=== PATIENT | female | born 1975 | race American Indian/Alaskan Native ===

== ENCOUNTER 2016-05-11 09:54 | Inpatient (IN) | payer OTHER ==
--- NOTE | 2016-05-11 10:02 | Emergency Department Report ---
HPI - General Time Seen by Provider: 05/11/16 09:56 - HPI HPI: Room 19 The patient is a 40-year-old female presenting with a chief complaint of seizures. Per EMS they were called for active seizures. Patient was actively seizing for approximately 25 minutes, stopped seizing en route to the hospital after administration of 2 mg of Ativan at 2.5 mg of Versed. The patient has a nasal trumpet and is currently postictal Location: Central nervous system Duration: 25 minutes Quality: Generalized tonic-clonic Severity: Severe Modifying factors: see above Context: see above Mode of transportation: not driving ED Past Medical Hx - Past Medical History Hx Hypertension: Yes Hx Seizures: Yes (Last seizure 2013) Additional medical history: Cerebral aneurysm status post repair 2011 - Surgical History Additional Surgical History: UMBRELLA TIPPER MACHINE shunt to left side. Cerebral aneurysm status post repair 2011 - Family History Family history: no significant - Social History Smoking Status: Never Smoker Substance Use Type: None - Medications Home Medications: Home Medications Medication Instructions Recorded Confirmed Last Taken Type Lisinopril/Hydrochlorothiazide 1 tab PO QDAY 01/23/16 01/23/16 Unknown History [Zestoretic 10-12.5 mg] Metoprolol Tartrate [Lopressor] 25 mg PO BID 01/23/16 01/23/16 Unknown History Mirtazapine 15 mg PO QHS 01/23/16 01/23/16 Unknown History Phenytoin [Dilantin] 100 mg PO BID 01/23/16 01/23/16 Unknown History ED Review of Systems ROS: Stated complaint: CONVULSIONS Other details as noted in HPI Comment: Unobtainable due to pts medical conditions Physical Exam - Physical Exam Physical Exam: GENERAL: The patient is well-developed well-nourished female lying on stretcher with nasal trumpet in place postictal. [] HEENT: Normocephalic. Atraumatic. Nasal trumpet in place. Patient has moist mucous membranes. NECK: Supple. Trachea midline CHEST/LUNGS: Clear to auscultation. There is no respiratory distress noted. HEART/CARDIOVASCULAR: Regular. There is tachycardia. There is no gallop rub or murmur. ABDOMEN: Abdomen is soft, nontender. Patient has normal bowel sounds. There is no abdominal distention. SKIN: There is no rash. There is no edema. There is no diaphoresis. NEURO: The patient is postictal MUSCULOSKELETAL: There is no evidence of acute injury. ED Course - Reevaluation(s) Reevaluation #1: 05/11/16 10:34 Patient began having seizure activity with a rightward gaze without return to baseline mental status prior to event. Patient was subsequently intubated for airway protection given status epilepticus ED Medical Decision Making - Lab Data Result diagrams: 05/11/16 10:49 05/11/16 10:49 Laboratory Tests 05/11/16 05/11/16 05/11/16 10:49 10:49 10:49 WBC 11.3 H RBC 4.40 Hgb 11.5 Hct 35.6 MCV 81 MCH 26 L MCHC 32 RDW 16.6 H Plt Count 420 Lymph % (Auto) 35.1 H [place] % (Auto) 8.3 H Eos % (Auto) 2.3 Baso % (Auto) 0.5 Lymph # 4.0 [place] # 0.9 H Eos # 0.3 Baso # 0.1 Seg Neutrophils % 53.8 Seg Neutrophils # 6.1 POC ABG pH POC ABG pCO2 POC ABG pO2 POC ABG HCO3 POC ABG Total CO2 POC ABG O2 Sat POC ABG Base Excess FiO2 Sodium 138 Potassium 3.9 Chloride 100.6 Carbon Dioxide 20 L Anion Gap 21 BUN 10 Creatinine 0.8 Estimated GFR > 60 BUN/Creatinine Ratio 12.50 Glucose 147 H Calcium 8.2 L Magnesium 2.1 Total Creatine Kinase Phenytoin 18.1 05/11/16 05/11/16 10:49 11:43 WBC RBC Hgb Hct MCV MCH MCHC RDW Plt Count Lymph % (Auto) [place] % (Auto) Eos % (Auto) Baso % (Auto) Lymph # [place] # Eos # Baso # Seg Neutrophils % Seg Neutrophils # POC ABG pH 7.374 POC ABG pCO2 50.5 H POC ABG pO2 415 H POC ABG HCO3 29.4 POC ABG Total CO2 31 POC ABG O2 Sat 100 POC ABG Base Excess 4 FiO2 100 Sodium Potassium Chloride Carbon Dioxide Anion Gap BUN Creatinine Estimated GFR BUN/Creatinine Ratio Glucose Calcium Magnesium Total Creatine Kinase 108 Phenytoin - Radiology Data Radiology results: report reviewed (CT head), image reviewed (chest x-ray, CT head) interpreted by me: Chest x-ray-ET tube in place. No pneumothorax, no focal infiltrates CT head (read by radiologist)-no acute change since 08/04/2012. Large areas of encephalomalacia throughout the left MCA distribution with evidence of surgical change. Ventricular size is stable. - Differential Diagnosis seizure Critical care attestation.: If time is entered above; I have spent that time in minutes in the direct care of this critically ill patient, excluding procedure time. ED Disposition Clinical Impression: Status epilepticus Disposition: OP ADMITTED IP TO THIS HOSP Is pt being admited?: Yes Does the pt Need Aspirin: No Condition: Serious Referrals: PRIMARY CARE, [Primary Care Provider] - 3-5 Days Time of Disposition: 12:32 (hospitalist paged) Blank Doc - Documentation Documentation: The patient was intubated via orotracheal route using a 7.0 mm endotracheal tube. Rapid sequence induction was used utilizing lidocaine 100 mg IV, succinylcholine 100 mg IV and etomidate 20 mg IV. Positioning was confirmed using auscultation and CO2 detector. Post intubation chest xray was ordered.
[2016-05-11] MEDS ORDERED: NACL 0.9% 1000 ML 1,000 ML IV ONE (10:03)
[2016-05-11] MEDS ORDERED: AMIDATE IV ONE (10:10)
[2016-05-11] MEDS ORDERED: VERSED IV ONE (10:10)
[2016-05-11] MEDS ORDERED: QUELICIN ONE (10:10)
[2016-05-11] MEDS ORDERED: XYLOCAINE CARDIAC IV ONE (10:10)
[2016-05-11] MEDS ORDERED: VERSED/NS 100MG/100ML 100 ML IV ONE (10:40)
[2016-05-11] MEDS: VERSED/NS 100MG/100ML 100 ML IV SCH ×2 (10:40→21:07)
--- NOTE | 2016-05-11 11:00 | XRay Report ---
PORTABLE CHEST INDICATION: Status post intubation. COMPARISON: 02/02/2016. FINDINGS: Portable, frontal chest radiograph, 10:47 AM, 05/11/2016 demonstrates a new endotracheal tube with its tip at or just above the newton. Stable PLASTIC SEWER shunt coursing over the left hemithorax medially. Limited inspiration with exaggerated cardiomediastinal silhouette and somewhat crowded lung markings centrally. Mild opacity about the left lateral costophrenic angle also not excluded versus projectional. Otherwise clear lungs. EKG leads. IVC filter. New mild gaseous gastric distention. Mild spinal dextrocurvature, possibly positional versus scoliosis. CONCLUSION: 1. Interval intubation with somewhat low lying endotracheal tube tip, as described that may be retracted by approximately 2 cm for more optimal placement, if so appropriate. 2. Other incidental findings, as above. Thank you for the opportunity to participate in this patient's care.
[2016-05-11 11:06] LABS: Basophils % (Auto) 0.5 % (0.0-1.8); Eosinophils % (Auto) 2.3 % (0.0-4.3); Hematocrit 35.6 % (30.3-42.9); Hemoglobin 11.5 gm/dl (10.1-14.3); Mean Corpuscular HGB Conc 32 % (30-34); Mean Corpuscular Hemoglobin 26 pg (28-32); Mean Corpuscular Volume 81 fl (79-97); Platelet Count 420 K/mm3 (140-440); Red Cell Distribution Width 16.6 % (13.2-15.2); White Blood Count 11.3 K/mm3 (4.5-11.0)
[2016-05-11 11:25] LABS: Blood Urea Nitrogen 10 mg/dL (7-17); Calcium 8.2 mg/dL (8.4-10.2); Carbon Dioxide 20 mmol/L (22-30); Chloride 100.6 mmol/L (98-107); Glucose 147 mg/dL (65-100); Magnesium 2.1 mg/dL (1.7-2.3); Potassium 3.9 mmol/L (3.6-5.0); Sodium 138 mmol/L (137-145)
[2016-05-11 11:28] LABS: Anion Gap 21 mmol/L
[2016-05-11] MEDS ORDERED: VASELINE LIP THERAPY TP PRN (11:29)
[2016-05-11] MEDS ORDERED: ARTIFICIAL TEARS OPHTH OINT OU PRN (11:29)
[2016-05-11] MEDS ORDERED: CALCIUM GLUCONATE 1,000 MG in NACL 0.9% 100 ML IV ONE (11:31)
[2016-05-11 11:48] LABS: ISTAT Base Excess 4; ISTAT HCO3 29.4; ISTAT PCO2 50.5 (35-45); ISTAT PH 7.374 (7.35-7.45); ISTAT PO2 415 (80-105); ISTAT SO2 100; ISTAT TCO2 31
--- NOTE | 2016-05-11 12:17 | Cat Scan Report ---
CT HEAD WITHOUT CONTRAST: HISTORY: Status epilepticus. Compared to 08/04/12. Left frontotemporal craniotomy changes are again noted. Large areas of encephalomalacia throughout the left MCA distribution is again noted. There is compensatory enlargement of the left lateral ventricle. A ventricular shunt is in place. Ventricular size is unchanged. The remaining brain parenchyma has normal attenuation. There is no evidence for hemorrhage, mass or large area of acute ischemia. Mild mucosal thickening is noted in the ethmoid and maxillary sinuses. IMPRESSION: No acute change since 08/04/12. Large areas of encephalomalacia throughout the left MCA distribution with evidence of surgical change. Ventricular size is stable.
--- NOTE | 2016-05-11 12:25 | Admit Criteria Form ---
Admission Criteria Documentation: SEIZURE Clinical Indications for Admission to Inpatient Care (Place 'X' for any and all applicable criteria): Admission is indicated for seizure and ANY ONE of the following(1)(2)(3)(4)(5): [ ]I. Inpatient admission required rather than observation care (Also use Seizure: Observation Care Criteria as appropriate) because of ANY ONE of the following: [ ]a) Altered mental status that is severe or persistent [ ]b) New focal neurologic deficit that is severe or persistent [ ]c) Metabolic disorder (eg, hypoglycemia, hyponatremia) that is severe or persistent [ ]d) Recurrent seizure [ ]e) Outpatient antiseizure regimen cannot be established (eg , patient cannot tolerate medication, initiation requires inpatient care) [ ]f) Need for ongoing intravenous infusion of antiseizure medication [ ]g) Cardiac arrhythmias of immediate concern [ ]h) Cerebral bleeding, hydrocephalus, or vasospasm monitoring (14) [ ]i) Increased intracranial pressure or cerebral edema monitoring (15) [ ]j) Other treatment or monitoring requiring inpatient admission [X ]II. Status epilepticus [A] or repetitive seizures not controlled with emergent treatment (6)(8) [ ]III. Brain disorder (eg, tumor, edema, and hydrocephalus) that requiring monitoring or intervention available only at inpatient level of care. [ ]IV. Brain insult (eg, severe trauma, stroke, drug toxicity, or withdrawal) that requires monitoring or intervention available only at inpatient level of care (10)(11) Extended stay beyond goal length of stay may be needed for (22) [ ]a) Complications of status epilepticus [ ]b) Refractory status epilepticus [ ]c) Etiology-specific therapy for conditions such as NUMERICAL TOOL PROGRAMMER infection, head injury,eclampsia, severe metabolic abnormalities, and brain tumor [ ]d) Residual neurologic damage, [ ]e) Initiation of significant change to anticonvulsant treatment [ ]f) Older patients (65 years or older) [ ]g) Patient requiring intubation (eg, to protect airway) The original [employer] content created by [facility] has been revised. The portions of the content which have been revised are identified through the use of italic text or in bold, and [facility] has neither reviewed nor approved the modified material. All other unmodified content is copyright [facility]. Please see references footnoted in the original [facility] edition 2016 Admission Criteria Met: Yes
[2016-05-11] MEDS ORDERED: MILK OF MAGNESIA PO PRN (13:20)
[2016-05-11] MEDS ORDERED: DULCOLAX PR PRN (13:20)
[2016-05-11] MEDS ORDERED: ALUM-MAG HYDROX-SIMETH 200-200-20MG/5ML PO PRN (13:20)
--- NOTE | 2016-05-11 13:31 | History and Physical Report ---
History of Present Illness Chief complaint: Seizure History of present illness: Developmental history: The patient was brought in for convulsive seizures. Apparently a positive report the seizures lasted about 25 minutes and only Procardia she received Ativan by EMS. Upon arrival to the hospital on patient was subsequently intubated. Unable to obtain any further history patient is intubated Past History Past Medical History: other (hypertension, seizure disorder, 31) aneurysm status post repair) Past Surgical History: Other (repair of cerebral aneurysm in 2011 and TIE BUCKER shunt placement to the left side) Social history: no significant social history Family history: no significant family history Medications and Allergies Allergies Allergy/AdvReac Type Severity Reaction Status Date / Time No Known Allergies Allergy Unverified 01/23/16 16:56 Home Medications Medication Instructions Recorded Confirmed Last Taken Type Lisinopril/Hydrochlorothiazide 1 tab PO QDAY 01/23/16 05/11/16 Unknown History [Zestoretic 10-12.5 mg] Metoprolol Tartrate [Lopressor] 25 mg PO BID 01/23/16 05/11/16 Unknown History Mirtazapine 15 mg PO QHS 01/23/16 05/11/16 Unknown History Phenytoin [Dilantin] 100 mg PO BID 01/23/16 05/11/16 Unknown History Active Meds: Active Medications Hydrophilic Ointment (Vaseline Lip Therapy) 1 applic TP Q2HR PRN PRN Reason: Dry Lips Midazolam HCl (Versed/Ns 100mg/100ml) 100 mls @ 1 mls/hr IV TITR SITA; 1 MG/HR PRN Reason: Protocol Last Titration: 05/11/16 13:05 Dose: 5 mg/hr Multi-Ingred Cream/Lotion/Oil/Oint (Artificial Tears Ophth Oint) 1 applic OU Q4HR PRN PRN Reason: Dry Eye(s) Review of Systems ROS unobtainable: due to endotracheal tube Exam - Physical Exam Narrative exam: General: Intubated sedated HEENT: MMM, EOMI, there is a negative on the nose cardiac: S1-S2 heard lungs: clear to auscultation, abdomen: soft, nontender, nondistended bowel sounds positive extremities: no edema clubbing or cyanosis Skin: no rash or lesion Neuro: Intubated, sedated - Constitutional Vitals: Temp Pulse Resp BP Pulse Ox 108 H 22 144/94 98 05/11/16 13:00 05/11/16 13:00 05/11/16 13:00 05/11/16 13:00 Results - Labs CBC & Chem 7: 05/11/16 10:49 05/11/16 10:49 Labs: Laboratory Last Values WBC 11.3 K/mm3 (4.5-11.0) H 05/11/16 10:49 RBC 4.40 M/mm3 (3.65-5.03) 05/11/16 10:49 Hgb 11.5 gm/dl (10.1-14.3) 05/11/16 10:49 Hct 35.6 % (30.3-42.9) 05/11/16 10:49 MCV 81 fl (79-97) 05/11/16 10:49 MCH 26 pg (28-32) L 05/11/16 10:49 MCHC 32 % (30-34) 05/11/16 10:49 RDW 16.6 % (13.2-15.2) H 05/11/16 10:49 Plt Count 420 K/mm3 (140-440) 05/11/16 10:49 Lymph % (Auto) 35.1 % (13.4-35.0) H 05/11/16 10:49 [place] % (Auto) 8.3 % (0.0-7.3) H 05/11/16 10:49 Eos % (Auto) 2.3 % (0.0-4.3) 05/11/16 10:49 Baso % (Auto) 0.5 % (0.0-1.8) 05/11/16 10:49 Lymph # 4.0 K/mm3 (1.2-5.4) 05/11/16 10:49 [place] # 0.9 K/mm3 (0.0-0.8) H 05/11/16 10:49 Eos # 0.3 K/mm3 (0.0-0.4) 05/11/16 10:49 Baso # 0.1 K/mm3 (0.0-0.1) 05/11/16 10:49 Seg Neutrophils % 53.8 % (40.0-70.0) 05/11/16 10:49 Seg Neutrophils # 6.1 K/mm3 (1.8-7.7) 05/11/16 10:49 POC ABG pH 7.374 (7.35-7.45) 05/11/16 11:43 POC ABG pCO2 50.5 (35-45) H 05/11/16 11:43 POC ABG pO2 415 (80-105) H 05/11/16 11:43 POC ABG HCO3 29.4 05/11/16 11:43 POC ABG Total CO2 31 05/11/16 11:43 POC ABG O2 Sat 100 05/11/16 11:43 POC ABG Base Excess 4 05/11/16 11:43 FiO2 100 % 05/11/16 11:43 Sodium 138 mmol/L (137-145) 05/11/16 10:49 Potassium 3.9 mmol/L (3.6-5.0) 05/11/16 10:49 Chloride 100.6 mmol/L (98-107) 05/11/16 10:49 Carbon Dioxide 20 mmol/L (22-30) L 05/11/16 10:49 Anion Gap 21 mmol/L 05/11/16 10:49 BUN 10 mg/dL (7-17) 05/11/16 10:49 Creatinine 0.8 mg/dL (0.7-1.2) 05/11/16 10:49 Estimated GFR > 60 ml/min 05/11/16 10:49 BUN/Creatinine Ratio 12.50 % 05/11/16 10:49 Glucose 147 mg/dL (65-100) H 05/11/16 10:49 Calcium 8.2 mg/dL (8.4-10.2) L 05/11/16 10:49 Magnesium 2.1 mg/dL (1.7-2.3) 05/11/16 10:49 Total Creatine Kinase 108 units/L (30-135) 05/11/16 10:49 Phenytoin 18.1 mg/L (10.0-20.0) 05/11/16 10:49 - Imaging and Cardiology Chest x-ray: image reviewed (no infiltrates) CT Scan - head: image reviewed (no interval changes, postsurgical changes seen on previous exam) Assessment and Plan Assessment and plan: 1. Status epilepticus Patient has been intubated, sedated, we'll switch her insulin to IV, however her phenytoin levels actually therapeutic patient did have a seizure, neurology consult, MRI brain and EEG 2. Hypertension Currently acceptable control, will watch blood pressure treatment as needed Critical care time spent: 35 minutes Plan of care discussed with patient/family: Yes
--- NOTE | 2016-05-11 13:58 | XRay Report ---
AP CHEST: HISTORY: Endotracheal tube placement The endotracheal tube terminates 1.7 cm superior to the newton. AP view of the chest demonstrates a normal mediastinal and cardiac contour with clear lungs and normal bony and soft tissue structures. IMPRESSION: Endotracheal tube as described. No acute process is noted.
[2016-05-11] MEDS ORDERED: DILANTIN IV SCH (14:00)
[2016-05-11] MEDS ORDERED: NACL 0.9% 1000 ML 1,000 ML IV SCH (14:00)
[2016-05-11] MEDS: DILANTIN IV SCH (15:30)
[2016-05-11] MEDS: NACL 0.9% IV SCH (15:30)
[2016-05-11] MEDS: fentaNYL DRIP Premix 100 ML IV SCH (21:08)
[2016-05-12] MEDS: NACL 0.9% IV SCH ×2 (02:25→14:56)
[2016-05-12] MEDS: DILANTIN IV SCH ×2 (02:25→14:56)
[2016-05-12] MEDS: fentaNYL DRIP Premix 100 ML IV SCH ×2 (03:26→08:45)
[2016-05-12 05:46] LABS: ISTAT Base Excess -2; ISTAT HCO3 21.3; ISTAT PCO2 27.6 (35-45); ISTAT PH 7.496 (7.35-7.45); ISTAT PO2 75 (80-105); ISTAT SO2 96; ISTAT TCO2 22
[2016-05-12 05:50] LABS: BUN/Creatinine Ratio 15.71; Blood Urea Nitrogen 11 mg/dL (7-17); Calcium 7.9 mg/dL (8.4-10.2); Carbon Dioxide 22 mmol/L (22-30); Glucose 94 mg/dL (65-100)
[2016-05-12 05:53] LABS: Basophils % (Auto) 0.4 % (0.0-1.8); Eosinophils % (Auto) 1.4 % (0.0-4.3); Hematocrit 29.3 % (30.3-42.9); Hemoglobin 9.7 gm/dl (10.1-14.3); Mean Corpuscular HGB Conc 33 % (30-34); Mean Corpuscular Hemoglobin 27 pg (28-32); Mean Corpuscular Volume 81 fl (79-97); Platelet Count 298 K/mm3 (140-440); Red Cell Distribution Width 16.8 % (13.2-15.2); White Blood Count 9.7 K/mm3 (4.5-11.0)
[2016-05-12 07:18] LABS: Anion Gap 17 mmol/L; Chloride 105.1 mmol/L (98-107); Potassium 3.3 mmol/L (3.6-5.0); Sodium 141 mmol/L (137-145)
[2016-05-12] MEDS: KCL 10MEQ/100ML 100 ML IV SCH ×4 (08:41→12:16)
--- NOTE | 2016-05-12 09:24 | Progress Note ---
Assessment and Plan Assessment and plan: 1. Status epilepticus. Continue seizure precautions. Patient admitted with therapeutic phenytoin levels. Consider adding Keppra IV. Neurology consultation pending. Follow-up EEG. 2. Acute hypoxic respiratory failure. Etiology secondary to #1. Continue ventilator per pulmonary. Wean as tolerated. CPAP trials today. Possible extubation later today. 3. Hypertension. Continue antihypertensive medications. 4. Intractable vomiting. Check KUB. Zofran 4 mg IV every [address] NG tube to low intermittent suction. 5. History of cerebral aneurysm and RN PATIENT CARE shunt. Continue supportive care. 6. DVT prophylaxis. Lovenox daily. The high probability of a clinically significant, sudden or life threatening deterioration of the [neurological and respiratory] system(s) required my full and direct attention, intervention and personal management. The aggregate critical care time was [31] minutes. This time is in addition to time spent performing reported procedures but includes the following: [x] Data Review and interpretation [x] Patient assessment and monitoring of vital signs [x] Documentation [x] Medication orders and management History Interval history: 40-year-old female who was admitted with status epilepticus and acute respiratory failure requiring intubation. Patient remains intubated on mechanical ventilation. No new seizure activity overnight. Hospitalist Physical - Constitutional Vitals: Temp Pulse Resp BP Pulse Ox 98.5 F 102 H 13 128/89 96 05/12/16 08:57 05/12/16 08:30 05/12/16 08:30 05/12/16 08:30 05/12/16 08:30 General appearance: Present: no acute distress, well-nourished - EENT Eyes: Present: PERRL, EOM intact ENT: hearing intact, clear oral mucosa, dentition normal - Neck Neck: Present: supple, normal ROM - Respiratory Respiratory effort: normal Respiratory: bilateral: diminished, rhonchi - Cardiovascular Rhythm: regular Heart Sounds: Present: S1 & S2. Absent: gallop, rub - Extremities Extremities: no ischemia, No edema, Full ROM - Abdominal General gastrointestinal: soft, non-tender, non-distended, normal bowel sounds - Integumentary Integumentary: Present: clear, warm, dry - Neurologic Neurologic: CNII-XII intact, moves all extremities Results - Labs CBC & Chem 7: 05/12/16 04:37 05/12/16 04:37 Labs: Laboratory Last Values WBC 9.7 K/mm3 (4.5-11.0) 05/12/16 04:37 RBC 3.60 M/mm3 (3.65-5.03) L 05/12/16 04:37 Hgb 9.7 gm/dl (10.1-14.3) L 05/12/16 04:37 Hct 29.3 % (30.3-42.9) L D 05/12/16 04:37 MCV 81 fl (79-97) 05/12/16 04:37 MCH 27 pg (28-32) L 05/12/16 04:37 MCHC 33 % (30-34) 05/12/16 04:37 RDW 16.8 % (13.2-15.2) H 05/12/16 04:37 Plt Count 298 K/mm3 (140-440) 05/12/16 04:37 Lymph % (Auto) 24.6 % (13.4-35.0) 05/12/16 04:37 [place] % (Auto) 11.6 % (0.0-7.3) H 05/12/16 04:37 Eos % (Auto) 1.4 % (0.0-4.3) 05/12/16 04:37 Baso % (Auto) 0.4 % (0.0-1.8) 05/12/16 04:37 Lymph # 2.4 K/mm3 (1.2-5.4) 05/12/16 04:37 [place] # 1.1 K/mm3 (0.0-0.8) H 05/12/16 04:37 Eos # 0.1 K/mm3 (0.0-0.4) 05/12/16 04:37 Baso # 0.0 K/mm3 (0.0-0.1) 05/12/16 04:37 Seg Neutrophils % 62.0 % (40.0-70.0) 05/12/16 04:37 Seg Neutrophils # 6.0 K/mm3 (1.8-7.7) 05/12/16 04:37 POC ABG pH 7.496 (7.35-7.45) H 05/12/16 05:39 POC ABG pCO2 27.6 (35-45) L 05/12/16 05:39 POC ABG pO2 75 (80-105) L 05/12/16 05:39 POC ABG HCO3 21.3 05/12/16 05:39 POC ABG Total CO2 22 05/12/16 05:39 POC ABG O2 Sat 96 05/12/16 05:39 POC ABG Base Excess -2 05/12/16 05:39 FiO2 30 % 05/12/16 05:39 Sodium 141 mmol/L (137-145) 05/12/16 04:37 Potassium 3.3 mmol/L (3.6-5.0) L 05/12/16 04:37 Chloride 105.1 mmol/L (98-107) 05/12/16 04:37 Carbon Dioxide 22 mmol/L (22-30) 05/12/16 04:37 Anion Gap 17 mmol/L 05/12/16 04:37 BUN 11 mg/dL (7-17) 05/12/16 04:37 Creatinine 0.7 mg/dL (0.7-1.2) 05/12/16 04:37 Estimated GFR > 60 ml/min 05/12/16 04:37 BUN/Creatinine Ratio 15.71 % 05/12/16 04:37 Glucose 94 mg/dL (65-100) 05/12/16 04:37 Calcium 7.9 mg/dL (8.4-10.2) L 05/12/16 04:37 Magnesium 2.1 mg/dL (1.7-2.3) 05/11/16 10:49 Total Creatine Kinase 108 units/L (30-135) 05/11/16 10:49 Phenytoin 18.1 mg/L (10.0-20.0) 05/11/16 10:49
[2016-05-12] MEDS ORDERED: ZOFRAN IV PRN (09:26)
[2016-05-12 10:06] LABS: ISTAT Base Excess -1; ISTAT HCO3 24.4; ISTAT PCO2 41.9 (35-45); ISTAT PH 7.372 (7.35-7.45); ISTAT PO2 73 (80-105); ISTAT SO2 94; ISTAT TCO2 26
[2016-05-12] MEDS: PEPCID IV SCH ×2 (10:15→22:00)
--- NOTE | 2016-05-12 11:32 | Consultation ---
History of Present Illness Consult date: 05/12/16 Requesting physician: DIRK JENKINS Reason for consult: other (Acute Respiratory Failure; Seizures) History of present illness: PULMONARY/CCM CONSULT NOTE ([facility] dictation # [id number]) Please see dictated notes for full details Past History Past Medical History: other (hypertension, seizure disorder, 31) aneurysm status post repair) Past Surgical History: Other (repair of cerebral aneurysm in 2011 and CHIEF MEDICAL TECHNOLOGIST shunt placement to the left side) Social history: no significant social history Family history: no significant family history Medications and Allergies Allergies Allergy/AdvReac Type Severity Reaction Status Date / Time No Known Allergies Allergy Unverified 01/23/16 16:56 Home Medications Medication Instructions Recorded Confirmed Last Taken Type Lisinopril/Hydrochlorothiazide 1 tab PO QDAY 01/23/16 05/11/16 Unknown History [Zestoretic 10-12.5 mg] Metoprolol Tartrate [Lopressor] 25 mg PO BID 01/23/16 05/11/16 Unknown History Mirtazapine 15 mg PO QHS 01/23/16 05/11/16 Unknown History Phenytoin [Dilantin] 100 mg PO BID 01/23/16 05/11/16 Unknown History Active Meds: Active Medications Al Hydrox/Mg Hydrox/Simethicone (Alum-Mag Hydrox-Simeth [id number]/5ml) 30 ml PO Q4H PRN PRN Reason: Indigestion Bisacodyl (Dulcolax) 10 mg NV QDAY PRN PRN Reason: constipation unrelieved by MOM Famotidine (Pepcid) 20 mg IV BID SITA Last Admin: 05/12/16 10:15 Dose: 20 mg Hydrophilic Ointment (Vaseline Lip Therapy) 1 applic TP Q2HR PRN PRN Reason: Dry Lips Midazolam HCl (Versed/Ns 100mg/100ml) 100 mls @ 1 mls/hr IV TITR SITA; 1 MG/HR PRN Reason: Protocol Last Titration: 05/12/16 08:46 Dose: 4 mg/hr Fentanyl Citrate (Fentanyl Drip Premix) 100 mls @ 4.309 mls/hr IV TITR SITA; 1 MCG/KG/HR PRN Reason: Protocol Last Admin: 05/12/16 08:45 Dose: 17.237 mls/hr Sodium Chloride (Nacl 0.9% 1000 Ml) 1,000 mls @ 100 mls/hr IV DIRECT SITA Phenytoin 100 mg/ Sodium (Chloride) 52 mls @ 500 mls/hr IV Q12H SITA Last Admin: 05/12/16 02:25 Dose: 500 mls/hr Potassium Chloride (Kcl 10meq/100ml) 100 mls @ 100 mls/hr IV Q1H SITA Stop: 05/12/16 12:59 Last Admin: 05/12/16 10:16 Dose: 100 mls/hr Influenza Virus Vaccine Quadrival (Fluarix Quad [id number](36 Mos+)) 60 mcg IM .ONCE ONE Stop: 05/12/16 12:01 Magnesium Hydroxide (Milk Of Magnesia) 30 ml PO Q4H PRN PRN Reason: Constipation Multi-Ingred Cream/Lotion/Oil/Oint (Artificial Tears Ophth Oint) 1 applic OU Q4HR PRN PRN Reason: Dry Eye(s) Ondansetron HCl (Zofran) 4 mg IV Q4H PRN PRN Reason: Nausea And Vomiting Last Admin: 05/12/16 10:00 Dose: 4 mg Physical Examination Vital signs: Vital Signs Pulse Ox 96 05/11/16 09:56 Results - Laboratory Findings CBC and BMP: 05/12/16 04:37 05/12/16 04:37 ABG POC ABG pH 7.372 (7.35-7.45) 05/12/16 10:01 POC ABG pCO2 41.9 (35-45) 05/12/16 10:01 POC ABG pO2 73 (80-105) L 05/12/16 10:01 POC ABG HCO3 24.4 05/12/16 10:01 POC ABG Total CO2 26 05/12/16 10:01 POC ABG O2 Sat 94 05/12/16 10:01 Abnormal lab findings: Abnormal Labs 05/12/16 05/12/16 05/12/16 04:37 04:37 05:39 RBC 3.60 L Hgb 9.7 L Hct 29.3 L D MCH 27 L RDW 16.8 H [place] % (Auto) 11.6 H [place] # 1.1 H POC ABG pH 7.496 H POC ABG pCO2 27.6 L POC ABG pO2 75 L Potassium 3.3 L Calcium 7.9 L 05/12/16 10:01 RBC Hgb Hct MCH RDW [place] % (Auto) [place] # POC ABG pH POC ABG pCO2 POC ABG pO2 73 L Potassium Calcium
--- NOTE | 2016-05-12 11:33 | XRay Report ---
ABDOMEN RADIOGRAPH: INDICATION: Vomiting. COMPARISON: None similar. FINDINGS: Frontal abdominal radiograph demonstrates overall nonobstructive bowel gas pattern. Mild to moderate colonic stool/possible constipation. No focal suspicious calcifications or pneumatosis. Lung bases though incompletely imaged with right hemidiaphragm possibly slightly elevated. A AUTOMOTIVE PAINT TECHNICIAN shunt noted in the left hemiabdomen with its tip projecting over the stomach and directed cephalad towards the right shoulder. An IVC filter projects over T12-L2 vertebral bodies. EKG leads. Unremarkable bones. CONCLUSION: No acute abdominal radiographic abnormality with various other findings, as described. Thank you for the opportunity to participate in this patient's care.
[2016-05-12] MEDS ORDERED: FLUARIX QUAD 2016-2017(36 MOS+) IM ONE (12:00)
[2016-05-12] MEDS: LOVENOX SUB-Q SCH (13:10)
--- NOTE | 2016-05-12 13:50 | Consultation ---
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) Social history: no significant social history Family history: no significant family history Medications and Allergies Allergies Allergy/AdvReac Type Severity Reaction Status Date / Time No Known Allergies Allergy Unverified 01/23/16 16:56 Home Medications Medication Instructions Recorded Confirmed Last Taken Type Lisinopril/Hydrochlorothiazide 1 tab PO QDAY 01/23/16 05/11/16 Unknown History [Zestoretic 10-12.5 mg] Metoprolol Tartrate [Lopressor] 25 mg PO BID 01/23/16 05/11/16 Unknown History Mirtazapine 15 mg PO QHS 01/23/16 05/11/16 Unknown History Phenytoin [Dilantin] 100 mg PO BID 01/23/16 05/11/16 Unknown History Active Meds: Active Medications Al Hydrox/Mg Hydrox/Simethicone (Alum-Mag Hydrox-Simeth [phone]/5ml) 30 ml PO Q4H PRN PRN Reason: Indigestion Bisacodyl (Dulcolax) 10 mg [place] QDAY PRN PRN Reason: constipation unrelieved by MOM Enoxaparin Sodium (Lovenox) 40 mg SUB-Q QDAY@1000 SITA Last Admin: 05/12/16 13:10 Dose: 40 mg Famotidine (Pepcid) 20 mg IV BID SITA Last Admin: 05/12/16 10:15 Dose: 20 mg Hydrophilic Ointment (Vaseline Lip Therapy) 1 applic TP Q2HR PRN PRN Reason: Dry Lips Midazolam HCl (Versed/Ns 100mg/100ml) 100 mls @ 1 mls/hr IV TITR SITA; 1 MG/HR PRN Reason: Protocol Last Titration: 05/12/16 08:46 Dose: 4 mg/hr Fentanyl Citrate (Fentanyl Drip Premix) 100 mls @ 4.309 mls/hr IV TITR SITA; 1 MCG/KG/HR PRN Reason: Protocol Last Admin: 05/12/16 08:45 Dose: 17.237 mls/hr Sodium Chloride (Nacl 0.9% 1000 Ml) 1,000 mls @ 100 mls/hr IV DIRECT SITA Phenytoin 100 mg/ Sodium (Chloride) 52 mls @ 500 mls/hr IV Q12H SITA Last Admin: 05/12/16 02:25 Dose: 500 mls/hr Magnesium Hydroxide (Milk Of Magnesia) 30 ml PO Q4H PRN PRN Reason: Constipation Multi-Ingred Cream/Lotion/Oil/Oint (Artificial Tears Ophth Oint) 1 applic OU Q4HR PRN PRN Reason: Dry Eye(s) Ondansetron HCl (Zofran) 4 mg IV Q4H PRN PRN Reason: Nausea And Vomiting Last Admin: 05/12/16 10:00 Dose: 4 mg Exam - Constitutional Vitals: Temp Pulse Resp BP Pulse Ox 98.7 F 100 H 15 136/80 100 05/12/16 12:00 05/12/16 12:53 05/12/16 11:16 05/12/16 12:53 05/12/16 12:53 Results - Labs CBC & Chem 7: 05/12/16 04:37 05/12/16 04:37 Labs: Abnormal lab results 05/12/16 05/12/16 05/12/16 Range/Units 04:37 04:37 05:39 RBC 3.60 L (3.65-5.03) M/mm3 Hgb 9.7 L (10.1-14.3) gm/dl Hct 29.3 L D (30.3-42.9) % MCH 27 L (28-32) pg RDW 16.8 H (13.2-15.2) % [place] % (Auto) 11.6 H (0.0-7.3) % [place] # 1.1 H (0.0-0.8) K/mm3 POC ABG pH 7.496 H (7.35-7.45) POC ABG pCO2 27.6 L (35-45) POC ABG pO2 75 L (80-105) Potassium 3.3 L (3.6-5.0) mmol/L Calcium 7.9 L (8.4-10.2) mg/dL 05/12/16 Range/Units 10:01 RBC (3.65-5.03) M/mm3 Hgb (10.1-14.3) gm/dl Hct (30.3-42.9) % MCH (28-32) pg RDW (13.2-15.2) % [place] % (Auto) (0.0-7.3) % [place] # (0.0-0.8) K/mm3 POC ABG pH (7.35-7.45) POC ABG pCO2 (35-45) POC ABG pO2 73 L (80-105) Potassium (3.6-5.0) mmol/L Calcium (8.4-10.2) mg/dL
[2016-05-12] MEDS ORDERED: LOVENOX SUB-Q SCH (22:00)
[2016-05-13] MEDS: DILANTIN IV SCH (03:17)
[2016-05-13] MEDS: NACL 0.9% IV SCH (03:17)
[2016-05-13 04:57] LABS: Blood Urea Nitrogen 6 mg/dL (7-17); Calcium 8.2 mg/dL (8.4-10.2); Carbon Dioxide 23 mmol/L (22-30); Chloride 103.9 mmol/L (98-107); Glucose 94 mg/dL (65-100); Potassium 3.9 mmol/L (3.6-5.0); Sodium 141 mmol/L (137-145)
[2016-05-13 05:05] LABS: Anion Gap 18 mmol/L
--- NOTE | 2016-05-13 09:26 | Progress Note ---
Assessment and Plan Assessment and plan: 1. Status epilepticus. Resolved. Continue seizure precautions. Continue phenytoin. Follow-up EEG. Neurology following. 2. Acute hypoxic respiratory failure. Patient extubated and doing well. 3. Hypertension. Continue antihypertensive medications. 4. Intractable vomiting. Resolved. Continue Zofran when necessary. KUB negative. 5. History of cerebral aneurysm and DIALYSIS TECH shunt. Continue supportive care. 6. DVT prophylaxis. Lovenox daily. 7. Disposition. Patient will be transferred to the floor. History Interval history: 40-year-old female who was admitted with status epilepticus and acute respiratory failure requiring intubation. Patient is now extubated and doing well. No new seizure activity. Hospitalist Physical - Constitutional Vitals: Temp Pulse Resp BP Pulse Ox 98.1 F 95 H 9 L 152/95 100 05/13/16 08:00 05/13/16 08:30 05/13/16 08:30 05/13/16 08:30 05/13/16 08:41 General appearance: Present: no acute distress, well-nourished - EENT Eyes: Present: PERRL, EOM intact ENT: hearing intact, clear oral mucosa, dentition normal - Neck Neck: Present: supple, normal ROM - Respiratory Respiratory effort: normal Respiratory: bilateral: CTA - Cardiovascular Rhythm: regular Heart Sounds: Present: S1 & S2. Absent: gallop, rub - Extremities Extremities: no ischemia, No edema, Full ROM - Abdominal General gastrointestinal: soft, non-tender, non-distended, normal bowel sounds - Integumentary Integumentary: Present: clear, warm, dry - Neurologic Neurologic: CNII-XII intact, moves all extremities Results - Labs CBC & Chem 7: 05/12/16 04:37 05/13/16 04:15 Labs: Laboratory Last Values WBC 9.7 K/mm3 (4.5-11.0) 05/12/16 04:37 RBC 3.60 M/mm3 (3.65-5.03) L 05/12/16 04:37 Hgb 9.7 gm/dl (10.1-14.3) L 05/12/16 04:37 Hct 29.3 % (30.3-42.9) L D 05/12/16 04:37 MCV 81 fl (79-97) 05/12/16 04:37 MCH 27 pg (28-32) L 05/12/16 04:37 MCHC 33 % (30-34) 05/12/16 04:37 RDW 16.8 % (13.2-15.2) H 05/12/16 04:37 Plt Count 298 K/mm3 (140-440) 05/12/16 04:37 Lymph % (Auto) 24.6 % (13.4-35.0) 05/12/16 04:37 [place] % (Auto) 11.6 % (0.0-7.3) H 05/12/16 04:37 Eos % (Auto) 1.4 % (0.0-4.3) 05/12/16 04:37 Baso % (Auto) 0.4 % (0.0-1.8) 05/12/16 04:37 Lymph # 2.4 K/mm3 (1.2-5.4) 05/12/16 04:37 [place] # 1.1 K/mm3 (0.0-0.8) H 05/12/16 04:37 Eos # 0.1 K/mm3 (0.0-0.4) 05/12/16 04:37 Baso # 0.0 K/mm3 (0.0-0.1) 05/12/16 04:37 Seg Neutrophils % 62.0 % (40.0-70.0) 05/12/16 04:37 Seg Neutrophils # 6.0 K/mm3 (1.8-7.7) 05/12/16 04:37 POC ABG pH 7.372 (7.35-7.45) 05/12/16 10:01 POC ABG pCO2 41.9 (35-45) 05/12/16 10:01 POC ABG pO2 73 (80-105) L 05/12/16 10:01 POC ABG HCO3 24.4 05/12/16 10:01 POC ABG Total CO2 26 05/12/16 10:01 POC ABG O2 Sat 94 05/12/16 10:01 POC ABG Base Excess -1 05/12/16 10:01 FiO2 35 % 05/12/16 10:01 Sodium 141 mmol/L (137-145) 05/13/16 04:15 Potassium 3.9 mmol/L (3.6-5.0) 05/13/16 04:15 Chloride 103.9 mmol/L (98-107) 05/13/16 04:15 Carbon Dioxide 23 mmol/L (22-30) 05/13/16 04:15 Anion Gap 18 mmol/L 05/13/16 04:15 BUN 6 mg/dL (7-17) L 05/13/16 04:15 Creatinine 0.6 mg/dL (0.7-1.2) L 05/13/16 04:15 Estimated GFR > 60 ml/min 05/13/16 04:15 BUN/Creatinine Ratio 10.00 % 05/13/16 04:15 Glucose 94 mg/dL (65-100) 05/13/16 04:15 Calcium 8.2 mg/dL (8.4-10.2) L 05/13/16 04:15 Magnesium 2.1 mg/dL (1.7-2.3) 05/11/16 10:49 Total Creatine Kinase 108 units/L (30-135) 05/11/16 10:49 Phenytoin 18.1 mg/L (10.0-20.0) 05/11/16 10:49
--- NOTE | 2016-05-13 10:13 | Progress Note ---
Assessment and Plan - Patient Problems (1) Status epilepticus Current Visit: Yes Status: Acute Plan to address problem: - not in status now - continue AED's - neurology to see - MRI ordered (2) Acute hypoxemic respiratory failure Current Visit: Yes Status: Acute Plan to address problem: - continue aspiration / VAP bundles - continue bronchodilators and pulmonary toilet - extubate if still meets criteria after MRI (3) Discharge planning issues Current Visit: Yes Status: Acute Plan to address problem: - hopefully extubates and can transfer to medical floor shortly .....critically ill on life sustaining interventions including MVS at risk for further deterioration ....34' CCT Subjective Date of service: 05/13/16 Principal diagnosis: Acute Hypoxemic Respiratory Failure; Seizure disorder Interval history: Seen and examined at bedside; 24 hour events reviewed; nursing and respiratory care staff consulted; no adverse overnight events reported to me; more alert; denies acute chest pains or increased SOB; tolerating weaning very well amnd no recurrent seizures Objective Vital Signs - 12hr 05/12/16 05/12/16 05/12/16 22:16 22:30 22:46 Temperature Pulse Rate 101 H 92 H 97 H Respiratory 20 20 25 H Rate Blood Pressure 135/99 138/89 138/89 O2 Sat by Pulse 100 100 100 Oximetry 05/12/16 05/12/16 05/12/16 23:00 23:14 23:16 Temperature Pulse Rate 95 H 98 H 92 H Respiratory 21 18 20 Rate Blood Pressure 141/91 141/91 141/91 O2 Sat by Pulse 100 100 100 Oximetry 05/12/16 05/12/16 05/13/16 23:30 23:46 00:00 Temperature 99.0 F Pulse Rate 92 H 93 H 93 H Respiratory 18 14 16 Rate Blood Pressure 136/85 136/85 138/84 O2 Sat by Pulse 100 100 100 Oximetry 05/13/16 05/13/16 05/13/16 00:16 00:30 00:32 Temperature Pulse Rate 92 H 92 H 94 H Respiratory 23 21 25 H Rate Blood Pressure 138/84 128/87 128/87 O2 Sat by Pulse 100 100 100 Oximetry 05/13/16 05/13/16 05/13/16 00:46 01:00 01:16 Temperature Pulse Rate 90 90 91 H Respiratory 18 19 26 H Rate Blood Pressure 128/87 130/89 130/89 O2 Sat by Pulse 100 100 100 Oximetry 05/13/16 05/13/16 05/13/16 01:30 01:46 02:00 Temperature Pulse Rate 89 90 97 H Respiratory 19 21 17 Rate Blood Pressure 132/84 132/84 140/97 O2 Sat by Pulse 100 100 100 Oximetry 05/13/16 05/13/16 05/13/16 02:16 02:30 02:36 Temperature Pulse Rate 110 H 92 H 96 H Respiratory 13 17 13 Rate Blood Pressure 140/97 133/82 133/82 O2 Sat by Pulse 100 100 100 Oximetry 05/13/16 05/13/16 05/13/16 02:46 03:00 03:10 Temperature Pulse Rate 93 H 93 H 95 H Respiratory 15 18 21 Rate Blood Pressure 133/82 137/87 133/82 O2 Sat by Pulse 100 100 100 Oximetry 05/13/16 05/13/16 05/13/16 03:16 03:30 03:46 Temperature Pulse Rate 101 H 98 H 90 Respiratory 18 14 15 Rate Blood Pressure 133/82 135/92 135/92 O2 Sat by Pulse 100 100 100 Oximetry 05/13/16 05/13/16 05/13/16 04:00 04:16 04:30 Temperature 98.4 F Pulse Rate 97 H 96 H 90 Respiratory 14 12 12 Rate Blood Pressure 138/91 138/91 145/92 O2 Sat by Pulse 100 100 100 Oximetry 05/13/16 05/13/16 05/13/16 04:46 05:00 05:06 Temperature Pulse Rate 92 H 86 97 H Respiratory 18 15 16 Rate Blood Pressure 145/92 149/95 149/95 O2 Sat by Pulse 100 100 100 Oximetry 05/13/16 05/13/16 05/13/16 05:16 05:30 05:46 Temperature Pulse Rate 90 90 96 H Respiratory 16 16 13 Rate Blood Pressure 149/95 144/96 144/96 O2 Sat by Pulse 100 100 100 Oximetry 05/13/16 05/13/16 05/13/16 06:00 06:06 06:30 Temperature Pulse Rate 88 86 89 Respiratory 18 18 17 Rate Blood Pressure 134/97 134/97 149/91 O2 Sat by Pulse 100 100 100 Oximetry 05/13/16 05/13/16 05/13/16 07:00 07:30 08:00 Temperature 98.1 F Pulse Rate 94 H 103 H 101 H Respiratory 21 15 10 L Rate Blood Pressure 136/90 152/95 152/95 O2 Sat by Pulse 100 100 100 Oximetry 05/13/16 05/13/16 08:30 08:41 Temperature Pulse Rate 95 H Respiratory 9 L Rate Blood Pressure 152/95 O2 Sat by Pulse 100 100 Oximetry Constitutional: no acute distress Eyes: non-icteric ENT: oropharynx moist Neck: supple Effort: normal Ascultation: Bilateral: clear Cardiovascular: regular rate and rhythm Gastrointestinal: normoactive bowel sounds, soft, non-tender, non-distended Integumentary: normal Extremities: no cyanosis, no edema, pulses normal, no ischemia or petechiae Neurologic: normal mental status, non-focal exam, pupils equal and round, motor strength normal and Psychiatric: mood appropriate, affect normal CBC and BMP: 05/12/16 04:37 05/13/16 04:15 ABG, PT/INR, D-dimer: ABG POC ABG pH 7.372 (7.35-7.45) 05/12/16 10:01 POC ABG pCO2 41.9 (35-45) 05/12/16 10:01 POC ABG pO2 73 (80-105) L 05/12/16 10:01 POC ABG HCO3 24.4 05/12/16 10:01 POC ABG Total CO2 26 05/12/16 10:01 POC ABG O2 Sat 94 05/12/16 10:01 Abnormal lab findings: Abnormal Labs 05/12/16 05/12/16 05/12/16 04:37 04:37 05:39 RBC 3.60 L Hgb 9.7 L Hct 29.3 L D MCH 27 L RDW 16.8 H [place] % (Auto) 11.6 H [place] # 1.1 H POC ABG pH 7.496 H POC ABG pCO2 27.6 L POC ABG pO2 75 L Potassium 3.3 L BUN Creatinine Calcium 7.9 L 05/12/16 05/13/16 10:01 04:15 RBC Hgb Hct MCH RDW [place] % (Auto) [place] # POC ABG pH POC ABG pCO2 POC ABG pO2 73 L Potassium BUN 6 L Creatinine 0.6 L Calcium 8.2 L Chest x-ray: image reviewed
[2016-05-13] MEDS: PEPCID PO SCH ×2 (11:11→22:19)
[2016-05-13] MEDS: DILANTIN PO SCH (11:11)
[2016-05-13] MEDS: LOVENOX SUB-Q SCH (11:12)
--- NOTE | 2016-05-13 13:46 | Progress Note ---
Assessment and Plan - Patient Problems (1) Status epilepticus Current Visit: Yes Status: Acute Plan to address problem: - not in status now - continue AED's - seen by neurology (2) Acute hypoxemic respiratory failure Current Visit: Yes Status: Acute Plan to address problem: - extubated - prn bronchodilators and supplemental oxygen (3) Discharge planning issues Current Visit: Yes Status: Acute Plan to address problem: - transfer to medical floor Subjective Date of service: 05/13/16 Principal diagnosis: Seizures; Acute Resp Failure s/p MVS Interval history: Seen and examined at bedside; 24 hour events reviewed; nursing and respiratory care staff consulted; no adverse overnight events reported to me; extubated and tolerating well; No N/V/F/C; could not get MRI done yesterday re: unable to fill [email or web address] Objective Vital Signs - 12hr 05/13/16 05/13/16 05/13/16 01:46 02:00 02:16 Temperature Pulse Rate 90 97 H 110 H Respiratory 21 17 13 Rate Blood Pressure 132/84 140/97 140/97 O2 Sat by Pulse 100 100 100 Oximetry 05/13/16 05/13/16 05/13/16 02:30 02:36 02:46 Temperature Pulse Rate 92 H 96 H 93 H Respiratory 17 13 15 Rate Blood Pressure 133/82 133/82 133/82 O2 Sat by Pulse 100 100 100 Oximetry 05/13/16 05/13/16 05/13/16 03:00 03:10 03:16 Temperature Pulse Rate 93 H 95 H 101 H Respiratory 18 21 18 Rate Blood Pressure 137/87 133/82 133/82 O2 Sat by Pulse 100 100 100 Oximetry 05/13/16 05/13/16 05/13/16 03:30 03:46 04:00 Temperature 98.4 F Pulse Rate 98 H 90 97 H Respiratory 14 15 14 Rate Blood Pressure 135/92 135/92 138/91 O2 Sat by Pulse 100 100 100 Oximetry 05/13/16 05/13/16 05/13/16 04:16 04:30 04:46 Temperature Pulse Rate 96 H 90 92 H Respiratory 12 12 18 Rate Blood Pressure 138/91 145/92 145/92 O2 Sat by Pulse 100 100 100 Oximetry 05/13/16 05/13/16 05/13/16 05:00 05:06 05:16 Temperature Pulse Rate 86 97 H 90 Respiratory 15 16 16 Rate Blood Pressure 149/95 149/95 149/95 O2 Sat by Pulse 100 100 100 Oximetry 05/13/16 05/13/16 05/13/16 05:30 05:46 06:00 Temperature Pulse Rate 90 96 H 88 Respiratory 16 13 18 Rate Blood Pressure 144/96 144/96 134/97 O2 Sat by Pulse 100 100 100 Oximetry 05/13/16 05/13/16 05/13/16 06:06 06:30 07:00 Temperature Pulse Rate 86 89 94 H Respiratory 18 17 21 Rate Blood Pressure 134/97 149/91 136/90 O2 Sat by Pulse 100 100 100 Oximetry 05/13/16 05/13/16 05/13/16 07:30 08:00 08:30 Temperature 98.1 F Pulse Rate 103 H 101 H 95 H Respiratory 15 10 L 9 L Rate Blood Pressure 152/95 152/95 152/95 O2 Sat by Pulse 100 100 100 Oximetry 05/13/16 05/13/16 08:41 11:47 Temperature 98.8 F Pulse Rate Respiratory Rate Blood Pressure O2 Sat by Pulse 100 Oximetry Constitutional: no acute distress Eyes: non-icteric ENT: oropharynx moist Neck: supple Effort: normal Ascultation: Bilateral: clear, diminished breath sounds (bases) Cardiovascular: regular rate and rhythm Gastrointestinal: normoactive bowel sounds, soft, non-tender, non-distended Integumentary: normal Extremities: no cyanosis, no edema, pulses normal, no ischemia or petechiae Neurologic: normal mental status, non-focal exam, pupils equal and round Psychiatric: mood appropriate, affect normal CBC and BMP: 05/12/16 04:37 05/13/16 04:15 ABG, PT/INR, D-dimer: ABG POC ABG pH 7.372 (7.35-7.45) 05/12/16 10:01 POC ABG pCO2 41.9 (35-45) 05/12/16 10:01 POC ABG pO2 73 (80-105) L 05/12/16 10:01 POC ABG HCO3 24.4 05/12/16 10:01 POC ABG Total CO2 26 05/12/16 10:01 POC ABG O2 Sat 94 05/12/16 10:01 Abnormal lab findings: Abnormal Labs 05/12/16 05/12/16 05/12/16 04:37 04:37 05:39 RBC 3.60 L Hgb 9.7 L Hct 29.3 L D MCH 27 L RDW 16.8 H [place] % (Auto) 11.6 H [place] # 1.1 H POC ABG pH 7.496 H POC ABG pCO2 27.6 L POC ABG pO2 75 L Potassium 3.3 L BUN Creatinine Calcium 7.9 L 05/12/16 05/13/16 10:01 04:15 RBC Hgb Hct MCH RDW [place] % (Auto) [place] # POC ABG pH POC ABG pCO2 POC ABG pO2 73 L Potassium BUN 6 L Creatinine 0.6 L Calcium 8.2 L
--- NOTE | 2016-05-13 14:31 | Consultation ---
CONSULTING PHYSICIAN: Tessy Whatley MD REASON FOR CONSULTATION: Ventilator support, acute respiratory failure. CHIEF COMPLAINT AND HISTORY OF PRESENT ILLNESS: The patient is a 40-year-old -Turk[place] female with past medical history significant for a diagnosis of seizure disorder who according to her taking her medications, emergency medical services were called for active seizures yesterday. She was actively seizing for about 25 minutes. They report she stopped seizing en route the hospital. She was postictal at that time she presented in the Emergency Room; however, she again started having seizures and she was intubated for airway protection. We were asked to assist in management. When I stopped by to see her, she was doing better. She was coherent. She remained on the ventilator. She was tolerating with weaning trials very well at that time. She denied any nausea, vomiting, or overt aspiration. She denied tobacco use or abuse. She stated that she has been intubated before in the past. She stated she had been compliant with her medications. That really is as much of the history of presentation as I have. PAST MEDICAL HISTORY: Again, significant for seizure disorders and history of a cerebral aneurysm, status post repair in 2011. She is obese also, . PAST SURGICAL HISTORY: She had a TRAINING DIRECTOR shunt in the left cerebral hemisphere and again, the cerebral aneurysm report. MEDICATIONS: She was on at the time I stopped by to see her, according to the medication administration record included the following: Lovenox 40 mg subcutaneous daily, p.r.n. Dulcolax, Pepcid 20 mg IV b.i.d. She was on a fentanyl drip at 1 mcg/kg per hour, p.r.n. milk of magnesia, Versed 1 mg per hour, Zofran 4 mg IV q. 4 hours p.r.n. She had received Dilantin and she was on Dilantin 100 mg IV q. 12 hours scheduled. ALLERGIES: No known drug allergies. DIET: Obese lady, acute weight loss or gain history is unknown. FAMILY AND SOCIAL HISTORY: Apparently, lives in the community. She had denied alcohol, tobacco, or illicit drug use or abuse. REVIEW OF SYSTEMS: Unobtainable secondary to the patient's medical and mental condition. Since she has been here, no gross hematochezia or melena. No gross hematuria. No hematemesis. No bloody tracheal secretions. PHYSICAL EXAMINATION: VITAL SIGNS: At initial presentation in the Emergency Room, review of the vital signs shows that she was afebrile, temperature was 98.6 at presentation, pulse was 122, respiratory rate 26, blood pressure 160/108, oxygen sats 96%, inspired oxygen concentration was not recorded. HEENT: Pupils are equal, round, reactive to light. Extraocular muscle movements were intact. Oropharynx, endotracheal tube was in place, taped around 23-24 cm. Grossly, no palpable lymph nodes in the supraclavicular or submandibular lymph node chains. LUNGS: Auscultation of both lung andrew, occasional basilar rhonchi, no wheezing. HEART: Heart sounds 1 and 2 are heard at the time of my evaluation, regular rate and rhythm. ABDOMEN: Soft. Bowel sounds was positive, nontender. EXTREMITIES: Without overt digital clubbing, cyanosis, or pedal edema. NEUROLOGIC: Grossly nonfocal. LABORATORY DATA: From my review are as follows: White cell count at presentation 11,300, hemoglobin 11.5, hematocrit 35.6, platelet count 420. Arterial blood gas showed a pH of 7.37, pCO2 of 51, pO2 of 415 that was on 100% FIO2. Post-intubation ventilator settings at that time were not recorded. Serum sodium 138, potassium 3.9, chloride 101, bicarbonate 20, BUN 10, creatinine 0.8, glucose 147. Dilantin level was 18.1. Radiographic studies have been reviewed. A CT scan of the head was done, it was read by the radiologist as no acute change since 2012 with large areas of encephalomalacia. Chest x-ray was also done, post-intubation chest x-ray, endotracheal tube 1.7 cm superior to the [place], otherwise no acute process. ASSESSMENT AND PLAN: We have a middle-aged lady in with sustained seizures requiring intubation. She seems to have done very well, neurologist wants an MRI done. The plan will be to allow her to go for the MRI under controlled airway and when she comes back, we will plan to extubate her as long she has been missing weaning criteria. Bronchodilators will be on a p.r.n. basis. Aspiration precautions will be maintained. Oxygen therapy will be for O2 sats less than 90%, and we will defer to the neurologist for management of the seizure disorders. Thank you very much for the consult. We will follow along, make further recommendations as picture progresses/becomes clearer. At this point, I have spent about 35-40 minutes of critical care time without overlap and excluding any procedural time that may be necessary. She is critically ill on life-sustaining interventions including mechanical ventilatory support, but showing improvement at this time. JOB# [id number] NEY/PABLO
--- NOTE | 2016-05-14 08:41 | Consultation ---
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 to the left side) Social history: no significant social history Family history: no significant family history Medications and Allergies Allergies Allergy/AdvReac Type Severity Reaction Status Date / Time No Known Allergies Allergy Unverified 01/23/16 16:56 Home Medications Medication Instructions Recorded Confirmed Last Taken Type Lisinopril/Hydrochlorothiazide 1 tab PO QDAY 01/23/16 05/11/16 Unknown History [Zestoretic 10-12.5 mg] Metoprolol Tartrate [Lopressor] 25 mg PO BID 01/23/16 05/11/16 Unknown History Mirtazapine 15 mg PO QHS 01/23/16 05/11/16 Unknown History Phenytoin [Dilantin] 100 mg PO BID 01/23/16 05/11/16 Unknown History Active Meds: Active Medications Al Hydrox/Mg Hydrox/Simethicone (Alum-Mag Hydrox-Simeth [phone]/5ml) 30 ml PO Q4H PRN PRN Reason: Indigestion Bisacodyl (Dulcolax) 10 mg GA QDAY PRN PRN Reason: constipation unrelieved by MOM Enoxaparin Sodium (Lovenox) 40 mg SUB-Q QDAY@1000 SITA Last Admin: 05/13/16 11:12 Dose: 40 mg Famotidine (Pepcid) 20 mg PO BID [facility] Last Admin: 05/13/16 22:19 Dose: 20 mg Hydrophilic Ointment (Vaseline Lip Therapy) 1 applic TP Q2HR PRN PRN Reason: Dry Lips Magnesium Hydroxide (Milk Of Magnesia) 30 ml PO Q4H PRN PRN Reason: Constipation Multi-Ingred Cream/Lotion/Oil/Oint (Artificial Tears Ophth Oint) 1 applic OU Q4HR PRN PRN Reason: Dry Eye(s) Ondansetron HCl (Zofran) 4 mg IV Q4H PRN PRN Reason: Nausea And Vomiting Last Admin: 05/12/16 10:00 Dose: 4 mg Phenytoin (Dilantin) 200 mg PO DAILY [facility] Last Admin: 05/13/16 11:11 Dose: 200 mg Exam - Constitutional Vitals: Temp Pulse Resp BP Pulse Ox 98.2 F 86 18 140/82 100 05/14/16 07:50 05/14/16 07:50 05/14/16 07:50 05/14/16 07:50 05/14/16 00:00 Results - Labs CBC & Chem 7: 05/12/16 04:37 05/13/16 04:15
--- NOTE | 2016-05-14 11:28 | Progress Note ---
Assessment and Plan Assessment and plan: 1. Status epilepticus. Resolved. Continue seizure precautions. Continue phenytoin. Follow-up EEG. Neurology following. 2. Acute hypoxic respiratory failure. Patient extubated and doing well. 3. Hypertension. Continue antihypertensive medications. 4. Intractable vomiting. Resolved. Continue Zofran when necessary. KUB negative. 5. 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 Continue supportive care. 6. DVT prophylaxis. Lovenox daily. Tentative dc in 1-2 days when seizure meds are optimized History Interval history: she has not had any more seizures, she is feeling better, eating well and oriented, but complaining of expressive aphasia Hospitalist Physical - Physical exam Narrative exam: General: appears well, no distress HEENT: MMM, EOMI, there is a negative on the nose cardiac: S1-S2 heard lungs: clear to auscultation, abdomen: soft, nontender, nondistended bowel sounds positive extremities: no edema clubbing or cyanosis Skin: no rash or lesion Neuro: no focal deficit, expressive aphasia noted Psych: appropriate mood, behavior is appropriate - Constitutional Vitals: Temp Pulse Resp BP Pulse Ox 98.2 F 86 18 140/82 100 05/14/16 07:50 05/14/16 07:50 05/14/16 07:50 05/14/16 07:50 05/14/16 00:00 General appearance: Present: no acute distress, well-nourished Results - Labs CBC & Chem 7: 05/12/16 04:37 05/13/16 04:15 Labs: Laboratory Last Values WBC 9.7 K/mm3 (4.5-11.0) 05/12/16 04:37 RBC 3.60 M/mm3 (3.65-5.03) L 05/12/16 04:37 Hgb 9.7 gm/dl (10.1-14.3) L 05/12/16 04:37 Hct 29.3 % (30.3-42.9) L D 05/12/16 04:37 MCV 81 fl (79-97) 05/12/16 04:37 MCH 27 pg (28-32) L 05/12/16 04:37 MCHC 33 % (30-34) 05/12/16 04:37 RDW 16.8 % (13.2-15.2) H 05/12/16 04:37 Plt Count 298 K/mm3 (140-440) 05/12/16 04:37 Lymph % (Auto) 24.6 % (13.4-35.0) 05/12/16 04:37 [place] % (Auto) 11.6 % (0.0-7.3) H 05/12/16 04:37 Eos % (Auto) 1.4 % (0.0-4.3) 05/12/16 04:37 Baso % (Auto) 0.4 % (0.0-1.8) 05/12/16 04:37 Lymph # 2.4 K/mm3 (1.2-5.4) 05/12/16 04:37 [place] # 1.1 K/mm3 (0.0-0.8) H 05/12/16 04:37 Eos # 0.1 K/mm3 (0.0-0.4) 05/12/16 04:37 Baso # 0.0 K/mm3 (0.0-0.1) 05/12/16 04:37 Seg Neutrophils % 62.0 % (40.0-70.0) 05/12/16 04:37 Seg Neutrophils # 6.0 K/mm3 (1.8-7.7) 05/12/16 04:37 POC ABG pH 7.372 (7.35-7.45) 05/12/16 10:01 POC ABG pCO2 41.9 (35-45) 05/12/16 10:01 POC ABG pO2 73 (80-105) L 05/12/16 10:01 POC ABG HCO3 24.4 05/12/16 10:01 POC ABG Total CO2 26 05/12/16 10:01 POC ABG O2 Sat 94 05/12/16 10:01 POC ABG Base Excess -1 05/12/16 10:01 FiO2 35 % 05/12/16 10:01 Sodium 141 mmol/L (137-145) 05/13/16 04:15 Potassium 3.9 mmol/L (3.6-5.0) 05/13/16 04:15 Chloride 103.9 mmol/L (98-107) 05/13/16 04:15 Carbon Dioxide 23 mmol/L (22-30) 05/13/16 04:15 Anion Gap 18 mmol/L 05/13/16 04:15 BUN 6 mg/dL (7-17) L 05/13/16 04:15 Creatinine 0.6 mg/dL (0.7-1.2) L 05/13/16 04:15 Estimated GFR > 60 ml/min 05/13/16 04:15 BUN/Creatinine Ratio 10.00 % 05/13/16 04:15 Glucose 94 mg/dL (65-100) 05/13/16 04:15 Calcium 8.2 mg/dL (8.4-10.2) L 05/13/16 04:15 Magnesium 2.1 mg/dL (1.7-2.3) 05/11/16 10:49 Total Creatine Kinase 108 units/L (30-135) 05/11/16 10:49 Phenytoin 18.1 mg/L (10.0-20.0) 05/11/16 10:49
[2016-05-14] MEDS: PEPCID PO SCH ×2 (14:37→22:00)
[2016-05-14] MEDS: DILANTIN PO SCH (14:37)
[2016-05-14] MEDS: LOVENOX SUB-Q SCH (14:37)
--- NOTE | 2016-05-14 19:54 | Progress Note ---
Assessment and Plan Patient resting on 1 litre O2. O2 satuaration 96%. No acute respiratory distress. - Patient Problems (1) Acute hypoxemic respiratory failure Current Visit: Yes Status: Acute Plan to address problem: Improved. Patient extubated. Presently on nasal canula 1 litre. O2 satuaration 96%. No respiratory distress. Continue Lovenox. (2) Status epilepticus Current Visit: Yes Status: Acute Plan to address problem: Management as per neurology. (3) Seizure Current Visit: Yes Status: Removed Plan to address problem: Management as per neurology. Subjective Date of service: 05/14/16 Principal diagnosis: Seizures; Acute Resp Failure s/p MVS Interval history: Patient resting on 1 litre O2. O2 satuaration 96%. No acute respiratory distress. Objective Vital Signs - 12hr 05/14/16 05/14/16 07:50 10:00 Temperature 98.2 F Pulse Rate [ 86 Right Brachial] Respiratory 18 Rate Blood Pressure 140/82 O2 Sat by Pulse 96 Oximetry Constitutional: no acute distress Eyes: non-icteric ENT: oropharynx moist Neck: supple Effort: normal Ascultation: Bilateral: diminished breath sounds (bases) Cardiovascular: regular rate and rhythm Gastrointestinal: normoactive bowel sounds, soft, non-tender, non-distended Integumentary: normal Extremities: no cyanosis, no edema, pulses normal, no ischemia or petechiae Neurologic: normal mental status, non-focal exam, pupils equal and round Psychiatric: mood appropriate, affect normal CBC and BMP: 05/12/16 04:37 05/13/16 04:15 ABG, PT/INR, D-dimer: ABG POC ABG pH 7.372 (7.35-7.45) 05/12/16 10:01 POC ABG pCO2 41.9 (35-45) 05/12/16 10:01 POC ABG pO2 73 (80-105) L 05/12/16 10:01 POC ABG HCO3 24.4 05/12/16 10:01 POC ABG Total CO2 26 05/12/16 10:01 POC ABG O2 Sat 94 05/12/16 10:01 Abnormal lab findings: Abnormal Labs 05/12/16 05/12/16 05/12/16 04:37 04:37 05:39 RBC 3.60 L Hgb 9.7 L Hct 29.3 L D MCH 27 L RDW 16.8 H [place] % (Auto) 11.6 H [place] # 1.1 H POC ABG pH 7.496 H POC ABG pCO2 27.6 L POC ABG pO2 75 L Potassium 3.3 L BUN Creatinine Calcium 7.9 L 05/12/16 05/13/16 10:01 04:15 RBC Hgb Hct MCH RDW [place] % (Auto) [place] # POC ABG pH POC ABG pCO2 POC ABG pO2 73 L Potassium BUN 6 L Creatinine 0.6 L Calcium 8.2 L Chest x-ray: report reviewed (No acute process.), image reviewed
[2016-05-15] MEDS: DILANTIN PO SCH (09:50)
[2016-05-15] MEDS: LOVENOX SUB-Q SCH (09:50)
[2016-05-15] MEDS: PEPCID PO SCH ×2 (09:51→23:15)
--- NOTE | 2016-05-15 10:52 | Progress Note ---
Assessment and Plan Assessment and plan: 1. Status epilepticus. Resolved. Continue seizure precautions. Continue phenytoin. Follow-up EEG. Neurology following. We'll need her seizure meds to be optimized prior to discharge 2. Acute hypoxic respiratory failure. Patient extubated and doing well. 3. Hypertension. Continue antihypertensive medications. 4. Intractable vomiting. Resolved. Continue Zofran when necessary. KUB was negative. 5. 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 Continue supportive care. 6. DVT prophylaxis. Lovenox daily. Tentative dc in 1-2 days when seizure meds are optimized History Interval history: she has not had any more seizures, she is feeling better, eating well and oriented, but complaining of expressive aphasia Hospitalist Physical - Physical exam Narrative exam: General: appears well, no distress HEENT: MMM, EOMI, there is a negative on the nose cardiac: S1-S2 heard lungs: clear to auscultation, abdomen: soft, nontender, nondistended bowel sounds positive extremities: no edema clubbing or cyanosis Skin: no rash or lesion Neuro: no focal deficit, expressive aphasia noted Psych: appropriate mood, behavior is appropriate - Constitutional Vitals: Temp Pulse Resp BP Pulse Ox 97.9 F 91 H 22 150/95 99 05/15/16 08:30 05/15/16 08:30 05/15/16 08:30 05/15/16 08:30 05/15/16 08:30 General appearance: Present: no acute distress, well-nourished Results - Labs CBC & Chem 7: 05/12/16 04:37 05/13/16 04:15 Labs: Laboratory Last Values WBC 9.7 K/mm3 (4.5-11.0) 05/12/16 04:37 RBC 3.60 M/mm3 (3.65-5.03) L 05/12/16 04:37 Hgb 9.7 gm/dl (10.1-14.3) L 05/12/16 04:37 Hct 29.3 % (30.3-42.9) L D 05/12/16 04:37 MCV 81 fl (79-97) 05/12/16 04:37 MCH 27 pg (28-32) L 05/12/16 04:37 MCHC 33 % (30-34) 05/12/16 04:37 RDW 16.8 % (13.2-15.2) H 05/12/16 04:37 Plt Count 298 K/mm3 (140-440) 05/12/16 04:37 Lymph % (Auto) 24.6 % (13.4-35.0) 05/12/16 04:37 [place] % (Auto) 11.6 % (0.0-7.3) H 05/12/16 04:37 Eos % (Auto) 1.4 % (0.0-4.3) 05/12/16 04:37 Baso % (Auto) 0.4 % (0.0-1.8) 05/12/16 04:37 Lymph # 2.4 K/mm3 (1.2-5.4) 05/12/16 04:37 [place] # 1.1 K/mm3 (0.0-0.8) H 05/12/16 04:37 Eos # 0.1 K/mm3 (0.0-0.4) 05/12/16 04:37 Baso # 0.0 K/mm3 (0.0-0.1) 05/12/16 04:37 Seg Neutrophils % 62.0 % (40.0-70.0) 05/12/16 04:37 Seg Neutrophils # 6.0 K/mm3 (1.8-7.7) 05/12/16 04:37 POC ABG pH 7.372 (7.35-7.45) 05/12/16 10:01 POC ABG pCO2 41.9 (35-45) 05/12/16 10:01 POC ABG pO2 73 (80-105) L 05/12/16 10:01 POC ABG HCO3 24.4 05/12/16 10:01 POC ABG Total CO2 26 05/12/16 10:01 POC ABG O2 Sat 94 05/12/16 10:01 POC ABG Base Excess -1 05/12/16 10:01 FiO2 35 % 05/12/16 10:01 Sodium 141 mmol/L (137-145) 05/13/16 04:15 Potassium 3.9 mmol/L (3.6-5.0) 05/13/16 04:15 Chloride 103.9 mmol/L (98-107) 05/13/16 04:15 Carbon Dioxide 23 mmol/L (22-30) 05/13/16 04:15 Anion Gap 18 mmol/L 05/13/16 04:15 BUN 6 mg/dL (7-17) L 05/13/16 04:15 Creatinine 0.6 mg/dL (0.7-1.2) L 05/13/16 04:15 Estimated GFR > 60 ml/min 05/13/16 04:15 BUN/Creatinine Ratio 10.00 % 05/13/16 04:15 Glucose 94 mg/dL (65-100) 05/13/16 04:15 Calcium 8.2 mg/dL (8.4-10.2) L 05/13/16 04:15 Magnesium 2.1 mg/dL (1.7-2.3) 05/11/16 10:49 Total Creatine Kinase 108 units/L (30-135) 05/11/16 10:49 Phenytoin 18.1 mg/L (10.0-20.0) 05/11/16 10:49
--- NOTE | 2016-05-15 11:10 | Progress Note ---
Assessment and Plan - Patient Problems (1) Status epilepticus Current Visit: Yes Status: Acute Plan to address problem: - not in status now - continue AED's (dilantin) - seen by neurology (2) Acute hypoxemic respiratory failure Current Visit: Yes Status: Acute Plan to address problem: - extubated - prn bronchodilators and supplemental oxygen - home oxygen evaluation (3) Discharge planning issues Current Visit: Yes Status: Acute Plan to address problem: - per attending - back home likely Subjective Date of service: 05/15/16 Principal diagnosis: Seizures; Acute Resp Failure s/p MVS Interval history: Seen and examined at bedside; 24 hour events reviewed; nursing and respiratory care staff consulted; no adverse overnight events reported to me; resting in bed; cognitive deficit more evident now; denies being on home oxygen therapy; no recurrent seizures Objective Vital Signs - 12hr 05/15/16 08:30 Temperature 97.9 F Pulse Rate [ 91 H Left Radial] Respiratory 22 Rate Blood Pressure 150/95 O2 Sat by Pulse 99 Oximetry Constitutional: no acute distress Eyes: non-icteric ENT: oropharynx moist Neck: supple Effort: normal Ascultation: Bilateral: clear, diminished breath sounds (bases) Cardiovascular: regular rate and rhythm Gastrointestinal: normoactive bowel sounds, soft, non-tender, non-distended Integumentary: normal Extremities: no cyanosis, no edema, pulses normal, no ischemia or petechiae Neurologic: normal mental status, non-focal exam (grossly), pupils equal and round Psychiatric: other (mild cognitive impairment) CBC and BMP: 05/15/16 11:52 05/15/16 11:52 ABG, PT/INR, D-dimer: ABG POC ABG pH 7.372 (7.35-7.45) 05/12/16 10:01 POC ABG pCO2 41.9 (35-45) 05/12/16 10:01 POC ABG pO2 73 (80-105) L 05/12/16 10:01 POC ABG HCO3 24.4 05/12/16 10:01 POC ABG Total CO2 26 05/12/16 10:01 POC ABG O2 Sat 94 05/12/16 10:01 Abnormal lab findings: Abnormal Labs 05/12/16 05/12/16 05/12/16 04:37 04:37 05:39 RBC 3.60 L Hgb 9.7 L Hct 29.3 L D MCH 27 L RDW 16.8 H [place] % (Auto) 11.6 H [place] # 1.1 H POC ABG pH 7.496 H POC ABG pCO2 27.6 L POC ABG pO2 75 L Potassium 3.3 L BUN Creatinine Calcium 7.9 L 05/12/16 05/13/16 10:01 04:15 RBC Hgb Hct MCH RDW [place] % (Auto) [place] # POC ABG pH POC ABG pCO2 POC ABG pO2 73 L Potassium BUN 6 L Creatinine 0.6 L Calcium 8.2 L
[2016-05-15 12:06] LABS: Hematocrit 33.8 % (30.3-42.9); Hemoglobin 10.8 gm/dl (10.1-14.3); Mean Corpuscular HGB Conc 32 % (30-34); Mean Corpuscular Hemoglobin 27 pg (28-32); Mean Corpuscular Volume 83 fl (79-97); Platelet Count 393 K/mm3 (140-440); Red Blood Count 4.08 M/mm3 (3.65-5.03); Red Cell Distribution Width 16.7 % (13.2-15.2); White Blood Count 9.7 K/mm3 (4.5-11.0)
[2016-05-15 12:38] LABS: Anion Gap 18 mmol/L; Blood Urea Nitrogen 6 mg/dL (7-17); Calcium 8.4 mg/dL (8.4-10.2); Carbon Dioxide 22 mmol/L (22-30); Chloride 104.1 mmol/L (98-107); Glucose 113 mg/dL (65-100); Potassium 3.5 mmol/L (3.6-5.0); Sodium 141 mmol/L (137-145)
[2016-05-16] MEDS: DILANTIN PO SCH (10:06)
[2016-05-16] MEDS: PEPCID PO SCH ×2 (10:07→23:20)
[2016-05-16] MEDS: LOVENOX SUB-Q SCH (10:07)
--- NOTE | 2016-05-16 12:03 | Discharge Summary ---
Providers - Providers Date of Admission: 05/11/16 13:20 Date of discharge: 05/16/16 Attending physician: EWELINA BENOIT MD 05/16/16 11:59 Occupational Therapy Evaluate and Treat [CONS] Routine Comment: Reason For Exam: debility- discharge planning Physical Therapy Evaluation and Treat [CONS] Routine Comment: Reason For Exam: debility. discharge planning 05/11/16 13:23 Consult to Dietitian/Nutrition [CONS] Routine Physician Instructions: Reason For Exam: Reason for Consult: Evaluate nutritional intake 05/12/16 13:35 Consult to Physician [CONS] Urgent Consulting Provider: NANCY TRUJILLO Reason For Exam: Seziures Place consult to:: office Notified:: office Phone number called:: [phone] Was contact made?: Yes If yes, spoke with:: receptionest Time called:: 09:00 Primary care physician: PHOTOVOLTAIC SOLAR CELL DESIGNER Hospitalization Reason for admission: Seizure Condition: Serious Hospital course: Patient is a pleasant 40-year-old female with a history of aneurysmal repair, limited ability probably due to aneurysm repair. Has lived in a transitional home but admitted with seizures and was intubated and transferred to the ICU. She was safely extubated and sent to the floor. She is currently stable for discharge her discharge was held at this point due to placement issue please see notes from case management below. Her phenytoin wasn't increased at 200 mg twice daily. She has been seizure-free. "Pt admitted to the CCU intubated and on vent support. Pt with seizures at [facility], [place]. CM met with caregiver and orthodontist small business owner (Amira Thomas) of transitional home, she indicated that pt could not return to residence due to amount of care that is needed to care for pt in a safe setting due to seizures. Pt's NOK is her mother (ABDIAS CUNNINGHAM) and she resides in [place]. Pt is unemployed and disabled due to aneurysm in 2011. She is weak on left side and uses a cane to assist with ambulation. Pt's mother pays her room and board in transitional intermediate. CM will refer this case to a [facility] for possible assisted living facilities. Pt will also require a PT/OT evals to see how much pt is capable of doing for herself in regards to ADLs. CM will f/u with assistances. MDR POC for today is possible head MRI, CPAP trials and extubation if possible. " Disposition: DC/TX SNF W [facility] CERT Time spent for discharge: 35 mins Core Measure Documentation - Palliative Care Palliative Care/ Comfort Measures: Not Applicable - Core Measures Any of the following diagnoses?: none - VTE Discharge Requirements Deep Vein Thrombosis/Pulmonary Embolism Present on Admission: No Exam - Constitutional Vitals: Temp Pulse Resp BP Pulse Ox 98.3 F 76 14 133/72 99 05/16/16 07:19 05/16/16 07:19 05/16/16 07:19 05/16/16 07:19 05/16/16 09:14 Plan Activity: advance as tolerated, fall precautions Diet: low fat Special Instructions: record daily BP diary, other (seizure) Follow up with: PRIMARY CARE, [Primary Care Provider] - 3-5 Days Prescriptions: Phenytoin [Dilantin] 200 mg PO BID 30 Days
--- NOTE | 2016-05-16 12:05 | Progress Note ---
Assessment and Plan Assessment and plan: 1. Status epilepticus. Resolved. Continue seizure precautions. Continue phenytoin. Follow-up EEG. Neurology following. O for the seizure patient is currently clinically stable for discharge where with case management to finalize placement status. We'll obtain PT OT evaluation and treatment today. 2. Acute hypoxic respiratory failure. Patient extubated and doing well. 3. Hypertension. Continue antihypertensive medications. 4. Intractable vomiting. Resolved. Continue Zofran when necessary. KUB was negative. 5. 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 Continue supportive care. 6. DVT prophylaxis. Lovenox daily. Disposition-pending placement History Interval history: Patient seen and examined this morning in no acute distress Denies any chest pain, nausea, vomiting, diarrhea No fever noted blood pressure controlled No adverse events reported to me by nursing staff Hospitalist Physical - Physical exam Narrative exam: VITAL SIGNS: Reviewed. GENERAL: The patient appeared well nourished and normally developed. Vital signs as documented. HEAD: Left facial cranial depression from healed surgery.. EYES: Pupils are equal. Extraocular motions intact. EARS: Hearing grossly intact. MOUTH: Oropharynx is normal. NECK: No adenopathy, no JVD. CHEST: Chest with clear breath sounds bilaterally. No wheezes, rales, or rhonchi. CARDIAC: Regular rate and rhythm. S1 and S2, without murmurs, gallops, or rubs. VASCULAR: No Edema. Peripheral pulses normal and equal in all extremities. ABDOMEN: Soft, without detectable tenderness. No sign of distention. No rebound or guarding, and no masses palpated. Bowel Sounds normal. MUSCULOSKELETAL: Good range of motion of all major joints. Extremities without clubbing, cyanosis or edema. NEUROLOGIC EXAM: Alert and oriented x 3. Although her verbal is not as clear this could be secondary to aneurysmal repair. No focal sensory or strength deficits. Follows commands. Gait not assessed this patient was weak on the left side PSYCHIATRIC: Mood normal. SKIN: No rash or lesions. - Constitutional Vitals: Temp Pulse Resp BP Pulse Ox 98.3 F 76 14 133/72 99 05/16/16 07:19 05/16/16 07:19 05/16/16 07:19 05/16/16 07:19 05/16/16 09:14 General appearance: Present: no acute distress, well-nourished Results - Labs CBC & Chem 7: 05/15/16 11:52 05/15/16 11:52 Labs: Laboratory Last Values WBC 9.7 K/mm3 (4.5-11.0) 05/15/16 11:52 RBC 4.08 M/mm3 (3.65-5.03) 05/15/16 11:52 Hgb 10.8 gm/dl (10.1-14.3) 05/15/16 11:52 Hct 33.8 % (30.3-42.9) 05/15/16 11:52 MCV 83 fl (79-97) 05/15/16 11:52 MCH 27 pg (28-32) L 05/15/16 11:52 MCHC 32 % (30-34) 05/15/16 11:52 RDW 16.7 % (13.2-15.2) H 05/15/16 11:52 Plt Count 393 K/mm3 (140-440) 05/15/16 11:52 Lymph % (Auto) 24.6 % (13.4-35.0) 05/12/16 04:37 [place] % (Auto) 11.6 % (0.0-7.3) H 05/12/16 04:37 Eos % (Auto) 1.4 % (0.0-4.3) 05/12/16 04:37 Baso % (Auto) 0.4 % (0.0-1.8) 05/12/16 04:37 Lymph # 2.4 K/mm3 (1.2-5.4) 05/12/16 04:37 [place] # 1.1 K/mm3 (0.0-0.8) H 05/12/16 04:37 Eos # 0.1 K/mm3 (0.0-0.4) 05/12/16 04:37 Baso # 0.0 K/mm3 (0.0-0.1) 05/12/16 04:37 Seg Neutrophils % 62.0 % (40.0-70.0) 05/12/16 04:37 Seg Neutrophils # 6.0 K/mm3 (1.8-7.7) 05/12/16 04:37 POC ABG pH 7.372 (7.35-7.45) 05/12/16 10:01 POC ABG pCO2 41.9 (35-45) 05/12/16 10:01 POC ABG pO2 73 (80-105) L 05/12/16 10:01 POC ABG HCO3 24.4 05/12/16 10:01 POC ABG Total CO2 26 05/12/16 10:01 POC ABG O2 Sat 94 05/12/16 10:01 POC ABG Base Excess -1 05/12/16 10:01 FiO2 35 % 05/12/16 10:01 Sodium 141 mmol/L (137-145) 05/15/16 11:52 Potassium 3.5 mmol/L (3.6-5.0) L 05/15/16 11:52 Chloride 104.1 mmol/L (98-107) 05/15/16 11:52 Carbon Dioxide 22 mmol/L (22-30) 05/15/16 11:52 Anion Gap 18 mmol/L 05/15/16 11:52 BUN 6 mg/dL (7-17) L 05/15/16 11:52 Creatinine 0.6 mg/dL (0.7-1.2) L 05/15/16 11:52 Estimated GFR > 60 ml/min 05/15/16 11:52 BUN/Creatinine Ratio 10.00 % 05/15/16 11:52 Glucose 113 mg/dL (65-100) H 05/15/16 11:52 Calcium 8.4 mg/dL (8.4-10.2) 05/15/16 11:52 Magnesium 2.0 mg/dL (1.7-2.3) 05/15/16 11:52 Total Creatine Kinase 108 units/L (30-135) 05/11/16 10:49 Phenytoin 18.1 mg/L (10.0-20.0) 05/11/16 10:49
--- NOTE | 2016-05-16 13:52 | Progress Note ---
Assessment and Plan - Patient Problems (1) Status epilepticus Current Visit: Yes Status: Acute Plan to address problem: - not in status now - continue AED's (dilantin) - seen by neurology (2) Acute hypoxemic respiratory failure Current Visit: Yes Status: Acute Plan to address problem: - extubated - prn bronchodilators and supplemental oxygen - home oxygen evaluation (3) Discharge planning issues Current Visit: Yes Status: Acute Plan to address problem: - per attending - back home likely Subjective Date of service: 05/16/16 Principal diagnosis: Seizures; Acute Resp Failure s/p MVS Interval history: Seen and examined at bedside; 24 hour events reviewed; nursing and respiratory care staff consulted; no adverse overnight events reported to me; resting peacefully in bed; denies acute chest pains; no seizures reported Objective Vital Signs - 12hr 05/16/16 05/16/16 05/16/16 03:00 07:19 09:14 Temperature 98.3 F Pulse Rate [ 76 From Monitor] Respiratory 14 Rate Blood Pressure 133/72 [Left Arm] O2 Sat by Pulse 98 98 99 Oximetry Constitutional: no acute distress Eyes: non-icteric ENT: oropharynx moist Neck: supple Effort: normal Ascultation: Bilateral: clear, diminished breath sounds (bases) Cardiovascular: regular rate and rhythm Gastrointestinal: normoactive bowel sounds, soft, non-tender, non-distended Integumentary: normal Extremities: no cyanosis, no edema, pulses normal, no ischemia or petechiae Neurologic: normal mental status, non-focal exam, pupils equal and round Psychiatric: mood appropriate, affect normal CBC and BMP: 05/15/16 11:52 05/15/16 11:52 ABG, PT/INR, D-dimer: ABG POC ABG pH 7.372 (7.35-7.45) 05/12/16 10:01 POC ABG pCO2 41.9 (35-45) 05/12/16 10:01 POC ABG pO2 73 (80-105) L 05/12/16 10:01 POC ABG HCO3 24.4 05/12/16 10:01 POC ABG Total CO2 26 05/12/16 10:01 POC ABG O2 Sat 94 05/12/16 10:01 Abnormal lab findings: Abnormal Labs 12/28/16 12/28/16 12/28/16 04:37 04:37 05:39 RBC 3.60 L Hgb 9.7 L Hct 29.3 L D MCH 27 L RDW 16.8 H [place] % (Auto) 11.6 H [place] # 1.1 H POC ABG pH 7.496 H POC ABG pCO2 27.6 L POC ABG pO2 75 L Potassium 3.3 L BUN Creatinine Glucose Calcium 7.9 L 05/12/16 05/13/16 05/15/16 10:01 04:15 11:52 RBC Hgb Hct MCH 27 L RDW 16.7 H [place] % (Auto) [place] # POC ABG pH POC ABG pCO2 POC ABG pO2 73 L Potassium BUN 6 L Creatinine 0.6 L Glucose Calcium 8.2 L 05/15/16 11:52 RBC Hgb Hct MCH RDW [place] % (Auto) [place] # POC ABG pH POC ABG pCO2 POC ABG pO2 Potassium 3.5 L BUN 6 L Creatinine 0.6 L Glucose 113 H Calcium
[2016-05-17] MEDS: PEPCID PO SCH ×2 (09:58→21:55)
[2016-05-17] MEDS: LOVENOX SUB-Q SCH (09:58)
[2016-05-17] MEDS: DILANTIN PO SCH (09:58)
--- NOTE | 2016-05-17 10:56 | Progress Note ---
Assessment and Plan Assessment and plan: 1. Status epilepticus. Resolved. Continue seizure precautions. Continue phenytoin. Follow-up EEG. Neurology following. patient is currently clinically stable for discharge where with case management to finalize placement status. We'll obtain PT OT evaluation and treatment today. 2. Acute hypoxic respiratory failure. Patient extubated and doing well. 3. Hypertension. Continue antihypertensive medications. 4. Intractable vomiting. Resolved. Continue Zofran when necessary. KUB was negative. 5. 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 Continue supportive care. 6. DVT prophylaxis. Lovenox daily. Disposition-pending placement History Interval history: Patient seen and examined this morning in no acute distress Denies any chest pain, nausea, vomiting, diarrhea No fever noted blood pressure controlled No adverse events reported to me by nursing staff Hospitalist Physical - Physical exam Narrative exam: VITAL SIGNS: Reviewed. GENERAL: The patient appeared well nourished and normally developed. Vital signs as documented. HEAD: Left facial cranial depression from healed surgery.. EYES: Pupils are equal. Extraocular motions intact. EARS: Hearing grossly intact. MOUTH: Oropharynx is normal. NECK: No adenopathy, no JVD. CHEST: Chest with clear breath sounds bilaterally. No wheezes, rales, or rhonchi. CARDIAC: Regular rate and rhythm. S1 and S2, without murmurs, gallops, or rubs. VASCULAR: No Edema. Peripheral pulses normal and equal in all extremities. ABDOMEN: Soft, without detectable tenderness. No sign of distention. No rebound or guarding, and no masses palpated. Bowel Sounds normal. MUSCULOSKELETAL: Good range of motion of all major joints. Extremities without clubbing, cyanosis or edema. NEUROLOGIC EXAM: Alert and oriented x 3. Although her verbal is not as clear this could be secondary to aneurysmal repair. No focal sensory or strength deficits. Follows commands. Gait not assessed this patient was weak on the left side PSYCHIATRIC: Mood normal. SKIN: No rash or lesions. - Constitutional Vitals: Temp Pulse Resp BP Pulse Ox 99.8 F H 77 20 134/80 99 05/17/16 07:40 05/17/16 07:40 05/17/16 07:40 05/17/16 07:40 05/17/16 09:50 General appearance: Present: no acute distress, well-nourished Results - Labs CBC & Chem 7: 05/15/16 11:52 05/15/16 11:52 Labs: Laboratory Last Values WBC 9.7 K/mm3 (4.5-11.0) 05/15/16 11:52 RBC 4.08 M/mm3 (3.65-5.03) 05/15/16 11:52 Hgb 10.8 gm/dl (10.1-14.3) 05/15/16 11:52 Hct 33.8 % (30.3-42.9) 05/15/16 11:52 MCV 83 fl (79-97) 05/15/16 11:52 MCH 27 pg (28-32) L 05/15/16 11:52 MCHC 32 % (30-34) 05/15/16 11:52 RDW 16.7 % (13.2-15.2) H 05/15/16 11:52 Plt Count 393 K/mm3 (140-440) 05/15/16 11:52 Lymph % (Auto) 24.6 % (13.4-35.0) 05/12/16 04:37 [place] % (Auto) 11.6 % (0.0-7.3) H 05/12/16 04:37 Eos % (Auto) 1.4 % (0.0-4.3) 05/12/16 04:37 Baso % (Auto) 0.4 % (0.0-1.8) 05/12/16 04:37 Lymph # 2.4 K/mm3 (1.2-5.4) 05/12/16 04:37 [place] # 1.1 K/mm3 (0.0-0.8) H 05/12/16 04:37 Eos # 0.1 K/mm3 (0.0-0.4) 05/12/16 04:37 Baso # 0.0 K/mm3 (0.0-0.1) 05/12/16 04:37 Seg Neutrophils % 62.0 % (40.0-70.0) 05/12/16 04:37 Seg Neutrophils # 6.0 K/mm3 (1.8-7.7) 05/12/16 04:37 POC ABG pH 7.372 (7.35-7.45) 05/12/16 10:01 POC ABG pCO2 41.9 (35-45) 05/12/16 10:01 POC ABG pO2 73 (80-105) L 05/12/16 10:01 POC ABG HCO3 24.4 05/12/16 10:01 POC ABG Total CO2 26 05/12/16 10:01 POC ABG O2 Sat 94 05/12/16 10:01 POC ABG Base Excess -1 05/12/16 10:01 FiO2 35 % 05/12/16 10:01 Sodium 141 mmol/L (137-145) 05/15/16 11:52 Potassium 3.5 mmol/L (3.6-5.0) L 05/15/16 11:52 Chloride 104.1 mmol/L (98-107) 05/15/16 11:52 Carbon Dioxide 22 mmol/L (22-30) 05/15/16 11:52 Anion Gap 18 mmol/L 05/15/16 11:52 BUN 6 mg/dL (7-17) L 05/15/16 11:52 Creatinine 0.6 mg/dL (0.7-1.2) L 05/15/16 11:52 Estimated GFR > 60 ml/min 05/15/16 11:52 BUN/Creatinine Ratio 10.00 % 05/15/16 11:52 Glucose 113 mg/dL (65-100) H 05/15/16 11:52 Calcium 8.4 mg/dL (8.4-10.2) 05/15/16 11:52 Magnesium 2.0 mg/dL (1.7-2.3) 05/15/16 11:52 Total Creatine Kinase 108 units/L (30-135) 05/11/16 10:49 Phenytoin 18.1 mg/L (10.0-20.0) 05/11/16 10:49
--- NOTE | 2016-05-17 21:56 | Progress Note ---
Assessment and Plan Patient resting on 2 litre O2. O2 satuaration 99%. No acute respiratory distress. - Patient Problems (1) Acute hypoxemic respiratory failure Current Visit: Yes Status: Acute Plan to address problem: Improved. Presently on nasal canula 2 litre. O2 satuaration 98%. No respiratory distress. Continue Lovenox. (2) Status epilepticus Current Visit: Yes Status: Acute Plan to address problem: Management as per neurology. Subjective Date of service: 05/17/16 Principal diagnosis: Seizures; Acute Resp Failure s/p MVS Interval history: Patient resting on 2 litre O2. O2 satuaration 99%. No acute respiratory distress. Objective Vital Signs - 12hr 05/17/16 05/17/16 15:40 20:49 Temperature 97.9 F Pulse Rate [ 95 H From Monitor] Respiratory 20 Rate Blood Pressure 129/87 [Left Arm] O2 Sat by Pulse 99 Oximetry Constitutional: no acute distress, alert Eyes: non-icteric ENT: oropharynx moist Neck: supple Effort: normal Ascultation: Bilateral: diminished breath sounds (bases) Cardiovascular: regular rate and rhythm Gastrointestinal: normoactive bowel sounds, soft, non-tender, non-distended Integumentary: normal Extremities: no cyanosis, no edema, pulses normal, no ischemia or petechiae Neurologic: normal mental status, non-focal exam, pupils equal and round Psychiatric: mood appropriate, affect normal CBC and BMP: 05/15/16 11:52 05/15/16 11:52 ABG, PT/INR, D-dimer: ABG POC ABG pH 7.372 (7.35-7.45) 05/12/16 10:01 POC ABG pCO2 41.9 (35-45) 05/12/16 10:01 POC ABG pO2 73 (80-105) L 05/12/16 10:01 POC ABG HCO3 24.4 05/12/16 10:01 POC ABG Total CO2 26 05/12/16 10:01 POC ABG O2 Sat 94 05/12/16 10:01 Abnormal lab findings: Abnormal Labs 05/12/16 05/12/16 05/12/16 04:37 04:37 05:39 RBC 3.60 L Hgb 9.7 L Hct 29.3 L D MCH 27 L RDW 16.8 H [place] % (Auto) 11.6 H [place] # 1.1 H POC ABG pH 7.496 H POC ABG pCO2 27.6 L POC ABG pO2 75 L Potassium 3.3 L BUN Creatinine Glucose Calcium 7.9 L 05/12/16 05/13/16 05/15/16 10:01 04:15 11:52 RBC Hgb Hct MCH 27 L RDW 16.7 H [place] % (Auto) [place] # POC ABG pH POC ABG pCO2 POC ABG pO2 73 L Potassium BUN 6 L Creatinine 0.6 L Glucose Calcium 8.2 L 05/15/16 11:52 RBC Hgb Hct MCH RDW [place] % (Auto) [place] # POC ABG pH POC ABG pCO2 POC ABG pO2 Potassium 3.5 L BUN 6 L Creatinine 0.6 L Glucose 113 H Calcium
[2016-05-18] MEDS: PEPCID PO SCH ×2 (09:23→22:38)
[2016-05-18] MEDS: DILANTIN PO SCH (09:23)
[2016-05-18] MEDS: LOVENOX SUB-Q SCH (09:23)
--- NOTE | 2016-05-18 15:14 | Progress Note ---
Assessment and Plan Assessment and plan: 1. Status epilepticus. Resolved. Continue seizure precautions. Continue phenytoin. Neurology following. patient is currently clinically stable for discharge where with case management to finalize placement status. We'll obtain PT OT evaluation and treatment today. 2. Acute hypoxic respiratory failure. Patient extubated and doing well. 3. Hypertension. Continue antihypertensive medications. 4. Intractable vomiting. Resolved. Continue Zofran when necessary. KUB was negative. 5. 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 Continue supportive care. 6. DVT prophylaxis. Lovenox daily. Disposition-pending placement History Interval history: Patient seen and examined this morning in no acute distress, awaiting placement Denies any chest pain, nausea, vomiting, diarrhea No fever noted blood pressure controlled No adverse events reported to me by nursing staff Hospitalist Physical - Physical exam Narrative exam: VITAL SIGNS: Reviewed. GENERAL: The patient appeared well nourished and normally developed. Vital signs as documented. HEAD: Left facial cranial depression from healed surgery.. EYES: Pupils are equal. Extraocular motions intact. EARS: Hearing grossly intact. MOUTH: Oropharynx is normal. NECK: No adenopathy, no JVD. CHEST: Chest with clear breath sounds bilaterally. No wheezes, rales, or rhonchi. CARDIAC: Regular rate and rhythm. S1 and S2, without murmurs, gallops, or rubs. VASCULAR: No Edema. Peripheral pulses normal and equal in all extremities. ABDOMEN: Soft, without detectable tenderness. No sign of distention. No rebound or guarding, and no masses palpated. Bowel Sounds normal. MUSCULOSKELETAL: Good range of motion of all major joints. Extremities without clubbing, cyanosis or edema. NEUROLOGIC EXAM: Alert and oriented x 3. Although her verbal is not as clear this could be secondary to aneurysmal repair. No focal sensory or strength deficits. Follows commands. Gait not assessed this patient was weak on the left side PSYCHIATRIC: Mood normal. SKIN: No rash or lesions. - Constitutional Vitals: Temp Pulse Resp BP Pulse Ox 97 F L 92 H 18 131/86 98 05/18/16 08:08 05/18/16 08:08 05/18/16 08:08 05/18/16 08:08 05/18/16 08:56 General appearance: Present: no acute distress, well-nourished Results - Labs CBC & Chem 7: 05/15/16 11:52 05/15/16 11:52 Labs: Laboratory Last Values WBC 9.7 K/mm3 (4.5-11.0) 05/15/16 11:52 RBC 4.08 M/mm3 (3.65-5.03) 05/15/16 11:52 Hgb 10.8 gm/dl (10.1-14.3) 05/15/16 11:52 Hct 33.8 % (30.3-42.9) 05/15/16 11:52 MCV 83 fl (79-97) 05/15/16 11:52 MCH 27 pg (28-32) L 05/15/16 11:52 MCHC 32 % (30-34) 05/15/16 11:52 RDW 16.7 % (13.2-15.2) H 05/15/16 11:52 Plt Count 393 K/mm3 (140-440) 05/15/16 11:52 Lymph % (Auto) 24.6 % (13.4-35.0) 05/12/16 04:37 [place] % (Auto) 11.6 % (0.0-7.3) H 05/12/16 04:37 Eos % (Auto) 1.4 % (0.0-4.3) 05/12/16 04:37 Baso % (Auto) 0.4 % (0.0-1.8) 05/12/16 04:37 Lymph # 2.4 K/mm3 (1.2-5.4) 05/12/16 04:37 [place] # 1.1 K/mm3 (0.0-0.8) H 05/12/16 04:37 Eos # 0.1 K/mm3 (0.0-0.4) 05/12/16 04:37 Baso # 0.0 K/mm3 (0.0-0.1) 05/12/16 04:37 Seg Neutrophils % 62.0 % (40.0-70.0) 05/12/16 04:37 Seg Neutrophils # 6.0 K/mm3 (1.8-7.7) 05/12/16 04:37 POC ABG pH 7.372 (7.35-7.45) 05/12/16 10:01 POC ABG pCO2 41.9 (35-45) 05/12/16 10:01 POC ABG pO2 73 (80-105) L 05/12/16 10:01 POC ABG HCO3 24.4 05/12/16 10:01 POC ABG Total CO2 26 05/12/16 10:01 POC ABG O2 Sat 94 05/12/16 10:01 POC ABG Base Excess -1 05/12/16 10:01 FiO2 35 % 05/12/16 10:01 Sodium 141 mmol/L (137-145) 05/15/16 11:52 Potassium 3.5 mmol/L (3.6-5.0) L 05/15/16 11:52 Chloride 104.1 mmol/L (98-107) 05/15/16 11:52 Carbon Dioxide 22 mmol/L (22-30) 05/15/16 11:52 Anion Gap 18 mmol/L 05/15/16 11:52 BUN 6 mg/dL (7-17) L 05/15/16 11:52 Creatinine 0.6 mg/dL (0.7-1.2) L 05/15/16 11:52 Estimated GFR > 60 ml/min 05/15/16 11:52 BUN/Creatinine Ratio 10.00 % 05/15/16 11:52 Glucose 113 mg/dL (65-100) H 05/15/16 11:52 Calcium 8.4 mg/dL (8.4-10.2) 05/15/16 11:52 Magnesium 2.0 mg/dL (1.7-2.3) 05/15/16 11:52 Total Creatine Kinase 108 units/L (30-135) 05/11/16 10:49 Phenytoin 18.1 mg/L (10.0-20.0) 05/11/16 10:49
--- NOTE | 2016-05-18 21:42 | Progress Note ---
Assessment and Plan Patient resting on 2 litre O2. O2 satuaration 100%. No acute respiratory distress. - Patient Problems (1) Acute hypoxemic respiratory failure Current Visit: Yes Status: Acute Plan to address problem: Improved. Presently on nasal canula 2 litre. O2 satuaration 98%. No respiratory distress. Continue Lovenox. 05/18/15 Patient resting on 2 litres O2. O2 satuaration 100% No acute respiratory distress at rest. (2) Status epilepticus Current Visit: Yes Status: Acute Plan to address problem: Management as per neurology. Subjective Date of service: 05/18/16 Principal diagnosis: Seizures; Acute Resp Failure s/p MVS Interval history: Patient resting on 2 litre O2. O2 satuaration 100%. No acute respiratory distress. Objective Vital Signs - 12hr 05/18/16 15:18 Temperature 98.9 F Pulse Rate [ 93 H Left] Respiratory 24 Rate Blood Pressure 166/94 [Left Arm] O2 Sat by Pulse 100 Oximetry Constitutional: no acute distress, alert Eyes: non-icteric ENT: oropharynx moist Neck: supple Effort: normal Ascultation: Bilateral: diminished breath sounds (bases) Cardiovascular: regular rate and rhythm Gastrointestinal: normoactive bowel sounds, soft, non-tender, non-distended Integumentary: normal Extremities: no cyanosis, no edema, pulses normal, no ischemia or petechiae Neurologic: normal mental status, non-focal exam, pupils equal and round Psychiatric: mood appropriate, affect normal CBC and BMP: 05/15/16 11:52 05/15/16 11:52 ABG, PT/INR, D-dimer: ABG POC ABG pH 7.372 (7.35-7.45) 05/12/16 10:01 POC ABG pCO2 41.9 (35-45) 05/12/16 10:01 POC ABG pO2 73 (80-105) L 05/12/16 10:01 POC ABG HCO3 24.4 05/12/16 10:01 POC ABG Total CO2 26 05/12/16 10:01 POC ABG O2 Sat 94 05/12/16 10:01 Abnormal lab findings: Abnormal Labs 05/12/16 05/12/16 05/12/16 04:37 04:37 05:39 RBC 3.60 L Hgb 9.7 L Hct 29.3 L D MCH 27 L RDW 16.8 H [place] % (Auto) 11.6 H [place] # 1.1 H POC ABG pH 7.496 H POC ABG pCO2 27.6 L POC ABG pO2 75 L Potassium 3.3 L BUN Creatinine Glucose Calcium 7.9 L 05/12/16 05/13/16 05/15/16 10:01 04:15 11:52 RBC Hgb Hct MCH 27 L RDW 16.7 H [place] % (Auto) [place] # POC ABG pH POC ABG pCO2 POC ABG pO2 73 L Potassium BUN 6 L Creatinine 0.6 L Glucose Calcium 8.2 L 05/15/16 11:52 RBC Hgb Hct MCH RDW [place] % (Auto) [place] # POC ABG pH POC ABG pCO2 POC ABG pO2 Potassium 3.5 L BUN 6 L Creatinine 0.6 L Glucose 113 H Calcium
[2016-05-19] MEDS: DILANTIN PO SCH (12:23)
[2016-05-19] MEDS: LOVENOX SUB-Q SCH (12:23)
[2016-05-19] MEDS: PEPCID PO SCH ×2 (12:24→22:52)
--- NOTE | 2016-05-19 13:23 | Progress Note ---
Assessment and Plan Assessment and plan: 1. Status epilepticus. Resolved. Continue seizure precautions. Continue phenytoin. Neurology following. patient is currently clinically stable for discharge where with case management to finalize placement status. PT OT evaluation and treatment. 2. Acute hypoxic respiratory failure. Patient extubated and doing well. 3. Hypertension. Continue antihypertensive medications. 4. Intractable vomiting. Resolved. Continue Zofran when necessary. KUB was negative. 5. 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 Continue supportive care. 6. DVT prophylaxis. Lovenox daily. Disposition-pending placement discussed with case management History Interval history: Patient seen and examined this morning in no acute distress, awaiting placement Denies any chest pain, nausea, vomiting, diarrhea No fever noted blood pressure controlled No adverse events reported to me by nursing staff Hospitalist Physical - Physical exam Narrative exam: VITAL SIGNS: Reviewed. GENERAL: The patient appeared well nourished and normally developed. Vital signs as documented. HEAD: Left facial cranial depression from healed surgery.. EYES: Pupils are equal. Extraocular motions intact. EARS: Hearing grossly intact. MOUTH: Oropharynx is normal. NECK: No adenopathy, no JVD. CHEST: Chest with clear breath sounds bilaterally. No wheezes, rales, or rhonchi. CARDIAC: Regular rate and rhythm. S1 and S2, without murmurs, gallops, or rubs. VASCULAR: No Edema. Peripheral pulses normal and equal in all extremities. ABDOMEN: Soft, without detectable tenderness. No sign of distention. No rebound or guarding, and no masses palpated. Bowel Sounds normal. MUSCULOSKELETAL: Good range of motion of all major joints. Extremities without clubbing, cyanosis or edema. NEUROLOGIC EXAM: Alert and oriented x 3. Although her verbal is not as clear this could be secondary to aneurysmal repair. No focal sensory or strength deficits. Follows commands. Gait not assessed this patient was weak on the left side PSYCHIATRIC: Mood normal. SKIN: No rash or lesions. - Constitutional Vitals: Temp Pulse Resp BP Pulse Ox 99.2 F 84 20 160/91 98 05/19/16 08:30 05/19/16 08:30 05/19/16 08:30 05/19/16 08:30 05/19/16 08:30 General appearance: Present: no acute distress, well-nourished Results - Labs CBC & Chem 7: 05/15/16 11:52 05/15/16 11:52 Labs: Laboratory Last Values WBC 9.7 K/mm3 (4.5-11.0) 05/15/16 11:52 RBC 4.08 M/mm3 (3.65-5.03) 05/15/16 11:52 Hgb 10.8 gm/dl (10.1-14.3) 05/15/16 11:52 Hct 33.8 % (30.3-42.9) 05/15/16 11:52 MCV 83 fl (79-97) 05/15/16 11:52 MCH 27 pg (28-32) L 05/15/16 11:52 MCHC 32 % (30-34) 05/15/16 11:52 RDW 16.7 % (13.2-15.2) H 05/15/16 11:52 Plt Count 393 K/mm3 (140-440) 05/15/16 11:52 Lymph % (Auto) 24.6 % (13.4-35.0) 05/12/16 04:37 [place] % (Auto) 11.6 % (0.0-7.3) H 05/12/16 04:37 Eos % (Auto) 1.4 % (0.0-4.3) 05/12/16 04:37 Baso % (Auto) 0.4 % (0.0-1.8) 05/12/16 04:37 Lymph # 2.4 K/mm3 (1.2-5.4) 05/12/16 04:37 [place] # 1.1 K/mm3 (0.0-0.8) H 05/12/16 04:37 Eos # 0.1 K/mm3 (0.0-0.4) 05/12/16 04:37 Baso # 0.0 K/mm3 (0.0-0.1) 05/12/16 04:37 Seg Neutrophils % 62.0 % (40.0-70.0) 05/12/16 04:37 Seg Neutrophils # 6.0 K/mm3 (1.8-7.7) 05/12/16 04:37 POC ABG pH 7.372 (7.35-7.45) 05/12/16 10:01 POC ABG pCO2 41.9 (35-45) 05/12/16 10:01 POC ABG pO2 73 (80-105) L 05/12/16 10:01 POC ABG HCO3 24.4 05/12/16 10:01 POC ABG Total CO2 26 05/12/16 10:01 POC ABG O2 Sat 94 05/12/16 10:01 POC ABG Base Excess -1 05/12/16 10:01 FiO2 35 % 05/12/16 10:01 Sodium 141 mmol/L (137-145) 05/15/16 11:52 Potassium 3.5 mmol/L (3.6-5.0) L 05/15/16 11:52 Chloride 104.1 mmol/L (98-107) 05/15/16 11:52 Carbon Dioxide 22 mmol/L (22-30) 05/15/16 11:52 Anion Gap 18 mmol/L 05/15/16 11:52 BUN 6 mg/dL (7-17) L 05/15/16 11:52 Creatinine 0.6 mg/dL (0.7-1.2) L 05/15/16 11:52 Estimated GFR > 60 ml/min 05/15/16 11:52 BUN/Creatinine Ratio 10.00 % 05/15/16 11:52 Glucose 113 mg/dL (65-100) H 05/15/16 11:52 Calcium 8.4 mg/dL (8.4-10.2) 05/15/16 11:52 Magnesium 2.0 mg/dL (1.7-2.3) 05/15/16 11:52 Total Creatine Kinase 108 units/L (30-135) 05/11/16 10:49 Phenytoin 18.1 mg/L (10.0-20.0) 05/11/16 10:49
--- NOTE | 2016-05-19 18:15 | Progress Note ---
Assessment and Plan Patient resting on 2 litre O2. O2 satuaration 98%. No acute respiratory distress. - Patient Problems (1) Acute hypoxemic respiratory failure Current Visit: Yes Status: Acute Plan to address problem: Improved. Presently on nasal canula 2 litre. O2 satuaration 98%. No respiratory distress. Continue Lovenox. 05/18/15 Patient resting on 2 litres O2. O2 satuaration 100% No acute respiratory distress at rest. 05/19/15 Patient resting on 2 litres O2. O2 satuaration 98%. (2) Status epilepticus Current Visit: Yes Status: Acute Plan to address problem: Management as per neurology. Subjective Date of service: 05/19/16 Principal diagnosis: Seizures; Acute Resp Failure s/p MVS Interval history: Patient resting on 2 litre O2. O2 satuaration 98%. No acute respiratory distress. Objective Vital Signs - 12hr 05/19/16 05/19/16 08:30 16:33 Temperature 99.2 F 99.4 F Pulse Rate [ 84 92 H Apical] Respiratory 20 20 Rate Blood Pressure 160/91 153/93 [Left Arm] O2 Sat by Pulse 98 Oximetry Constitutional: no acute distress, alert Eyes: non-icteric ENT: oropharynx moist Neck: supple Effort: normal Ascultation: Bilateral: diminished breath sounds (bases) Cardiovascular: regular rate and rhythm Gastrointestinal: normoactive bowel sounds, soft, non-tender, non-distended Integumentary: normal Extremities: no cyanosis, no edema, pulses normal, no ischemia or petechiae Neurologic: normal mental status, non-focal exam, pupils equal and round Psychiatric: mood appropriate, affect normal CBC and BMP: 05/15/16 11:52 05/15/16 11:52 ABG, PT/INR, D-dimer: ABG POC ABG pH 7.372 (7.35-7.45) 05/12/16 10:01 POC ABG pCO2 41.9 (35-45) 05/12/16 10:01 POC ABG pO2 73 (80-105) L 05/12/16 10:01 POC ABG HCO3 24.4 05/12/16 10:01 POC ABG Total CO2 26 05/12/16 10:01 POC ABG O2 Sat 94 05/12/16 10:01 Abnormal lab findings: Abnormal Labs 05/12/16 05/12/16 05/12/16 04:37 04:37 05:39 RBC 3.60 L Hgb 9.7 L Hct 29.3 L D MCH 27 L RDW 16.8 H [place] % (Auto) 11.6 H [place] # 1.1 H POC ABG pH 7.496 H POC ABG pCO2 27.6 L POC ABG pO2 75 L Potassium 3.3 L BUN Creatinine Glucose Calcium 7.9 L 05/12/16 05/13/16 05/15/16 10:01 04:15 11:52 RBC Hgb Hct MCH 27 L RDW 16.7 H [place] % (Auto) [place] # POC ABG pH POC ABG pCO2 POC ABG pO2 73 L Potassium BUN 6 L Creatinine 0.6 L Glucose Calcium 8.2 L 05/15/16 11:52 RBC Hgb Hct MCH RDW [place] % (Auto) [place] # POC ABG pH POC ABG pCO2 POC ABG pO2 Potassium 3.5 L BUN 6 L Creatinine 0.6 L Glucose 113 H Calcium
[2016-05-20] MEDS: DILANTIN PO SCH (09:40)
[2016-05-20] MEDS: LOVENOX SUB-Q SCH (09:40)
[2016-05-20] MEDS: PEPCID PO SCH ×2 (09:41→22:40)
[2016-05-20 11:32] LABS: ISTAT Base Excess 0; ISTAT DEVICE 0; ISTAT HCO3 23.8; ISTAT PCO2 34.9 (35-45); ISTAT PH 7.442 (7.35-7.45); ISTAT PO2 73 (80-105); ISTAT SO2 95; ISTAT TCO2 25
--- NOTE | 2016-05-20 13:23 | Progress Note ---
Assessment and Plan - Patient Problems (1) Status epilepticus Current Visit: Yes Status: Acute Plan to address problem: - not in status now - continue AED's (dilantin) - seen by neurology - prn [facility] for breakthrough seizures (2) Acute hypoxemic respiratory failure Current Visit: Yes Status: Acute Plan to address problem: - extubated - prn bronchodilators and supplemental oxygen - home oxygen evaluation - continue supplemental oxygen to keep sats >92% (3) Discharge planning issues Current Visit: Yes Status: Acute Plan to address problem: - per attending - placement being sought - case management in contact with mom Subjective Date of service: 05/20/16 Principal diagnosis: Seizures; Acute Resp Failure s/p MVS Interval history: Seen and examined at bedside; 24 hour events reviewed; nursing and respiratory care staff consulted; no adverse overnight events reported to me; resting peacefully in bed; placement being sought; remains on 1-2 [facility] Objective Vital Signs - 12hr 05/20/16 05/20/16 05/20/16 09:55 10:00 10:46 Temperature 97.9 F Pulse Rate [ 85 Apical] Respiratory 20 Rate Blood Pressure 165/106 150/90 [Left Arm] O2 Sat by Pulse 98 100 Oximetry Constitutional: no acute distress, alert Eyes: non-icteric ENT: oropharynx moist Neck: supple Effort: normal Ascultation: Bilateral: clear, diminished breath sounds (bases) Cardiovascular: regular rate and rhythm Gastrointestinal: normoactive bowel sounds, soft, non-tender, non-distended Integumentary: normal Extremities: no cyanosis, no edema, pulses normal, no ischemia or petechiae Neurologic: normal mental status, non-focal exam, pupils equal and round Psychiatric: other (mild cognitive defect) CBC and BMP: 05/15/16 11:52 05/15/16 11:52 ABG, PT/INR, D-dimer: ABG POC ABG pH 7.442 (7.35-7.45) 05/20/16 11:25 POC ABG pCO2 34.9 (35-45) L 05/20/16 11:25 POC ABG pO2 73 (80-105) L 05/20/16 11:25 POC ABG HCO3 23.8 05/20/16 11:25 POC ABG Total CO2 25 05/20/16 11:25 POC ABG O2 Sat 95 05/20/16 11:25 Abnormal lab findings: Abnormal Labs 05/12/16 05/12/16 05/12/16 04:37 04:37 05:39 RBC 3.60 L Hgb 9.7 L Hct 29.3 L D MCH 27 L RDW 16.8 H [place] % (Auto) 11.6 H [place] # 1.1 H POC ABG pH 7.496 H POC ABG pCO2 27.6 L POC ABG pO2 75 L Potassium 3.3 L BUN Creatinine Glucose Calcium 7.9 L 05/12/16 05/13/16 05/15/16 10:01 04:15 11:52 RBC Hgb Hct MCH 27 L RDW 16.7 H [place] % (Auto) [place] # POC ABG pH POC ABG pCO2 POC ABG pO2 73 L Potassium BUN 6 L Creatinine 0.6 L Glucose Calcium 8.2 L 05/15/16 05/20/16 11:52 11:25 RBC Hgb Hct MCH RDW [place] % (Auto) [place] # POC ABG pH POC ABG pCO2 34.9 L POC ABG pO2 73 L Potassium 3.5 L BUN 6 L Creatinine 0.6 L Glucose 113 H Calcium
--- NOTE | 2016-05-20 19:29 | Progress Note ---
Assessment and Plan Assessment and plan: 1. Status epilepticus. Resolved. Continue seizure precautions. Continue phenytoin. Neurology following. patient is currently clinically stable for discharge where with case management to finalize placement status. PT OT evaluation and treatment. Still no placement available 2. Acute hypoxic respiratory failure. Patient extubated and doing well. 3. Hypertension. Continue antihypertensive medications. 4. Intractable vomiting. Resolved. Continue Zofran when necessary. KUB was negative. 5. History of cerebral aneurysm and BUSINESS OBJECTS ARCHITECT shunt. Continue supportive care. 6. DVT prophylaxis. Lovenox daily. Disposition-pending placement discussed with case management History Interval history: Patient seen and examined this morning in no acute distress, awaiting placement Denies any chest pain, nausea, vomiting, diarrhea No fever noted blood pressure controlled No adverse events reported to me by nursing staff Hospitalist Physical - Physical exam Narrative exam: VITAL SIGNS: Reviewed. GENERAL: The patient appeared well nourished and normally developed. Vital signs as documented. HEAD: Left facial cranial depression from healed surgery.. EYES: Pupils are equal. Extraocular motions intact. EARS: Hearing grossly intact. MOUTH: Oropharynx is normal. NECK: No adenopathy, no JVD. CHEST: Chest with clear breath sounds bilaterally. No wheezes, rales, or rhonchi. CARDIAC: Regular rate and rhythm. S1 and S2, without murmurs, gallops, or rubs. VASCULAR: No Edema. Peripheral pulses normal and equal in all extremities. ABDOMEN: Soft, without detectable tenderness. No sign of distention. No rebound or guarding, and no masses palpated. Bowel Sounds normal. MUSCULOSKELETAL: Good range of motion of all major joints. Extremities without clubbing, cyanosis or edema. NEUROLOGIC EXAM: Alert and oriented x 3. Although her verbal is not as clear this could be secondary to aneurysmal repair. No focal sensory or strength deficits. Follows commands. Gait not assessed this patient was weak on the left side PSYCHIATRIC: Mood normal. SKIN: No rash or lesions. - Constitutional Vitals: Temp Pulse Resp BP Pulse Ox 98.7 F 85 20 84/55 99 05/20/16 16:40 05/20/16 16:40 05/20/16 16:40 05/20/16 16:40 05/20/16 16:40 General appearance: Present: no acute distress, well-nourished Results - Labs CBC & Chem 7: 05/15/16 11:52 05/15/16 11:52 Labs: Laboratory Last Values WBC 9.7 K/mm3 (4.5-11.0) 05/15/16 11:52 RBC 4.08 M/mm3 (3.65-5.03) 05/15/16 11:52 Hgb 10.8 gm/dl (10.1-14.3) 05/15/16 11:52 Hct 33.8 % (30.3-42.9) 05/15/16 11:52 MCV 83 fl (79-97) 05/15/16 11:52 MCH 27 pg (28-32) L 05/15/16 11:52 MCHC 32 % (30-34) 05/15/16 11:52 RDW 16.7 % (13.2-15.2) H 05/15/16 11:52 Plt Count 393 K/mm3 (140-440) 05/15/16 11:52 Lymph % (Auto) 24.6 % (13.4-35.0) 05/12/16 04:37 [place] % (Auto) 11.6 % (0.0-7.3) H 05/12/16 04:37 Eos % (Auto) 1.4 % (0.0-4.3) 05/12/16 04:37 Baso % (Auto) 0.4 % (0.0-1.8) 05/12/16 04:37 Lymph # 2.4 K/mm3 (1.2-5.4) 05/12/16 04:37 [place] # 1.1 K/mm3 (0.0-0.8) H 05/12/16 04:37 Eos # 0.1 K/mm3 (0.0-0.4) 05/12/16 04:37 Baso # 0.0 K/mm3 (0.0-0.1) 05/12/16 04:37 Seg Neutrophils % 62.0 % (40.0-70.0) 05/12/16 04:37 Seg Neutrophils # 6.0 K/mm3 (1.8-7.7) 05/12/16 04:37 POC ABG pH 7.442 (7.35-7.45) 05/20/16 11:25 POC ABG pCO2 34.9 (35-45) L 05/20/16 11:25 POC ABG pO2 73 (80-105) L 05/20/16 11:25 POC ABG HCO3 23.8 05/20/16 11:25 POC ABG Total CO2 25 05/20/16 11:25 POC ABG O2 Sat 95 05/20/16 11:25 POC ABG Base Excess 0 05/20/16 11:25 FiO2 21 % 05/20/16 11:25 Sodium 141 mmol/L (137-145) 05/15/16 11:52 Potassium 3.5 mmol/L (3.6-5.0) L 05/15/16 11:52 Chloride 104.1 mmol/L (98-107) 05/15/16 11:52 Carbon Dioxide 22 mmol/L (22-30) 05/15/16 11:52 Anion Gap 18 mmol/L 05/15/16 11:52 BUN 6 mg/dL (7-17) L 05/15/16 11:52 Creatinine 0.6 mg/dL (0.7-1.2) L 05/15/16 11:52 Estimated GFR > 60 ml/min 05/15/16 11:52 BUN/Creatinine Ratio 10.00 % 05/15/16 11:52 Glucose 113 mg/dL (65-100) H 05/15/16 11:52 Calcium 8.4 mg/dL (8.4-10.2) 05/15/16 11:52 Magnesium 2.0 mg/dL (1.7-2.3) 05/15/16 11:52 Total Creatine Kinase 108 units/L (30-135) 05/11/16 10:49 Phenytoin 18.1 mg/L (10.0-20.0) 05/11/16 10:49
[2016-05-21] MEDS: DILANTIN PO SCH (09:33)
[2016-05-21] MEDS: PEPCID PO SCH ×2 (09:33→22:19)
[2016-05-21] MEDS: LOVENOX SUB-Q SCH (09:33)
--- NOTE | 2016-05-21 11:11 | Progress Note ---
Assessment and Plan Assessment and plan: 1. Status epilepticus. Resolved. Continue seizure precautions. Continue phenytoin. Neurology following. patient is currently clinically stable for discharge where with case management to finalize placement status. PT OT evaluation and treatment. Still no placement available 2. Acute hypoxic respiratory failure. Patient extubated and doing well. 3. Hypertension. Continue antihypertensive medications. 4. Intractable vomiting. Resolved. Continue Zofran when necessary. KUB was negative. 5. History of cerebral aneurysm and BUSINESS COORDINATOR shunt. Continue supportive care. 6. DVT prophylaxis. Lovenox daily. Encourage ambulation Disposition-pending placement discussed with case management History Interval history: Patient seen and examined this morning in no acute distress, lying comfortably in bed awaiting placement Denies any chest pain, nausea, vomiting, diarrhea No fever noted blood pressure controlled No adverse events reported to me by nursing staff Hospitalist Physical - Physical exam Narrative exam: VITAL SIGNS: Reviewed. GENERAL: The patient appeared well nourished and normally developed. Vital signs as documented. HEAD: Left facial cranial depression from healed surgery.. EYES: Pupils are equal. Extraocular motions intact. EARS: Hearing grossly intact. MOUTH: Oropharynx is normal. NECK: No adenopathy, no JVD. CHEST: Chest with clear breath sounds bilaterally. No wheezes, rales, or rhonchi. CARDIAC: Regular rate and rhythm. S1 and S2, without murmurs, gallops, or rubs. VASCULAR: No Edema. Peripheral pulses normal and equal in all extremities. ABDOMEN: Soft, without detectable tenderness. No sign of distention. No rebound or guarding, and no masses palpated. Bowel Sounds normal. MUSCULOSKELETAL: Good range of motion of all major joints. Extremities without clubbing, cyanosis or edema. NEUROLOGIC EXAM: Alert and oriented x 3. Although her verbal is not as clear this could be secondary to aneurysmal repair. No focal sensory or strength deficits. Follows commands. Gait not assessed this patient was weak on the left side PSYCHIATRIC: Mood normal. SKIN: No rash or lesions. - Constitutional Vitals: Temp Pulse Resp BP Pulse Ox 98.5 F 87 18 145/102 99 05/21/16 08:00 05/21/16 08:00 05/21/16 08:00 05/21/16 08:00 05/21/16 08:00 General appearance: Present: no acute distress, well-nourished Results - Labs CBC & Chem 7: 05/15/16 11:52 05/15/16 11:52 Labs: Laboratory Last Values WBC 9.7 K/mm3 (4.5-11.0) 05/15/16 11:52 RBC 4.08 M/mm3 (3.65-5.03) 05/15/16 11:52 Hgb 10.8 gm/dl (10.1-14.3) 05/15/16 11:52 Hct 33.8 % (30.3-42.9) 05/15/16 11:52 MCV 83 fl (79-97) 05/15/16 11:52 MCH 27 pg (28-32) L 05/15/16 11:52 MCHC 32 % (30-34) 05/15/16 11:52 RDW 16.7 % (13.2-15.2) H 05/15/16 11:52 Plt Count 393 K/mm3 (140-440) 05/15/16 11:52 Lymph % (Auto) 24.6 % (13.4-35.0) 05/12/16 04:37 [place] % (Auto) 11.6 % (0.0-7.3) H 05/12/16 04:37 Eos % (Auto) 1.4 % (0.0-4.3) 05/12/16 04:37 Baso % (Auto) 0.4 % (0.0-1.8) 05/12/16 04:37 Lymph # 2.4 K/mm3 (1.2-5.4) 05/12/16 04:37 [place] # 1.1 K/mm3 (0.0-0.8) H 05/12/16 04:37 Eos # 0.1 K/mm3 (0.0-0.4) 05/12/16 04:37 Baso # 0.0 K/mm3 (0.0-0.1) 05/12/16 04:37 Seg Neutrophils % 62.0 % (40.0-70.0) 05/12/16 04:37 Seg Neutrophils # 6.0 K/mm3 (1.8-7.7) 05/12/16 04:37 POC ABG pH 7.442 (7.35-7.45) 05/20/16 11:25 POC ABG pCO2 34.9 (35-45) L 05/20/16 11:25 POC ABG pO2 73 (80-105) L 05/20/16 11:25 POC ABG HCO3 23.8 05/20/16 11:25 POC ABG Total CO2 25 05/20/16 11:25 POC ABG O2 Sat 95 05/20/16 11:25 POC ABG Base Excess 0 05/20/16 11:25 FiO2 21 % 05/20/16 11:25 Sodium 141 mmol/L (137-145) 05/15/16 11:52 Potassium 3.5 mmol/L (3.6-5.0) L 05/15/16 11:52 Chloride 104.1 mmol/L (98-107) 05/15/16 11:52 Carbon Dioxide 22 mmol/L (22-30) 05/15/16 11:52 Anion Gap 18 mmol/L 05/15/16 11:52 BUN 6 mg/dL (7-17) L 05/15/16 11:52 Creatinine 0.6 mg/dL (0.7-1.2) L 05/15/16 11:52 Estimated GFR > 60 ml/min 05/15/16 11:52 BUN/Creatinine Ratio 10.00 % 05/15/16 11:52 Glucose 113 mg/dL (65-100) H 05/15/16 11:52 Calcium 8.4 mg/dL (8.4-10.2) 05/15/16 11:52 Magnesium 2.0 mg/dL (1.7-2.3) 05/15/16 11:52 Total Creatine Kinase 108 units/L (30-135) 05/11/16 10:49 Phenytoin 18.1 mg/L (10.0-20.0) 05/11/16 10:49
--- NOTE | 2016-05-21 11:43 | Progress Note ---
Assessment and Plan - Patient Problems (1) Status epilepticus Current Visit: Yes Status: Acute Plan to address problem: - not in status now - continue AED's (dilantin) - [facility] (2) Acute hypoxemic respiratory failure Current Visit: Yes Status: Acute Plan to address problem: - extubated - prn bronchodilators and supplemental oxygen - home oxygen evaluation - continue supplemental oxygen to keep sats >92% (3) Discharge planning issues Current Visit: Yes Status: Acute Plan to address problem: - per attending - placement being sought - case management in contact with mom Subjective Date of service: 05/21/16 Principal diagnosis: Seizures; Acute Resp Failure s/p MVS Interval history: Seen and examined at bedside; 24 hour events reviewed; nursing and respiratory care staff consulted; no adverse overnight events reported to me; no new issues respiratory-rae Objective Vital Signs - 12hr 05/21/16 05/21/16 00:03 08:00 Temperature 98.3 F 98.5 F Pulse Rate [ 87 Apical] Pulse Rate [ 84 From Monitor] Respiratory 20 18 Rate Blood Pressure 134/83 145/102 [Left Arm] O2 Sat by Pulse 98 99 Oximetry Constitutional: no acute distress, alert Eyes: non-icteric ENT: oropharynx moist Neck: supple Effort: mildly labored Ascultation: Bilateral: clear, diminished breath sounds (bases) Cardiovascular: regular rate and rhythm Gastrointestinal: normoactive bowel sounds, soft, non-tender, non-distended Integumentary: normal Extremities: no cyanosis, no edema, pulses normal, no ischemia or petechiae Neurologic: normal mental status, non-focal exam, pupils equal and round Psychiatric: other (mild cognitive defect) CBC and BMP: 05/15/16 11:52 05/15/16 11:52 ABG, PT/INR, D-dimer: ABG POC ABG pH 7.442 (7.35-7.45) 05/20/16 11:25 POC ABG pCO2 34.9 (35-45) L 05/20/16 11:25 POC ABG pO2 73 (80-105) L 05/20/16 11:25 POC ABG HCO3 23.8 05/20/16 11:25 POC ABG Total CO2 25 05/20/16 11:25 POC ABG O2 Sat 95 05/20/16 11:25 Abnormal lab findings: Abnormal Labs 05/12/16 05/12/16 05/12/16 04:37 04:37 05:39 RBC 3.60 L Hgb 9.7 L Hct 29.3 L D MCH 27 L RDW 16.8 H [place] % (Auto) 11.6 H [place] # 1.1 H POC ABG pH 7.496 H POC ABG pCO2 27.6 L POC ABG pO2 75 L Potassium 3.3 L BUN Creatinine Glucose Calcium 7.9 L 05/12/16 05/13/16 05/15/16 10:01 04:15 11:52 RBC Hgb Hct MCH 27 L RDW 16.7 H [place] % (Auto) [place] # POC ABG pH POC ABG pCO2 POC ABG pO2 73 L Potassium BUN 6 L Creatinine 0.6 L Glucose Calcium 8.2 L 05/15/16 05/20/16 11:52 11:25 RBC Hgb Hct MCH RDW [place] % (Auto) [place] # POC ABG pH POC ABG pCO2 34.9 L POC ABG pO2 73 L Potassium 3.5 L BUN 6 L Creatinine 0.6 L Glucose 113 H Calcium
[2016-05-22] MEDS: LOVENOX SUB-Q SCH (10:56)
[2016-05-22] MEDS: PEPCID PO SCH ×2 (10:56→21:57)
[2016-05-22] MEDS: DILANTIN PO SCH (10:56)
--- NOTE | 2016-05-22 11:24 | Progress Note ---
Assessment and Plan - Patient Problems (1) Status epilepticus Current Visit: Yes Status: Acute Plan to address problem: - not in status now - continue AED's (dilantin) - [facility] (2) Acute hypoxemic respiratory failure Current Visit: Yes Status: Acute Plan to address problem: - extubated - prn bronchodilators and supplemental oxygen - home oxygen evaluation - continue supplemental oxygen to keep sats >92% (3) Discharge planning issues Current Visit: Yes Status: Acute Plan to address problem: - per attending - placement being sought - case management in contact with mom Subjective Date of service: 05/22/16 Principal diagnosis: Seizures; Acute Resp Failure s/p MVS Interval history: seen and examined at bedside; 24hour events reviewed; nursing and respiratory care staff consulted; no adverse overnight events reported to me; resting peacefully in bed; breathing non labored; No N/V/F/C Objective Vital Signs - 12hr 05/21/16 05/22/16 23:56 08:09 Temperature 98.7 F 98.3 F Pulse Rate [ 92 H Apical] Pulse Rate [ 97 H Left] Respiratory 20 20 Rate Blood Pressure 172/107 169/95 [Left Arm] O2 Sat by Pulse 98 97 Oximetry Constitutional: no acute distress, alert Eyes: non-icteric ENT: oropharynx moist Neck: supple Effort: normal Ascultation: Bilateral: clear, rhonchi Cardiovascular: regular rate and rhythm Gastrointestinal: normoactive bowel sounds, soft, non-tender, non-distended Integumentary: normal Extremities: no cyanosis, no edema, pulses normal, no ischemia or petechiae Neurologic: normal mental status, non-focal exam, pupils equal and round Psychiatric: other (mild cognitive defect) CBC and BMP: 05/15/16 11:52 05/15/16 11:52 ABG, PT/INR, D-dimer: ABG POC ABG pH 7.442 (7.35-7.45) 05/20/16 11:25 POC ABG pCO2 34.9 (35-45) L 05/20/16 11:25 POC ABG pO2 73 (80-105) L 05/20/16 11:25 POC ABG HCO3 23.8 05/20/16 11:25 POC ABG Total CO2 25 05/20/16 11:25 POC ABG O2 Sat 95 01/05/17 11:25 Abnormal lab findings: Abnormal Labs 05/12/16 05/12/16 05/12/16 04:37 04:37 05:39 RBC 3.60 L Hgb 9.7 L Hct 29.3 L D MCH 27 L RDW 16.8 H [place] % (Auto) 11.6 H [place] # 1.1 H POC ABG pH 7.496 H POC ABG pCO2 27.6 L POC ABG pO2 75 L Potassium 3.3 L BUN Creatinine Glucose Calcium 7.9 L 05/12/16 05/13/16 05/15/16 10:01 04:15 11:52 RBC Hgb Hct MCH 27 L RDW 16.7 H [place] % (Auto) [place] # POC ABG pH POC ABG pCO2 POC ABG pO2 73 L Potassium BUN 6 L Creatinine 0.6 L Glucose Calcium 8.2 L 05/15/16 05/20/16 11:52 11:25 RBC Hgb Hct MCH RDW [place] % (Auto) [place] # POC ABG pH POC ABG pCO2 34.9 L POC ABG pO2 73 L Potassium 3.5 L BUN 6 L Creatinine 0.6 L Glucose 113 H Calcium
--- NOTE | 2016-05-22 15:15 | Progress Note ---
Assessment and Plan Assessment and plan: Patient is a 40-year-old woman with a history of cerebral aneurysm with SKEWER UP shunt causing cognitive dysfunction and seizure disorder who presents with intractable seizures. 1. Status epilepticus. Resolved. Continue seizure precautions. Continue phenytoin. Neurology not available this weekend. Patient is currently clinically stable for discharge where with case management to finalize placement status. PT OT evaluation and treatment. Still no placement available 2. Acute hypoxic respiratory failure. Patient extubated and doing well. 3. Hypertension. Continue antihypertensive medications. 4. Intractable vomiting. Resolved. Continue Zofran when necessary. KUB was negative. 5. History of cerebral aneurysm and SKEWER UP shunt. Continue supportive care. 6. DVT prophylaxis. Lovenox daily. Encourage ambulation Disposition-pending placement discussed with case management History Interval history: Patient seen and examined. Follow up on seizures which has resolved. Overnight uneventful. No cp, sob, n/v or severe headaches. Imaging, old records, testing, labs, nursing notes reviewed. Hospitalist Physical - Physical exam Narrative exam: GEN: WDWN, NAD, AWAKE, ALERT, ORIENTATED CVS: RRR, NORMAL S1S2 LUNGS/CHEST: CTA B, NORMAL CHEST EXPANSION B, GOOD AIR ENTRY B ABD: SOFT NTND, GBS, NO REBOUND OR GUARDING EXT/SKIN: NO SIGNIFICANT EDEMA OR RASH MSK: right paralysis NEURO: CN 2-12 GROSSLY INTACT, NO new FOCAL DEFICITS PSY: CALM - Constitutional Vitals: Temp Pulse Resp BP Pulse Ox 99.2 F 97 H 18 173/85 99 05/22/16 15:02 05/22/16 15:02 05/22/16 15:02 05/22/16 15:02 05/22/16 15:02 General appearance: Present: no acute distress, well-nourished Results - Labs CBC & Chem 7: 05/15/16 11:52 05/15/16 11:52 Labs: Laboratory Last Values WBC 9.7 K/mm3 (4.5-11.0) 05/15/16 11:52 RBC 4.08 M/mm3 (3.65-5.03) 05/15/16 11:52 Hgb 10.8 gm/dl (10.1-14.3) 05/15/16 11:52 Hct 33.8 % (30.3-42.9) 05/15/16 11:52 MCV 83 fl (79-97) 05/15/16 11:52 MCH 27 pg (28-32) L 05/15/16 11:52 MCHC 32 % (30-34) 05/15/16 11:52 RDW 16.7 % (13.2-15.2) H 05/15/16 11:52 Plt Count 393 K/mm3 (140-440) 05/15/16 11:52 Lymph % (Auto) 24.6 % (13.4-35.0) 05/12/16 04:37 [place] % (Auto) 11.6 % (0.0-7.3) H 05/12/16 04:37 Eos % (Auto) 1.4 % (0.0-4.3) 05/12/16 04:37 Baso % (Auto) 0.4 % (0.0-1.8) 05/12/16 04:37 Lymph # 2.4 K/mm3 (1.2-5.4) 05/12/16 04:37 [place] # 1.1 K/mm3 (0.0-0.8) H 05/12/16 04:37 Eos # 0.1 K/mm3 (0.0-0.4) 05/12/16 04:37 Baso # 0.0 K/mm3 (0.0-0.1) 05/12/16 04:37 Seg Neutrophils % 62.0 % (40.0-70.0) 05/12/16 04:37 Seg Neutrophils # 6.0 K/mm3 (1.8-7.7) 05/12/16 04:37 POC ABG pH 7.442 (7.35-7.45) 05/20/16 11:25 POC ABG pCO2 34.9 (35-45) L 05/20/16 11:25 POC ABG pO2 73 (80-105) L 05/20/16 11:25 POC ABG HCO3 23.8 05/20/16 11:25 POC ABG Total CO2 25 05/20/16 11:25 POC ABG O2 Sat 95 05/20/16 11:25 POC ABG Base Excess 0 05/20/16 11:25 FiO2 21 % 05/20/16 11:25 Sodium 141 mmol/L (137-145) 05/15/16 11:52 Potassium 3.5 mmol/L (3.6-5.0) L 05/15/16 11:52 Chloride 104.1 mmol/L (98-107) 05/15/16 11:52 Carbon Dioxide 22 mmol/L (22-30) 05/15/16 11:52 Anion Gap 18 mmol/L 05/15/16 11:52 BUN 6 mg/dL (7-17) L 05/15/16 11:52 Creatinine 0.6 mg/dL (0.7-1.2) L 05/15/16 11:52 Estimated GFR > 60 ml/min 05/15/16 11:52 BUN/Creatinine Ratio 10.00 % 05/15/16 11:52 Glucose 113 mg/dL (65-100) H 05/15/16 11:52 Calcium 8.4 mg/dL (8.4-10.2) 05/15/16 11:52 Magnesium 2.0 mg/dL (1.7-2.3) 05/15/16 11:52 Total Creatine Kinase 108 units/L (30-135) 05/11/16 10:49 Phenytoin 18.1 mg/L (10.0-20.0) 05/11/16 10:49
[2016-05-23] MEDS ORDERED: ATIVAN IV PRN (06:29)
[2016-05-23] MEDS: LOVENOX SUB-Q SCH (10:02)
[2016-05-23] MEDS: PEPCID PO SCH ×2 (10:02→22:05)
[2016-05-23] MEDS: DILANTIN PO SCH (10:02)
--- NOTE | 2016-05-23 12:29 | Progress Note ---
Assessment and Plan Assessment and plan: Patient is a 40-year-old woman with a history of cerebral aneurysm with AUTOPSY PATHOLOGIST shunt causing cognitive dysfunction and seizure disorder who presents with intractable seizures. 1. Status epilepticus. Resolved. Continue seizure precautions. Continue phenytoin. Neurology not available this weekend. Patient is currently clinically stable for discharge where with case management to finalize placement status. PT OT evaluation and treatment. Still no placement available 2. Acute hypoxic respiratory failure. Patient extubated and doing well. 3. Hypertension. Continue antihypertensive medications. 4. Intractable vomiting. Resolved. Continue Zofran when necessary. KUB was negative. 5. History of cerebral aneurysm and AUTOPSY PATHOLOGIST shunt. Continue supportive care. 6. DVT prophylaxis. Lovenox daily. Encourage ambulation Disposition-pending placement discussed with case management History Interval history: Patient seen and examined. Follow up on seizures which has resolved. Overnight uneventful. No cp, sob, n/v or severe headaches. Imaging, old records, testing, labs, nursing notes reviewed. Hospitalist Physical - Physical exam Narrative exam: GEN: WDWN, NAD, AWAKE, ALERT, ORIENTATED CVS: RRR, NORMAL S1S2 LUNGS/CHEST: CTA B, NORMAL CHEST EXPANSION B, GOOD AIR ENTRY B ABD: SOFT NTND, GBS, NO REBOUND OR GUARDING EXT/SKIN: NO SIGNIFICANT EDEMA OR RASH MSK: right paralysis NEURO: CN 2-12 GROSSLY INTACT, NO new FOCAL DEFICITS PSY: CALM - Constitutional Vitals: Temp Pulse Resp BP Pulse Ox 97.8 F 104 H 18 158/95 98 05/23/16 08:37 05/23/16 08:37 05/23/16 08:37 05/23/16 08:37 05/23/16 09:53 General appearance: Present: no acute distress, well-nourished Results - Labs CBC & Chem 7: 05/15/16 11:52 05/15/16 11:52 Labs: Laboratory Last Values WBC 9.7 K/mm3 (4.5-11.0) 05/15/16 11:52 RBC 4.08 M/mm3 (3.65-5.03) 05/15/16 11:52 Hgb 10.8 gm/dl (10.1-14.3) 05/15/16 11:52 Hct 33.8 % (30.3-42.9) 05/15/16 11:52 MCV 83 fl (79-97) 05/15/16 11:52 MCH 27 pg (28-32) L 05/15/16 11:52 MCHC 32 % (30-34) 05/15/16 11:52 RDW 16.7 % (13.2-15.2) H 05/15/16 11:52 Plt Count 393 K/mm3 (140-440) 05/15/16 11:52 [place] % (Auto) 24.6 % (13.4-35.0) 05/12/16 04:37 [place] % (Auto) 11.6 % (0.0-7.3) H 05/12/16 04:37 Eos % (Auto) 1.4 % (0.0-4.3) 05/12/16 04:37 Baso % (Auto) 0.4 % (0.0-1.8) 05/12/16 04:37 Lymph # 2.4 K/mm3 (1.2-5.4) 05/12/16 04:37 [place] # 1.1 K/mm3 (0.0-0.8) H 05/12/16 04:37 Eos # 0.1 K/mm3 (0.0-0.4) 05/12/16 04:37 Baso # 0.0 K/mm3 (0.0-0.1) 05/12/16 04:37 Seg Neutrophils % 62.0 % (40.0-70.0) 05/12/16 04:37 Seg Neutrophils # 6.0 K/mm3 (1.8-7.7) 05/12/16 04:37 POC ABG pH 7.442 (7.35-7.45) 05/20/16 11:25 POC ABG pCO2 34.9 (35-45) L 05/20/16 11:25 POC ABG pO2 73 (80-105) L 05/20/16 11:25 POC ABG HCO3 23.8 05/20/16 11:25 POC ABG Total CO2 25 05/20/16 11:25 POC ABG O2 Sat 95 05/20/16 11:25 POC ABG Base Excess 0 05/20/16 11:25 FiO2 21 % 05/20/16 11:25 Sodium 141 mmol/L (137-145) 05/15/16 11:52 Potassium 3.5 mmol/L (3.6-5.0) L 05/15/16 11:52 Chloride 104.1 mmol/L (98-107) 05/15/16 11:52 Carbon Dioxide 22 mmol/L (22-30) 05/15/16 11:52 Anion Gap 18 mmol/L 05/15/16 11:52 BUN 6 mg/dL (7-17) L 05/15/16 11:52 Creatinine 0.6 mg/dL (0.7-1.2) L 05/15/16 11:52 Estimated GFR > 60 ml/min 05/15/16 11:52 BUN/Creatinine Ratio 10.00 % 05/15/16 11:52 Glucose 113 mg/dL (65-100) H 05/15/16 11:52 Calcium 8.4 mg/dL (8.4-10.2) 05/15/16 11:52 Magnesium 2.0 mg/dL (1.7-2.3) 05/15/16 11:52 Total Creatine Kinase 108 units/L (30-135) 05/11/16 10:49 Phenytoin 4.3 mg/L (10.0-20.0) L 05/23/16 06:41
--- NOTE | 2016-05-23 12:33 | Progress Note ---
Assessment and Plan - Patient Problems (1) Status epilepticus Current Visit: Yes Status: Acute Plan to address problem: - not in status now - continue AED's (dilantin) - [facility] (2) Acute hypoxemic respiratory failure Current Visit: Yes Status: Acute Plan to address problem: - extubated - prn bronchodilators and supplemental oxygen - home oxygen evaluation - continue supplemental oxygen to keep sats >92% (3) Discharge planning issues Current Visit: Yes Status: Acute Plan to address problem: - per attending - placement being sought - case management in contact with mom Subjective Date of service: 05/23/16 Principal diagnosis: Seizures; Acute Resp Failure s/p MVS Interval history: seen and examined at bedside; 24hour events reviewed; nursing and respiratory care staff consulted; no adverse overnight events reported to me; resting in bed ; denies acute chest pains or increased SOB Objective Vital Signs - 12hr 05/23/16 05/23/16 05/23/16 00:56 01:09 08:37 Temperature 98.2 F 97.8 F Pulse Rate [ 68 104 H Apical] Pulse Rate [ 80 Left] Respiratory 18 18 Rate Blood Pressure 138/81 158/95 [Left Arm] O2 Sat by Pulse 97 99 Oximetry 05/23/16 09:53 Temperature Pulse Rate [ Apical] Pulse Rate [ Left] Respiratory Rate Blood Pressure [Left Arm] O2 Sat by Pulse 98 Oximetry Constitutional: no acute distress, alert Eyes: non-icteric ENT: oropharynx moist Neck: supple Effort: normal Ascultation: Bilateral: clear, diminished breath sounds (bases) Cardiovascular: regular rate and rhythm Gastrointestinal: normoactive bowel sounds, soft, non-tender, non-distended Integumentary: normal Extremities: no cyanosis, no edema, pulses normal, no ischemia or petechiae Neurologic: normal mental status, non-focal exam, pupils equal and round Psychiatric: other (mild cognitive defect) CBC and BMP: 05/24/16 13:33 05/24/16 09:06 ABG, PT/INR, D-dimer: ABG POC ABG pH 7.442 (7.35-7.45) 05/20/16 11:25 POC ABG pCO2 34.9 (35-45) L 05/20/16 11:25 POC ABG pO2 73 (80-105) L 05/20/16 11:25 POC ABG HCO3 23.8 05/20/16 11:25 POC ABG Total CO2 25 05/20/16 11:25 POC ABG O2 Sat 95 05/20/16 11:25 Abnormal lab findings: Abnormal Labs 05/12/16 05/12/16 05/12/16 04:37 04:37 05:39 RBC 3.60 L Hgb 9.7 L Hct 29.3 L D MCH 27 L RDW 16.8 H [place] % (Auto) 11.6 H [place] # 1.1 H POC ABG pH 7.496 H POC ABG pCO2 27.6 L POC ABG pO2 75 L Potassium 3.3 L BUN Creatinine Glucose Calcium 7.9 L Phenytoin 05/12/16 05/13/16 05/15/16 10:01 04:15 11:52 RBC Hgb Hct MCH 27 L RDW 16.7 H [place] % (Auto) [place] # POC ABG pH POC ABG pCO2 POC ABG pO2 73 L Potassium BUN 6 L Creatinine 0.6 L Glucose Calcium 8.2 L Phenytoin 05/15/16 05/20/16 05/23/16 11:52 11:25 06:41 RBC Hgb Hct MCH RDW [place] % (Auto) [place] # POC ABG pH POC ABG pCO2 34.9 L POC ABG pO2 73 L Potassium 3.5 L BUN 6 L Creatinine 0.6 L Glucose 113 H Calcium Phenytoin 4.3 L
[2016-05-24 09:34] LABS: Blood Urea Nitrogen 9 mg/dL (7-17); Calcium 8.4 mg/dL (8.4-10.2); Carbon Dioxide 21 mmol/L (22-30); Glucose 181 mg/dL (65-100)
[2016-05-24 09:35] LABS: Anion Gap 20 mmol/L; Chloride 98.1 mmol/L (98-107); Potassium 4.2 mmol/L (3.6-5.0); Sodium 135 mmol/L (137-145)
[2016-05-24] MEDS: DILANTIN PO SCH (10:28)
[2016-05-24] MEDS: LOVENOX SUB-Q SCH (10:28)
[2016-05-24] MEDS: NORMODYNE PO SCH ×3 (10:28→23:14)
[2016-05-24] MEDS: PEPCID PO SCH ×2 (10:29→23:15)
[2016-05-24 14:19] LABS: Hematocrit 31.8 % (30.3-42.9); Hemoglobin 10.2 gm/dl (10.1-14.3); Mean Corpuscular HGB Conc 32 % (30-34); Mean Corpuscular Hemoglobin 26 pg (28-32); Mean Corpuscular Volume 82 fl (79-97); Platelet Count 434 K/mm3 (140-440); Red Blood Count 3.87 M/mm3 (3.65-5.03); Red Cell Distribution Width 16.1 % (13.2-15.2); White Blood Count 13.1 K/mm3 (4.5-11.0)
--- NOTE | 2016-05-24 15:39 | Progress Note ---
Assessment and Plan Assessment and plan: Patient is a 40-year-old woman with a history of cerebral aneurysm with SEMI CONDUCTOR ASSEMBLER shunt causing cognitive dysfunction and seizure disorder who presents with intractable seizures. 1. Status epilepticus. Resolved. Continue seizure precautions. Continue phenytoin. Neurology not available this weekend. 2. Acute hypoxic respiratory failure. Patient extubated and doing well. 3. Hypertension. Very elevated today, will start on PO labetalol 4. Intractable vomiting. Resolved. Continue Zofran when necessary. KUB was negative. 5. History of cerebral aneurysm and SEMI CONDUCTOR ASSEMBLER shunt. Continue supportive care. 6. DVT prophylaxis. Lovenox daily. Encourage ambulation Disposition-pending placement discussed with case management, DC in 1-2 days when Blood pressure is better controlled History Interval history: No events overnight, no new seizures Hospitalist Physical - Physical exam Narrative exam: General: Patient appears well in no distress HEENT: MMM, EOMI cardiac: S1-S2 heard lungs: clear to auscultation, abdomen: soft, nontender, nondistended bowel sounds positive extremities: no edema clubbing or cyanosis Skin: no rash or lesion Neuro: no focal deficit, expressive aphasia Psych: appropriate behavior and mood, cognition intact - Constitutional Vitals: Temp Pulse Resp BP Pulse Ox 98.0 F 98 H 18 145/94 99 05/24/16 15:15 05/24/16 15:15 05/24/16 15:15 05/24/16 15:15 05/24/16 15:15 General appearance: Present: no acute distress, well-nourished Results - Labs CBC & Chem 7: 05/24/16 13:33 05/24/16 09:06 Labs: Laboratory Last Values WBC 13.1 K/mm3 (4.5-11.0) H 05/24/16 13:33 RBC 3.87 M/mm3 (3.65-5.03) 05/24/16 13:33 Hgb 10.2 gm/dl (10.1-14.3) 05/24/16 13:33 Hct 31.8 % (30.3-42.9) 05/24/16 13:33 MCV 82 fl (79-97) 05/24/16 13:33 MCH 26 pg (28-32) L 05/24/16 13:33 MCHC 32 % (30-34) 05/24/16 13:33 RDW 16.1 % (13.2-15.2) H 05/24/16 13:33 Plt Count 434 K/mm3 (140-440) 05/24/16 13:33 Lymph % (Auto) 24.6 % (13.4-35.0) 05/12/16 04:37 [place] % (Auto) 11.6 % (0.0-7.3) H 05/12/16 04:37 Eos % (Auto) 1.4 % (0.0-4.3) 05/12/16 04:37 Baso % (Auto) 0.4 % (0.0-1.8) 05/12/16 04:37 Lymph # 2.4 K/mm3 (1.2-5.4) 05/12/16 04:37 [place] # 1.1 K/mm3 (0.0-0.8) H 05/12/16 04:37 Eos # 0.1 K/mm3 (0.0-0.4) 05/12/16 04:37 Baso # 0.0 K/mm3 (0.0-0.1) 05/12/16 04:37 Seg Neutrophils % 62.0 % (40.0-70.0) 05/12/16 04:37 Seg Neutrophils # 6.0 K/mm3 (1.8-7.7) 05/12/16 04:37 POC ABG pH 7.442 (7.35-7.45) 05/20/16 11:25 POC ABG pCO2 34.9 (35-45) L 05/20/16 11:25 POC ABG pO2 73 (80-105) L 05/20/16 11:25 POC ABG HCO3 23.8 05/20/16 11:25 POC ABG Total CO2 25 05/20/16 11:25 POC ABG O2 Sat 95 05/20/16 11:25 POC ABG Base Excess 0 05/20/16 11:25 FiO2 21 % 05/20/16 11:25 Sodium 135 mmol/L (137-145) L 05/24/16 09:06 Potassium 4.2 mmol/L (3.6-5.0) 05/24/16 09:06 Chloride 98.1 mmol/L (98-107) 05/24/16 09:06 Carbon Dioxide 21 mmol/L (22-30) L 05/24/16 09:06 Anion Gap 20 mmol/L 05/24/16 09:06 BUN 9 mg/dL (7-17) 05/24/16 09:06 Creatinine 0.6 mg/dL (0.7-1.2) L 05/24/16 09:06 Estimated GFR > 60 ml/min 05/24/16 09:06 BUN/Creatinine Ratio 15.00 % 05/24/16 09:06 Glucose 181 mg/dL (65-100) H 05/24/16 09:06 Calcium 8.4 mg/dL (8.4-10.2) 05/24/16 09:06 Magnesium 2.0 mg/dL (1.7-2.3) 05/15/16 11:52 Total Creatine Kinase 108 units/L (30-135) 05/11/16 10:49 Phenytoin 4.3 mg/L (10.0-20.0) L 05/23/16 06:41
--- NOTE | 2016-05-24 17:03 | Progress Note ---
Assessment and Plan Patient alert,awake. Patient resting on 2 litre O2. O2 satuaration 99%. No acute respiratory distress. - Patient Problems (1) Acute hypoxemic respiratory failure Current Visit: Yes Status: Acute Plan to address problem: Improved. Presently on nasal canula 2 litre. O2 satuaration 98%. No respiratory distress. Continue Lovenox. 05/18/16 Patient resting on 2 litres O2. O2 satuaration 100% No acute respiratory distress at rest. 05/19/15 Patient resting on 2 litres O2. O2 satuaration 98%. 05/24/16 Patient resting on 2 litres O2. O2 satuaration 99%. (2) Status epilepticus Current Visit: Yes Status: Acute Plan to address problem: Management as per neurology. Subjective Date of service: 05/24/16 Principal diagnosis: Seizures; Acute Resp Failure s/p MVS Interval history: Patient alert, awake.Patient resting on 2 litre O2. O2 satuaration 99%. No acute respiratory distress. Objective Vital Signs - 12hr 05/24/16 05/24/16 05/24/16 08:00 09:26 09:47 Temperature 98.7 F Pulse Rate Pulse Rate [ Apical] Pulse Rate [ 112 H 88 Left] Respiratory 18 Rate Blood Pressure Blood Pressure 191/108 170/110 [Left Arm] O2 Sat by Pulse 100 99 Oximetry 05/24/16 05/24/16 05/24/16 10:28 13:00 14:41 Temperature 98.0 F Pulse Rate 112 H 93 H Pulse Rate [ 93 H Apical] Pulse Rate [ Left] Respiratory 24 Rate Blood Pressure 170/110 179/100 Blood Pressure 179/100 [Left Arm] O2 Sat by Pulse 100 Oximetry 05/24/16 15:15 Temperature 98.0 F Pulse Rate Pulse Rate [ 98 H Apical] Pulse Rate [ Left] Respiratory 18 Rate Blood Pressure Blood Pressure 145/94 [Left Arm] O2 Sat by Pulse 99 Oximetry Constitutional: no acute distress, alert Eyes: non-icteric ENT: oropharynx moist Neck: supple Effort: normal Ascultation: Bilateral: diminished breath sounds (bases), rhonchi Cardiovascular: regular rate and rhythm Gastrointestinal: normoactive bowel sounds, soft, non-tender, non-distended Integumentary: normal Extremities: no cyanosis, no edema, pulses normal, no ischemia or petechiae Neurologic: normal mental status, non-focal exam, pupils equal and round Psychiatric: other (mild cognitive defect) CBC and BMP: 05/24/16 13:33 05/24/16 09:06 ABG, PT/INR, D-dimer: ABG POC ABG pH 7.442 (7.35-7.45) 05/20/16 11:25 POC ABG pCO2 34.9 (35-45) L 05/20/16 11:25 POC ABG pO2 73 (80-105) L 05/20/16 11:25 POC ABG HCO3 23.8 05/20/16 11:25 POC ABG Total CO2 25 05/20/16 11:25 POC ABG O2 Sat 95 05/20/16 11:25 Abnormal lab findings: Abnormal Labs 05/12/16 05/12/16 05/12/16 04:37 04:37 05:39 WBC RBC 3.60 L Hgb 9.7 L Hct 29.3 L D MCH 27 L RDW 16.8 H [place] % (Auto) 11.6 H [place] # 1.1 H POC ABG pH 7.496 H POC ABG pCO2 27.6 L POC ABG pO2 75 L Sodium Potassium 3.3 L Carbon Dioxide BUN Creatinine Glucose Calcium 7.9 L Phenytoin 05/12/16 05/13/16 05/15/16 10:01 04:15 11:52 WBC RBC Hgb Hct MCH 27 L RDW 16.7 H [place] % (Auto) [place] # POC ABG pH POC ABG pCO2 POC ABG pO2 73 L Sodium Potassium Carbon Dioxide BUN 6 L Creatinine 0.6 L Glucose Calcium 8.2 L Phenytoin 05/15/16 05/20/16 05/23/16 11:52 11:25 06:41 WBC RBC Hgb Hct MCH RDW [place] % (Auto) [place] # POC ABG pH POC ABG pCO2 34.9 L POC ABG pO2 73 L Sodium Potassium 3.5 L Carbon Dioxide BUN 6 L Creatinine 0.6 L Glucose 113 H Calcium Phenytoin 4.3 L 05/24/16 05/24/16 09:06 13:33 WBC 13.1 H RBC Hgb Hct MCH 26 L RDW 16.1 H [place] % (Auto) [place] # POC ABG pH POC ABG pCO2 POC ABG pO2 Sodium 135 L Potassium Carbon Dioxide 21 L BUN Creatinine 0.6 L Glucose 181 H Calcium Phenytoin
[2016-05-25] MEDS: NORMODYNE PO SCH ×3 (06:08→22:13)
--- NOTE | 2016-05-25 09:18 | Progress Note ---
Assessment and Plan Assessment and plan: Patient is a 40-year-old woman with a history of cerebral aneurysm with TINTER PHOTOGRAPH shunt causing cognitive dysfunction and seizure disorder who presents with intractable seizures. 1. Status epilepticus. Resolved. Continue seizure precautions. Continue phenytoin. Neurology not available this weekend. 2. Acute hypoxic respiratory failure. Patient extubated and doing well. 3. Hypertension. Very elevated today, will start on PO labetalol 4. Intractable vomiting. Resolved. Continue Zofran when necessary. KUB was negative. 5. History of cerebral aneurysm and TINTER PHOTOGRAPH shunt. Continue supportive care. 6. DVT prophylaxis. Lovenox daily. Encourage ambulation Disposition-pending placement discussed with case management, DC in 1-2 days when Blood pressure is better controlled History Interval history: No events overnight, no new seizures Hospitalist Physical - Physical exam Narrative exam: General: Patient appears well in no distress HEENT: MMM, EOMI cardiac: S1-S2 heard lungs: clear to auscultation, abdomen: soft, nontender, nondistended bowel sounds positive extremities: no edema clubbing or cyanosis Skin: no rash or lesion Neuro: no focal deficit, expressive aphasia Psych: appropriate behavior and mood, cognition intact - Constitutional Vitals: Temp Pulse Resp BP Pulse Ox 98.8 F 79 18 139/88 99 05/25/16 07:50 05/25/16 07:50 05/25/16 07:50 05/25/16 07:50 05/25/16 07:50 General appearance: Present: no acute distress, well-nourished Results - Labs CBC & Chem 7: 05/24/16 13:33 05/24/16 09:06 Labs: Laboratory Last Values WBC 13.1 K/mm3 (4.5-11.0) H 05/24/16 13:33 RBC 3.87 M/mm3 (3.65-5.03) 05/24/16 13:33 Hgb 10.2 gm/dl (10.1-14.3) 05/24/16 13:33 Hct 31.8 % (30.3-42.9) 05/24/16 13:33 MCV 82 fl (79-97) 05/24/16 13:33 MCH 26 pg (28-32) L 05/24/16 13:33 MCHC 32 % (30-34) 05/24/16 13:33 RDW 16.1 % (13.2-15.2) H 05/24/16 13:33 Plt Count 434 K/mm3 (140-440) 05/24/16 13:33 Lymph % (Auto) 24.6 % (13.4-35.0) 05/12/16 04:37 [place] % (Auto) 11.6 % (0.0-7.3) H 05/12/16 04:37 Eos % (Auto) 1.4 % (0.0-4.3) 05/12/16 04:37 Baso % (Auto) 0.4 % (0.0-1.8) 05/12/16 04:37 Lymph # 2.4 K/mm3 (1.2-5.4) 05/12/16 04:37 [place] # 1.1 K/mm3 (0.0-0.8) H 05/12/16 04:37 Eos # 0.1 K/mm3 (0.0-0.4) 05/12/16 04:37 Baso # 0.0 K/mm3 (0.0-0.1) 05/12/16 04:37 Seg Neutrophils % 62.0 % (40.0-70.0) 05/12/16 04:37 Seg Neutrophils # 6.0 K/mm3 (1.8-7.7) 05/12/16 04:37 POC ABG pH 7.442 (7.35-7.45) 05/20/16 11:25 POC ABG pCO2 34.9 (35-45) L 05/20/16 11:25 POC ABG pO2 73 (80-105) L 05/20/16 11:25 POC ABG HCO3 23.8 05/20/16 11:25 POC ABG Total CO2 25 05/20/16 11:25 POC ABG O2 Sat 95 05/20/16 11:25 POC ABG Base Excess 0 05/20/16 11:25 FiO2 21 % 05/20/16 11:25 Sodium 135 mmol/L (137-145) L 05/24/16 09:06 Potassium 4.2 mmol/L (3.6-5.0) 05/24/16 09:06 Chloride 98.1 mmol/L (98-107) 05/24/16 09:06 Carbon Dioxide 21 mmol/L (22-30) L 05/24/16 09:06 Anion Gap 20 mmol/L 05/24/16 09:06 BUN 9 mg/dL (7-17) 05/24/16 09:06 Creatinine 0.6 mg/dL (0.7-1.2) L 05/24/16 09:06 Estimated GFR > 60 ml/min 05/24/16 09:06 BUN/Creatinine Ratio 15.00 % 05/24/16 09:06 Glucose 181 mg/dL (65-100) H 05/24/16 09:06 Calcium 8.4 mg/dL (8.4-10.2) 05/24/16 09:06 Magnesium 2.0 mg/dL (1.7-2.3) 05/15/16 11:52 Total Creatine Kinase 108 units/L (30-135) 05/11/16 10:49 Phenytoin 4.3 mg/L (10.0-20.0) L 05/23/16 06:41
[2016-05-25] MEDS: DILANTIN PO SCH (09:52)
[2016-05-25] MEDS: LOVENOX SUB-Q SCH (09:52)
[2016-05-25] MEDS: PEPCID PO SCH ×2 (09:52→22:15)
--- NOTE | 2016-05-25 20:14 | Progress Note ---
Assessment and Plan Patient alert,awake. Patient resting on 2 litre O2. O2 satuaration 98%. No acute respiratory distress. - Patient Problems (1) Acute hypoxemic respiratory failure Current Visit: Yes Status: Acute Plan to address problem: Improved. Presently on nasal canula 2 litre. O2 satuaration 98%. No respiratory distress. Continue Lovenox. 05/18/16 Patient resting on 2 litres O2. O2 satuaration 100% No acute respiratory distress at rest. 05/19/15 Patient resting on 2 litres O2. O2 satuaration 98%. 05/24/16 Patient resting on 2 litres O2. O2 satuaration 99%. 05/25/16 Patient resting on 2 litres O2. O2 satuaration 98%. (2) Status epilepticus Current Visit: Yes Status: Acute Plan to address problem: Management as per neurology. Subjective Date of service: 05/25/16 Principal diagnosis: Seizures; Acute Resp Failure s/p MVS Interval history: Patient alert, awake.Patient resting on 2 litre O2. O2 satuaration 98%. No acute respiratory distress. Objective Vital Signs - 12hr 05/25/16 05/25/16 05/25/16 09:21 13:52 15:35 Temperature 99.5 F Pulse Rate 92 H Pulse Rate [ 101 H Left] Respiratory 16 Rate Blood Pressure 171/98 Blood Pressure 139/93 [Left Arm] O2 Sat by Pulse 100 98 Oximetry Constitutional: no acute distress, alert Eyes: non-icteric ENT: oropharynx moist Neck: supple Effort: normal Ascultation: Bilateral: diminished breath sounds (bases), rhonchi Cardiovascular: regular rate and rhythm Gastrointestinal: normoactive bowel sounds, soft, non-tender, non-distended Integumentary: normal Extremities: no cyanosis, no edema, pulses normal, no ischemia or petechiae Neurologic: normal mental status, non-focal exam, pupils equal and round Psychiatric: other (mild cognitive defect) CBC and BMP: 05/24/16 13:33 05/24/16 09:06 ABG, PT/INR, D-dimer: ABG POC ABG pH 7.442 (7.35-7.45) 05/20/16 11:25 POC ABG pCO2 34.9 (35-45) L 05/20/16 11:25 POC ABG pO2 73 (80-105) L 05/20/16 11:25 POC ABG HCO3 23.8 05/20/16 11:25 POC ABG Total CO2 25 05/20/16 11:25 POC ABG O2 Sat 95 05/20/16 11:25 Abnormal lab findings: Abnormal Labs 05/12/16 05/12/16 05/12/16 04:37 04:37 05:39 WBC RBC 3.60 L Hgb 9.7 L Hct 29.3 L D MCH 27 L RDW 16.8 H [place] % (Auto) 11.6 H [place] # 1.1 H POC ABG pH 7.496 H POC ABG pCO2 27.6 L POC ABG pO2 75 L Sodium Potassium 3.3 L Carbon Dioxide BUN Creatinine Glucose Calcium 7.9 L Phenytoin 05/12/16 05/13/16 05/15/16 10:01 04:15 11:52 WBC RBC Hgb Hct MCH 27 L RDW 16.7 H [place] % (Auto) [place] # POC ABG pH POC ABG pCO2 POC ABG pO2 73 L Sodium Potassium Carbon Dioxide BUN 6 L Creatinine 0.6 L Glucose Calcium 8.2 L Phenytoin 05/15/16 05/20/16 05/23/16 11:52 11:25 06:41 WBC RBC Hgb Hct MCH RDW [place] % (Auto) [place] # POC ABG pH POC ABG pCO2 34.9 L POC ABG pO2 73 L Sodium Potassium 3.5 L Carbon Dioxide BUN 6 L Creatinine 0.6 L Glucose 113 H Calcium Phenytoin 4.3 L 05/24/16 05/24/16 09:06 13:33 WBC 13.1 H RBC Hgb Hct MCH 26 L RDW 16.1 H [place] % (Auto) [place] # POC ABG pH POC ABG pCO2 POC ABG pO2 Sodium 135 L Potassium Carbon Dioxide 21 L BUN Creatinine 0.6 L Glucose 181 H Calcium Phenytoin
[2016-05-26] MEDS: NORMODYNE PO SCH ×3 (07:35→21:58)
[2016-05-26] MEDS: LOVENOX SUB-Q SCH (11:47)
[2016-05-26] MEDS: DILANTIN PO SCH (11:48)
[2016-05-26] MEDS: PEPCID PO SCH ×2 (11:48→21:57)
--- NOTE | 2016-05-26 17:07 | Progress Note ---
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 1. Status epilepticus. Resolved. Continue seizure precautions. Continue phenytoin. Neurology not available this weekend. 2. Acute hypoxic respiratory failure. Patient extubated and doing well. 3. Hypertension. Very elevated today, will start on PO labetalol 4. Intractable vomiting. Resolved. Continue Zofran when necessary. KUB was negative. 5. History of cerebral aneurysm and CARGO STATION WORKER shunt. Continue supportive care. 6. DVT prophylaxis. Lovenox daily. Encourage ambulation Disposition-pending placement discussed with case management, DC in 1-2 days when Blood pressure is better controlled History Interval history: No events overnight, no new seizures Hospitalist Physical - Physical exam Narrative exam: General: Patient appears well in no distress HEENT: MMM, EOMI cardiac: S1-S2 heard lungs: clear to auscultation, abdomen: soft, nontender, nondistended bowel sounds positive extremities: no edema clubbing or cyanosis Skin: no rash or lesion Neuro: no focal deficit, expressive aphasia Psych: appropriate behavior and mood, cognition intact - Constitutional Vitals: Temp Pulse Resp BP Pulse Ox 98.3 F 82 18 144/88 100 05/26/16 00:00 05/26/16 07:35 05/26/16 00:00 05/26/16 14:44 05/26/16 08:22 General appearance: Present: no acute distress, well-nourished Results - Labs CBC & Chem 7: 05/24/16 13:33 05/24/16 09:06 Labs: Laboratory Last Values WBC 13.1 K/mm3 (4.5-11.0) H 05/24/16 13:33 RBC 3.87 M/mm3 (3.65-5.03) 05/24/16 13:33 Hgb 10.2 gm/dl (10.1-14.3) 05/24/16 13:33 Hct 31.8 % (30.3-42.9) 05/24/16 13:33 MCV 82 fl (79-97) 05/24/16 13:33 MCH 26 pg (28-32) L 05/24/16 13:33 MCHC 32 % (30-34) 05/24/16 13:33 RDW 16.1 % (13.2-15.2) H 05/24/16 13:33 Plt Count 434 K/mm3 (140-440) 05/24/16 13:33 Lymph % (Auto) 24.6 % (13.4-35.0) 05/12/16 04:37 [place] % (Auto) 11.6 % (0.0-7.3) H 05/12/16 04:37 Eos % (Auto) 1.4 % (0.0-4.3) 05/12/16 04:37 Baso % (Auto) 0.4 % (0.0-1.8) 05/12/16 04:37 Lymph # 2.4 K/mm3 (1.2-5.4) 05/12/16 04:37 [place] # 1.1 K/mm3 (0.0-0.8) H 05/12/16 04:37 Eos # 0.1 K/mm3 (0.0-0.4) 05/12/16 04:37 Baso # 0.0 K/mm3 (0.0-0.1) 05/12/16 04:37 Seg Neutrophils % 62.0 % (40.0-70.0) 05/12/16 04:37 Seg Neutrophils # 6.0 K/mm3 (1.8-7.7) 05/12/16 04:37 POC ABG pH 7.442 (7.35-7.45) 05/20/16 11:25 POC ABG pCO2 34.9 (35-45) L 05/20/16 11:25 POC ABG pO2 73 (80-105) L 05/20/16 11:25 POC ABG HCO3 23.8 05/20/16 11:25 POC ABG Total CO2 25 05/20/16 11:25 POC ABG O2 Sat 95 05/20/16 11:25 POC ABG Base Excess 0 05/20/16 11:25 FiO2 21 % 05/20/16 11:25 Sodium 135 mmol/L (137-145) L 05/24/16 09:06 Potassium 4.2 mmol/L (3.6-5.0) 05/24/16 09:06 Chloride 98.1 mmol/L (98-107) 05/24/16 09:06 Carbon Dioxide 21 mmol/L (22-30) L 05/24/16 09:06 Anion Gap 20 mmol/L 05/24/16 09:06 BUN 9 mg/dL (7-17) 05/24/16 09:06 Creatinine 0.6 mg/dL (0.7-1.2) L 05/24/16 09:06 Estimated GFR > 60 ml/min 05/24/16 09:06 BUN/Creatinine Ratio 15.00 % 05/24/16 09:06 Glucose 181 mg/dL (65-100) H 05/24/16 09:06 Calcium 8.4 mg/dL (8.4-10.2) 05/24/16 09:06 Magnesium 2.0 mg/dL (1.7-2.3) 05/15/16 11:52 Total Creatine Kinase 108 units/L (30-135) 05/11/16 10:49 Phenytoin 4.3 mg/L (10.0-20.0) L 05/23/16 06:41
--- NOTE | 2016-05-26 20:23 | Progress Note ---
Assessment and Plan Patient alert,awake. Patient resting on 2 litre O2. O2 satuaration 100%. No acute respiratory distress. - Patient Problems (1) Acute hypoxemic respiratory failure Current Visit: Yes Status: Acute Plan to address problem: Improved. Presently on nasal canula 2 litre. O2 satuaration 98%. No respiratory distress. Continue Lovenox. 05/18/16 Patient resting on 2 litres O2. O2 satuaration 100% No acute respiratory distress at rest. 05/19/15 Patient resting on 2 litres O2. O2 satuaration 98%. 05/24/16 Patient resting on 2 litres O2. O2 satuaration 99%. 05/25/16 Patient resting on 2 litres O2. O2 satuaration 98%. 05/26/15 Patient resting on 2 litres O2. O2 satuaration 100% Obtaining blood gases on room air. (2) Status epilepticus Current Visit: Yes Status: Acute Plan to address problem: Management as per neurology. Subjective Date of service: 05/26/16 Principal diagnosis: Seizures; Acute Resp Failure s/p MVS Interval history: Patient alert, awake.Patient resting on 2 litre O2. O2 satuaration 100%. No acute respiratory distress. Objective Vital Signs - 12hr 05/26/16 05/26/16 08:22 14:44 Blood Pressure 144/88 O2 Sat by Pulse 100 Oximetry Constitutional: no acute distress, alert Eyes: non-icteric ENT: oropharynx moist Neck: supple Effort: normal Ascultation: Bilateral: diminished breath sounds (bases), rhonchi Cardiovascular: regular rate and rhythm Gastrointestinal: normoactive bowel sounds, soft, non-tender, non-distended Integumentary: normal Extremities: no cyanosis, no edema, pulses normal, no ischemia or petechiae Neurologic: normal mental status, non-focal exam, pupils equal and round Psychiatric: other (mild cognitive defect) CBC and BMP: 05/24/16 13:33 05/24/16 09:06 ABG, PT/INR, D-dimer: ABG POC ABG pH 7.442 (7.35-7.45) 05/20/16 11:25 POC ABG pCO2 34.9 (35-45) L 05/20/16 11:25 POC ABG pO2 73 (80-105) L 05/20/16 11:25 POC ABG HCO3 23.8 05/20/16 11:25 POC ABG Total CO2 25 05/20/16 11:25 POC ABG O2 Sat 95 05/20/16 11:25 Abnormal lab findings: Abnormal Labs 05/12/16 05/12/16 05/12/16 04:37 04:37 05:39 WBC RBC 3.60 L Hgb 9.7 L Hct 29.3 L D MCH 27 L RDW 16.8 H [place] % (Auto) 11.6 H [place] # 1.1 H POC ABG pH 7.496 H POC ABG pCO2 27.6 L POC ABG pO2 75 L Sodium Potassium 3.3 L Carbon Dioxide BUN Creatinine Glucose Calcium 7.9 L Phenytoin 05/12/16 05/13/16 05/15/16 10:01 04:15 11:52 WBC RBC Hgb Hct MCH 27 L RDW 16.7 H [place] % (Auto) [place] # POC ABG pH POC ABG pCO2 POC ABG pO2 73 L Sodium Potassium Carbon Dioxide BUN 6 L Creatinine 0.6 L Glucose Calcium 8.2 L Phenytoin 05/15/16 05/20/16 05/23/16 11:52 11:25 06:41 WBC RBC Hgb Hct MCH RDW [place] % (Auto) [place] # POC ABG pH POC ABG pCO2 34.9 L POC ABG pO2 73 L Sodium Potassium 3.5 L Carbon Dioxide BUN 6 L Creatinine 0.6 L Glucose 113 H Calcium Phenytoin 4.3 L 05/24/16 05/24/16 09:06 13:33 WBC 13.1 H RBC Hgb Hct MCH 26 L RDW 16.1 H [place] % (Auto) [place] # POC ABG pH POC ABG pCO2 POC ABG pO2 Sodium 135 L Potassium Carbon Dioxide 21 L BUN Creatinine 0.6 L Glucose 181 H Calcium Phenytoin
[2016-05-27] MEDS: NORMODYNE PO SCH ×3 (06:59→21:43)
--- NOTE | 2016-05-27 08:30 | XRay Report ---
AP chest: A curvilinear area of focal density is noted in the right lung not seen on prior study of May 11, 2016. The lungs are hypoventilated but otherwise clear. The heart is normal in size. There is a left ENVELOPE FOLD OPERATOR shunt. The endotracheal tube previously noted is not present. Impression: Focal right atelectasis. Interval extubation.
--- NOTE | 2016-05-27 08:37 | Progress Note ---
Assessment and Plan Assessment and plan: Patient is a 40-year-old woman with a history of cerebral aneurysm with RN PROVIDER RELATIONS shunt causing cognitive dysfunction and seizure disorder who presented with intractable seizures. 1. Status epilepticus. Resolved. Continue seizure precautions. Continue phenytoin. 2. Acute hypoxic respiratory failure. Has long resolved; Patient extubated and doing well. 3. Hypertension. optimized medications 4. Intractable vomiting. Resolved. Continue Zofran when necessary. KUB was negative. 5. History of cerebral aneurysm and RN PROVIDER RELATIONS shunt. Continue supportive care. 6. DVT prophylaxis. Lovenox daily. Encourage ambulation Disposition-pending placement discussed with case management, DC in 1-2 days when Blood pressure is better controlled History Interval history: No events overnight, no new seizures Hospitalist Physical - Physical exam Narrative exam: General: Patient appears well in no distress HEENT: MMM, EOMI cardiac: S1-S2 heard lungs: clear to auscultation, abdomen: soft, nontender, nondistended bowel sounds positive extremities: no edema clubbing or cyanosis Skin: no rash or lesion Neuro: no focal deficit, expressive aphasia Psych: appropriate behavior and mood, cognition intact - Constitutional Vitals: Temp Pulse Resp BP Pulse Ox 98.0 F 82 22 160/105 98 05/27/16 07:50 05/27/16 07:50 05/27/16 07:50 05/27/16 07:50 05/27/16 07:50 General appearance: Present: no acute distress, well-nourished Results - Labs CBC & Chem 7: 05/24/16 13:33 05/24/16 09:06 Labs: Laboratory Last Values WBC 13.1 K/mm3 (4.5-11.0) H 05/24/16 13:33 RBC 3.87 M/mm3 (3.65-5.03) 05/24/16 13:33 Hgb 10.2 gm/dl (10.1-14.3) 05/24/16 13:33 Hct 31.8 % (30.3-42.9) 05/24/16 13:33 MCV 82 fl (79-97) 05/24/16 13:33 MCH 26 pg (28-32) L 05/24/16 13:33 MCHC 32 % (30-34) 05/24/16 13:33 RDW 16.1 % (13.2-15.2) H 05/24/16 13:33 Plt Count 434 K/mm3 (140-440) 05/24/16 13:33 Lymph % (Auto) 24.6 % (13.4-35.0) 05/12/16 04:37 [place]ier % (Auto) 11.6 % (0.0-7.3) H 05/12/16 04:37 Eos % (Auto) 1.4 % (0.0-4.3) 05/12/16 04:37 Baso % (Auto) 0.4 % (0.0-1.8) 05/12/16 04:37 Lymph # 2.4 K/mm3 (1.2-5.4) 05/12/16 04:37 Cavalier # 1.1 K/mm3 (0.0-0.8) H 05/12/16 04:37 Eos # 0.1 K/mm3 (0.0-0.4) 05/12/16 04:37 Baso # 0.0 K/mm3 (0.0-0.1) 05/12/16 04:37 Seg Neutrophils % 62.0 % (40.0-70.0) 05/12/16 04:37 Seg Neutrophils # 6.0 K/mm3 (1.8-7.7) 05/12/16 04:37 POC ABG pH 7.442 (7.35-7.45) 05/20/16 11:25 POC ABG pCO2 34.9 (35-45) L 05/20/16 11:25 POC ABG pO2 73 (80-105) L 05/20/16 11:25 POC ABG HCO3 23.8 05/20/16 11:25 POC ABG Total CO2 25 05/20/16 11:25 POC ABG O2 Sat 95 05/20/16 11:25 POC ABG Base Excess 0 05/20/16 11:25 FiO2 21 % 05/20/16 11:25 Sodium 135 mmol/L (137-145) L 05/24/16 09:06 Potassium 4.2 mmol/L (3.6-5.0) 05/24/16 09:06 Chloride 98.1 mmol/L (98-107) 05/24/16 09:06 Carbon Dioxide 21 mmol/L (22-30) L 05/24/16 09:06 Anion Gap 20 mmol/L 05/24/16 09:06 BUN 9 mg/dL (7-17) 05/24/16 09:06 Creatinine 0.6 mg/dL (0.7-1.2) L 05/24/16 09:06 Estimated GFR > 60 ml/min 05/24/16 09:06 BUN/Creatinine Ratio 15.00 % 05/24/16 09:06 Glucose 181 mg/dL (65-100) H 05/24/16 09:06 Calcium 8.4 mg/dL (8.4-10.2) 05/24/16 09:06 Magnesium 2.0 mg/dL (1.7-2.3) 05/15/16 11:52 Total Creatine Kinase 108 units/L (30-135) 05/11/16 10:49 Phenytoin 4.3 mg/L (10.0-20.0) L 05/23/16 06:41
[2016-05-27] MEDS: HCTZ PO SCH (09:44)
[2016-05-27] MEDS: PEPCID PO SCH ×2 (09:45→21:43)
[2016-05-27] MEDS: LOVENOX SUB-Q SCH (09:45)
[2016-05-27] MEDS: DILANTIN PO SCH (09:45)
--- NOTE | 2016-05-27 11:55 | Progress Note ---
Assessment and Plan - Patient Problems (1) Status epilepticus Current Visit: Yes Status: Acute Plan to address problem: - resolved - continue AED's per primary and neurology (2) Acute hypoxemic respiratory failure Current Visit: Yes Status: Acute Plan to address problem: - resolved - aspiration precautions (3) Discharge planning issues Current Visit: Yes Status: Acute Plan to address problem: - awaiting placement - will see prn Subjective Date of service: 05/27/16 Principal diagnosis: Seizures; Acute Resp Failure s/p MVS Interval history: seen and examined at bedside; 24hour events reviewed; nursing and respiratory care staff consulted; no adverse overnight events reported to me; resting in bed ; off oxygen now Objective Vital Signs - 12hr 05/27/16 05/27/16 06:59 07:50 Temperature 98.0 F Pulse Rate 88 Pulse Rate [ 82 Right] Respiratory 22 Rate Blood Pressure 168/96 Blood Pressure 160/105 [Left Arm] O2 Sat by Pulse 98 Oximetry Constitutional: no acute distress, alert Eyes: non-icteric ENT: oropharynx moist Neck: supple Effort: normal Ascultation: Bilateral: clear, diminished breath sounds (bases) Cardiovascular: regular rate and rhythm Gastrointestinal: normoactive bowel sounds, soft, non-tender, non-distended Integumentary: normal Extremities: no cyanosis, no edema, pulses normal, no ischemia or petechiae Neurologic: normal mental status, non-focal exam, pupils equal and round Psychiatric: other (mild cognitive defect) CBC and BMP: 05/24/16 13:33 05/24/16 09:06 ABG, PT/INR, D-dimer: ABG POC ABG pH 7.442 (7.35-7.45) 05/20/16 11:25 POC ABG pCO2 34.9 (35-45) L 05/20/16 11:25 POC ABG pO2 73 (80-105) L 05/20/16 11:25 POC ABG HCO3 23.8 05/20/16 11:25 POC ABG Total CO2 25 05/20/16 11:25 POC ABG O2 Sat 95 05/20/16 11:25 Abnormal lab findings: Abnormal Labs 05/12/16 05/12/16 05/12/16 04:37 04:37 05:39 WBC RBC 3.60 L Hgb 9.7 L Hct 29.3 L D MCH 27 L RDW 16.8 H [place] % (Auto) 11.6 H [place] # 1.1 H POC ABG pH 7.496 H POC ABG pCO2 27.6 L POC ABG pO2 75 L Sodium Potassium 3.3 L Carbon Dioxide BUN Creatinine Glucose Calcium 7.9 L Phenytoin 05/12/16 05/13/16 05/15/16 10:01 04:15 11:52 WBC RBC Hgb Hct MCH 27 L RDW 16.7 H [place] % (Auto) [place] # POC ABG pH POC ABG pCO2 POC ABG pO2 73 L Sodium Potassium Carbon Dioxide BUN 6 L Creatinine 0.6 L Glucose Calcium 8.2 L Phenytoin 05/15/16 05/20/16 05/23/16 11:52 11:25 06:41 WBC RBC Hgb Hct MCH RDW [place] % (Auto) [place] # POC ABG pH POC ABG pCO2 34.9 L POC ABG pO2 73 L Sodium Potassium 3.5 L Carbon Dioxide BUN 6 L Creatinine 0.6 L Glucose 113 H Calcium Phenytoin 4.3 L 05/24/16 05/24/16 09:06 13:33 WBC 13.1 H RBC Hgb Hct MCH 26 L RDW 16.1 H [place] % (Auto) [place] # POC ABG pH POC ABG pCO2 POC ABG pO2 Sodium 135 L Potassium Carbon Dioxide 21 L BUN Creatinine 0.6 L Glucose 181 H Calcium Phenytoin
[2016-05-28] MEDS: NORMODYNE PO SCH ×3 (05:44→22:45)
[2016-05-28] MEDS: LOVENOX SUB-Q SCH (11:54)
[2016-05-28] MEDS: DILANTIN PO SCH (11:54)
[2016-05-28] MEDS: HCTZ PO SCH (11:54)
[2016-05-28] MEDS: PEPCID PO SCH ×2 (11:54→22:44)
--- NOTE | 2016-05-28 16:15 | Progress Note ---
Assessment and Plan Assessment and plan: Patient is a 40-year-old woman with a history of cerebral aneurysm with SELLING UNDERWRITER shunt causing cognitive dysfunction and seizure disorder who presented with intractable seizures. 1. Status epilepticus. Resolved. Continue seizure precautions. Continue phenytoin. 2. Acute hypoxic respiratory failure. Has long resolved; Patient extubated and doing well. 3. Hypertension. optimized medications 4. Intractable vomiting. Resolved. Continue Zofran when necessary. KUB was negative. 5. History of cerebral aneurysm and SELLING UNDERWRITER shunt. Continue supportive care. 6. DVT prophylaxis. Lovenox daily. Encourage ambulation dc noriega catheter Disposition-pending placement discussed with case management, DC in 1-2 days when Blood pressure is better controlled History Interval history: No events overnight, no new seizures Hospitalist Physical - Physical exam Narrative exam: General: Patient appears well in no distress HEENT: MMM, EOMI cardiac: S1-S2 heard lungs: clear to auscultation, abdomen: soft, nontender, nondistended bowel sounds positive extremities: no edema clubbing or cyanosis Skin: no rash or lesion Neuro: no focal deficit, expressive aphasia Psych: appropriate behavior and mood, cognition intact - Constitutional Vitals: Temp Pulse Resp BP Pulse Ox 99.1 F 95 H 20 157/99 95 05/28/16 08:01 05/28/16 08:01 05/28/16 08:01 05/28/16 08:01 05/27/16 23:00 General appearance: Present: no acute distress, well-nourished Results - Labs CBC & Chem 7: 05/24/16 13:33 05/24/16 09:06 Labs: Laboratory Last Values WBC 13.1 K/mm3 (4.5-11.0) H 05/24/16 13:33 RBC 3.87 M/mm3 (3.65-5.03) 05/24/16 13:33 Hgb 10.2 gm/dl (10.1-14.3) 05/24/16 13:33 Hct 31.8 % (30.3-42.9) 05/24/16 13:33 MCV 82 fl (79-97) 05/24/16 13:33 MCH 26 pg (28-32) L 05/24/16 13:33 MCHC 32 % (30-34) 05/24/16 13:33 RDW 16.1 % (13.2-15.2) H 05/24/16 13:33 Plt Count 434 K/mm3 (140-440) 05/24/16 13:33 Lymph % (Auto) 24.6 % (13.4-35.0) 05/12/16 04:37 [place] % (Auto) 11.6 % (0.0-7.3) H 05/12/16 04:37 Eos % (Auto) 1.4 % (0.0-4.3) 05/12/16 04:37 Baso % (Auto) 0.4 % (0.0-1.8) 05/12/16 04:37 Lymph # 2.4 K/mm3 (1.2-5.4) 05/12/16 04:37 [place] # 1.1 K/mm3 (0.0-0.8) H 05/12/16 04:37 Eos # 0.1 K/mm3 (0.0-0.4) 05/12/16 04:37 Baso # 0.0 K/mm3 (0.0-0.1) 05/12/16 04:37 Seg Neutrophils % 62.0 % (40.0-70.0) 05/12/16 04:37 Seg Neutrophils # 6.0 K/mm3 (1.8-7.7) 05/12/16 04:37 POC ABG pH 7.442 (7.35-7.45) 05/20/16 11:25 POC ABG pCO2 34.9 (35-45) L 05/20/16 11:25 POC ABG pO2 73 (80-105) L 05/20/16 11:25 POC ABG HCO3 23.8 05/20/16 11:25 POC ABG Total CO2 25 05/20/16 11:25 POC ABG O2 Sat 95 05/20/16 11:25 POC ABG Base Excess 0 05/20/16 11:25 FiO2 21 % 05/20/16 11:25 Sodium 135 mmol/L (137-145) L 05/24/16 09:06 Potassium 4.2 mmol/L (3.6-5.0) 05/24/16 09:06 Chloride 98.1 mmol/L (98-107) 05/24/16 09:06 Carbon Dioxide 21 mmol/L (22-30) L 05/24/16 09:06 Anion Gap 20 mmol/L 05/24/16 09:06 BUN 9 mg/dL (7-17) 05/24/16 09:06 Creatinine 0.6 mg/dL (0.7-1.2) L 05/24/16 09:06 Estimated GFR > 60 ml/min 05/24/16 09:06 BUN/Creatinine Ratio 15.00 % 05/24/16 09:06 Glucose 181 mg/dL (65-100) H 05/24/16 09:06 Calcium 8.4 mg/dL (8.4-10.2) 05/24/16 09:06 Magnesium 2.0 mg/dL (1.7-2.3) 05/15/16 11:52 Total Creatine Kinase 108 units/L (30-135) 05/11/16 10:49 Phenytoin 4.3 mg/L (10.0-20.0) L 05/23/16 06:41
[2016-05-29] MEDS: NORMODYNE PO SCH ×3 (05:37→22:09)
[2016-05-29] MEDS: PEPCID PO SCH ×2 (10:23→22:09)
[2016-05-29] MEDS: HCTZ PO SCH (10:23)
[2016-05-29] MEDS: DILANTIN PO SCH (10:23)
[2016-05-29] MEDS: LOVENOX SUB-Q SCH (10:23)
--- NOTE | 2016-05-29 11:33 | Progress Note ---
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 1. Status epilepticus. Resolved. Continue seizure precautions. Continue phenytoin. 2. Acute hypoxic respiratory failure. Has long resolved; Patient extubated and doing well. 3. Hypertension. optimized medications 4. Intractable vomiting. Resolved. Continue Zofran when necessary. KUB was negative. 5. History of cerebral aneurysm and MECHANICAL PENCILS ASSEMBLER shunt. Continue supportive care. 6. DVT prophylaxis. Lovenox daily. Encourage ambulation Disposition-pending placement discussed with case management, DC in 1-2 days when Blood pressure is better controlled History Interval history: No events overnight, no new seizures Hospitalist Physical - Physical exam Narrative exam: General: Patient appears well in no distress HEENT: MMM, EOMI cardiac: S1-S2 heard lungs: clear to auscultation, abdomen: soft, nontender, nondistended bowel sounds positive extremities: no edema clubbing or cyanosis Skin: no rash or lesion Neuro: no focal deficit, expressive aphasia Psych: appropriate behavior and mood, cognition intact - Constitutional Vitals: Temp Pulse Resp BP Pulse Ox 98.3 F 82 18 121/82 98 05/29/16 08:00 05/29/16 08:00 05/29/16 08:00 05/29/16 08:00 05/29/16 08:00 General appearance: Present: no acute distress, well-nourished Results - Labs CBC & Chem 7: 05/24/16 13:33 05/24/16 09:06 Labs: Laboratory Last Values WBC 13.1 K/mm3 (4.5-11.0) H 05/24/16 13:33 RBC 3.87 M/mm3 (3.65-5.03) 05/24/16 13:33 Hgb 10.2 gm/dl (10.1-14.3) 05/24/16 13:33 Hct 31.8 % (30.3-42.9) 05/24/16 13:33 MCV 82 fl (79-97) 05/24/16 13:33 MCH 26 pg (28-32) L 05/24/16 13:33 MCHC 32 % (30-34) 05/24/16 13:33 RDW 16.1 % (13.2-15.2) H 05/24/16 13:33 Plt Count 434 K/mm3 (140-440) 05/24/16 13:33 Lymph % (Auto) 24.6 % (13.4-35.0) 05/12/16 04:37 [place] % (Auto) 11.6 % (0.0-7.3) H 05/12/16 04:37 Eos % (Auto) 1.4 % (0.0-4.3) 05/12/16 04:37 Baso % (Auto) 0.4 % (0.0-1.8) 05/12/16 04:37 Lymph # 2.4 K/mm3 (1.2-5.4) 05/12/16 04:37 [place] # 1.1 K/mm3 (0.0-0.8) H 05/12/16 04:37 Eos # 0.1 K/mm3 (0.0-0.4) 05/12/16 04:37 Baso # 0.0 K/mm3 (0.0-0.1) 05/12/16 04:37 Seg Neutrophils % 62.0 % (40.0-70.0) 05/12/16 04:37 Seg Neutrophils # 6.0 K/mm3 (1.8-7.7) 05/12/16 04:37 POC ABG pH 7.442 (7.35-7.45) 05/20/16 11:25 POC ABG pCO2 34.9 (35-45) L 05/20/16 11:25 POC ABG pO2 73 (80-105) L 05/20/16 11:25 POC ABG HCO3 23.8 05/20/16 11:25 POC ABG Total CO2 25 05/20/16 11:25 POC ABG O2 Sat 95 05/20/16 11:25 POC ABG Base Excess 0 05/20/16 11:25 FiO2 21 % 05/20/16 11:25 Sodium 135 mmol/L (137-145) L 05/24/16 09:06 Potassium 4.2 mmol/L (3.6-5.0) 05/24/16 09:06 Chloride 98.1 mmol/L (98-107) 05/24/16 09:06 Carbon Dioxide 21 mmol/L (22-30) L 05/24/16 09:06 Anion Gap 20 mmol/L 05/24/16 09:06 BUN 9 mg/dL (7-17) 05/24/16 09:06 Creatinine 0.6 mg/dL (0.7-1.2) L 05/24/16 09:06 Estimated GFR > 60 ml/min 05/24/16 09:06 BUN/Creatinine Ratio 15.00 % 05/24/16 09:06 Glucose 181 mg/dL (65-100) H 05/24/16 09:06 Calcium 8.4 mg/dL (8.4-10.2) 05/24/16 09:06 Magnesium 2.0 mg/dL (1.7-2.3) 05/15/16 11:52 Total Creatine Kinase 108 units/L (30-135) 05/11/16 10:49 Phenytoin 4.3 mg/L (10.0-20.0) L 05/23/16 06:41
--- NOTE | 2016-05-29 23:39 | Progress Note ---
Assessment and Plan Patient sleeping at this time. No acute respiratory distress.O2 satuaration 98% on 2 litres O2. - Patient Problems (1) Acute hypoxemic respiratory failure Current Visit: Yes Status: Acute Plan to address problem: Improved. Presently on nasal canula 2 litre. O2 satuaration 98%. No respiratory distress. Continue Lovenox. 05/18/16 Patient resting on 2 litres O2. O2 satuaration 100% No acute respiratory distress at rest. 05/19/15 Patient resting on 2 litres O2. O2 satuaration 98%. 05/24/16 Patient resting on 2 litres O2. O2 satuaration 99%. 05/25/16 Patient resting on 2 litres O2. O2 satuaration 98%. 05/26/15 Patient resting on 2 litres O2. O2 satuaration 100% Obtaining blood gases on room air. 05/29/16 Patient sleeping on 2 litres O2. O2 satuaration 98%. (2) Status epilepticus Current Visit: Yes Status: Acute Plan to address problem: Management as per neurology. Subjective Date of service: 05/29/16 Principal diagnosis: Seizures; Acute Resp Failure s/p MVS Interval history: Patient sleeping at this time. No acute respiratory distress.O2 satuaration 98% on 2 litres O2. Objective Vital Signs - 12hr 05/29/16 05/29/16 16:00 22:09 Temperature 98.5 F Pulse Rate 102 H Pulse Rate [ 84 Right] Respiratory 18 Rate Blood Pressure 153/99 Blood Pressure 120/80 [Left Arm] Constitutional: no acute distress, alert Eyes: non-icteric ENT: oropharynx moist Neck: supple Effort: normal Ascultation: Bilateral: diminished breath sounds (bases), rhonchi Cardiovascular: regular rate and rhythm Gastrointestinal: normoactive bowel sounds, soft, non-tender, non-distended Integumentary: normal Extremities: no cyanosis, no edema, pulses normal, no ischemia or petechiae Neurologic: normal mental status, non-focal exam, pupils equal and round Psychiatric: other (mild cognitive defect) CBC and BMP: 05/24/16 13:33 05/24/16 09:06 ABG, PT/INR, D-dimer: ABG POC ABG pH 7.442 (7.35-7.45) 05/20/16 11:25 POC ABG pCO2 34.9 (35-45) L 05/20/16 11:25 POC ABG pO2 73 (80-105) L 05/20/16 11:25 POC ABG HCO3 23.8 05/20/16 11:25 POC ABG Total CO2 25 05/20/16 11:25 POC ABG O2 Sat 95 05/20/16 11:25 Abnormal lab findings: Abnormal Labs 05/12/16 05/12/16 05/12/16 04:37 04:37 05:39 WBC RBC 3.60 L Hgb 9.7 L Hct 29.3 L D MCH 27 L RDW 16.8 H [place] % (Auto) 11.6 H [place] # 1.1 H POC ABG pH 7.496 H POC ABG pCO2 27.6 L POC ABG pO2 75 L Sodium Potassium 3.3 L Carbon Dioxide BUN Creatinine Glucose Calcium 7.9 L Phenytoin 05/12/16 05/13/16 05/15/16 10:01 04:15 11:52 WBC RBC Hgb Hct MCH 27 L RDW 16.7 H [place] % (Auto) [place] # POC ABG pH POC ABG pCO2 POC ABG pO2 73 L Sodium Potassium Carbon Dioxide BUN 6 L Creatinine 0.6 L Glucose Calcium 8.2 L Phenytoin 05/15/16 05/20/16 05/23/16 11:52 11:25 06:41 WBC RBC Hgb Hct MCH RDW [place] % (Auto) [place] # POC ABG pH POC ABG pCO2 34.9 L POC ABG pO2 73 L Sodium Potassium 3.5 L Carbon Dioxide BUN 6 L Creatinine 0.6 L Glucose 113 H Calcium Phenytoin 4.3 L 05/24/16 05/24/16 09:06 13:33 WBC 13.1 H RBC Hgb Hct MCH 26 L RDW 16.1 H [place] % (Auto) [place] # POC ABG pH POC ABG pCO2 POC ABG pO2 Sodium 135 L Potassium Carbon Dioxide 21 L BUN Creatinine 0.6 L Glucose 181 H Calcium Phenytoin Chest x-ray: report reviewed (Focal right atelectasis reported.), image reviewed
[2016-05-30] MEDS: NORMODYNE PO SCH ×3 (05:25→22:52)
[2016-05-30] MEDS: DILANTIN PO SCH (10:04)
[2016-05-30] MEDS: PEPCID PO SCH ×2 (10:04→22:52)
[2016-05-30] MEDS: LOVENOX SUB-Q SCH (10:04)
[2016-05-30] MEDS: HCTZ PO SCH (10:04)
[2016-05-30 11:55] LABS: ISTAT Base Excess 0; ISTAT DEVICE 0; ISTAT HCO3 24.3; ISTAT PCO2 34.7 (35-45); ISTAT PH 7.453 (7.35-7.45); ISTAT PO2 90 (80-105); ISTAT SO2 97; ISTAT TCO2 25
--- NOTE | 2016-05-30 12:52 | Progress Note ---
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 1. Status epilepticus. Resolved. Continue seizure precautions. Continue phenytoin. 2. Acute hypoxic respiratory failure. Has long resolved; Patient extubated and doing well. 3. Hypertension. optimized medications 4. Intractable vomiting. Resolved. Continue Zofran when necessary. KUB was negative. 5. History of cerebral aneurysm and WET COTTON FEEDER shunt. Continue supportive care. 6. DVT prophylaxis. Lovenox daily. Encourage ambulation Disposition-pending placement discussed with case management History Interval history: No events overnight, no new seizures Hospitalist Physical - Physical exam Narrative exam: General: Patient appears well in no distress HEENT: MMM, EOMI cardiac: S1-S2 heard lungs: clear to auscultation, abdomen: soft, nontender, nondistended bowel sounds positive extremities: no edema clubbing or cyanosis Skin: no rash or lesion Neuro: no focal deficit, expressive aphasia Psych: appropriate behavior and mood, cognition intact - Constitutional Vitals: Temp Pulse Resp BP Pulse Ox 97.9 F 94 H 18 126/92 100 05/30/16 09:00 05/30/16 09:00 05/30/16 09:00 05/30/16 09:00 05/30/16 09:00 General appearance: Present: no acute distress, well-nourished Results - Labs CBC & Chem 7: 05/24/16 13:33 05/24/16 09:06 Labs: Laboratory Last Values WBC 13.1 K/mm3 (4.5-11.0) H 05/24/16 13:33 RBC 3.87 M/mm3 (3.65-5.03) 05/24/16 13:33 Hgb 10.2 gm/dl (10.1-14.3) 05/24/16 13:33 Hct 31.8 % (30.3-42.9) 05/24/16 13:33 MCV 82 fl (79-97) 05/24/16 13:33 MCH 26 pg (28-32) L 05/24/16 13:33 MCHC 32 % (30-34) 05/24/16 13:33 RDW 16.1 % (13.2-15.2) H 05/24/16 13:33 Plt Count 434 K/mm3 (140-440) 05/24/16 13:33 Lymph % (Auto) 24.6 % (13.4-35.0) 05/12/16 04:37 [place] % (Auto) 11.6 % (0.0-7.3) H 05/12/16 04:37 Eos % (Auto) 1.4 % (0.0-4.3) 05/12/16 04:37 Baso % (Auto) 0.4 % (0.0-1.8) 05/12/16 04:37 Lymph # 2.4 K/mm3 (1.2-5.4) 05/12/16 04:37 [place] # 1.1 K/mm3 (0.0-0.8) H 05/12/16 04:37 Eos # 0.1 K/mm3 (0.0-0.4) 05/12/16 04:37 Baso # 0.0 K/mm3 (0.0-0.1) 05/12/16 04:37 Seg Neutrophils % 62.0 % (40.0-70.0) 05/12/16 04:37 Seg Neutrophils # 6.0 K/mm3 (1.8-7.7) 05/12/16 04:37 POC ABG pH 7.453 (7.35-7.45) H 05/27/16 10:13 POC ABG pCO2 34.7 (35-45) L 05/27/16 10:13 POC ABG pO2 90 (80-105) 05/27/16 10:13 POC ABG HCO3 24.3 05/27/16 10:13 POC ABG Total CO2 25 05/27/16 10:13 POC ABG O2 Sat 97 05/27/16 10:13 POC ABG Base Excess 0 05/27/16 10:13 FiO2 21 % 05/27/16 10:13 Sodium 135 mmol/L (137-145) L 05/24/16 09:06 Potassium 4.2 mmol/L (3.6-5.0) 05/24/16 09:06 Chloride 98.1 mmol/L (98-107) 05/24/16 09:06 Carbon Dioxide 21 mmol/L (22-30) L 05/24/16 09:06 Anion Gap 20 mmol/L 05/24/16 09:06 BUN 9 mg/dL (7-17) 05/24/16 09:06 Creatinine 0.6 mg/dL (0.7-1.2) L 05/24/16 09:06 Estimated GFR > 60 ml/min 05/24/16 09:06 BUN/Creatinine Ratio 15.00 % 05/24/16 09:06 Glucose 181 mg/dL (65-100) H 05/24/16 09:06 Calcium 8.4 mg/dL (8.4-10.2) 05/24/16 09:06 Magnesium 2.0 mg/dL (1.7-2.3) 05/15/16 11:52 Total Creatine Kinase 108 units/L (30-135) 05/11/16 10:49 Phenytoin 4.3 mg/L (10.0-20.0) L 05/23/16 06:41
--- NOTE | 2016-05-30 19:08 | Progress Note ---
Assessment and Plan Patient resting on room air at this time. No acute respiratory distress.O2 satuaration 100% on room air.. - Patient Problems (1) Acute hypoxemic respiratory failure Current Visit: Yes Status: Acute Plan to address problem: Improved. Presently on nasal canula 2 litre. O2 satuaration 98%. No respiratory distress. Continue Lovenox. 05/18/16 Patient resting on 2 litres O2. O2 satuaration 100% No acute respiratory distress at rest. 05/19/15 Patient resting on 2 litres O2. O2 satuaration 98%. 05/24/16 Patient resting on 2 litres O2. O2 satuaration 99%. 05/25/16 Patient resting on 2 litres O2. O2 satuaration 98%. 05/26/15 Patient resting on 2 litres O2. O2 satuaration 100% Obtaining blood gases on room air. 05/29/16 Patient sleeping on 2 litres O2. O2 satuaration 98%. 05/30/16 Patient is on 2 litres O2. O2 satuaration 99%. 05/31/16 Patient resting on room air. O2 satuaration 100%. (2) Status epilepticus Current Visit: Yes Status: Acute Plan to address problem: Management as per neurology. Subjective Date of service: 05/30/16 Principal diagnosis: Seizures; Acute Resp Failure s/p MVS Interval history: Patient resting on room air. No acute respiratory distress.O2 satuaration 100% on room air.. Objective Vital Signs - 12hr 05/30/16 05/30/16 09:00 15:20 Temperature 97.9 F 97.3 F L Pulse Rate [ 94 H 90 Right] Respiratory 18 20 Rate Blood Pressure 126/92 135/76 [Left Arm] O2 Sat by Pulse 100 Oximetry Constitutional: no acute distress, alert Eyes: non-icteric ENT: oropharynx moist Neck: supple Effort: normal Ascultation: Bilateral: diminished breath sounds (bases), rhonchi Cardiovascular: regular rate and rhythm Gastrointestinal: normoactive bowel sounds, soft, non-tender, non-distended Integumentary: normal Extremities: no cyanosis, no edema, pulses normal, no ischemia or petechiae Neurologic: normal mental status, non-focal exam, pupils equal and round Psychiatric: other (mild cognitive defect) CBC and BMP: 05/24/16 13:33 05/24/16 09:06 ABG, PT/INR, D-dimer: ABG POC ABG pH 7.453 (7.35-7.45) H 05/27/16 10:13 POC ABG pCO2 34.7 (35-45) L 05/27/16 10:13 POC ABG pO2 90 (80-105) 05/27/16 10:13 POC ABG HCO3 24.3 05/27/16 10:13 POC ABG Total CO2 25 05/27/16 10:13 POC ABG O2 Sat 97 05/27/16 10:13 Abnormal lab findings: Abnormal Labs 05/12/16 05/12/16 05/12/16 04:37 04:37 05:39 WBC RBC 3.60 L Hgb 9.7 L Hct 29.3 L D MCH 27 L RDW 16.8 H [place] % (Auto) 11.6 H [place] # 1.1 H POC ABG pH 7.496 H POC ABG pCO2 27.6 L POC ABG pO2 75 L Sodium Potassium 3.3 L Carbon Dioxide BUN Creatinine Glucose Calcium 7.9 L Phenytoin 05/12/16 05/13/16 05/15/16 10:01 04:15 11:52 WBC RBC Hgb Hct MCH 27 L RDW 16.7 H [place] % (Auto) [place] # POC ABG pH POC ABG pCO2 POC ABG pO2 73 L Sodium Potassium Carbon Dioxide BUN 6 L Creatinine 0.6 L Glucose Calcium 8.2 L Phenytoin 05/15/16 05/20/16 05/23/16 11:52 11:25 06:41 WBC RBC Hgb Hct MCH RDW [place] % (Auto) [place] # POC ABG pH POC ABG pCO2 34.9 L POC ABG pO2 73 L Sodium Potassium 3.5 L Carbon Dioxide BUN 6 L Creatinine 0.6 L Glucose 113 H Calcium Phenytoin 4.3 L 05/24/16 05/24/16 05/27/16 09:06 13:33 10:13 WBC 13.1 H RBC Hgb Hct MCH 26 L RDW 16.1 H [place] % (Auto) [place] # POC ABG pH 7.453 H POC ABG pCO2 34.7 L POC ABG pO2 Sodium 135 L Potassium Carbon Dioxide 21 L BUN Creatinine 0.6 L Glucose 181 H Calcium Phenytoin
[2016-05-31] MEDS: NORMODYNE PO SCH ×3 (06:15→21:01)
--- NOTE | 2016-05-31 08:59 | Progress Note ---
Assessment and Plan Assessment and plan: Patient is a 40-year-old woman with a history of cerebral aneurysm with B[employer]CHROOM SH[employer] OPTICIAN shunt causing cognitive dysfunction and seizure disorder who presented with intractable seizures. 1. Status epilepticus. Resolved. Continue seizure precautions. Continue phenytoin. 2. Acute hypoxic respiratory failure. Has long resolved; Patient extubated and doing well. 3. Hypertension. optimized medications 4. Intractable vomiting. Resolved. Continue Zofran when necessary. KUB was negative. 5. History of cerebral aneurysm and B[employer]CHRO[employer]ICIAN shunt. Continue supportive care. 6. DVT prophylaxis. Lovenox daily. Encourage ambulation Disposition-pending placement discussed with case management History Interval history: No events overnight, no new seizures Hospitalist Physical - Physical exam Narrative exam: General: Patient appears well in no distress HEENT: MMM, EOMI cardiac: S1-S2 heard lungs: clear to auscultation, abdomen: soft, nontender, nondistended bowel sounds positive extremities: no edema clubbing or cyanosis Skin: no rash or lesion Neuro: no focal deficit, expressive aphasia Psych: appropriate behavior and mood, cognition intact - Constitutional Vitals: Temp Pulse Resp BP Pulse Ox 99.1 F 94 H 18 132/93 98 05/31/16 08:00 05/31/16 08:00 05/31/16 08:00 05/31/16 08:00 05/31/16 08:00 General appearance: Present: no acute distress, well-nourished Results - Labs CBC & Chem 7: 05/24/16 13:33 05/24/16 09:06 Labs: Laboratory Last Values WBC 13.1 K/mm3 (4.5-11.0) H 05/24/16 13:33 RBC 3.87 M/mm3 (3.65-5.03) 05/24/16 13:33 Hgb 10.2 gm/dl (10.1-14.3) 05/24/16 13:33 Hct 31.8 % (30.3-42.9) 05/24/16 13:33 MCV 82 fl (79-97) 05/24/16 13:33 MCH 26 pg (28-32) L 05/24/16 13:33 MCHC 32 % (30-34) 05/24/16 13:33 RDW 16.1 % (13.2-15.2) H 05/24/16 13:33 Plt Count 434 K/mm3 (140-440) 05/24/16 13:33 Lymph % (Auto) 24.6 % (13.4-35.0) 05/12/16 04:37 [place] % (Auto) 11.6 % (0.0-7.3) H 05/12/16 04:37 Eos % (Auto) 1.4 % (0.0-4.3) 05/12/16 04:37 Baso % (Auto) 0.4 % (0.0-1.8) 05/12/16 04:37 Lymph # 2.4 K/mm3 (1.2-5.4) 05/12/16 04:37 [place] # 1.1 K/mm3 (0.0-0.8) H 05/12/16 04:37 Eos # 0.1 K/mm3 (0.0-0.4) 05/12/16 04:37 Baso # 0.0 K/mm3 (0.0-0.1) 05/12/16 04:37 Seg Neutrophils % 62.0 % (40.0-70.0) 05/12/16 04:37 Seg Neutrophils # 6.0 K/mm3 (1.8-7.7) 05/12/16 04:37 POC ABG pH 7.453 (7.35-7.45) H 05/27/16 10:13 POC ABG pCO2 34.7 (35-45) L 05/27/16 10:13 POC ABG pO2 90 (80-105) 05/27/16 10:13 POC ABG HCO3 24.3 05/27/16 10:13 POC ABG Total CO2 25 05/27/16 10:13 POC ABG O2 Sat 97 05/27/16 10:13 POC ABG Base Excess 0 05/27/16 10:13 FiO2 21 % 05/27/16 10:13 Sodium 135 mmol/L (137-145) L 05/24/16 09:06 Potassium 4.2 mmol/L (3.6-5.0) 05/24/16 09:06 Chloride 98.1 mmol/L (98-107) 05/24/16 09:06 Carbon Dioxide 21 mmol/L (22-30) L 05/24/16 09:06 Anion Gap 20 mmol/L 05/24/16 09:06 BUN 9 mg/dL (7-17) 05/24/16 09:06 Creatinine 0.6 mg/dL (0.7-1.2) L 05/24/16 09:06 Estimated GFR > 60 ml/min 05/24/16 09:06 BUN/Creatinine Ratio 15.00 % 05/24/16 09:06 Glucose 181 mg/dL (65-100) H 05/24/16 09:06 Calcium 8.4 mg/dL (8.4-10.2) 05/24/16 09:06 Magnesium 2.0 mg/dL (1.7-2.3) 05/15/16 11:52 Total Creatine Kinase 108 units/L (30-135) 05/11/16 10:49 Phenytoin 4.3 mg/L (10.0-20.0) L 05/23/16 06:41
[2016-05-31] MEDS: HCTZ PO SCH (09:52)
[2016-05-31] MEDS: LOVENOX SUB-Q SCH (09:52)
[2016-05-31] MEDS: PEPCID PO SCH ×2 (09:52→21:02)
[2016-05-31] MEDS: DILANTIN PO SCH (09:53)
--- NOTE | 2016-05-31 22:16 | Progress Note ---
Assessment and Plan Patient resting on room air at this time. No acute respiratory distress.O2 satuaration 99% on room air.. - Patient Problems (1) Acute hypoxemic respiratory failure Current Visit: Yes Status: Acute Plan to address problem: Improved. Presently on nasal canula 2 litre. O2 satuaration 98%. No respiratory distress. Continue Lovenox. 05/18/16 Patient resting on 2 litres O2. O2 satuaration 100% No acute respiratory distress at rest. 05/19/15 Patient resting on 2 litres O2. O2 satuaration 98%. 05/24/16 Patient resting on 2 litres O2. O2 satuaration 99%. 05/25/16 Patient resting on 2 litres O2. O2 satuaration 98%. 05/26/15 Patient resting on 2 litres O2. O2 satuaration 100% Obtaining blood gases on room air. 05/29/16 Patient sleeping on 2 litres O2. O2 satuaration 98%. 05/30/16 Patient is on 2 litres O2. O2 satuaration 99%. 05/31/16 Patient resting on room air. O2 satuaration 99%. (2) Status epilepticus Current Visit: Yes Status: Acute Plan to address problem: Management as per neurology. Subjective Date of service: 05/31/16 Principal diagnosis: Seizures; Acute Resp Failure s/p MVS Interval history: Patient resting on room air. No acute respiratory distress.O2 satuaration 99% on room air.. Objective Vital Signs - 12hr 05/31/16 05/31/16 05/31/16 13:48 17:00 20:54 Temperature 98.2 F Pulse Rate 88 Pulse Rate [ 98 H Left] Pulse Rate [ 96 H Radial] Respiratory 20 18 Rate Blood Pressure 130/82 Blood Pressure 132/94 [Left Arm] O2 Sat by Pulse 97 99 Oximetry 05/31/16 21:01 Temperature Pulse Rate 98 H Pulse Rate [ Left] Pulse Rate [ Radial] Respiratory Rate Blood Pressure 130/93 Blood Pressure [Left Arm] O2 Sat by Pulse Oximetry Constitutional: no acute distress, alert Eyes: non-icteric ENT: oropharynx moist Neck: supple Effort: normal Ascultation: Bilateral: diminished breath sounds (bases), rhonchi Cardiovascular: regular rate and rhythm Gastrointestinal: normoactive bowel sounds, soft, non-tender, non-distended Integumentary: normal Extremities: no cyanosis, no edema, pulses normal, no ischemia or petechiae Neurologic: normal mental status, non-focal exam, pupils equal and round Psychiatric: other (mild cognitive defect) CBC and BMP: 05/24/16 13:33 05/24/16 09:06 ABG, PT/INR, D-dimer: ABG POC ABG pH 7.453 (7.35-7.45) H 05/27/16 10:13 POC ABG pCO2 34.7 (35-45) L 05/27/16 10:13 POC ABG pO2 90 (80-105) 05/27/16 10:13 POC ABG HCO3 24.3 05/27/16 10:13 POC ABG Total CO2 25 05/27/16 10:13 POC ABG O2 Sat 97 05/27/16 10:13 Abnormal lab findings: Abnormal Labs 05/12/16 05/12/16 05/12/16 04:37 04:37 05:39 WBC RBC 3.60 L Hgb 9.7 L Hct 29.3 L D MCH 27 L RDW 16.8 H [place] % (Auto) 11.6 H [place] # 1.1 H POC ABG pH 7.496 H POC ABG pCO2 27.6 L POC ABG pO2 75 L Sodium Potassium 3.3 L Carbon Dioxide BUN Creatinine Glucose Calcium 7.9 L Phenytoin 05/12/16 05/13/16 05/15/16 10:01 04:15 11:52 WBC RBC Hgb Hct MCH 27 L RDW 16.7 H [place] % (Auto) [place] # POC ABG pH POC ABG pCO2 POC ABG pO2 73 L Sodium Potassium Carbon Dioxide BUN 6 L Creatinine 0.6 L Glucose Calcium 8.2 L Phenytoin 05/15/16 05/20/16 05/23/16 11:52 11:25 06:41 WBC RBC Hgb Hct MCH RDW [place] % (Auto) [place] # POC ABG pH POC ABG pCO2 34.9 L POC ABG pO2 73 L Sodium Potassium 3.5 L Carbon Dioxide BUN 6 L Creatinine 0.6 L Glucose 113 H Calcium Phenytoin 4.3 L 05/24/16 05/24/16 05/27/16 09:06 13:33 10:13 WBC 13.1 H RBC Hgb Hct MCH 26 L RDW 16.1 H [place] % (Auto) [place] # POC ABG pH 7.453 H POC ABG pCO2 34.7 L POC ABG pO2 Sodium 135 L Potassium Carbon Dioxide 21 L BUN Creatinine 0.6 L Glucose 181 H Calcium Phenytoin
[2016-06-01] MEDS: NORMODYNE PO SCH ×3 (06:26→21:09)
[2016-06-01 07:06] LABS: Basophils % (Auto) 0.4 % (0.0-1.8); Eosinophils % (Auto) 2.3 % (0.0-4.3); Hematocrit 36.6 % (30.3-42.9); Hemoglobin 11.6 gm/dl (10.1-14.3); Mean Corpuscular HGB Conc 32 % (30-34); Mean Corpuscular Volume 80 fl (79-97); Platelet Count 448 K/mm3 (140-440); Red Blood Count 4.55 M/mm3 (3.65-5.03); Red Cell Distribution Width 16.6 % (13.2-15.2); White Blood Count 9.6 K/mm3 (4.5-11.0)
[2016-06-01 07:16] LABS: Mean Corpuscular Hemoglobin 26 pg (28-32)
[2016-06-01 07:26] LABS: Anion Gap 21 mmol/L; BUN/Creatinine Ratio 15.71; Blood Urea Nitrogen 11 mg/dL (7-17); Calcium 9.2 mg/dL (8.4-10.2); Carbon Dioxide 27 mmol/L (22-30); Chloride 97.2 mmol/L (98-107); Glucose 101 mg/dL (65-100); Sodium 142 mmol/L (137-145)
[2016-06-01] MEDS: DILANTIN PO SCH (09:47)
[2016-06-01] MEDS: PEPCID PO SCH ×2 (09:47→21:10)
[2016-06-01] MEDS: LOVENOX SUB-Q SCH (09:47)
[2016-06-01] MEDS: HCTZ PO SCH (09:47)
--- NOTE | 2016-06-01 12:05 | Progress Note ---
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 1. Status epilepticus. Resolved. Continue seizure precautions. Continue phenytoin. 2. Acute hypoxic respiratory failure. Has long resolved; Patient extubated and doing well. 3. Hypertension. optimized medications 4. Intractable vomiting. Resolved. Continue Zofran when necessary. KUB was negative. 5. History of cerebral aneurysm and TRAIN CREW MEMBER shunt. Continue supportive care. 6. DVT prophylaxis. Lovenox daily. Encourage ambulation, she has been refusing 7. Hypokalemia Replete PO Disposition-pending placement discussed with case management History Interval history: No events overnight, no new seizures Hospitalist Physical - Physical exam Narrative exam: General: Patient appears well in no distress HEENT: MMM, EOMI cardiac: S1-S2 heard lungs: clear to auscultation, abdomen: soft, nontender, nondistended bowel sounds positive extremities: no edema clubbing or cyanosis Skin: no rash or lesion Neuro: no focal deficit, expressive aphasia Psych: appropriate behavior and mood, cognition intact - Constitutional Vitals: Temp Pulse Resp BP Pulse Ox 97.6 F 100 H 16 128/85 99 06/01/16 08:00 06/01/16 08:00 06/01/16 08:00 06/01/16 08:00 06/01/16 08:00 General appearance: Present: no acute distress, well-nourished Results - Labs CBC & Chem 7: 06/01/16 06:14 06/01/16 06:14 Labs: Laboratory Last Values WBC 9.6 K/mm3 (4.5-11.0) 06/01/16 06:14 RBC 4.55 M/mm3 (3.65-5.03) 06/01/16 06:14 Hgb 11.6 gm/dl (10.1-14.3) 06/01/16 06:14 Hct 36.6 % (30.3-42.9) 06/01/16 06:14 MCV 80 fl (79-97) 06/01/16 06:14 MCH 26 pg (28-32) L 06/01/16 06:14 MCHC 32 % (30-34) 06/01/16 06:14 RDW 16.6 % (13.2-15.2) H 06/01/16 06:14 Plt Count 448 K/mm3 (140-440) H 06/01/16 06:14 Lymph % (Auto) 21.9 % (13.4-35.0) 06/01/16 06:14 [place] % (Auto) 10.2 % (0.0-7.3) H 06/01/16 06:14 Eos % (Auto) 2.3 % (0.0-4.3) 06/01/16 06:14 Baso % (Auto) 0.4 % (0.0-1.8) 06/01/16 06:14 Lymph # 2.1 K/mm3 (1.2-5.4) 06/01/16 06:14 [place] # 1.0 K/mm3 (0.0-0.8) H 06/01/16 06:14 Eos # 0.2 K/mm3 (0.0-0.4) 06/01/16 06:14 Baso # 0.0 K/mm3 (0.0-0.1) 06/01/16 06:14 Seg Neutrophils % 65.2 % (40.0-70.0) 06/01/16 06:14 Seg Neutrophils # 6.2 K/mm3 (1.8-7.7) 06/01/16 06:14 POC ABG pH 7.453 (7.35-7.45) H 05/27/16 10:13 POC ABG pCO2 34.7 (35-45) L 05/27/16 10:13 POC ABG pO2 90 (80-105) 05/27/16 10:13 POC ABG HCO3 24.3 05/27/16 10:13 POC ABG Total CO2 25 05/27/16 10:13 POC ABG O2 Sat 97 05/27/16 10:13 POC ABG Base Excess 0 05/27/16 10:13 FiO2 21 % 05/27/16 10:13 Sodium 142 mmol/L (137-145) 06/01/16 06:14 Potassium 3.0 mmol/L (3.6-5.0) L 06/01/16 06:14 Chloride 97.2 mmol/L (98-107) L 06/01/16 06:14 Carbon Dioxide 27 mmol/L (22-30) 06/01/16 06:14 Anion Gap 21 mmol/L 06/01/16 06:14 BUN 11 mg/dL (7-17) 06/01/16 06:14 Creatinine 0.7 mg/dL (0.7-1.2) 06/01/16 06:14 Estimated GFR > 60 ml/min 06/01/16 06:14 BUN/Creatinine Ratio 15.71 % 06/01/16 06:14 Glucose 101 mg/dL (65-100) H 06/01/16 06:14 Calcium 9.2 mg/dL (8.4-10.2) 06/01/16 06:14 Magnesium 2.0 mg/dL (1.7-2.3) 06/01/16 06:14 Total Creatine Kinase 108 units/L (30-135) 05/11/16 10:49 Phenytoin 4.3 mg/L (10.0-20.0) L 05/23/16 06:41
[2016-06-01] MEDS: K-DUR PO SCH (13:42)
--- NOTE | 2016-06-01 20:22 | Progress Note ---
Assessment and Plan Patient resting on room air at this time. No acute respiratory distress.O2 satuaration 100% on room air.. - Patient Problems (1) Acute hypoxemic respiratory failure Current Visit: Yes Status: Acute Plan to address problem: Improved. Presently on nasal canula 2 litre. O2 satuaration 98%. No respiratory distress. Continue Lovenox. 05/18/16 Patient resting on 2 litres O2. O2 satuaration 100% No acute respiratory distress at rest. 05/19/15 Patient resting on 2 litres O2. O2 satuaration 98%. 05/24/16 Patient resting on 2 litres O2. O2 satuaration 99%. 05/25/16 Patient resting on 2 litres O2. O2 satuaration 98%. 05/26/15 Patient resting on 2 litres O2. O2 satuaration 100% Obtaining blood gases on room air. 05/29/16 Patient sleeping on 2 litres O2. O2 satuaration 98%. 05/30/16 Patient is on 2 litres O2. O2 satuaration 99%. 05/31/16 Patient resting on room air. O2 satuaration 99%. 06/01/16 Patient resting on room air. O2 satuaration 100%. (2) Status epilepticus Current Visit: Yes Status: Acute Plan to address problem: Management as per neurology. Subjective Date of service: 06/01/16 Principal diagnosis: Seizures; Acute Resp Failure s/p MVS Interval history: Patient resting on room air. No acute respiratory distress.O2 satuaration 100% on room air.. Objective Vital Signs - 12hr 06/01/16 16:30 Temperature 98.2 F Pulse Rate [ 95 H Right] Respiratory 16 Rate Blood Pressure 151/101 [Left Arm] O2 Sat by Pulse 100 Oximetry Constitutional: no acute distress, alert Eyes: non-icteric ENT: oropharynx moist Neck: supple Effort: normal Ascultation: Bilateral: diminished breath sounds (bases), rhonchi Cardiovascular: regular rate and rhythm Gastrointestinal: normoactive bowel sounds, soft, non-tender, non-distended Integumentary: normal Extremities: no cyanosis, no edema, pulses normal, no ischemia or petechiae Neurologic: normal mental status, non-focal exam, pupils equal and round Psychiatric: other (mild cognitive defect) CBC and BMP: 01/17/17 06:14 06/01/16 06:14 ABG, PT/INR, D-dimer: ABG POC ABG pH 7.453 (7.35-7.45) H 05/27/16 10:13 POC ABG pCO2 34.7 (35-45) L 05/27/16 10:13 POC ABG pO2 90 (80-105) 05/27/16 10:13 POC ABG HCO3 24.3 05/27/16 10:13 POC ABG Total CO2 25 05/27/16 10:13 POC ABG O2 Sat 97 05/27/16 10:13 Abnormal lab findings: Abnormal Labs 05/12/16 05/12/16 05/12/16 04:37 04:37 05:39 WBC RBC 3.60 L Hgb 9.7 L Hct 29.3 L D MCH 27 L RDW 16.8 H Plt Count [place] % (Auto) 11.6 H [place] # 1.1 H POC ABG pH 7.496 H POC ABG pCO2 27.6 L POC ABG pO2 75 L Sodium Potassium 3.3 L Chloride Carbon Dioxide BUN Creatinine Glucose Calcium 7.9 L Phenytoin 05/12/16 05/13/16 05/15/16 10:01 04:15 11:52 WBC RBC Hgb Hct MCH 27 L RDW 16.7 H Plt Count [place] % (Auto) [place] # POC ABG pH POC ABG pCO2 POC ABG pO2 73 L Sodium Potassium Chloride Carbon Dioxide BUN 6 L Creatinine 0.6 L Glucose Calcium 8.2 L Phenytoin 05/15/16 05/20/16 05/23/16 11:52 11:25 06:41 WBC RBC Hgb Hct MCH RDW Plt Count [place] % (Auto) [place] # POC ABG pH POC ABG pCO2 34.9 L POC ABG pO2 73 L Sodium Potassium 3.5 L Chloride Carbon Dioxide BUN 6 L Creatinine 0.6 L Glucose 113 H Calcium Phenytoin 4.3 L 05/24/16 05/24/16 05/27/16 09:06 13:33 10:13 WBC 13.1 H RBC Hgb Hct MCH 26 L RDW 16.1 H Plt Count [place] % (Auto) [place] # POC ABG pH 7.453 H POC ABG pCO2 34.7 L POC ABG pO2 Sodium 135 L Potassium Chloride Carbon Dioxide 21 L BUN Creatinine 0.6 L Glucose 181 H Calcium Phenytoin 06/01/16 06/01/16 06:14 06:14 WBC RBC Hgb Hct MCH 26 L RDW 16.6 H Plt Count 448 H [place] % (Auto) 10.2 H [place] # 1.0 H POC ABG pH POC ABG pCO2 POC ABG pO2 Sodium Potassium 3.0 L Chloride 97.2 L Carbon Dioxide BUN Creatinine Glucose 101 H Calcium Phenytoin
[2016-06-02] MEDS: NORMODYNE PO SCH ×3 (06:22→22:26)
[2016-06-02] MEDS: PEPCID PO SCH ×2 (09:49→22:27)
[2016-06-02] MEDS: LOVENOX SUB-Q SCH (09:49)
[2016-06-02] MEDS: DILANTIN PO SCH (09:49)
[2016-06-02] MEDS: HCTZ PO SCH (09:50)
[2016-06-02] MEDS: K-DUR PO SCH ×2 (09:50→22:26)
--- NOTE | 2016-06-02 15:55 | Progress Note ---
Assessment and Plan Assessment and plan: Patient is a 40-year-old woman with a history of cerebral aneurysm with FORESTRY PATROLMAN shunt causing cognitive dysfunction and seizure disorder who presented with intractable seizures. 1. Status epilepticus. Resolved. Continue seizure precautions. Continue phenytoin. 2. Acute hypoxic respiratory failure. Has long resolved; Patient extubated and doing well. 3. Hypertension. optimized medications 4. Intractable vomiting. Resolved. Continue Zofran when necessary. KUB was negative. 5. History of cerebral aneurysm and FORESTRY PATROLMAN shunt. Continue supportive care. 6. DVT prophylaxis. Lovenox daily. Encourage ambulation, she has been refusing 7. Hypokalemia change K-dur to BID, recheck in 72 hours. Disposition-pending placement discussed with case management History Interval history: No events overnight, no new seizures Hospitalist Physical - Physical exam Narrative exam: General: Patient appears well in no distress HEENT: MMM, EOMI cardiac: S1-S2 heard lungs: clear to auscultation, abdomen: soft, nontender, nondistended bowel sounds positive extremities: no edema clubbing or cyanosis Skin: no rash or lesion Neuro: no focal deficit, expressive aphasia Psych: appropriate behavior and mood, cognition intact - Constitutional Vitals: Temp Pulse Resp BP Pulse Ox 98.6 F 105 H 20 143/100 97 06/02/16 15:10 06/02/16 15:10 06/02/16 15:10 06/02/16 15:10 06/02/16 07:50 General appearance: Present: no acute distress, well-nourished Results - Labs CBC & Chem 7: 06/01/16 06:14 06/01/16 06:14 Labs: Laboratory Last Values WBC 9.6 K/mm3 (4.5-11.0) 06/01/16 06:14 RBC 4.55 M/mm3 (3.65-5.03) 06/01/16 06:14 Hgb 11.6 gm/dl (10.1-14.3) 06/01/16 06:14 Hct 36.6 % (30.3-42.9) 06/01/16 06:14 MCV 80 fl (79-97) 06/01/16 06:14 MCH 26 pg (28-32) L 06/01/16 06:14 MCHC 32 % (30-34) 06/01/16 06:14 RDW 16.6 % (13.2-15.2) H 06/01/16 06:14 Plt Count 448 K/mm3 (140-440) H 06/01/16 06:14 Lymph % (Auto) 21.9 % (13.4-35.0) 06/01/16 06:14 [place] % (Auto) 10.2 % (0.0-7.3) H 06/01/16 06:14 Eos % (Auto) 2.3 % (0.0-4.3) 06/01/16 06:14 Baso % (Auto) 0.4 % (0.0-1.8) 06/01/16 06:14 Lymph # 2.1 K/mm3 (1.2-5.4) 06/01/16 06:14 [place] # 1.0 K/mm3 (0.0-0.8) H 06/01/16 06:14 Eos # 0.2 K/mm3 (0.0-0.4) 06/01/16 06:14 Baso # 0.0 K/mm3 (0.0-0.1) 06/01/16 06:14 Seg Neutrophils % 65.2 % (40.0-70.0) 06/01/16 06:14 Seg Neutrophils # 6.2 K/mm3 (1.8-7.7) 06/01/16 06:14 POC ABG pH 7.453 (7.35-7.45) H 05/27/16 10:13 POC ABG pCO2 34.7 (35-45) L 05/27/16 10:13 POC ABG pO2 90 (80-105) 05/27/16 10:13 POC ABG HCO3 24.3 05/27/16 10:13 POC ABG Total CO2 25 05/27/16 10:13 POC ABG O2 Sat 97 05/27/16 10:13 POC ABG Base Excess 0 05/27/16 10:13 FiO2 21 % 05/27/16 10:13 Sodium 142 mmol/L (137-145) 06/01/16 06:14 Potassium 3.0 mmol/L (3.6-5.0) L 06/01/16 06:14 Chloride 97.2 mmol/L (98-107) L 06/01/16 06:14 Carbon Dioxide 27 mmol/L (22-30) 06/01/16 06:14 Anion Gap 21 mmol/L 06/01/16 06:14 BUN 11 mg/dL (7-17) 06/01/16 06:14 Creatinine 0.7 mg/dL (0.7-1.2) 06/01/16 06:14 Estimated GFR > 60 ml/min 06/01/16 06:14 BUN/Creatinine Ratio 15.71 % 06/01/16 06:14 Glucose 101 mg/dL (65-100) H 06/01/16 06:14 Calcium 9.2 mg/dL (8.4-10.2) 06/01/16 06:14 Magnesium 2.0 mg/dL (1.7-2.3) 06/01/16 06:14 Total Creatine Kinase 108 units/L (30-135) 05/11/16 10:49 Phenytoin 4.3 mg/L (10.0-20.0) L 05/23/16 06:41
--- NOTE | 2016-06-02 21:12 | Progress Note ---
Assessment and Plan Patient resting on room air. No acute respiratory distress.O2 satuaration 97% on room air.. - Patient Problems (1) Acute hypoxemic respiratory failure Current Visit: Yes Status: Acute Plan to address problem: Improved. Presently on nasal canula 2 litre. O2 satuaration 98%. No respiratory distress. Continue Lovenox. 05/18/16 Patient resting on 2 litres O2. O2 satuaration 100% No acute respiratory distress at rest. 05/19/15 Patient resting on 2 litres O2. O2 satuaration 98%. 05/24/16 Patient resting on 2 litres O2. O2 satuaration 99%. 05/25/16 Patient resting on 2 litres O2. O2 satuaration 98%. 05/26/15 Patient resting on 2 litres O2. O2 satuaration 100% Obtaining blood gases on room air. 05/29/16 Patient sleeping on 2 litres O2. O2 satuaration 98%. 05/30/16 Patient is on 2 litres O2. O2 satuaration 99%. 05/31/16 Patient resting on room air. O2 satuaration 99%. 06/01/16 Patient resting on room air. O2 satuaration 100%. 06/02/16 Patient resting on room air.O2 satuaration 97%. (2) Status epilepticus Current Visit: Yes Status: Acute Plan to address problem: Management as per neurology. Subjective Date of service: 06/02/16 Principal diagnosis: Seizures; Acute Resp Failure s/p MVS Interval history: Patient resting on room air. No acute respiratory distress.O2 satuaration 97% on room air.. Objective Vital Signs - 12hr 06/02/16 06/02/16 06/02/16 14:10 15:10 20:55 Temperature 98.6 F Pulse Rate [ 103 H Apical] Pulse Rate [ 105 H Right] Respiratory 20 20 Rate Blood Pressure 152/102 Blood Pressure 143/100 [Left Arm] Constitutional: no acute distress, alert Eyes: non-icteric ENT: oropharynx moist Neck: supple Effort: normal Ascultation: Bilateral: diminished breath sounds (bases), rhonchi Cardiovascular: regular rate and rhythm Gastrointestinal: normoactive bowel sounds, soft, non-tender, non-distended Integumentary: normal Extremities: no cyanosis, no edema, pulses normal, no ischemia or petechiae Neurologic: normal mental status, non-focal exam, pupils equal and round Psychiatric: other (mild cognitive defect) CBC and BMP: 06/01/16 06:14 06/01/16 06:14 ABG, PT/INR, D-dimer: ABG POC ABG pH 7.453 (7.35-7.45) H 05/27/16 10:13 POC ABG pCO2 34.7 (35-45) L 05/27/16 10:13 POC ABG pO2 90 (80-105) 05/27/16 10:13 POC ABG HCO3 24.3 05/27/16 10:13 POC ABG Total CO2 25 05/27/16 10:13 POC ABG O2 Sat 97 05/27/16 10:13 Abnormal lab findings: Abnormal Labs 05/12/16 05/12/16 05/12/16 04:37 04:37 05:39 WBC RBC 3.60 L Hgb 9.7 L Hct 29.3 L D MCH 27 L RDW 16.8 H Plt Count [place] % (Auto) 11.6 H [place] # 1.1 H POC ABG pH 7.496 H POC ABG pCO2 27.6 L POC ABG pO2 75 L Sodium Potassium 3.3 L Chloride Carbon Dioxide BUN Creatinine Glucose Calcium 7.9 L Phenytoin 05/12/16 05/13/16 05/15/16 10:01 04:15 11:52 WBC RBC Hgb Hct MCH 27 L RDW 16.7 H Plt Count [place] % (Auto) [place] # POC ABG pH POC ABG pCO2 POC ABG pO2 73 L Sodium Potassium Chloride Carbon Dioxide BUN 6 L Creatinine 0.6 L Glucose Calcium 8.2 L Phenytoin 05/15/16 05/20/16 05/23/16 11:52 11:25 06:41 WBC RBC Hgb Hct MCH RDW Plt Count [place] % (Auto) [place] # POC ABG pH POC ABG pCO2 34.9 L POC ABG pO2 73 L Sodium Potassium 3.5 L Chloride Carbon Dioxide BUN 6 L Creatinine 0.6 L Glucose 113 H Calcium Phenytoin 4.3 L 05/24/16 05/24/16 05/27/16 09:06 13:33 10:13 WBC 13.1 H RBC Hgb Hct MCH 26 L RDW 16.1 H Plt Count [place] % (Auto) [place] # POC ABG pH 7.453 H POC ABG pCO2 34.7 L POC ABG pO2 Sodium 135 L Potassium Chloride Carbon Dioxide 21 L BUN Creatinine 0.6 L Glucose 181 H Calcium Phenytoin 06/01/16 06/01/16 06:14 06:14 WBC RBC Hgb Hct MCH 26 L RDW 16.6 H Plt Count 448 H [place] % (Auto) 10.2 H [place] # 1.0 H POC ABG pH POC ABG pCO2 POC ABG pO2 Sodium Potassium 3.0 L Chloride 97.2 L Carbon Dioxide BUN Creatinine Glucose 101 H Calcium Phenytoin
[2016-06-03] MEDS: NORMODYNE PO SCH ×3 (05:22→21:49)
[2016-06-03] MEDS ORDERED: NORMODYNE PO SCH (10:53)
--- NOTE | 2016-06-03 10:54 | Progress Note ---
Assessment and Plan Assessment and plan: Patient is a 40-year-old woman with a history of cerebral aneurysm with DEBARKER OPERATOR shunt causing cognitive dysfunction and seizure disorder who presented with intractable seizures. 1. Status epilepticus. Resolved. Continue seizure precautions. Continue phenytoin. 2. Acute hypoxic respiratory failure. Has long resolved; Patient extubated and doing well. 3. Hypertension. optimized medications 4. Intractable vomiting. Resolved. Continue Zofran when necessary. KUB was negative. 5. History of cerebral aneurysm and DEBARKER OPERATOR shunt. Continue supportive care. 6. DVT prophylaxis. Lovenox daily. Encourage ambulation, she has been refusing 7. Hypokalemia change K-dur to BID, recheck in 72 hours. Disposition-pending placement discussed with case management History Interval history: No events overnight, no new seizures Hospitalist Physical - Physical exam Narrative exam: General: Patient appears well in no distress HEENT: MMM, EOMI cardiac: S1-S2 heard lungs: clear to auscultation, abdomen: soft, nontender, nondistended bowel sounds positive extremities: no edema clubbing or cyanosis Skin: no rash or lesion Neuro: no focal deficit, expressive aphasia Psych: appropriate behavior and mood, cognition intact - Constitutional Vitals: Temp Pulse Resp BP Pulse Ox 98.5 F 94 H 18 158/101 100 06/03/16 08:00 06/03/16 08:00 06/03/16 08:00 06/03/16 08:00 06/03/16 08:00 General appearance: Present: no acute distress, well-nourished Results - Labs CBC & Chem 7: 06/01/16 06:14 06/01/16 06:14 Labs: Laboratory Last Values WBC 9.6 K/mm3 (4.5-11.0) 06/01/16 06:14 RBC 4.55 M/mm3 (3.65-5.03) 06/01/16 06:14 Hgb 11.6 gm/dl (10.1-14.3) 06/01/16 06:14 Hct 36.6 % (30.3-42.9) 06/01/16 06:14 MCV 80 fl (79-97) 06/01/16 06:14 MCH 26 pg (28-32) L 06/01/16 06:14 MCHC 32 % (30-34) 06/01/16 06:14 RDW 16.6 % (13.2-15.2) H 06/01/16 06:14 Plt Count 448 K/mm3 (140-440) H 06/01/16 06:14 Lymph % (Auto) 21.9 % (13.4-35.0) 06/01/16 06:14 [place] % (Auto) 10.2 % (0.0-7.3) H 06/01/16 06:14 Eos % (Auto) 2.3 % (0.0-4.3) 06/01/16 06:14 Baso % (Auto) 0.4 % (0.0-1.8) 06/01/16 06:14 Lymph # 2.1 K/mm3 (1.2-5.4) 06/01/16 06:14 [place] # 1.0 K/mm3 (0.0-0.8) H 06/01/16 06:14 Eos # 0.2 K/mm3 (0.0-0.4) 06/01/16 06:14 Baso # 0.0 K/mm3 (0.0-0.1) 06/01/16 06:14 Seg Neutrophils % 65.2 % (40.0-70.0) 06/01/16 06:14 Seg Neutrophils # 6.2 K/mm3 (1.8-7.7) 06/01/16 06:14 POC ABG pH 7.453 (7.35-7.45) H 05/27/16 10:13 POC ABG pCO2 34.7 (35-45) L 05/27/16 10:13 POC ABG pO2 90 (80-105) 05/27/16 10:13 POC ABG HCO3 24.3 05/27/16 10:13 POC ABG Total CO2 25 05/27/16 10:13 POC ABG O2 Sat 97 05/27/16 10:13 POC ABG Base Excess 0 05/27/16 10:13 FiO2 21 % 05/27/16 10:13 Sodium 142 mmol/L (137-145) 06/01/16 06:14 Potassium 3.0 mmol/L (3.6-5.0) L 06/01/16 06:14 Chloride 97.2 mmol/L (98-107) L 06/01/16 06:14 Carbon Dioxide 27 mmol/L (22-30) 06/01/16 06:14 Anion Gap 21 mmol/L 06/01/16 06:14 BUN 11 mg/dL (7-17) 06/01/16 06:14 Creatinine 0.7 mg/dL (0.7-1.2) 06/01/16 06:14 Estimated GFR > 60 ml/min 06/01/16 06:14 BUN/Creatinine Ratio 15.71 % 06/01/16 06:14 Glucose 101 mg/dL (65-100) H 06/01/16 06:14 Calcium 9.2 mg/dL (8.4-10.2) 06/01/16 06:14 Magnesium 2.0 mg/dL (1.7-2.3) 06/01/16 06:14 Total Creatine Kinase 108 units/L (30-135) 05/11/16 10:49 Phenytoin 4.3 mg/L (10.0-20.0) L 05/23/16 06:41
[2016-06-03] MEDS: K-DUR PO SCH ×2 (12:35→21:49)
[2016-06-03] MEDS: HCTZ PO SCH (12:36)
[2016-06-03] MEDS: DILANTIN PO SCH (12:36)
[2016-06-03] MEDS: PEPCID PO SCH ×2 (12:37→21:52)
[2016-06-03] MEDS: LOVENOX SUB-Q SCH (12:41)
--- NOTE | 2016-06-03 19:41 | Progress Note ---
Assessment and Plan - Patient Problems (1) Aspiration pneumonia Current Visit: Yes Status: Acute Plan to address problem: resolved. Continue to monitor. Will see prn (2) Status epilepticus due to complex partial seizure Current Visit: Yes Status: Acute Plan to address problem: AEDs as per primary service Subjective Date of service: 06/03/16 Principal diagnosis: Seizures; Acute Resp Failure s/p MVS Interval history: No new complaints. Resting comfortable on room air with adequate saturations. Has expressive aphasia but able to make her needs known. Objective - Exam Narrative Exam: General: Patient appears well in no distress Left scalp deformity HEENT: MMM, EOMI cardiac: S1-S2 heard lungs: clear to auscultation, abdomen: soft, nontender, nondistended bowel sounds positive extremities: no edema clubbing or cyanosis Skin: no rash or lesion back- right lipoma Neuro: left upper extremity paresis focal deficit, expressive aphasia Psych: appropriate behavior and mood Vital Signs - 12hr 06/03/16 06/03/16 06/03/16 08:00 15:00 15:26 Temperature 98.5 F 98.2 F Pulse Rate 79 Pulse Rate [ 94 H 94 H Right] Respiratory 18 18 Rate Blood Pressure 141/76 Blood Pressure 158/101 141/106 [Left Arm] O2 Sat by Pulse 100 100 Oximetry Constitutional: no acute distress, alert Eyes: non-icteric ENT: oropharynx moist Neck: supple Effort: normal Ascultation: Bilateral: clear, diminished breath sounds (bases), rhonchi Cardiovascular: regular rate and rhythm Gastrointestinal: normoactive bowel sounds, soft, non-tender, non-distended Integumentary: normal Extremities: no cyanosis, no edema, pulses normal, no ischemia or petechiae Neurologic: normal mental status, non-focal exam, pupils equal and round Psychiatric: other (mild cognitive defect) CBC and BMP: 06/01/16 06:14 06/01/16 06:14 ABG, PT/INR, D-dimer: ABG POC ABG pH 7.453 (7.35-7.45) H 05/27/16 10:13 POC ABG pCO2 34.7 (35-45) L 05/27/16 10:13 POC ABG pO2 90 (80-105) 05/27/16 10:13 POC ABG HCO3 24.3 05/27/16 10:13 POC ABG Total CO2 25 05/27/16 10:13 POC ABG O2 Sat 97 05/27/16 10:13 Abnormal lab findings: Abnormal Labs 05/12/16 05/12/16 05/12/16 04:37 04:37 05:39 WBC RBC 3.60 L Hgb 9.7 L Hct 29.3 L D MCH 27 L RDW 16.8 H Plt Count [place] % (Auto) 11.6 H Garza # 1.1 H POC ABG pH 7.496 H POC ABG pCO2 27.6 L POC ABG pO2 75 L Sodium Potassium 3.3 L Chloride Carbon Dioxide BUN Creatinine Glucose Calcium 7.9 L Phenytoin 05/12/16 05/13/16 05/15/16 10:01 04:15 11:52 WBC RBC Hgb Hct MCH 27 L RDW 16.7 H Plt Count [place] % (Auto) Garza # POC ABG pH POC ABG pCO2 POC ABG pO2 73 L Sodium Potassium Chloride Carbon Dioxide BUN 6 L Creatinine 0.6 L Glucose Calcium 8.2 L Phenytoin 05/15/16 05/20/16 05/23/16 11:52 11:25 06:41 WBC RBC Hgb Hct MCH RDW Plt Count [place] % (Auto) Garza # POC ABG pH POC ABG pCO2 34.9 L POC ABG pO2 73 L Sodium Potassium 3.5 L Chloride Carbon Dioxide BUN 6 L Creatinine 0.6 L Glucose 113 H Calcium Phenytoin 4.3 L 05/24/16 05/24/16 05/27/16 09:06 13:33 10:13 WBC 13.1 H RBC Hgb Hct MCH 26 L RDW 16.1 H Plt Count [place] % (Auto) Garza # POC ABG pH 7.453 H POC ABG pCO2 34.7 L POC ABG pO2 Sodium 135 L Potassium Chloride Carbon Dioxide 21 L BUN Creatinine 0.6 L Glucose 181 H Calcium Phenytoin 06/01/16 06/01/16 06:14 06:14 WBC RBC Hgb Hct MCH 26 L RDW 16.6 H Plt Count 448 H [place] % (Auto) 10.2 H Garza # 1.0 H POC ABG pH POC ABG pCO2 POC ABG pO2 Sodium Potassium 3.0 L Chloride 97.2 L Carbon Dioxide BUN Creatinine Glucose 101 H Calcium Phenytoin
[2016-06-04] MEDS: NORMODYNE PO SCH ×3 (05:49→22:02)
[2016-06-04] MEDS: DILANTIN PO SCH (11:13)
[2016-06-04] MEDS: LOVENOX SUB-Q SCH (11:13)
[2016-06-04] MEDS: HCTZ PO SCH (11:13)
[2016-06-04] MEDS: K-DUR PO SCH ×2 (11:13→21:57)
[2016-06-04] MEDS: PEPCID PO SCH ×2 (11:14→21:57)
--- NOTE | 2016-06-04 13:46 | Progress Note ---
Assessment and Plan Assessment and plan: Patient is a 40-year-old woman with a history of cerebral aneurysm with SENIOR PL SQL DEVELOPER shunt causing cognitive dysfunction and seizure disorder who presented with intractable seizures. 1. Status epilepticus. Resolved. Continue seizure precautions. Continue phenytoin. 2. Acute hypoxic respiratory failure. Has long resolved; Patient extubated and doing well. 3. Hypertension. optimized medications 4. Intractable vomiting. Resolved. Continue Zofran when necessary. KUB was negative. 5. History of cerebral aneurysm and SENIOR PL SQL DEVELOPER shunt. Continue supportive care. 6. DVT prophylaxis. Lovenox daily. Encourage ambulation, she has been refusing 7. Hypokalemia change K-dur to BID, recheck in 72 hours. Disposition-pending placement discussed with case management History Interval history: No events overnight, no new seizures Hospitalist Physical - Physical exam Narrative exam: General: Patient appears well in no distress HEENT: MMM, EOMI cardiac: S1-S2 heard lungs: clear to auscultation, abdomen: soft, nontender, nondistended bowel sounds positive extremities: no edema clubbing or cyanosis Skin: no rash or lesion Neuro: no focal deficit, expressive aphasia Psych: appropriate behavior and mood, cognition intact - Constitutional Vitals: Temp Pulse Resp BP Pulse Ox 98.2 F 99 H 18 144/93 100 06/04/16 08:00 06/04/16 08:15 06/04/16 08:15 06/04/16 08:00 06/04/16 08:15 General appearance: Present: no acute distress, well-nourished Results - Labs CBC & Chem 7: 06/01/16 06:14 06/01/16 06:14 Labs: Laboratory Last Values WBC 9.6 K/mm3 (4.5-11.0) 06/01/16 06:14 RBC 4.55 M/mm3 (3.65-5.03) 06/01/16 06:14 Hgb 11.6 gm/dl (10.1-14.3) 06/01/16 06:14 Hct 36.6 % (30.3-42.9) 06/01/16 06:14 MCV 80 fl (79-97) 06/01/16 06:14 MCH 26 pg (28-32) L 06/01/16 06:14 MCHC 32 % (30-34) 06/01/16 06:14 RDW 16.6 % (13.2-15.2) H 06/01/16 06:14 Plt Count 448 K/mm3 (140-440) H 06/01/16 06:14 Lymph % (Auto) 21.9 % (13.4-35.0) 06/01/16 06:14 [place] % (Auto) 10.2 % (0.0-7.3) H 06/01/16 06:14 Eos % (Auto) 2.3 % (0.0-4.3) 06/01/16 06:14 Baso % (Auto) 0.4 % (0.0-1.8) 06/01/16 06:14 Lymph # 2.1 K/mm3 (1.2-5.4) 06/01/16 06:14 [place] # 1.0 K/mm3 (0.0-0.8) H 06/01/16 06:14 Eos # 0.2 K/mm3 (0.0-0.4) 06/01/16 06:14 Baso # 0.0 K/mm3 (0.0-0.1) 06/01/16 06:14 Seg Neutrophils % 65.2 % (40.0-70.0) 06/01/16 06:14 Seg Neutrophils # 6.2 K/mm3 (1.8-7.7) 06/01/16 06:14 POC ABG pH 7.453 (7.35-7.45) H 05/27/16 10:13 POC ABG pCO2 34.7 (35-45) L 05/27/16 10:13 POC ABG pO2 90 (80-105) 05/27/16 10:13 POC ABG HCO3 24.3 05/27/16 10:13 POC ABG Total CO2 25 05/27/16 10:13 POC ABG O2 Sat 97 05/27/16 10:13 POC ABG Base Excess 0 05/27/16 10:13 FiO2 21 % 05/27/16 10:13 Sodium 142 mmol/L (137-145) 06/01/16 06:14 Potassium 3.0 mmol/L (3.6-5.0) L 06/01/16 06:14 Chloride 97.2 mmol/L (98-107) L 06/01/16 06:14 Carbon Dioxide 27 mmol/L (22-30) 06/01/16 06:14 Anion Gap 21 mmol/L 06/01/16 06:14 BUN 11 mg/dL (7-17) 06/01/16 06:14 Creatinine 0.7 mg/dL (0.7-1.2) 06/01/16 06:14 Estimated GFR > 60 ml/min 06/01/16 06:14 BUN/Creatinine Ratio 15.71 % 06/01/16 06:14 Glucose 101 mg/dL (65-100) H 06/01/16 06:14 Calcium 9.2 mg/dL (8.4-10.2) 06/01/16 06:14 Magnesium 2.0 mg/dL (1.7-2.3) 06/01/16 06:14 Total Creatine Kinase 108 units/L (30-135) 05/11/16 10:49 Phenytoin 4.3 mg/L (10.0-20.0) L 05/23/16 06:41
[2016-06-05 07:58] LABS: Anion Gap 21 mmol/L; BUN/Creatinine Ratio 13.33; Blood Urea Nitrogen 8 mg/dL (7-17); Calcium 8.8 mg/dL (8.4-10.2); Carbon Dioxide 24 mmol/L (22-30); Chloride 102.2 mmol/L (98-107); Glucose 88 mg/dL (65-100); Potassium 3.9 mmol/L (3.6-5.0); Sodium 143 mmol/L (137-145)
[2016-06-05] MEDS: NORMODYNE PO SCH ×3 (08:03→21:44)
[2016-06-05] MEDS: K-DUR PO SCH ×2 (11:12→21:44)
[2016-06-05] MEDS: PEPCID PO SCH ×2 (11:12→21:45)
[2016-06-05] MEDS: LOVENOX SUB-Q SCH (11:12)
[2016-06-05] MEDS: DILANTIN PO SCH (11:12)
[2016-06-05] MEDS: HCTZ PO SCH (11:13)
--- NOTE | 2016-06-05 13:04 | Progress Note ---
Assessment and Plan Assessment and plan: 43 s/p cerebral aneurysm with FLIGHT ENGINEER PERFORMANCE QUALIFIED shunt abs quickly developed intractable seizures Disposition Plan: plan we'll be placement at skilled nurse facility would discharge. Total Time Spent with Patient (Minutes): 26 - Patient Problems (1) Acute hypoxemic respiratory failure Current Visit: Yes Status: Resolved (2) Aspiration pneumonia Current Visit: Yes Status: Acute Plan to address problem: Treated resolved (3) Discharge planning issues Current Visit: Yes Status: Acute Plan to address problem: Awaiting placement. (4) Status epilepticus due to complex partial seizure Current Visit: Yes Status: Acute Plan to address problem: Very well controlled now with Dilantin we'll continue current medication. (5) Strep pharyngitis Current Visit: Yes Status: Acute Plan to address problem: Positive strep pharyngitis associated with sore throat no high-grade fever. We' ll add amoxicillin 10 days. (6) DVT prophylaxis Current Visit: Yes Status: Acute History Interval history: Patient today complains of sore throat. Can shake head attempt to make needs known. Spoke course complicated by being diagnosed with beta hemolytic strep group B. This was in tracheal aspirate. Hospitalist Physical - Constitutional Vitals: Temp Pulse Resp BP Pulse Ox 98.3 F 86 18 137/86 94 06/05/16 08:00 06/05/16 08:03 06/05/16 08:00 06/05/16 08:03 06/05/16 08:00 General appearance: Present: no acute distress, well-nourished - EENT Eyes: Present: PERRL, EOM intact ENT: hearing intact, clear oral mucosa, dentition normal - Neck Neck: Present: supple, normal ROM - Respiratory Respiratory effort: normal Respiratory: bilateral: CTA - Cardiovascular Rhythm: regular - Extremities Extremities: no ischemia, pulses intact, pulses symmetrical - Abdominal General gastrointestinal: soft, non-tender, non-distended - Psychiatric Psychiatric: appropriate mood/affect - Neurologic Neurologic: focal deficits - Allied Health Allied health notes reviewed: PT, case management Results - Labs CBC & Chem 7: 06/01/16 06:14 06/05/16 06:15 Labs: Laboratory Last Values WBC 9.6 K/mm3 (4.5-11.0) 06/01/16 06:14 RBC 4.55 M/mm3 (3.65-5.03) 06/01/16 06:14 Hgb 11.6 gm/dl (10.1-14.3) 06/01/16 06:14 Hct 36.6 % (30.3-42.9) 06/01/16 06:14 MCV 80 fl (79-97) 06/01/16 06:14 MCH 26 pg (28-32) L 06/01/16 06:14 MCHC 32 % (30-34) 06/01/16 06:14 RDW 16.6 % (13.2-15.2) H 06/01/16 06:14 Plt Count 448 K/mm3 (140-440) H 06/01/16 06:14 Lymph % (Auto) 21.9 % (13.4-35.0) 06/01/16 06:14 [place] % (Auto) 10.2 % (0.0-7.3) H 06/01/16 06:14 Eos % (Auto) 2.3 % (0.0-4.3) 06/01/16 06:14 Baso % (Auto) 0.4 % (0.0-1.8) 06/01/16 06:14 Lymph # 2.1 K/mm3 (1.2-5.4) 06/01/16 06:14 [place] # 1.0 K/mm3 (0.0-0.8) H 06/01/16 06:14 Eos # 0.2 K/mm3 (0.0-0.4) 06/01/16 06:14 Baso # 0.0 K/mm3 (0.0-0.1) 06/01/16 06:14 Seg Neutrophils % 65.2 % (40.0-70.0) 06/01/16 06:14 Seg Neutrophils # 6.2 K/mm3 (1.8-7.7) 06/01/16 06:14 POC ABG pH 7.453 (7.35-7.45) H 05/27/16 10:13 POC ABG pCO2 34.7 (35-45) L 05/27/16 10:13 POC ABG pO2 90 (80-105) 05/27/16 10:13 POC ABG HCO3 24.3 05/27/16 10:13 POC ABG Total CO2 25 05/27/16 10:13 POC ABG O2 Sat 97 05/27/16 10:13 POC ABG Base Excess 0 05/27/16 10:13 FiO2 21 % 05/27/16 10:13 Sodium 143 mmol/L (137-145) 06/05/16 06:15 Potassium 3.9 mmol/L (3.6-5.0) D 06/05/16 06:15 Chloride 102.2 mmol/L (98-107) 06/05/16 06:15 Carbon Dioxide 24 mmol/L (22-30) 06/05/16 06:15 Anion Gap 21 mmol/L 06/05/16 06:15 BUN 8 mg/dL (7-17) 06/05/16 06:15 Creatinine 0.6 mg/dL (0.7-1.2) L 06/05/16 06:15 Estimated GFR > 60 ml/min 06/05/16 06:15 BUN/Creatinine Ratio 13.33 % 06/05/16 06:15 Glucose 88 mg/dL (65-100) 06/05/16 06:15 Calcium 8.8 mg/dL (8.4-10.2) 06/05/16 06:15 Magnesium 2.0 mg/dL (1.7-2.3) 06/01/16 06:14 Total Creatine Kinase 108 units/L (30-135) 05/11/16 10:49 Phenytoin 4.3 mg/L (10.0-20.0) L 05/23/16 06:41
[2016-06-05] MEDS: TRIMOX PO SCH ×2 (14:27→21:45)
[2016-06-06] MEDS: NORMODYNE PO SCH ×3 (06:26→23:28)
[2016-06-06] MEDS: TRIMOX PO SCH ×3 (06:26→23:27)
[2016-06-06] MEDS: PEPCID PO SCH ×2 (09:08→23:27)
[2016-06-06] MEDS: LOVENOX SUB-Q SCH (09:08)
[2016-06-06] MEDS: DILANTIN PO SCH (09:08)
[2016-06-06] MEDS: HCTZ PO SCH (09:08)
[2016-06-06] MEDS: K-DUR PO SCH ×2 (09:08→23:27)
--- NOTE | 2016-06-06 12:06 | Progress Note ---
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 1. Status epilepticus. Resolved. Continue seizure precautions. Continue phenytoin. 2. Acute hypoxic respiratory failure. Patient extubated and doing well. 3. Hypertension. Continue antihypertensive medications. 4. Intractable vomiting. Resolved. Continue Zofran when necessary. KUB was negative. 5. History of cerebral aneurysm and GUNSTOCK REPAIRER shunt. Continue supportive care. 6. DVT prophylaxis. Lovenox daily. Disposition-pending placement discussed with case management Another breakthrough seizure today. Iv ativan prn, check Labs. History Interval history: Patient seen and examined. Follow up on seizures which re-occured today. IV ativan prn, Overnight uneventful. No cp, sob, n/v or severe headaches. Imaging, old records, testing, labs, nursing notes reviewed. Hospitalist Physical - Physical exam Narrative exam: GEN: WDWN, NAD, AWAKE, ALERT, ORIENTATED CVS: RRR, NORMAL S1S2 LUNGS/CHEST: CTA B, NORMAL CHEST EXPANSION B, GOOD AIR ENTRY B ABD: SOFT NTND, GBS, NO REBOUND OR GUARDING EXT/SKIN: NO SIGNIFICANT EDEMA OR RASH MSK: right paralysis NEURO: CN 2-12 GROSSLY INTACT, NO new FOCAL DEFICITS PSY: CALM - Constitutional Vitals: Temp Pulse Resp BP Pulse Ox 98.1 F 96 H 18 142/92 99 06/06/16 08:00 06/06/16 08:00 06/06/16 08:00 06/06/16 08:00 06/06/16 08:00 General appearance: Present: no acute distress, well-nourished Results - Labs CBC & Chem 7: 06/01/16 06:14 06/05/16 06:15 Labs: Laboratory Last Values WBC 9.6 K/mm3 (4.5-11.0) 06/01/16 06:14 RBC 4.55 M/mm3 (3.65-5.03) 06/01/16 06:14 Hgb 11.6 gm/dl (10.1-14.3) 06/01/16 06:14 Hct 36.6 % (30.3-42.9) 06/01/16 06:14 MCV 80 fl (79-97) 06/01/16 06:14 MCH 26 pg (28-32) L 06/01/16 06:14 MCHC 32 % (30-34) 06/01/16 06:14 RDW 16.6 % (13.2-15.2) H 06/01/16 06:14 Plt Count 448 K/mm3 (140-440) H 06/01/16 06:14 Lymph % (Auto) 21.9 % (13.4-35.0) 06/01/16 06:14 [place] % (Auto) 10.2 % (0.0-7.3) H 06/01/16 06:14 Eos % (Auto) 2.3 % (0.0-4.3) 06/01/16 06:14 Baso % (Auto) 0.4 % (0.0-1.8) 06/01/16 06:14 Lymph # 2.1 K/mm3 (1.2-5.4) 06/01/16 06:14 [place] # 1.0 K/mm3 (0.0-0.8) H 06/01/16 06:14 Eos # 0.2 K/mm3 (0.0-0.4) 06/01/16 06:14 Baso # 0.0 K/mm3 (0.0-0.1) 06/01/16 06:14 Seg Neutrophils % 65.2 % (40.0-70.0) 06/01/16 06:14 Seg Neutrophils # 6.2 K/mm3 (1.8-7.7) 06/01/16 06:14 POC ABG pH 7.453 (7.35-7.45) H 05/27/16 10:13 POC ABG pCO2 34.7 (35-45) L 05/27/16 10:13 POC ABG pO2 90 (80-105) 05/27/16 10:13 POC ABG HCO3 24.3 05/27/16 10:13 POC ABG Total CO2 25 05/27/16 10:13 POC ABG O2 Sat 97 05/27/16 10:13 POC ABG Base Excess 0 05/27/16 10:13 FiO2 21 % 05/27/16 10:13 Sodium 143 mmol/L (137-145) 06/05/16 06:15 Potassium 3.9 mmol/L (3.6-5.0) D 06/05/16 06:15 Chloride 102.2 mmol/L (98-107) 06/05/16 06:15 Carbon Dioxide 24 mmol/L (22-30) 06/05/16 06:15 Anion Gap 21 mmol/L 06/05/16 06:15 BUN 8 mg/dL (7-17) 06/05/16 06:15 Creatinine 0.6 mg/dL (0.7-1.2) L 06/05/16 06:15 Estimated GFR > 60 ml/min 06/05/16 06:15 BUN/Creatinine Ratio 13.33 % 06/05/16 06:15 Glucose 88 mg/dL (65-100) 06/05/16 06:15 Calcium 8.8 mg/dL (8.4-10.2) 06/05/16 06:15 Magnesium 2.0 mg/dL (1.7-2.3) 06/01/16 06:14 Total Creatine Kinase 108 units/L (30-135) 05/11/16 10:49 Phenytoin 4.3 mg/L (10.0-20.0) L 05/23/16 06:41
[2016-06-07 07:58] LABS: Hematocrit 35.2 % (30.3-42.9); Hemoglobin 11.1 gm/dl (10.1-14.3); Mean Corpuscular HGB Conc 32 % (30-34); Mean Corpuscular Volume 81 fl (79-97); Platelet Count 403 K/mm3 (140-440); Red Blood Count 4.33 M/mm3 (3.65-5.03); Red Cell Distribution Width 16.4 % (13.2-15.2); White Blood Count 8.1 K/mm3 (4.5-11.0)
[2016-06-07 07:59] LABS: Mean Corpuscular Hemoglobin 26 pg (28-32)
[2016-06-07 08:22] LABS: Anion Gap 20 mmol/L; Blood Urea Nitrogen 9 mg/dL (7-17); Calcium 9.1 mg/dL (8.4-10.2); Carbon Dioxide 26 mmol/L (22-30); Chloride 98.9 mmol/L (98-107); Glucose 102 mg/dL (65-100); Potassium 3.7 mmol/L (3.6-5.0); Sodium 141 mmol/L (137-145)
[2016-06-07] MEDS: K-DUR PO SCH ×2 (11:45→21:34)
[2016-06-07] MEDS: LOVENOX SUB-Q SCH (11:45)
[2016-06-07] MEDS: DILANTIN PO SCH (11:45)
[2016-06-07] MEDS: PEPCID PO SCH ×2 (11:45→21:35)
[2016-06-07] MEDS: HCTZ PO SCH (11:45)
--- NOTE | 2016-06-07 11:55 | Progress Note ---
Assessment and Plan Assessment and plan: Patient is a 40-year-old woman with a history of cerebral aneurysm with HOT CAR CHARGER shunt causing cognitive dysfunction and seizure disorder who presents with intractable seizures. 1. Status epilepticus. Resolved. Continue seizure precautions. Continue phenytoin. 2. Acute hypoxic respiratory failure. Patient extubated and doing well. 3. Hypertension. Continue antihypertensive medications. 4. Intractable vomiting. Resolved. Continue Zofran when necessary. KUB was negative. 5. History of cerebral aneurysm and HOT CAR CHARGER shunt. Continue supportive care. 6. DVT prophylaxis. Lovenox daily. Disposition-pending placement discussed with case management Another breakthrough seizure yesterday, resolved Iv ativan prn, History Interval history: Patient seen and examined. Follow up on seizures which re-occured today. IV ativan prn, Overnight uneventful. No cp, sob, n/v or severe headaches. Imaging, old records, testing, labs, nursing notes reviewed. Hospitalist Physical - Physical exam Narrative exam: GEN: WDWN, NAD, AWAKE, ALERT, ORIENTATED CVS: RRR, NORMAL S1S2 LUNGS/CHEST: CTA B, NORMAL CHEST EXPANSION B, GOOD AIR ENTRY B ABD: SOFT NTND, GBS, NO REBOUND OR GUARDING EXT/SKIN: NO SIGNIFICANT EDEMA OR RASH MSK: right paralysis NEURO: CN 2-12 GROSSLY INTACT, NO new FOCAL DEFICITS PSY: CALM - Constitutional Vitals: Temp Pulse Resp BP Pulse Ox 96.9 F L 82 20 138/88 100 06/07/16 08:00 06/07/16 08:00 06/07/16 08:00 06/07/16 08:00 06/07/16 08:00 General appearance: Present: no acute distress, well-nourished Results - Labs CBC & Chem 7: 06/07/16 07:28 06/07/16 07:28 Labs: Laboratory Last Values WBC 8.1 K/mm3 (4.5-11.0) 06/07/16 07:28 RBC 4.33 M/mm3 (3.65-5.03) 06/07/16 07:28 Hgb 11.1 gm/dl (10.1-14.3) 06/07/16 07:28 Hct 35.2 % (30.3-42.9) 06/07/16 07:28 MCV 81 fl (79-97) 06/07/16 07:28 MCH 26 pg (28-32) L 06/07/16 07:28 MCHC 32 % (30-34) 06/07/16 07:28 RDW 16.4 % (13.2-15.2) H 06/07/16 07:28 Plt Count 403 K/mm3 (140-440) 06/07/16 07:28 Lymph % (Auto) 21.9 % (13.4-35.0) 06/01/16 06:14 [place] % (Auto) 10.2 % (0.0-7.3) H 06/01/16 06:14 Eos % (Auto) 2.3 % (0.0-4.3) 06/01/16 06:14 Baso % (Auto) 0.4 % (0.0-1.8) 06/01/16 06:14 Lymph # 2.1 K/mm3 (1.2-5.4) 06/01/16 06:14 [place] # 1.0 K/mm3 (0.0-0.8) H 06/01/16 06:14 Eos # 0.2 K/mm3 (0.0-0.4) 06/01/16 06:14 Baso # 0.0 K/mm3 (0.0-0.1) 06/01/16 06:14 Seg Neutrophils % 65.2 % (40.0-70.0) 06/01/16 06:14 Seg Neutrophils # 6.2 K/mm3 (1.8-7.7) 06/01/16 06:14 POC ABG pH 7.453 (7.35-7.45) H 05/27/16 10:13 POC ABG pCO2 34.7 (35-45) L 05/27/16 10:13 POC ABG pO2 90 (80-105) 05/27/16 10:13 POC ABG HCO3 24.3 05/27/16 10:13 POC ABG Total CO2 25 05/27/16 10:13 POC ABG O2 Sat 97 05/27/16 10:13 POC ABG Base Excess 0 05/27/16 10:13 FiO2 21 % 05/27/16 10:13 Sodium 141 mmol/L (137-145) 06/07/16 07:28 Potassium 3.7 mmol/L (3.6-5.0) 06/07/16 07:28 Chloride 98.9 mmol/L (98-107) 06/07/16 07:28 Carbon Dioxide 26 mmol/L (22-30) 06/07/16 07:28 Anion Gap 20 mmol/L 06/07/16 07:28 BUN 9 mg/dL (7-17) 06/07/16 07:28 Creatinine 0.6 mg/dL (0.7-1.2) L 06/07/16 07:28 Estimated GFR > 60 ml/min 06/07/16 07:28 BUN/Creatinine Ratio 15.00 % 06/07/16 07:28 Glucose 102 mg/dL (65-100) H 06/07/16 07:28 Calcium 9.1 mg/dL (8.4-10.2) 06/07/16 07:28 Magnesium 2.0 mg/dL (1.7-2.3) 06/01/16 06:14 Total Creatine Kinase 108 units/L (30-135) 05/11/16 10:49 Phenytoin 4.3 mg/L (10.0-20.0) L 05/23/16 06:41
[2016-06-07] MEDS: NORMODYNE PO SCH ×3 (13:59→23:06)
[2016-06-07] MEDS: TRIMOX PO SCH ×3 (14:00→23:07)
--- NOTE | 2016-06-07 19:55 | Progress Note ---
Assessment and Plan Patient resting on 2 litres O2.. No acute respiratory distress.O2 satuaration 100% . - Patient Problems (1) Status epilepticus Current Visit: Yes Status: Acute Plan to address problem: Management as per neurology. (2) Aspiration pneumonia Current Visit: Yes Status: Acute Plan to address problem: Improved. Patient is on PO Amoxicillin. Aspiration precautions. Subjective Date of service: 06/07/16 Principal diagnosis: Seizures; Acute Resp Failure s/p MVS Interval history: Patient resting on 2 litres O2. No acute respiratory distress.O2 satuaration 100. Objective Vital Signs - 12hr 06/07/16 06/07/16 08:00 16:00 Temperature 96.9 F L 97.3 F L Pulse Rate [ 82 85 Right] Respiratory 20 20 Rate Blood Pressure 138/88 135/83 [Left Arm] O2 Sat by Pulse 100 Oximetry Constitutional: no acute distress, alert Eyes: non-icteric ENT: oropharynx moist Neck: supple Effort: normal Ascultation: Bilateral: diminished breath sounds (bases), rhonchi Cardiovascular: regular rate and rhythm Gastrointestinal: normoactive bowel sounds, soft, non-tender, non-distended Integumentary: normal Extremities: no cyanosis, no edema, pulses normal, no ischemia or petechiae Neurologic: normal mental status, non-focal exam, pupils equal and round Psychiatric: other (mild cognitive defect) CBC and BMP: 06/07/16 07:28 06/07/16 07:28 ABG, PT/INR, D-dimer: ABG POC ABG pH 7.453 (7.35-7.45) H 05/27/16 10:13 POC ABG pCO2 34.7 (35-45) L 05/27/16 10:13 POC ABG pO2 90 (80-105) 05/27/16 10:13 POC ABG HCO3 24.3 05/27/16 10:13 POC ABG Total CO2 25 05/27/16 10:13 POC ABG O2 Sat 97 05/27/16 10:13 Abnormal lab findings: Abnormal Labs 05/12/16 05/12/16 05/12/16 04:37 04:37 05:39 WBC RBC 3.60 L Hgb 9.7 L Hct 29.3 L D MCH 27 L RDW 16.8 H Plt Count [place] % (Auto) 11.6 H [place] # 1.1 H POC ABG pH 7.496 H POC ABG pCO2 27.6 L POC ABG pO2 75 L Sodium Potassium 3.3 L Chloride Carbon Dioxide BUN Creatinine Glucose Calcium 7.9 L Phenytoin 05/12/16 05/13/16 05/15/16 10:01 04:15 11:52 WBC RBC Hgb Hct MCH 27 L RDW 16.7 H Plt Count [place] % (Auto) [place] # POC ABG pH POC ABG pCO2 POC ABG pO2 73 L Sodium Potassium Chloride Carbon Dioxide BUN 6 L Creatinine 0.6 L Glucose Calcium 8.2 L Phenytoin 05/15/16 05/20/16 05/23/16 11:52 11:25 06:41 WBC RBC Hgb Hct MCH RDW Plt Count [place] % (Auto) [place] # POC ABG pH POC ABG pCO2 34.9 L POC ABG pO2 73 L Sodium Potassium 3.5 L Chloride Carbon Dioxide BUN 6 L Creatinine 0.6 L Glucose 113 H Calcium Phenytoin 4.3 L 05/24/16 05/24/16 05/27/16 09:06 13:33 10:13 WBC 13.1 H RBC Hgb Hct MCH 26 L RDW 16.1 H Plt Count [place] % (Auto) [place] # POC ABG pH 7.453 H POC ABG pCO2 34.7 L POC ABG pO2 Sodium 135 L Potassium Chloride Carbon Dioxide 21 L BUN Creatinine 0.6 L Glucose 181 H Calcium Phenytoin 06/01/16 06/01/16 06/05/16 06:14 06:14 06:15 WBC RBC Hgb Hct MCH 26 L RDW 16.6 H Plt Count 448 H [place] % (Auto) 10.2 H [place] # 1.0 H POC ABG pH POC ABG pCO2 POC ABG pO2 Sodium Potassium 3.0 L Chloride 97.2 L Carbon Dioxide BUN Creatinine 0.6 L Glucose 101 H Calcium Phenytoin 06/07/16 06/07/16 07:28 07:28 WBC RBC Hgb Hct MCH 26 L RDW 16.4 H Plt Count [place] % (Auto) [place] # POC ABG pH POC ABG pCO2 POC ABG pO2 Sodium Potassium Chloride Carbon Dioxide BUN Creatinine 0.6 L Glucose 102 H Calcium Phenytoin
[2016-06-08] MEDS: NORMODYNE PO SCH ×3 (06:24→22:27)
[2016-06-08] MEDS: TRIMOX PO SCH ×3 (06:24→22:27)
[2016-06-08] MEDS: PEPCID PO SCH ×2 (09:07→22:28)
[2016-06-08] MEDS: HCTZ PO SCH (09:07)
[2016-06-08] MEDS: K-DUR PO SCH ×2 (09:07→22:27)
[2016-06-08] MEDS: DILANTIN PO SCH (09:07)
[2016-06-08] MEDS: LOVENOX SUB-Q SCH (09:08)
--- NOTE | 2016-06-08 14:08 | Progress Note ---
Assessment and Plan Patient resting on 2 litres O2.. No acute respiratory distress.O2 satuaration 100% . - Patient Problems (1) Status epilepticus Current Visit: Yes Status: Acute Plan to address problem: Management as per neurology. (2) Aspiration pneumonia Current Visit: Yes Status: Acute Plan to address problem: Improved. Patient is on PO Amoxicillin. Aspiration precautions. Subjective Date of service: 06/08/16 Principal diagnosis: Seizures; Acute Resp Failure s/p MVS Interval history: Patient resting on 2 litres O2. No acute respiratory distress.O2 satuaration 100. Objective Vital Signs - 12hr 06/08/16 06/08/16 06:24 08:00 Temperature 97.6 F Pulse Rate 97 H Pulse Rate [ 81 Right] Respiratory 18 Rate Blood Pressure 141/86 Blood Pressure 143/86 [Left Arm] O2 Sat by Pulse 100 Oximetry Constitutional: no acute distress, alert Eyes: non-icteric ENT: oropharynx moist Neck: supple Effort: normal Ascultation: Bilateral: diminished breath sounds (bases), rhonchi Cardiovascular: regular rate and rhythm Gastrointestinal: normoactive bowel sounds, soft, non-tender, non-distended Integumentary: normal Extremities: no cyanosis, no edema, pulses normal, no ischemia or petechiae Neurologic: normal mental status, non-focal exam, pupils equal and round Psychiatric: other (mild cognitive defect) CBC and BMP: 06/07/16 07:28 06/07/16 07:28 ABG, PT/INR, D-dimer: ABG POC ABG pH 7.453 (7.35-7.45) H 05/27/16 10:13 POC ABG pCO2 34.7 (35-45) L 05/27/16 10:13 POC ABG pO2 90 (80-105) 05/27/16 10:13 POC ABG HCO3 24.3 05/27/16 10:13 POC ABG Total CO2 25 05/27/16 10:13 POC ABG O2 Sat 97 05/27/16 10:13 Abnormal lab findings: Abnormal Labs 05/12/16 05/12/16 05/12/16 04:37 04:37 05:39 WBC RBC 3.60 L Hgb 9.7 L Hct 29.3 L D MCH 27 L RDW 16.8 H Plt Count [place] % (Auto) 11.6 H [place] # 1.1 H POC ABG pH 7.496 H POC ABG pCO2 27.6 L POC ABG pO2 75 L Sodium Potassium 3.3 L Chloride Carbon Dioxide BUN Creatinine Glucose Calcium 7.9 L Phenytoin 05/12/16 05/13/16 05/15/16 10:01 04:15 11:52 WBC RBC Hgb Hct MCH 27 L RDW 16.7 H Plt Count [place] % (Auto) [place] # POC ABG pH POC ABG pCO2 POC ABG pO2 73 L Sodium Potassium Chloride Carbon Dioxide BUN 6 L Creatinine 0.6 L Glucose Calcium 8.2 L Phenytoin 05/15/16 05/20/16 05/23/16 11:52 11:25 06:41 WBC RBC Hgb Hct MCH RDW Plt Count [place] % (Auto) [place] # POC ABG pH POC ABG pCO2 34.9 L POC ABG pO2 73 L Sodium Potassium 3.5 L Chloride Carbon Dioxide BUN 6 L Creatinine 0.6 L Glucose 113 H Calcium Phenytoin 4.3 L 05/24/16 05/24/16 05/27/16 09:06 13:33 10:13 WBC 13.1 H RBC Hgb Hct MCH 26 L RDW 16.1 H Plt Count [place] % (Auto) [place] # POC ABG pH 7.453 H POC ABG pCO2 34.7 L POC ABG pO2 Sodium 135 L Potassium Chloride Carbon Dioxide 21 L BUN Creatinine 0.6 L Glucose 181 H Calcium Phenytoin 06/01/16 06/01/16 06/05/16 06:14 06:14 06:15 WBC RBC Hgb Hct MCH 26 L RDW 16.6 H Plt Count 448 H [place] % (Auto) 10.2 H [place] # 1.0 H POC ABG pH POC ABG pCO2 POC ABG pO2 Sodium Potassium 3.0 L Chloride 97.2 L Carbon Dioxide BUN Creatinine 0.6 L Glucose 101 H Calcium Phenytoin 06/07/16 06/07/16 07:28 07:28 WBC RBC Hgb Hct MCH 26 L RDW 16.4 H Plt Count [place] % (Auto) [place] # POC ABG pH POC ABG pCO2 POC ABG pO2 Sodium Potassium Chloride Carbon Dioxide BUN Creatinine 0.6 L Glucose 102 H Calcium Phenytoin
--- NOTE | 2016-06-08 15:53 | Progress Note ---
Assessment and Plan Assessment and plan: 1. Status epilepticus. Resolved. Continue seizure precautions. Continue phenytoin. Continue when necessary Ativan. Patient did have some recurrence of seizures. No other seizure noted today. We'll continue to monitor. Sternal placement available 2. Acute hypoxic respiratory failure. Patient extubated and doing well. 3. Hypertension. Continue antihypertensive medications. 4. Intractable vomiting. Resolved. Continue Zofran when necessary. KUB was negative. 5. History of cerebral aneurysm and [employer] shunt. Continue supportive care. 6. DVT prophylaxis. Lovenox daily. Encourage ambulation Disposition-pending placement discussed with case management History Interval history: Patient seen and examined this morning in no acute distress, friend in the room no other adverse event noted. Denies any chest pain, nausea, vomiting, diarrhea No fever noted blood pressure controlled No adverse events reported to me by nursing staff Hospitalist Physical - Physical exam Narrative exam: VITAL SIGNS: Reviewed. GENERAL: The patient appeared well nourished and normally developed. Vital signs as documented. HEAD: Left facial cranial depression from healed surgery.. EYES: Pupils are equal. Extraocular motions intact. EARS: Hearing grossly intact. MOUTH: Oropharynx is normal. NECK: No adenopathy, no JVD. CHEST: Chest with clear breath sounds bilaterally. No wheezes, rales, or rhonchi. CARDIAC: Regular rate and rhythm. S1 and S2, without murmurs, gallops, or rubs. VASCULAR: No Edema. Peripheral pulses normal and equal in all extremities. ABDOMEN: Soft, without detectable tenderness. No sign of distention. No rebound or guarding, and no masses palpated. Bowel Sounds normal. MUSCULOSKELETAL: Good range of motion of all major joints. Extremities without clubbing, cyanosis or edema. NEUROLOGIC EXAM: Alert and oriented x 3. Aphasic with some forced single words Although her verbal is not as clear this could be secondary to aneurysmal repair. No focal sensory or strength deficits. Follows commands. Gait not assessed this patient was weak on the left side PSYCHIATRIC: Mood normal. SKIN: No rash or lesions. - Constitutional Vitals: Temp Pulse Resp BP Pulse Ox 97.6 F 81 18 143/86 100 06/08/16 08:00 06/08/16 08:00 06/08/16 08:00 06/08/16 08:00 06/08/16 08:00 General appearance: Present: no acute distress, well-nourished Results - Labs CBC & Chem 7: 06/07/16 07:28 06/07/16 07:28 Labs: Laboratory Last Values WBC 8.1 K/mm3 (4.5-11.0) 06/07/16 07:28 RBC 4.33 M/mm3 (3.65-5.03) 06/07/16 07:28 Hgb 11.1 gm/dl (10.1-14.3) 06/07/16 07:28 Hct 35.2 % (30.3-42.9) 06/07/16 07:28 MCV 81 fl (79-97) 06/07/16 07:28 MCH 26 pg (28-32) L 06/07/16 07:28 MCHC 32 % (30-34) 06/07/16 07:28 RDW 16.4 % (13.2-15.2) H 06/07/16 07:28 Plt Count 403 K/mm3 (140-440) 06/07/16 07:28 Lymph % (Auto) 21.9 % (13.4-35.0) 06/01/16 06:14 [place] % (Auto) 10.2 % (0.0-7.3) H 06/01/16 06:14 Eos % (Auto) 2.3 % (0.0-4.3) 06/01/16 06:14 Baso % (Auto) 0.4 % (0.0-1.8) 06/01/16 06:14 Lymph # 2.1 K/mm3 (1.2-5.4) 06/01/16 06:14 [place] # 1.0 K/mm3 (0.0-0.8) H 06/01/16 06:14 Eos # 0.2 K/mm3 (0.0-0.4) 06/01/16 06:14 Baso # 0.0 K/mm3 (0.0-0.1) 06/01/16 06:14 Seg Neutrophils % 65.2 % (40.0-70.0) 06/01/16 06:14 Seg Neutrophils # 6.2 K/mm3 (1.8-7.7) 06/01/16 06:14 POC ABG pH 7.453 (7.35-7.45) H 05/27/16 10:13 POC ABG pCO2 34.7 (35-45) L 05/27/16 10:13 POC ABG pO2 90 (80-105) 05/27/16 10:13 POC ABG HCO3 24.3 05/27/16 10:13 POC ABG Total CO2 25 05/27/16 10:13 POC ABG O2 Sat 97 05/27/16 10:13 POC ABG Base Excess 0 05/27/16 10:13 FiO2 21 % 05/27/16 10:13 Sodium 141 mmol/L (137-145) 06/07/16 07:28 Potassium 3.7 mmol/L (3.6-5.0) 06/07/16 07:28 Chloride 98.9 mmol/L (98-107) 06/07/16 07:28 Carbon Dioxide 26 mmol/L (22-30) 06/07/16 07:28 Anion Gap 20 mmol/L 06/07/16 07:28 BUN 9 mg/dL (7-17) 06/07/16 07:28 Creatinine 0.6 mg/dL (0.7-1.2) L 06/07/16 07:28 Estimated GFR > 60 ml/min 06/07/16 07:28 BUN/Creatinine Ratio 15.00 % 06/07/16 07:28 Glucose 102 mg/dL (65-100) H 06/07/16 07:28 Calcium 9.1 mg/dL (8.4-10.2) 06/07/16 07:28 Magnesium 2.0 mg/dL (1.7-2.3) 06/01/16 06:14 Total Creatine Kinase 108 units/L (30-135) 05/11/16 10:49 Phenytoin 4.3 mg/L (10.0-20.0) L 05/23/16 06:41
[2016-06-09] MEDS: NORMODYNE PO SCH ×3 (05:36→21:01)
[2016-06-09] MEDS: TRIMOX PO SCH ×3 (05:37→21:01)
[2016-06-09] MEDS: LOVENOX SUB-Q SCH (11:09)
[2016-06-09] MEDS: HCTZ PO SCH (11:10)
[2016-06-09] MEDS: DILANTIN PO SCH (11:10)
[2016-06-09] MEDS: K-DUR PO SCH ×2 (11:10→21:01)
[2016-06-09] MEDS: PEPCID PO SCH ×2 (11:11→21:01)
--- NOTE | 2016-06-09 12:27 | Progress Note ---
Assessment and Plan Assessment and plan: Patient is a 40 year old female with hx of cerebral aneurysm s/p [employer] IMP[employer]IRED shunt. admitted with convulsive seizures. Apparently a positive report the seizures lasted about 25 minutes and only Procardia she received Ativan by EMS. Upon arrival to the hospital on patient was subsequently intubated. Unable to obtain any further history patient is intubated 1. Status epilepticus. Resolved. Continue seizure precautions. Continue phenytoin. Continue when necessary Ativan. Patient did have some recurrence of seizures. No other seizure noted today. We'll continue to monitor. Sternal placement available 2. Acute hypoxic respiratory failure. Patient extubated and doing well. 3. Hypertension. Continue antihypertensive medications. 4. Intractable vomiting. Resolved. Continue Zofran when necessary. KUB was negative. 5. History of cerebral aneurysm and TE[employer] IMP[employer]IRED shunt. Continue supportive care. 6. DVT prophylaxis. Lovenox daily. Encourage ambulation Disposition-pending placement discussed with case management History Interval history: Patient seen and examined this morning in no acute distress, friend in the room no other adverse event noted. Denies any chest pain, nausea, vomiting, diarrhea No fever noted blood pressure controlled No adverse events reported to me by nursing staff Hospitalist Physical - Physical exam Narrative exam: VITAL SIGNS: Reviewed. GENERAL: The patient appeared well nourished and normally developed. Vital signs as documented. HEAD: Left facial cranial depression from healed surgery.. EYES: Pupils are equal. Extraocular motions intact. EARS: Hearing grossly intact. MOUTH: Oropharynx is normal. NECK: No adenopathy, no JVD. CHEST: Chest with clear breath sounds bilaterally. No wheezes, rales, or rhonchi. CARDIAC: Regular rate and rhythm. S1 and S2, without murmurs, gallops, or rubs. VASCULAR: No Edema. Peripheral pulses normal and equal in all extremities. ABDOMEN: Soft, without detectable tenderness. No sign of distention. No rebound or guarding, and no masses palpated. Bowel Sounds normal. MUSCULOSKELETAL: Good range of motion of all major joints. Extremities without clubbing, cyanosis or edema. NEUROLOGIC EXAM: Alert and oriented x 3. Aphasic with some forced single words Although her verbal is not as clear this could be secondary to aneurysmal repair. No focal sensory or strength deficits. Follows commands. Gait not assessed this patient was weak on the left side PSYCHIATRIC: Mood normal. SKIN: No rash or lesions. - Constitutional Vitals: Temp Pulse Resp BP Pulse Ox 98 F 91 H 20 131/84 98 06/09/16 08:00 06/09/16 08:00 06/09/16 08:00 06/09/16 08:00 06/09/16 08:00 General appearance: Present: no acute distress, well-nourished Results - Labs CBC & Chem 7: 06/07/16 07:28 06/07/16 07:28 Labs: Laboratory Last Values WBC 8.1 K/mm3 (4.5-11.0) 06/07/16 07:28 RBC 4.33 M/mm3 (3.65-5.03) 06/07/16 07:28 Hgb 11.1 gm/dl (10.1-14.3) 06/07/16 07:28 Hct 35.2 % (30.3-42.9) 06/07/16 07:28 MCV 81 fl (79-97) 06/07/16 07:28 MCH 26 pg (28-32) L 06/07/16 07:28 MCHC 32 % (30-34) 06/07/16 07:28 RDW 16.4 % (13.2-15.2) H 06/07/16 07:28 Plt Count 403 K/mm3 (140-440) 06/07/16 07:28 Lymph % (Auto) 21.9 % (13.4-35.0) 06/01/16 06:14 [place] % (Auto) 10.2 % (0.0-7.3) H 06/01/16 06:14 Eos % (Auto) 2.3 % (0.0-4.3) 06/01/16 06:14 Baso % (Auto) 0.4 % (0.0-1.8) 06/01/16 06:14 Lymph # 2.1 K/mm3 (1.2-5.4) 06/01/16 06:14 [place] # 1.0 K/mm3 (0.0-0.8) H 06/01/16 06:14 Eos # 0.2 K/mm3 (0.0-0.4) 06/01/16 06:14 Baso # 0.0 K/mm3 (0.0-0.1) 06/01/16 06:14 Seg Neutrophils % 65.2 % (40.0-70.0) 06/01/16 06:14 Seg Neutrophils # 6.2 K/mm3 (1.8-7.7) 06/01/16 06:14 POC ABG pH 7.453 (7.35-7.45) H 05/27/16 10:13 POC ABG pCO2 34.7 (35-45) L 05/27/16 10:13 POC ABG pO2 90 (80-105) 05/27/16 10:13 POC ABG HCO3 24.3 05/27/16 10:13 POC ABG Total CO2 25 05/27/16 10:13 POC ABG O2 Sat 97 05/27/16 10:13 POC ABG Base Excess 0 05/27/16 10:13 FiO2 21 % 05/27/16 10:13 Sodium 141 mmol/L (137-145) 06/07/16 07:28 Potassium 3.7 mmol/L (3.6-5.0) 06/07/16 07:28 Chloride 98.9 mmol/L (98-107) 06/07/16 07:28 Carbon Dioxide 26 mmol/L (22-30) 06/07/16 07:28 Anion Gap 20 mmol/L 06/07/16 07:28 BUN 9 mg/dL (7-17) 06/07/16 07:28 Creatinine 0.6 mg/dL (0.7-1.2) L 06/07/16 07:28 Estimated GFR > 60 ml/min 06/07/16 07:28 BUN/Creatinine Ratio 15.00 % 06/07/16 07:28 Glucose 102 mg/dL (65-100) H 06/07/16 07:28 Calcium 9.1 mg/dL (8.4-10.2) 06/07/16 07:28 Magnesium 2.0 mg/dL (1.7-2.3) 06/01/16 06:14 Total Creatine Kinase 108 units/L (30-135) 05/11/16 10:49 Phenytoin 4.3 mg/L (10.0-20.0) L 05/23/16 06:41
[2016-06-10] MEDS: NORMODYNE PO SCH ×3 (05:16→23:33)
[2016-06-10] MEDS: TRIMOX PO SCH ×3 (05:16→22:33)
[2016-06-10] MEDS: K-DUR PO SCH ×2 (09:53→22:29)
[2016-06-10] MEDS: HCTZ PO SCH (09:53)
[2016-06-10] MEDS: PEPCID PO SCH ×2 (09:53→22:00)
[2016-06-10] MEDS: LOVENOX SUB-Q SCH (09:53)
[2016-06-10] MEDS: DILANTIN PO SCH (09:54)
--- NOTE | 2016-06-10 10:00 | Progress Note ---
Assessment and Plan - Patient Problems (1) Status epilepticus Current Visit: Yes Status: Acute Plan to address problem: - resolved - continue AED's per primary and neurology (2) Acute hypoxemic respiratory failure Current Visit: Yes Status: Resolved Plan to address problem: - resolved - continue aspiration precautions (3) Discharge planning issues Current Visit: Yes Status: Acute Plan to address problem: - awaiting placement - will see prn Subjective Date of service: 06/10/16 Principal diagnosis: Seizures; Acute Resp Failure s/p MVS Interval history: Seen and examined at bedside; 24 hour events reviewed; nursing and respiratory care staff consulted; no adverse overnight events reported to me; resting peacefully; denies acute chest pains or increased SOB Objective Vital Signs - 12hr 06/09/16 06/10/16 23:00 05:16 Temperature 98.2 F Pulse Rate 92 H Pulse Rate [ 101 H Right] Respiratory 18 Rate Blood Pressure 141/94 [Left Arm] O2 Sat by Pulse 100 Oximetry Constitutional: no acute distress, alert Eyes: non-icteric ENT: oropharynx moist Neck: supple Effort: normal Ascultation: Bilateral: clear, diminished breath sounds (bases) Cardiovascular: regular rate and rhythm Gastrointestinal: normoactive bowel sounds, soft, non-tender, non-distended Integumentary: normal Extremities: no cyanosis, no edema, pulses normal, no ischemia or petechiae Neurologic: normal mental status, non-focal exam, pupils equal and round Psychiatric: other (mild cognitive defect) CBC and BMP: 06/07/16 07:28 06/07/16 07:28 ABG, PT/INR, D-dimer: ABG POC ABG pH 7.453 (7.35-7.45) H 05/27/16 10:13 POC ABG pCO2 34.7 (35-45) L 05/27/16 10:13 POC ABG pO2 90 (80-105) 05/27/16 10:13 POC ABG HCO3 24.3 05/27/16 10:13 POC ABG Total CO2 25 05/27/16 10:13 POC ABG O2 Sat 97 05/27/16 10:13 Abnormal lab findings: Abnormal Labs 05/12/16 05/12/16 05/12/16 04:37 04:37 05:39 WBC RBC 3.60 L Hgb 9.7 L Hct 29.3 L D MCH 27 L RDW 16.8 H Plt Count [place] % (Auto) 11.6 H [place] # 1.1 H POC ABG pH 7.496 H POC ABG pCO2 27.6 L POC ABG pO2 75 L Sodium Potassium 3.3 L Chloride Carbon Dioxide BUN Creatinine Glucose Calcium 7.9 L Phenytoin 05/12/16 05/13/16 05/15/16 10:01 04:15 11:52 WBC RBC Hgb Hct MCH 27 L RDW 16.7 H Plt Count [place] % (Auto) [place] # POC ABG pH POC ABG pCO2 POC ABG pO2 73 L Sodium Potassium Chloride Carbon Dioxide BUN 6 L Creatinine 0.6 L Glucose Calcium 8.2 L Phenytoin 05/15/16 05/20/16 05/23/16 11:52 11:25 06:41 WBC RBC Hgb Hct MCH RDW Plt Count [place] % (Auto) [place] # POC ABG pH POC ABG pCO2 34.9 L POC ABG pO2 73 L Sodium Potassium 3.5 L Chloride Carbon Dioxide BUN 6 L Creatinine 0.6 L Glucose 113 H Calcium Phenytoin 4.3 L 05/24/16 05/24/16 05/27/16 09:06 13:33 10:13 WBC 13.1 H RBC Hgb Hct MCH 26 L RDW 16.1 H Plt Count [place] % (Auto) [place] # POC ABG pH 7.453 H POC ABG pCO2 34.7 L POC ABG pO2 Sodium 135 L Potassium Chloride Carbon Dioxide 21 L BUN Creatinine 0.6 L Glucose 181 H Calcium Phenytoin 06/01/16 06/01/16 06/05/16 06:14 06:14 06:15 WBC RBC Hgb Hct MCH 26 L RDW 16.6 H Plt Count 448 H [place] % (Auto) 10.2 H [place] # 1.0 H POC ABG pH POC ABG pCO2 POC ABG pO2 Sodium Potassium 3.0 L Chloride 97.2 L Carbon Dioxide BUN Creatinine 0.6 L Glucose 101 H Calcium Phenytoin 06/07/16 06/07/16 07:28 07:28 WBC RBC Hgb Hct MCH 26 L RDW 16.4 H Plt Count [place] % (Auto) [place] # POC ABG pH POC ABG pCO2 POC ABG pO2 Sodium Potassium Chloride Carbon Dioxide BUN Creatinine 0.6 L Glucose 102 H Calcium Phenytoin
--- NOTE | 2016-06-10 14:51 | Progress Note ---
Assessment and Plan Assessment and plan: Patient is a 40 year old female with hx of cerebral aneurysm s/p [employer]CR[employer] shunt. admitted with convulsive seizures. Apparently a positive report the seizures lasted about 25 minutes and only Procardia she received Ativan by EMS. Upon arrival to the hospital on patient was subsequently intubated. 1. Status epilepticus. Resolved. Continue seizure precautions. Continue phenytoin. Continue when necessary Ativan. Patient did have some recurrence of seizures. No other seizure noted today. We'll continue to monitor. Sternal placement available 2. Acute hypoxic respiratory failure. 3. Hypertension. Continue antihypertensive medications. 4. Intractable vomiting. Resolved. Continue Zofran when necessary. KUB was negative. 5. History of cerebral aneurysm and [employer] SECR[employer] shunt. Continue supportive care. 6. DVT prophylaxis. Lovenox daily. Encourage ambulation Disposition-pending placement discussed with case management History Interval history: Patient seen and examined this morning in no acute distress, Denies any chest pain, nausea, vomiting, diarrhea No fever noted blood pressure controlled No adverse events reported to me by nursing staff Hospitalist Physical - Physical exam Narrative exam: VITAL SIGNS: Reviewed. GENERAL: The patient appeared well nourished and normally developed. Vital signs as documented. HEAD: Left facial cranial depression from healed surgery.. EYES: Pupils are equal. Extraocular motions intact. EARS: Hearing grossly intact. MOUTH: Oropharynx is normal. NECK: No adenopathy, no JVD. CHEST: Chest with clear breath sounds bilaterally. No wheezes, rales, or rhonchi. CARDIAC: Regular rate and rhythm. S1 and S2, without murmurs, gallops, or rubs. VASCULAR: No Edema. Peripheral pulses normal and equal in all extremities. ABDOMEN: Soft, without detectable tenderness. No sign of distention. No rebound or guarding, and no masses palpated. Bowel Sounds normal. MUSCULOSKELETAL: Good range of motion of all major joints. Extremities without clubbing, cyanosis or edema. NEUROLOGIC EXAM: Alert and oriented x 3. Aphasic with some forced single words Although her verbal is not as clear this could be secondary to aneurysmal repair. No focal sensory or strength deficits. Follows commands. Gait not assessed this patient was weak on the left side PSYCHIATRIC: Mood normal. SKIN: No rash or lesions. - Constitutional Vitals: Temp Pulse Resp BP Pulse Ox 97.6 F 90 20 151/86 97 06/10/16 08:00 06/10/16 08:00 06/10/16 08:00 06/10/16 08:00 06/10/16 08:00 General appearance: Present: no acute distress, well-nourished Results - Labs CBC & Chem 7: 06/07/16 07:28 06/07/16 07:28 Labs: Laboratory Last Values WBC 8.1 K/mm3 (4.5-11.0) 06/07/16 07:28 RBC 4.33 M/mm3 (3.65-5.03) 06/07/16 07:28 Hgb 11.1 gm/dl (10.1-14.3) 06/07/16 07:28 Hct 35.2 % (30.3-42.9) 06/07/16 07:28 MCV 81 fl (79-97) 06/07/16 07:28 MCH 26 pg (28-32) L 06/07/16 07:28 MCHC 32 % (30-34) 06/07/16 07:28 RDW 16.4 % (13.2-15.2) H 06/07/16 07:28 Plt Count 403 K/mm3 (140-440) 06/07/16 07:28 Lymph % (Auto) 21.9 % (13.4-35.0) 06/01/16 06:14 [place] % (Auto) 10.2 % (0.0-7.3) H 06/01/16 06:14 Eos % (Auto) 2.3 % (0.0-4.3) 06/01/16 06:14 Baso % (Auto) 0.4 % (0.0-1.8) 06/01/16 06:14 Lymph # 2.1 K/mm3 (1.2-5.4) 06/01/16 06:14 [place] # 1.0 K/mm3 (0.0-0.8) H 06/01/16 06:14 Eos # 0.2 K/mm3 (0.0-0.4) 06/01/16 06:14 Baso # 0.0 K/mm3 (0.0-0.1) 06/01/16 06:14 Seg Neutrophils % 65.2 % (40.0-70.0) 06/01/16 06:14 Seg Neutrophils # 6.2 K/mm3 (1.8-7.7) 06/01/16 06:14 POC ABG pH 7.453 (7.35-7.45) H 05/27/16 10:13 POC ABG pCO2 34.7 (35-45) L 05/27/16 10:13 POC ABG pO2 90 (80-105) 05/27/16 10:13 POC ABG HCO3 24.3 05/27/16 10:13 POC ABG Total CO2 25 05/27/16 10:13 POC ABG O2 Sat 97 05/27/16 10:13 POC ABG Base Excess 0 05/27/16 10:13 FiO2 21 % 05/27/16 10:13 Sodium 141 mmol/L (137-145) 06/07/16 07:28 Potassium 3.7 mmol/L (3.6-5.0) 06/07/16 07:28 Chloride 98.9 mmol/L (98-107) 06/07/16 07:28 Carbon Dioxide 26 mmol/L (22-30) 06/07/16 07:28 Anion Gap 20 mmol/L 06/07/16 07:28 BUN 9 mg/dL (7-17) 06/07/16 07:28 Creatinine 0.6 mg/dL (0.7-1.2) L 06/07/16 07:28 Estimated GFR > 60 ml/min 06/07/16 07:28 BUN/Creatinine Ratio 15.00 % 06/07/16 07:28 Glucose 102 mg/dL (65-100) H 06/07/16 07:28 Calcium 9.1 mg/dL (8.4-10.2) 06/07/16 07:28 Magnesium 2.0 mg/dL (1.7-2.3) 06/01/16 06:14 Total Creatine Kinase 108 units/L (30-135) 05/11/16 10:49 Phenytoin 4.3 mg/L (10.0-20.0) L 05/23/16 06:41
[2016-06-11] MEDS: TRIMOX PO SCH ×3 (06:43→22:16)
[2016-06-11] MEDS: NORMODYNE PO SCH ×3 (06:44→22:16)
[2016-06-11] MEDS: DILANTIN PO SCH (09:29)
[2016-06-11] MEDS: HCTZ PO SCH (09:30)
[2016-06-11] MEDS: LOVENOX SUB-Q SCH (09:30)
[2016-06-11] MEDS: K-DUR PO SCH ×2 (09:30→22:16)
[2016-06-11] MEDS: PEPCID PO SCH ×2 (09:30→22:16)
--- NOTE | 2016-06-11 10:17 | Event Note ---
Date: 06/11/16 Resting peacefully Awaiting placement - will see prn
--- NOTE | 2016-06-11 12:48 | Progress Note ---
Assessment and Plan Assessment and plan: Patient is a 40 year old female with hx of cerebral aneurysm s/p CHEMICAL SALES REPRESENTATIVE shunt. admitted with convulsive seizures. Apparently a positive report the seizures lasted about 25 minutes and only Procardia she received Ativan by EMS. Upon arrival to the hospital on patient was subsequently intubated. 1. Status epilepticus. Resolved. Continue seizure precautions. Continue phenytoin. Continue when necessary Ativan. Patient did have some recurrence of seizures. No other seizure noted today. We'll continue to monitor. Sternal placement available 2. Acute hypoxic respiratory failure. 3. Hypertension. Continue antihypertensive medications. 4. Intractable vomiting. Resolved. Continue Zofran when necessary. KUB was negative. 5. History of cerebral aneurysm and CHEMICAL SALES REPRESENTATIVE shunt. Continue supportive care. 6. DVT prophylaxis. Lovenox daily. Encourage ambulation Disposition-pending placement discussed with case management History Interval history: Patient seen and examined this morning in no acute distress, no new account. Denies any chest pain, nausea, vomiting, diarrhea No fever noted blood pressure controlled No adverse events reported to me by nursing staff Hospitalist Physical - Physical exam Narrative exam: VITAL SIGNS: Reviewed. GENERAL: The patient appeared well nourished and normally developed. Vital signs as documented. HEAD: Left facial cranial depression from healed surgery.. EYES: Pupils are equal. Extraocular motions intact. EARS: Hearing grossly intact. MOUTH: Oropharynx is normal. NECK: No adenopathy, no JVD. CHEST: Chest with clear breath sounds bilaterally. No wheezes, rales, or rhonchi. CARDIAC: Regular rate and rhythm. S1 and S2, without murmurs, gallops, or rubs. VASCULAR: No Edema. Peripheral pulses normal and equal in all extremities. ABDOMEN: Soft, without detectable tenderness. No sign of distention. No rebound or guarding, and no masses palpated. Bowel Sounds normal. MUSCULOSKELETAL: Good range of motion of all major joints. Extremities without clubbing, cyanosis or edema. NEUROLOGIC EXAM: Alert and oriented x 3. Aphasic with some forced single words Although her verbal is not as clear this could be secondary to aneurysmal repair. No focal sensory or strength deficits. Follows commands. Gait not assessed this patient was weak on the left side PSYCHIATRIC: Mood normal. SKIN: No rash or lesions. - Constitutional Vitals: Temp Pulse Resp BP Pulse Ox 98.5 F 82 20 141/91 98 06/11/16 08:00 06/11/16 08:00 06/11/16 08:00 06/11/16 08:00 06/11/16 08:00 General appearance: Present: no acute distress, well-nourished Results - Labs CBC & Chem 7: 06/07/16 07:28 06/07/16 07:28 Labs: Laboratory Last Values WBC 8.1 K/mm3 (4.5-11.0) 06/07/16 07:28 RBC 4.33 M/mm3 (3.65-5.03) 06/07/16 07:28 Hgb 11.1 gm/dl (10.1-14.3) 06/07/16 07:28 Hct 35.2 % (30.3-42.9) 06/07/16 07:28 MCV 81 fl (79-97) 06/07/16 07:28 MCH 26 pg (28-32) L 06/07/16 07:28 MCHC 32 % (30-34) 06/07/16 07:28 RDW 16.4 % (13.2-15.2) H 06/07/16 07:28 Plt Count 403 K/mm3 (140-440) 06/07/16 07:28 Lymph % (Auto) 21.9 % (13.4-35.0) 06/01/16 06:14 [place] % (Auto) 10.2 % (0.0-7.3) H 06/01/16 06:14 Eos % (Auto) 2.3 % (0.0-4.3) 06/01/16 06:14 Baso % (Auto) 0.4 % (0.0-1.8) 06/01/16 06:14 Lymph # 2.1 K/mm3 (1.2-5.4) 06/01/16 06:14 [place] # 1.0 K/mm3 (0.0-0.8) H 06/01/16 06:14 Eos # 0.2 K/mm3 (0.0-0.4) 06/01/16 06:14 Baso # 0.0 K/mm3 (0.0-0.1) 06/01/16 06:14 Seg Neutrophils % 65.2 % (40.0-70.0) 06/01/16 06:14 Seg Neutrophils # 6.2 K/mm3 (1.8-7.7) 06/01/16 06:14 POC ABG pH 7.453 (7.35-7.45) H 05/27/16 10:13 POC ABG pCO2 34.7 (35-45) L 05/27/16 10:13 POC ABG pO2 90 (80-105) 05/27/16 10:13 POC ABG HCO3 24.3 05/27/16 10:13 POC ABG Total CO2 25 05/27/16 10:13 POC ABG O2 Sat 97 05/27/16 10:13 POC ABG Base Excess 0 05/27/16 10:13 FiO2 21 % 05/27/16 10:13 Sodium 141 mmol/L (137-145) 06/07/16 07:28 Potassium 3.7 mmol/L (3.6-5.0) 06/07/16 07:28 Chloride 98.9 mmol/L (98-107) 06/07/16 07:28 Carbon Dioxide 26 mmol/L (22-30) 06/07/16 07:28 Anion Gap 20 mmol/L 06/07/16 07:28 BUN 9 mg/dL (7-17) 06/07/16 07:28 Creatinine 0.6 mg/dL (0.7-1.2) L 06/07/16 07:28 Estimated GFR > 60 ml/min 06/07/16 07:28 BUN/Creatinine Ratio 15.00 % 06/07/16 07:28 Glucose 102 mg/dL (65-100) H 06/07/16 07:28 Calcium 9.1 mg/dL (8.4-10.2) 06/07/16 07:28 Magnesium 2.0 mg/dL (1.7-2.3) 06/01/16 06:14 Total Creatine Kinase 108 units/L (30-135) 05/11/16 10:49 Phenytoin 4.3 mg/L (10.0-20.0) L 05/23/16 06:41
[2016-06-12] MEDS: TRIMOX PO SCH ×3 (06:09→22:10)
[2016-06-12] MEDS: NORMODYNE PO SCH ×3 (06:09→22:18)
--- NOTE | 2016-06-12 12:25 | Progress Note ---
Assessment and Plan Assessment and plan: Patient is a 40 year old female with hx of cerebral aneurysm s/p JOINT RUNNER shunt. admitted with convulsive seizures. Apparently a positive report the seizures lasted about 25 minutes and only Procardia she received Ativan by EMS. Upon arrival to the hospital on patient was subsequently intubated. 1. Status epilepticus. Resolved. Continue seizure precautions. Continue phenytoin. Continue when necessary Ativan. Patient did have some recurrence of seizures. No other seizure noted today. We'll continue to monitor. Sternal placement available 2. Acute hypoxic respiratory failure. 3. Hypertension. Continue antihypertensive medications. 4. Intractable vomiting. Resolved. Continue Zofran when necessary. KUB was negative. 5. History of cerebral aneurysm and JOINT RUNNER shunt. Continue supportive care. 6. DVT prophylaxis. Lovenox daily. Encourage ambulation Disposition-No change yet. pending placement discussed with case management History Interval history: Patient seen and examined this morning in no acute distress, no new account. Denies any chest pain, nausea, vomiting, diarrhea No fever noted blood pressure controlled No adverse events reported to me by nursing staff Hospitalist Physical - Physical exam Narrative exam: VITAL SIGNS: Reviewed. GENERAL: The patient appeared well nourished and normally developed. Vital signs as documented. HEAD: Left facial cranial depression from healed surgery.. EYES: Pupils are equal. Extraocular motions intact. EARS: Hearing grossly intact. MOUTH: Oropharynx is normal. NECK: No adenopathy, no JVD. CHEST: Chest with clear breath sounds bilaterally. No wheezes, rales, or rhonchi. CARDIAC: Regular rate and rhythm. S1 and S2, without murmurs, gallops, or rubs. VASCULAR: No Edema. Peripheral pulses normal and equal in all extremities. ABDOMEN: Soft, without detectable tenderness. No sign of distention. No rebound or guarding, and no masses palpated. Bowel Sounds normal. MUSCULOSKELETAL: Good range of motion of all major joints. Extremities without clubbing, cyanosis or edema. NEUROLOGIC EXAM: Alert and oriented x 3. Aphasic with some forced single words Although her verbal is not as clear this could be secondary to aneurysmal repair. No focal sensory or strength deficits. Follows commands. Gait not assessed this patient was weak on the left side PSYCHIATRIC: Mood normal. SKIN: No rash or lesions. - Constitutional Vitals: Temp Pulse Resp BP Pulse Ox 97.1 F L 68 16 158/87 96 01/28/17 08:00 06/12/16 08:00 06/12/16 08:00 06/12/16 08:00 06/12/16 08:00 General appearance: Present: no acute distress, well-nourished Results - Labs CBC & Chem 7: 06/07/16 07:28 06/07/16 07:28 Labs: Laboratory Last Values WBC 8.1 K/mm3 (4.5-11.0) 06/07/16 07:28 RBC 4.33 M/mm3 (3.65-5.03) 06/07/16 07:28 Hgb 11.1 gm/dl (10.1-14.3) 06/07/16 07:28 Hct 35.2 % (30.3-42.9) 06/07/16 07:28 MCV 81 fl (79-97) 06/07/16 07:28 MCH 26 pg (28-32) L 06/07/16 07:28 MCHC 32 % (30-34) 06/07/16 07:28 RDW 16.4 % (13.2-15.2) H 06/07/16 07:28 Plt Count 403 K/mm3 (140-440) 06/07/16 07:28 Lymph % (Auto) 21.9 % (13.4-35.0) 06/01/16 06:14 [place] % (Auto) 10.2 % (0.0-7.3) H 06/01/16 06:14 Eos % (Auto) 2.3 % (0.0-4.3) 06/01/16 06:14 Baso % (Auto) 0.4 % (0.0-1.8) 06/01/16 06:14 Lymph # 2.1 K/mm3 (1.2-5.4) 06/01/16 06:14 [place] # 1.0 K/mm3 (0.0-0.8) H 06/01/16 06:14 Eos # 0.2 K/mm3 (0.0-0.4) 06/01/16 06:14 Baso # 0.0 K/mm3 (0.0-0.1) 06/01/16 06:14 Seg Neutrophils % 65.2 % (40.0-70.0) 06/01/16 06:14 Seg Neutrophils # 6.2 K/mm3 (1.8-7.7) 06/01/16 06:14 POC ABG pH 7.453 (7.35-7.45) H 05/27/16 10:13 POC ABG pCO2 34.7 (35-45) L 05/27/16 10:13 POC ABG pO2 90 (80-105) 05/27/16 10:13 POC ABG HCO3 24.3 05/27/16 10:13 POC ABG Total CO2 25 05/27/16 10:13 POC ABG O2 Sat 97 05/27/16 10:13 POC ABG Base Excess 0 05/27/16 10:13 FiO2 21 % 05/27/16 10:13 Sodium 141 mmol/L (137-145) 06/07/16 07:28 Potassium 3.7 mmol/L (3.6-5.0) 06/07/16 07:28 Chloride 98.9 mmol/L (98-107) 06/07/16 07:28 Carbon Dioxide 26 mmol/L (22-30) 06/07/16 07:28 Anion Gap 20 mmol/L 06/07/16 07:28 BUN 9 mg/dL (7-17) 06/07/16 07:28 Creatinine 0.6 mg/dL (0.7-1.2) L 06/07/16 07:28 Estimated GFR > 60 ml/min 06/07/16 07:28 BUN/Creatinine Ratio 15.00 % 06/07/16 07:28 Glucose 102 mg/dL (65-100) H 06/07/16 07:28 Calcium 9.1 mg/dL (8.4-10.2) 06/07/16 07:28 Magnesium 2.0 mg/dL (1.7-2.3) 06/01/16 06:14 Total Creatine Kinase 108 units/L (30-135) 05/11/16 10:49 Phenytoin 4.3 mg/L (10.0-20.0) L 05/23/16 06:41
[2016-06-12] MEDS: HCTZ PO SCH (12:45)
[2016-06-12] MEDS: K-DUR PO SCH ×2 (12:45→22:11)
[2016-06-12] MEDS: DILANTIN PO SCH (12:45)
[2016-06-12] MEDS: PEPCID PO SCH ×2 (12:46→22:12)
[2016-06-12] MEDS: LOVENOX SUB-Q SCH (12:46)
[2016-06-13] MEDS: NORMODYNE PO SCH ×3 (05:19→23:18)
[2016-06-13] MEDS: TRIMOX PO SCH ×3 (05:20→23:17)
[2016-06-13] MEDS: K-DUR PO SCH ×2 (11:12→23:17)
[2016-06-13] MEDS: PEPCID PO SCH ×2 (11:12→23:17)
[2016-06-13] MEDS: HCTZ PO SCH (11:12)
[2016-06-13] MEDS: DILANTIN PO SCH (11:12)
[2016-06-13] MEDS: LOVENOX SUB-Q SCH (11:12)
--- NOTE | 2016-06-13 13:23 | Progress Note ---
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 admitted with convulsive seizures. Apparently a positive report the seizures lasted about 25 minutes and only Procardia she received Ativan by EMS. Upon arrival to the hospital on patient was subsequently intubated. 1. Status epilepticus. Resolved. Continue seizure precautions. Continue phenytoin. Continue when necessary Ativan. Patient did have some recurrence of seizures during hospitalization. No other seizure noted today. We'll continue to monitor. Discharge when placement available 2. Acute hypoxic respiratory failure. Resolved 3. Hypertension. Continue antihypertensive medications. 4. Intractable vomiting. Resolved. Continue Zofran when necessary. KUB was negative. 5. History of cerebral aneurysm and REFINERY PIPELINE OPERATOR shunt. Continue supportive care. 6. DVT prophylaxis. Lovenox daily. Encourage ambulation Disposition-No change yet. No input from family yet. pending placement discussed with case management History Interval history: Patient seen and examined this morning in no acute distress, no new account. Denies any chest pain, nausea, vomiting, diarrhea No fever noted blood pressure controlled No adverse events reported to me by nursing staff Hospitalist Physical - Physical exam Narrative exam: VITAL SIGNS: Reviewed. GENERAL: The patient appeared well nourished and normally developed. Vital signs as documented. HEAD: Left facial cranial depression from healed surgery.. EYES: Pupils are equal. Extraocular motions intact. EARS: Hearing grossly intact. MOUTH: Oropharynx is normal. NECK: No adenopathy, no JVD. CHEST: Chest with clear breath sounds bilaterally. No wheezes, rales, or rhonchi. CARDIAC: Regular rate and rhythm. S1 and S2, without murmurs, gallops, or rubs. VASCULAR: No Edema. Peripheral pulses normal and equal in all extremities. ABDOMEN: Soft, without detectable tenderness. No sign of distention. No rebound or guarding, and no masses palpated. Bowel Sounds normal. MUSCULOSKELETAL: Good range of motion of all major joints. Extremities without clubbing, cyanosis or edema. NEUROLOGIC EXAM: Alert and oriented x 3. Aphasic with some forced single words Although her verbal is not as clear this could be secondary to aneurysmal repair. No focal sensory or strength deficits. Follows commands. Gait not assessed this patient was weak on the left side PSYCHIATRIC: Mood normal. SKIN: No rash or lesions. - Constitutional Vitals: Temp Pulse Resp BP Pulse Ox 98.1 F 86 20 148/88 100 06/13/16 08:15 06/13/16 08:15 06/13/16 08:15 06/13/16 08:15 06/13/16 08:15 General appearance: Present: no acute distress, well-nourished Results - Labs CBC & Chem 7: 06/07/16 07:28 06/07/16 07:28 Labs: Laboratory Last Values WBC 8.1 K/mm3 (4.5-11.0) 06/07/16 07:28 RBC 4.33 M/mm3 (3.65-5.03) 06/07/16 07:28 Hgb 11.1 gm/dl (10.1-14.3) 06/07/16 07:28 Hct 35.2 % (30.3-42.9) 06/07/16 07:28 MCV 81 fl (79-97) 06/07/16 07:28 MCH 26 pg (28-32) L 06/07/16 07:28 MCHC 32 % (30-34) 06/07/16 07:28 RDW 16.4 % (13.2-15.2) H 06/07/16 07:28 Plt Count 403 K/mm3 (140-440) 06/07/16 07:28 Lymph % (Auto) 21.9 % (13.4-35.0) 06/01/16 06:14 [place] % (Auto) 10.2 % (0.0-7.3) H 06/01/16 06:14 Eos % (Auto) 2.3 % (0.0-4.3) 06/01/16 06:14 Baso % (Auto) 0.4 % (0.0-1.8) 06/01/16 06:14 Lymph # 2.1 K/mm3 (1.2-5.4) 06/01/16 06:14 [place] # 1.0 K/mm3 (0.0-0.8) H 06/01/16 06:14 Eos # 0.2 K/mm3 (0.0-0.4) 06/01/16 06:14 Baso # 0.0 K/mm3 (0.0-0.1) 06/01/16 06:14 Seg Neutrophils % 65.2 % (40.0-70.0) 06/01/16 06:14 Seg Neutrophils # 6.2 K/mm3 (1.8-7.7) 06/01/16 06:14 POC ABG pH 7.453 (7.35-7.45) H 05/27/16 10:13 POC ABG pCO2 34.7 (35-45) L 05/27/16 10:13 POC ABG pO2 90 (80-105) 05/27/16 10:13 POC ABG HCO3 24.3 05/27/16 10:13 POC ABG Total CO2 25 05/27/16 10:13 POC ABG O2 Sat 97 05/27/16 10:13 POC ABG Base Excess 0 05/27/16 10:13 FiO2 21 % 05/27/16 10:13 Sodium 141 mmol/L (137-145) 06/07/16 07:28 Potassium 3.7 mmol/L (3.6-5.0) 06/07/16 07:28 Chloride 98.9 mmol/L (98-107) 06/07/16 07:28 Carbon Dioxide 26 mmol/L (22-30) 06/07/16 07:28 Anion Gap 20 mmol/L 06/07/16 07:28 BUN 9 mg/dL (7-17) 06/07/16 07:28 Creatinine 0.6 mg/dL (0.7-1.2) L 06/07/16 07:28 Estimated GFR > 60 ml/min 06/07/16 07:28 BUN/Creatinine Ratio 15.00 % 06/07/16 07:28 Glucose 102 mg/dL (65-100) H 06/07/16 07:28 Calcium 9.1 mg/dL (8.4-10.2) 06/07/16 07:28 Magnesium 2.0 mg/dL (1.7-2.3) 06/01/16 06:14 Total Creatine Kinase 108 units/L (30-135) 05/11/16 10:49 Phenytoin 4.3 mg/L (10.0-20.0) L 05/23/16 06:41
[2016-06-14] MEDS: TRIMOX PO SCH ×3 (05:08→22:53)
[2016-06-14] MEDS: NORMODYNE PO SCH ×3 (05:09→22:53)
[2016-06-14] MEDS: HCTZ PO SCH (10:05)
[2016-06-14] MEDS: ZESTRIL PO SCH (10:05)
[2016-06-14] MEDS: DILANTIN PO SCH (10:05)
[2016-06-14] MEDS: LOVENOX SUB-Q SCH (10:06)
[2016-06-14] MEDS: K-DUR PO SCH ×2 (10:06→22:53)
[2016-06-14] MEDS: PEPCID PO SCH ×2 (10:06→22:53)
--- NOTE | 2016-06-14 14:01 | Progress Note ---
Assessment and Plan Assessment and plan: Patient is a 40 year old female with hx of cerebral aneurysm s/p BURR GRINDER shunt. admitted with convulsive seizures. Apparently a positive report the seizures lasted about 25 minutes and only Procardia she received Ativan by EMS. Upon arrival to the hospital on patient was subsequently intubated. 1. Status epilepticus. Resolved. Continue seizure precautions. Continue phenytoin. Continue when necessary Ativan. Patient did have some recurrence of seizures during hospitalization. No other seizure noted today. We'll continue to monitor. Discharge when placement available 2. Acute hypoxic respiratory failure. Resolved 3. Hypertension. Mildly elevated, will start on Lisinopril. Continue antihypertensive medications. 4. Intractable vomiting. Resolved. Continue Zofran when necessary. KUB was negative. 5. History of cerebral aneurysm and BURR GRINDER shunt. Continue supportive care. 6. DVT prophylaxis. Lovenox daily. Encourage ambulation Disposition-No change yet. No input from family yet. pending placement discussed with case management History Interval history: Patient seen and examined this morning in no acute distress, no new account. Denies any chest pain, nausea, vomiting, diarrhea No fever noted blood pressure controlled No adverse events reported to me by nursing staff Hospitalist Physical - Physical exam Narrative exam: VITAL SIGNS: Reviewed. GENERAL: The patient appeared well nourished and normally developed. Vital signs as documented. HEAD: Left facial cranial depression from healed surgery.. EYES: Pupils are equal. Extraocular motions intact. EARS: Hearing grossly intact. MOUTH: Oropharynx is normal. NECK: No adenopathy, no JVD. CHEST: Chest with clear breath sounds bilaterally. No wheezes, rales, or rhonchi. CARDIAC: Regular rate and rhythm. S1 and S2, without murmurs, gallops, or rubs. VASCULAR: No Edema. Peripheral pulses normal and equal in all extremities. ABDOMEN: Soft, without detectable tenderness. No sign of distention. No rebound or guarding, and no masses palpated. Bowel Sounds normal. MUSCULOSKELETAL: Good range of motion of all major joints. Extremities without clubbing, cyanosis or edema. NEUROLOGIC EXAM: Alert and oriented x 3. Aphasic with some forced single words Although her verbal is not as clear this could be secondary to aneurysmal repair. No focal sensory or strength deficits. Follows commands. Gait not assessed this patient was weak on the left side PSYCHIATRIC: Mood normal. Continues with hand gestures SKIN: No rash or lesions. - Constitutional Vitals: Temp Pulse Resp BP Pulse Ox 98.4 F 94 H 20 154/71 98 06/14/16 08:02 06/14/16 08:02 06/14/16 08:02 06/14/16 08:02 06/14/16 08:02 General appearance: Present: no acute distress, well-nourished Results - Labs CBC & Chem 7: 06/07/16 07:28 06/07/16 07:28 Labs: Laboratory Last Values WBC 8.1 K/mm3 (4.5-11.0) 06/07/16 07:28 RBC 4.33 M/mm3 (3.65-5.03) 06/07/16 07:28 Hgb 11.1 gm/dl (10.1-14.3) 06/07/16 07:28 Hct 35.2 % (30.3-42.9) 06/07/16 07:28 MCV 81 fl (79-97) 06/07/16 07:28 MCH 26 pg (28-32) L 06/07/16 07:28 MCHC 32 % (30-34) 06/07/16 07:28 RDW 16.4 % (13.2-15.2) H 06/07/16 07:28 Plt Count 403 K/mm3 (140-440) 06/07/16 07:28 Lymph % (Auto) 21.9 % (13.4-35.0) 06/01/16 06:14 [place] % (Auto) 10.2 % (0.0-7.3) H 06/01/16 06:14 Eos % (Auto) 2.3 % (0.0-4.3) 06/01/16 06:14 Baso % (Auto) 0.4 % (0.0-1.8) 06/01/16 06:14 Lymph # 2.1 K/mm3 (1.2-5.4) 06/01/16 06:14 [place] # 1.0 K/mm3 (0.0-0.8) H 06/01/16 06:14 Eos # 0.2 K/mm3 (0.0-0.4) 06/01/16 06:14 Baso # 0.0 K/mm3 (0.0-0.1) 06/01/16 06:14 Seg Neutrophils % 65.2 % (40.0-70.0) 06/01/16 06:14 Seg Neutrophils # 6.2 K/mm3 (1.8-7.7) 06/01/16 06:14 POC ABG pH 7.453 (7.35-7.45) H 05/27/16 10:13 POC ABG pCO2 34.7 (35-45) L 05/27/16 10:13 POC ABG pO2 90 (80-105) 05/27/16 10:13 POC ABG HCO3 24.3 05/27/16 10:13 POC ABG Total CO2 25 05/27/16 10:13 POC ABG O2 Sat 97 05/27/16 10:13 POC ABG Base Excess 0 05/27/16 10:13 FiO2 21 % 05/27/16 10:13 Sodium 141 mmol/L (137-145) 06/07/16 07:28 Potassium 3.7 mmol/L (3.6-5.0) 06/07/16 07:28 Chloride 98.9 mmol/L (98-107) 06/07/16 07:28 Carbon Dioxide 26 mmol/L (22-30) 06/07/16 07:28 Anion Gap 20 mmol/L 06/07/16 07:28 BUN 9 mg/dL (7-17) 06/07/16 07:28 Creatinine 0.6 mg/dL (0.7-1.2) L 06/07/16 07:28 Estimated GFR > 60 ml/min 06/07/16 07:28 BUN/Creatinine Ratio 15.00 % 06/07/16 07:28 Glucose 102 mg/dL (65-100) H 06/07/16 07:28 Calcium 9.1 mg/dL (8.4-10.2) 06/07/16 07:28 Magnesium 2.0 mg/dL (1.7-2.3) 06/01/16 06:14 Total Creatine Kinase 108 units/L (30-135) 05/11/16 10:49 Phenytoin 4.3 mg/L (10.0-20.0) L 05/23/16 06:41
[2016-06-15] MEDS: NORMODYNE PO SCH ×3 (06:17→21:48)
[2016-06-15] MEDS: TRIMOX PO SCH ×3 (06:17→21:48)
[2016-06-15] MEDS: ZESTRIL PO SCH (10:05)
[2016-06-15] MEDS: PEPCID PO SCH ×2 (10:05→21:48)
[2016-06-15] MEDS: DILANTIN PO SCH (10:05)
[2016-06-15] MEDS: HCTZ PO SCH (10:05)
[2016-06-15] MEDS: K-DUR PO SCH ×2 (10:05→21:48)
[2016-06-15] MEDS: LOVENOX SUB-Q SCH (10:30)
--- NOTE | 2016-06-15 13:28 | Progress Note ---
Assessment and Plan Assessment and plan: Patient is a 40 year old female with hx of cerebral aneurysm s/p METALLURGICAL ANALYST shunt. admitted with convulsive seizures. Apparently a positive report the seizures lasted about 25 minutes and only Procardia she received Ativan by EMS. Upon arrival to the hospital on patient was subsequently intubated. 1. Status epilepticus. Resolved. Continue seizure precautions. Continue phenytoin. Continue when necessary Ativan. Patient did have some recurrence of seizures during hospitalization. No other seizure noted today. We'll continue to monitor. Discharge when placement available 2. Acute hypoxic respiratory failure. Resolved 3. Hypertension. Mildly elevated, will start on Lisinopril. Continue antihypertensive medications. 4. Intractable vomiting. Resolved. Continue Zofran when necessary. KUB was negative. 5. History of cerebral aneurysm and METALLURGICAL ANALYST shunt. Continue supportive care. 6. DVT prophylaxis. Lovenox daily. Encourage ambulation Disposition-No change yet. No input from family yet. pending placement discussed with case management History Interval history: Patient seen and examined this morning in no acute distress, no new complaints. Denies any chest pain, nausea, vomiting, diarrhea No fever noted blood pressure controlled No adverse events reported to me by nursing staff Hospitalist Physical - Physical exam Narrative exam: VITAL SIGNS: Reviewed. GENERAL: The patient appeared well nourished and normally developed. Vital signs as documented. HEAD: Left facial cranial depression from healed surgery.. EYES: Pupils are equal. Extraocular motions intact. EARS: Hearing grossly intact. MOUTH: Oropharynx is normal. NECK: No adenopathy, no JVD. CHEST: Chest with clear breath sounds bilaterally. No wheezes, rales, or rhonchi. CARDIAC: Regular rate and rhythm. S1 and S2, without murmurs, gallops, or rubs. VASCULAR: No Edema. Peripheral pulses normal and equal in all extremities. ABDOMEN: Soft, without detectable tenderness. No sign of distention. No rebound or guarding, and no masses palpated. Bowel Sounds normal. MUSCULOSKELETAL: Good range of motion of all major joints. Extremities without clubbing, cyanosis or edema. NEUROLOGIC EXAM: Alert and oriented x 3. Aphasic with some forced single words Although her verbal is not as clear this could be secondary to aneurysmal repair. No focal sensory or strength deficits. Follows commands. Gait not assessed this patient was weak on the left side PSYCHIATRIC: Mood normal. SKIN: No rash or lesions. - Constitutional Vitals: Temp Pulse Resp BP Pulse Ox 98.1 F 86 16 125/92 100 06/15/16 08:00 06/15/16 08:00 06/15/16 08:00 06/15/16 08:00 06/15/16 08:00 General appearance: Present: no acute distress, well-nourished Results - Labs CBC & Chem 7: 06/07/16 07:28 06/07/16 07:28 Labs: Laboratory Last Values WBC 8.1 K/mm3 (4.5-11.0) 06/07/16 07:28 RBC 4.33 M/mm3 (3.65-5.03) 06/07/16 07:28 Hgb 11.1 gm/dl (10.1-14.3) 06/07/16 07:28 Hct 35.2 % (30.3-42.9) 06/07/16 07:28 MCV 81 fl (79-97) 06/07/16 07:28 MCH 26 pg (28-32) L 06/07/16 07:28 MCHC 32 % (30-34) 06/07/16 07:28 RDW 16.4 % (13.2-15.2) H 06/07/16 07:28 Plt Count 403 K/mm3 (140-440) 06/07/16 07:28 Lymph % (Auto) 21.9 % (13.4-35.0) 06/01/16 06:14 [place] % (Auto) 10.2 % (0.0-7.3) H 06/01/16 06:14 Eos % (Auto) 2.3 % (0.0-4.3) 06/01/16 06:14 Baso % (Auto) 0.4 % (0.0-1.8) 06/01/16 06:14 Lymph # 2.1 K/mm3 (1.2-5.4) 06/01/16 06:14 [place] # 1.0 K/mm3 (0.0-0.8) H 06/01/16 06:14 Eos # 0.2 K/mm3 (0.0-0.4) 06/01/16 06:14 Baso # 0.0 K/mm3 (0.0-0.1) 06/01/16 06:14 Seg Neutrophils % 65.2 % (40.0-70.0) 06/01/16 06:14 Seg Neutrophils # 6.2 K/mm3 (1.8-7.7) 06/01/16 06:14 POC ABG pH 7.453 (7.35-7.45) H 05/27/16 10:13 POC ABG pCO2 34.7 (35-45) L 05/27/16 10:13 POC ABG pO2 90 (80-105) 05/27/16 10:13 POC ABG HCO3 24.3 05/27/16 10:13 POC ABG Total CO2 25 05/27/16 10:13 POC ABG O2 Sat 97 05/27/16 10:13 POC ABG Base Excess 0 05/27/16 10:13 FiO2 21 % 05/27/16 10:13 Sodium 141 mmol/L (137-145) 06/07/16 07:28 Potassium 3.7 mmol/L (3.6-5.0) 06/07/16 07:28 Chloride 98.9 mmol/L (98-107) 06/07/16 07:28 Carbon Dioxide 26 mmol/L (22-30) 06/07/16 07:28 Anion Gap 20 mmol/L 06/07/16 07:28 BUN 9 mg/dL (7-17) 06/07/16 07:28 Creatinine 0.6 mg/dL (0.7-1.2) L 06/07/16 07:28 Estimated GFR > 60 ml/min 06/07/16 07:28 BUN/Creatinine Ratio 15.00 % 06/07/16 07:28 Glucose 102 mg/dL (65-100) H 06/07/16 07:28 Calcium 9.1 mg/dL (8.4-10.2) 06/07/16 07:28 Magnesium 2.0 mg/dL (1.7-2.3) 06/01/16 06:14 Total Creatine Kinase 108 units/L (30-135) 05/11/16 10:49 Phenytoin 4.3 mg/L (10.0-20.0) L 05/23/16 06:41
[2016-06-16] MEDS: TRIMOX PO SCH ×3 (05:56→22:58)
[2016-06-16] MEDS: NORMODYNE PO SCH ×3 (05:57→22:59)
--- NOTE | 2016-06-16 13:33 | Progress Note ---
Assessment and Plan Assessment and plan: Patient is a 40 year old female with hx of cerebral aneurysm s/p PRODUCTION PLANNING MANAGER shunt. admitted with convulsive seizures. Apparently a positive report the seizures lasted about 25 minutes and only Procardia she received Ativan by EMS. Upon arrival to the hospital on patient was subsequently intubated. 1. Status epilepticus. Resolved. Continue seizure precautions. Continue phenytoin. Continue when necessary Ativan. Patient did have some recurrence of seizures during hospitalization. No other seizure noted today. We'll continue to monitor. Discharge when placement available 2. Acute hypoxic respiratory failure. Resolved 3. Hypertension. Mildly elevated, will start on Lisinopril. Continue antihypertensive medications. 4. Intractable vomiting. Resolved. Continue Zofran when necessary. KUB was negative. 5. History of cerebral aneurysm and PRODUCTION PLANNING MANAGER shunt. Continue supportive care. 6. DVT prophylaxis. Lovenox daily. Encourage ambulation Disposition-No change yet. No input from family yet. pending placement discussed with case management History Interval history: Patient seen and examined this morning in no acute distress, no new complaints. Denies any chest pain, nausea, vomiting, diarrhea No fever noted blood pressure controlled No adverse events reported to me by nursing staff Hospitalist Physical - Physical exam Narrative exam: VITAL SIGNS: Reviewed. GENERAL: The patient appeared well nourished and normally developed. Vital signs as documented. HEAD: Left facial cranial depression from healed surgery.. EYES: Pupils are equal. Extraocular motions intact. EARS: Hearing grossly intact. MOUTH: Oropharynx is normal. NECK: No adenopathy, no JVD. CHEST: Chest with clear breath sounds bilaterally. No wheezes, rales, or rhonchi. CARDIAC: Regular rate and rhythm. S1 and S2, without murmurs, gallops, or rubs. VASCULAR: No Edema. Peripheral pulses normal and equal in all extremities. ABDOMEN: Soft, without detectable tenderness. No sign of distention. No rebound or guarding, and no masses palpated. Bowel Sounds normal. MUSCULOSKELETAL: Good range of motion of all major joints. Extremities without clubbing, cyanosis or edema. NEUROLOGIC EXAM: Alert and oriented x 3. Aphasic with some forced single words Although her verbal is not as clear this could be secondary to aneurysmal repair. No focal sensory or strength deficits. Follows commands. Gait not assessed this patient was weak on the left side PSYCHIATRIC: Mood normal. SKIN: No rash or lesions. - Constitutional Vitals: Temp Pulse Resp BP Pulse Ox 98.4 F 76 20 130/77 98 06/16/16 00:00 06/16/16 00:00 06/16/16 00:00 06/16/16 00:00 06/16/16 00:00 General appearance: Present: no acute distress, well-nourished Results - Labs CBC & Chem 7: 06/07/16 07:28 06/07/16 07:28 Labs: Laboratory Last Values WBC 8.1 K/mm3 (4.5-11.0) 06/07/16 07:28 RBC 4.33 M/mm3 (3.65-5.03) 06/07/16 07:28 Hgb 11.1 gm/dl (10.1-14.3) 06/07/16 07:28 Hct 35.2 % (30.3-42.9) 06/07/16 07:28 MCV 81 fl (79-97) 06/07/16 07:28 MCH 26 pg (28-32) L 06/07/16 07:28 MCHC 32 % (30-34) 06/07/16 07:28 RDW 16.4 % (13.2-15.2) H 06/07/16 07:28 Plt Count 403 K/mm3 (140-440) 06/07/16 07:28 Lymph % (Auto) 21.9 % (13.4-35.0) 06/01/16 06:14 [place] % (Auto) 10.2 % (0.0-7.3) H 06/01/16 06:14 Eos % (Auto) 2.3 % (0.0-4.3) 06/01/16 06:14 Baso % (Auto) 0.4 % (0.0-1.8) 06/01/16 06:14 Lymph # 2.1 K/mm3 (1.2-5.4) 06/01/16 06:14 [place] # 1.0 K/mm3 (0.0-0.8) H 06/01/16 06:14 Eos # 0.2 K/mm3 (0.0-0.4) 06/01/16 06:14 Baso # 0.0 K/mm3 (0.0-0.1) 06/01/16 06:14 Seg Neutrophils % 65.2 % (40.0-70.0) 06/01/16 06:14 Seg Neutrophils # 6.2 K/mm3 (1.8-7.7) 06/01/16 06:14 POC ABG pH 7.453 (7.35-7.45) H 05/27/16 10:13 POC ABG pCO2 34.7 (35-45) L 05/27/16 10:13 POC ABG pO2 90 (80-105) 05/27/16 10:13 POC ABG HCO3 24.3 05/27/16 10:13 POC ABG Total CO2 25 05/27/16 10:13 POC ABG O2 Sat 97 05/27/16 10:13 POC ABG Base Excess 0 05/27/16 10:13 FiO2 21 % 05/27/16 10:13 Sodium 141 mmol/L (137-145) 06/07/16 07:28 Potassium 3.7 mmol/L (3.6-5.0) 06/07/16 07:28 Chloride 98.9 mmol/L (98-107) 06/07/16 07:28 Carbon Dioxide 26 mmol/L (22-30) 06/07/16 07:28 Anion Gap 20 mmol/L 06/07/16 07:28 BUN 9 mg/dL (7-17) 06/07/16 07:28 Creatinine 0.6 mg/dL (0.7-1.2) L 06/07/16 07:28 Estimated GFR > 60 ml/min 06/07/16 07:28 BUN/Creatinine Ratio 15.00 % 06/07/16 07:28 Glucose 102 mg/dL (65-100) H 06/07/16 07:28 Calcium 9.1 mg/dL (8.4-10.2) 06/07/16 07:28 Magnesium 2.0 mg/dL (1.7-2.3) 06/01/16 06:14 Total Creatine Kinase 108 units/L (30-135) 05/11/16 10:49 Phenytoin 4.3 mg/L (10.0-20.0) L 05/23/16 06:41
[2016-06-16] MEDS: LOVENOX SUB-Q SCH (14:21)
[2016-06-16] MEDS: K-DUR PO SCH ×2 (14:21→22:57)
[2016-06-16] MEDS: HCTZ PO SCH (14:21)
[2016-06-16] MEDS: DILANTIN PO SCH (14:21)
[2016-06-16] MEDS: PEPCID PO SCH ×2 (14:21→22:57)
[2016-06-16] MEDS: ZESTRIL PO SCH (14:22)
[2016-06-17] MEDS: NORMODYNE PO SCH ×3 (06:01→23:24)
[2016-06-17] MEDS: TRIMOX PO SCH ×3 (06:01→23:25)
[2016-06-17] MEDS: PEPCID PO SCH ×2 (10:21→23:24)
[2016-06-17] MEDS: DILANTIN PO SCH (10:21)
[2016-06-17] MEDS: K-DUR PO SCH ×2 (10:21→23:25)
[2016-06-17] MEDS: LOVENOX SUB-Q SCH (10:21)
[2016-06-17] MEDS: HCTZ PO SCH (10:21)
[2016-06-17] MEDS: ZESTRIL PO SCH (10:21)
--- NOTE | 2016-06-17 16:07 | Progress Note ---
Assessment and Plan Assessment and plan: Patient is a 40 year old female with hx of cerebral aneurysm s/p FLOOR FRAMER shunt. admitted with convulsive seizures. Apparently a positive report the seizures lasted about 25 minutes and only Procardia she received Ativan by EMS. Upon arrival to the hospital on patient was subsequently intubated. 1. Status epilepticus. Resolved. Continue seizure precautions. Continue phenytoin. Continue when necessary Ativan. Patient did have some recurrence of seizures during hospitalization. No other seizure noted today. We'll continue to monitor. Discharge when placement available 2. Acute hypoxic respiratory failure. Resolved 3. Hypertension. Mildly elevated, will start on Lisinopril. Continue antihypertensive medications. 4. Intractable vomiting. Resolved. Continue Zofran when necessary. KUB was negative. 5. History of cerebral aneurysm and FLOOR FRAMER shunt. Continue supportive care. 6. DVT prophylaxis. Lovenox daily. Encourage ambulation Disposition-No change yet. No input from family yet. pending placement discussed with case management History Interval history: Patient seen and examined this morning in no acute distress, no new complaints. Denies any chest pain, nausea, vomiting, diarrhea No fever noted blood pressure controlled No adverse events reported to me by nursing staff Hospitalist Physical - Physical exam Narrative exam: VITAL SIGNS: Reviewed. GENERAL: The patient appeared well nourished and normally developed. Vital signs as documented. HEAD: Left facial cranial depression from healed surgery.. EYES: Pupils are equal. Extraocular motions intact. EARS: Hearing grossly intact. MOUTH: Oropharynx is normal. NECK: No adenopathy, no JVD. CHEST: Chest with clear breath sounds bilaterally. No wheezes, rales, or rhonchi. CARDIAC: Regular rate and rhythm. S1 and S2, without murmurs, gallops, or rubs. VASCULAR: No Edema. Peripheral pulses normal and equal in all extremities. ABDOMEN: Soft, without detectable tenderness. No sign of distention. No rebound or guarding, and no masses palpated. Bowel Sounds normal. MUSCULOSKELETAL: Good range of motion of all major joints. Extremities without clubbing, cyanosis or edema. NEUROLOGIC EXAM: Alert and oriented x 3. Aphasic with some forced single words Although her verbal is not as clear this could be secondary to aneurysmal repair. No focal sensory or strength deficits. Follows commands. Gait not assessed this patient was weak on the left side PSYCHIATRIC: Mood normal. SKIN: No rash or lesions. - Constitutional Vitals: Temp Pulse Resp BP Pulse Ox 98.6 F 77 20 129/82 96 06/17/16 07:55 06/17/16 07:55 06/17/16 07:55 06/17/16 07:55 06/17/16 07:55 General appearance: Present: no acute distress, well-nourished Results - Labs CBC & Chem 7: 06/07/16 07:28 06/07/16 07:28 Labs: Laboratory Last Values WBC 8.1 K/mm3 (4.5-11.0) 06/07/16 07:28 RBC 4.33 M/mm3 (3.65-5.03) 06/07/16 07:28 Hgb 11.1 gm/dl (10.1-14.3) 06/07/16 07:28 Hct 35.2 % (30.3-42.9) 06/07/16 07:28 MCV 81 fl (79-97) 06/07/16 07:28 MCH 26 pg (28-32) L 06/07/16 07:28 MCHC 32 % (30-34) 06/07/16 07:28 RDW 16.4 % (13.2-15.2) H 06/07/16 07:28 Plt Count 403 K/mm3 (140-440) 06/07/16 07:28 Lymph % (Auto) 21.9 % (13.4-35.0) 06/01/16 06:14 [place] % (Auto) 10.2 % (0.0-7.3) H 06/01/16 06:14 Eos % (Auto) 2.3 % (0.0-4.3) 06/01/16 06:14 Baso % (Auto) 0.4 % (0.0-1.8) 06/01/16 06:14 Lymph # 2.1 K/mm3 (1.2-5.4) 06/01/16 06:14 [place] # 1.0 K/mm3 (0.0-0.8) H 06/01/16 06:14 Eos # 0.2 K/mm3 (0.0-0.4) 06/01/16 06:14 Baso # 0.0 K/mm3 (0.0-0.1) 06/01/16 06:14 Seg Neutrophils % 65.2 % (40.0-70.0) 06/01/16 06:14 Seg Neutrophils # 6.2 K/mm3 (1.8-7.7) 06/01/16 06:14 POC ABG pH 7.453 (7.35-7.45) H 05/27/16 10:13 POC ABG pCO2 34.7 (35-45) L 05/27/16 10:13 POC ABG pO2 90 (80-105) 05/27/16 10:13 POC ABG HCO3 24.3 05/27/16 10:13 POC ABG Total CO2 25 05/27/16 10:13 POC ABG O2 Sat 97 05/27/16 10:13 POC ABG Base Excess 0 05/27/16 10:13 FiO2 21 % 05/27/16 10:13 Sodium 141 mmol/L (137-145) 06/07/16 07:28 Potassium 3.7 mmol/L (3.6-5.0) 06/07/16 07:28 Chloride 98.9 mmol/L (98-107) 06/07/16 07:28 Carbon Dioxide 26 mmol/L (22-30) 06/07/16 07:28 Anion Gap 20 mmol/L 06/07/16 07:28 BUN 9 mg/dL (7-17) 06/07/16 07:28 Creatinine 0.6 mg/dL (0.7-1.2) L 06/07/16 07:28 Estimated GFR > 60 ml/min 06/07/16 07:28 BUN/Creatinine Ratio 15.00 % 06/07/16 07:28 Glucose 102 mg/dL (65-100) H 06/07/16 07:28 Calcium 9.1 mg/dL (8.4-10.2) 06/07/16 07:28 Magnesium 2.0 mg/dL (1.7-2.3) 06/01/16 06:14 Total Creatine Kinase 108 units/L (30-135) 05/11/16 10:49 Phenytoin 4.3 mg/L (10.0-20.0) L 05/23/16 06:41
[2016-06-18] MEDS: NORMODYNE PO SCH ×3 (07:40→21:57)
[2016-06-18] MEDS: TRIMOX PO SCH ×3 (07:40→21:57)
[2016-06-18] MEDS: K-DUR PO SCH ×2 (11:17→21:57)
[2016-06-18] MEDS: ZESTRIL PO SCH (11:17)
[2016-06-18] MEDS: HCTZ PO SCH (11:17)
[2016-06-18] MEDS: LOVENOX SUB-Q SCH (11:18)
[2016-06-18] MEDS: DILANTIN PO SCH (11:18)
[2016-06-18] MEDS: PEPCID PO SCH ×2 (11:18→21:57)
--- NOTE | 2016-06-18 15:19 | Progress Note ---
Assessment and Plan Assessment and plan: Patient is a 40 year old female with hx of cerebral aneurysm s/p RADIOCOMMUNICATIONS TECHNICIAN shunt. admitted with convulsive seizures. Apparently a positive report the seizures lasted about 25 minutes and only Procardia she received Ativan by EMS. Upon arrival to the hospital on patient was subsequently intubated. 1. Status epilepticus. Resolved. Continue seizure precautions. Continue phenytoin. Continue when necessary Ativan. Patient did have some recurrence of seizures during hospitalization. No other seizure noted today. We'll continue to monitor. Discharge when placement available 2. Acute hypoxic respiratory failure. Resolved 3. Hypertension. Mildly elevated, will start on Lisinopril. Continue antihypertensive medications. 4. Intractable vomiting. Resolved. Continue Zofran when necessary. KUB was negative. 5. History of cerebral aneurysm and RADIOCOMMUNICATIONS TECHNICIAN shunt. Continue supportive care. 6. DVT prophylaxis. Lovenox daily. Encourage ambulation Disposition-No change yet. No input from family yet. pending placement discussed with case management History Interval history: Patient seen and examined this morning in no acute distress, no new complaints. Denies any chest pain, nausea, vomiting, diarrhea No fever noted blood pressure controlled No adverse events reported to me by nursing staff Hospitalist Physical - Physical exam Narrative exam: VITAL SIGNS: Reviewed. GENERAL: The patient appeared well nourished and normally developed. Vital signs as documented. HEAD: Left facial cranial depression from healed surgery.. EYES: Pupils are equal. Extraocular motions intact. EARS: Hearing grossly intact. MOUTH: Oropharynx is normal. NECK: No adenopathy, no JVD. CHEST: Chest with clear breath sounds bilaterally. No wheezes, rales, or rhonchi. CARDIAC: Regular rate and rhythm. S1 and S2, without murmurs, gallops, or rubs. VASCULAR: No Edema. Peripheral pulses normal and equal in all extremities. ABDOMEN: Soft, without detectable tenderness. No sign of distention. No rebound or guarding, and no masses palpated. Bowel Sounds normal. MUSCULOSKELETAL: Good range of motion of all major joints. Extremities without clubbing, cyanosis or edema. NEUROLOGIC EXAM: Alert and oriented x 3. Aphasic with some forced single words Although her verbal is not as clear this could be secondary to aneurysmal repair. No focal sensory or strength deficits. Follows commands. Gait not assessed this patient was weak on the left side PSYCHIATRIC: Mood normal. SKIN: No rash or lesions. - Constitutional Vitals: Temp Pulse Resp BP Pulse Ox 99.1 F 95 H 22 133/91 97 06/18/16 00:00 06/18/16 00:00 06/18/16 00:00 06/18/16 00:00 06/18/16 00:00 General appearance: Present: no acute distress, well-nourished Results - Labs CBC & Chem 7: 06/07/16 07:28 06/07/16 07:28 Labs: Laboratory Last Values WBC 8.1 K/mm3 (4.5-11.0) 06/07/16 07:28 RBC 4.33 M/mm3 (3.65-5.03) 06/07/16 07:28 Hgb 11.1 gm/dl (10.1-14.3) 06/07/16 07:28 Hct 35.2 % (30.3-42.9) 06/07/16 07:28 MCV 81 fl (79-97) 06/07/16 07:28 MCH 26 pg (28-32) L 06/07/16 07:28 MCHC 32 % (30-34) 06/07/16 07:28 RDW 16.4 % (13.2-15.2) H 06/07/16 07:28 Plt Count 403 K/mm3 (140-440) 06/07/16 07:28 Lymph % (Auto) 21.9 % (13.4-35.0) 06/01/16 06:14 [place] % (Auto) 10.2 % (0.0-7.3) H 06/01/16 06:14 Eos % (Auto) 2.3 % (0.0-4.3) 06/01/16 06:14 Baso % (Auto) 0.4 % (0.0-1.8) 06/01/16 06:14 Lymph # 2.1 K/mm3 (1.2-5.4) 06/01/16 06:14 [place] # 1.0 K/mm3 (0.0-0.8) H 06/01/16 06:14 Eos # 0.2 K/mm3 (0.0-0.4) 06/01/16 06:14 Baso # 0.0 K/mm3 (0.0-0.1) 06/01/16 06:14 Seg Neutrophils % 65.2 % (40.0-70.0) 06/01/16 06:14 Seg Neutrophils # 6.2 K/mm3 (1.8-7.7) 06/01/16 06:14 POC ABG pH 7.453 (7.35-7.45) H 05/27/16 10:13 POC ABG pCO2 34.7 (35-45) L 05/27/16 10:13 POC ABG pO2 90 (80-105) 05/27/16 10:13 POC ABG HCO3 24.3 05/27/16 10:13 POC ABG Total CO2 25 05/27/16 10:13 POC ABG O2 Sat 97 05/27/16 10:13 POC ABG Base Excess 0 05/27/16 10:13 FiO2 21 % 05/27/16 10:13 Sodium 141 mmol/L (137-145) 06/07/16 07:28 Potassium 3.7 mmol/L (3.6-5.0) 06/07/16 07:28 Chloride 98.9 mmol/L (98-107) 06/07/16 07:28 Carbon Dioxide 26 mmol/L (22-30) 06/07/16 07:28 Anion Gap 20 mmol/L 06/07/16 07:28 BUN 9 mg/dL (7-17) 06/07/16 07:28 Creatinine 0.6 mg/dL (0.7-1.2) L 06/07/16 07:28 Estimated GFR > 60 ml/min 06/07/16 07:28 BUN/Creatinine Ratio 15.00 % 06/07/16 07:28 Glucose 102 mg/dL (65-100) H 06/07/16 07:28 Calcium 9.1 mg/dL (8.4-10.2) 06/07/16 07:28 Magnesium 2.0 mg/dL (1.7-2.3) 06/01/16 06:14 Total Creatine Kinase 108 units/L (30-135) 05/11/16 10:49 Phenytoin 4.3 mg/L (10.0-20.0) L 05/23/16 06:41
[2016-06-19] MEDS: NORMODYNE PO SCH ×3 (06:02→22:04)
[2016-06-19] MEDS: TRIMOX PO SCH ×3 (06:02→22:05)
[2016-06-19] MEDS: DILANTIN PO SCH (11:23)
[2016-06-19] MEDS: HCTZ PO SCH (11:23)
[2016-06-19] MEDS: LOVENOX SUB-Q SCH (11:24)
[2016-06-19] MEDS: K-DUR PO SCH ×2 (11:24→22:04)
[2016-06-19] MEDS: PEPCID PO SCH ×2 (11:24→22:04)
[2016-06-19] MEDS: ZESTRIL PO SCH (11:25)
--- NOTE | 2016-06-19 23:49 | Progress Note ---
Assessment and Plan 1. Status epilepticus. Resolved. Continue seizure precautions. Continue phenytoin. Continue when necessary Ativan. Patient did have some recurrence of seizures during hospitalization. No other seizure noted today. We'll continue to monitor. Discharge when placement available 2. Acute hypoxic respiratory failure. Extubated. Resolved 3. Hypertension: Mildly elevated. On Lisinopril. Continue other antihypertensive medications. 4. Intractable vomiting. Resolved. Continue Zofran when necessary. KUB was negative. 5. 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 Continue supportive care. 6. DVT prophylaxis. Lovenox daily. Encourage ambulation Disposition-No change yet. No input from family yet. Awaiting placement. Time spent 25 mins Subjective Date of service: 06/19/16 Principal diagnosis: Seizures; Acute Resp Failure s/p MVS Interval history: No shortness of breath or cough. Remains aphasic, with right hemiparesis Objective - Constitutional Vitals: Vital Signs - 12hr 06/19/16 06/19/16 06/19/16 16:31 17:01 22:04 Temperature 97.7 F Pulse Rate 104 H 81 Pulse Rate [ 90 From Monitor] Pulse Rate [ Left Radial] Respiratory 20 Rate Blood Pressure 139/78 140/90 Blood Pressure 137/89 [Left Arm] O2 Sat by Pulse 98 Oximetry 06/19/16 23:00 Temperature 98.8 F Pulse Rate Pulse Rate [ From Monitor] Pulse Rate [ 81 Left Radial] Respiratory 20 Rate Blood Pressure Blood Pressure 140/90 [Left Arm] O2 Sat by Pulse 97 Oximetry General appearance: Present: no acute distress, well-nourished - EENT Eyes: PERRL, EOM intact ENT: hearing intact, clear oral mucosa Ears: bilateral: normal - Neck Neck: supple, normal ROM - Respiratory Respiratory effort: normal Respiratory: bilateral: CTA - Breasts Breasts: normal - Cardiovascular Rhythm: regular Heart Sounds: Present: S1 & S2. Absent: gallop, rub Extremities: pulses intact, No edema, normal color, Full ROM - Gastrointestinal General gastrointestinal: Present: soft, non-tender, non-distended, normal bowel sounds - Genitourinary Female genitourinary: normal - Integumentary Integumentary: clear, warm, dry - Musculoskeletal Musculoskeletal: 1, strength equal bilaterally - Neurologic Neurologic: moves all extremities - Psychiatric Psychiatric: memory intact, appropriate mood/affect, intact judgment & insight - Labs CBC & Chem 7: 06/07/16 07:28 06/07/16 07:28
[2016-06-20] MEDS: TRIMOX PO SCH ×3 (06:17→23:23)
[2016-06-20] MEDS: NORMODYNE PO SCH ×3 (06:20→23:23)
[2016-06-20] MEDS: PEPCID PO SCH ×2 (12:17→23:22)
[2016-06-20] MEDS: K-DUR PO SCH ×2 (12:17→23:22)
[2016-06-20] MEDS: HCTZ PO SCH (12:17)
[2016-06-20] MEDS: LOVENOX SUB-Q SCH (12:17)
[2016-06-20] MEDS: ZESTRIL PO SCH (12:19)
[2016-06-20] MEDS: DILANTIN PO SCH (14:33)
--- NOTE | 2016-06-20 16:53 | Progress Note ---
Assessment and Plan 1. Status epilepticus. Resolved. Continue seizure precautions. Continue phenytoin. Continue when necessary Ativan. Patient did have some recurrence of seizures during hospitalization. No other seizure noted today. We'll continue to monitor. Discharge when placement available 2. Acute hypoxic respiratory failure. Extubated. Resolved 3. Hypertension: Mildly elevated. On Lisinopril. Continue other antihypertensive medications. 4. Intractable vomiting. Resolved. Continue Zofran when necessary. KUB was negative. 5. History of cerebral aneurysm and GASOLINE PUMP INSTALLER shunt. Continue supportive care. 6. DVT prophylaxis. Lovenox daily. Encourage ambulation Disposition-No change yet. No input from family yet. Awaiting placement. Time spent 25 mins Subjective Date of service: 06/20/16 Principal diagnosis: Seizures; Acute Resp Failure s/p MVS Interval history: No shortness of breath or cough. Remains aphasic, with right hemiparesis Objective - Constitutional Vitals: Vital Signs - 12hr 06/20/16 06/20/16 06/20/16 06:20 10:18 12:19 Temperature 98.1 F Pulse Rate 90 Pulse Rate [ 116 H From Monitor] Respiratory 20 Rate Blood Pressure 122/87 137/84 Blood Pressure 135/99 [Left Arm] O2 Sat by Pulse 97 Oximetry 06/20/16 14:20 Temperature Pulse Rate Pulse Rate [ From Monitor] Respiratory Rate Blood Pressure 122/90 Blood Pressure [Left Arm] O2 Sat by Pulse Oximetry General appearance: Present: no acute distress, well-nourished - EENT Eyes: PERRL, EOM intact ENT: clear oral mucosa Ears: bilateral: normal - Neck Neck: supple, normal ROM - Respiratory Respiratory effort: normal Respiratory: bilateral: CTA - Cardiovascular Rhythm: regular Heart Sounds: Present: S1 & S2. Absent: gallop, rub Extremities: pulses intact, No edema, normal color, Full ROM - Gastrointestinal General gastrointestinal: Present: soft, non-tender, non-distended, normal bowel sounds - Integumentary Integumentary: clear, warm, dry - Musculoskeletal Musculoskeletal: 1, strength equal bilaterally - Neurologic Neurologic: moves all extremities - Psychiatric Psychiatric: memory intact, appropriate mood/affect, intact judgment & insight - Labs CBC & Chem 7: 06/07/16 07:28 06/07/16 07:28 - Imaging and cardiology EKG: image reviewed
[2016-06-21] MEDS: NORMODYNE PO SCH ×3 (05:40→21:41)
[2016-06-21] MEDS: TRIMOX PO SCH ×3 (05:40→21:42)
[2016-06-21] MEDS: PEPCID PO SCH ×2 (09:51→21:42)
[2016-06-21] MEDS: LOVENOX SUB-Q SCH (09:51)
[2016-06-21] MEDS: ZESTRIL PO SCH (09:51)
[2016-06-21] MEDS: K-DUR PO SCH ×2 (09:52→21:42)
[2016-06-21] MEDS: DILANTIN PO SCH (09:52)
[2016-06-21] MEDS: HCTZ PO SCH (09:52)
--- NOTE | 2016-06-21 19:34 | Progress Note ---
Assessment and Plan - Patient Problems (1) Status epilepticus Current Visit: Yes Status: Resolved Plan to address problem: Resolved (2) Right hemiplegia Current Visit: Yes Status: Acute Plan to address problem: Cannot walk (3) Respiratory failure Current Visit: Yes Status: Resolved Qualifiers: Chronicity: C Respiratory failure complication: R (4) HTN (hypertension) Current Visit: Yes Status: Chronic Qualifiers: Hypertension type: essential hypertension Qualified Code(s): I10 - Essential (primary) hypertension Plan to address problem: Well controlled (5) DVT prophylaxis Current Visit: Yes Status: Acute (6) Discharge planning issues Current Visit: Yes Status: Acute Plan to address problem: Patient due for placement Subjective Date of service: 06/21/16 Principal diagnosis: Seizures; Acute Resp Failure s/p MVS Interval history: Stable-doing well Right side weakness present and continues Placement issues-waiting for placement. 1. Status epilepticus. Resolved. Continue seizure precautions. Continue phenytoin. Continue when necessary Ativan. Patient did have some recurrence of seizures during hospitalization. No other seizure noted today. We'll continue to monitor. Discharge when placement available 2. Acute hypoxic respiratory failure. Extubated. Resolved 3. Hypertension: Mildly elevated. On Lisinopril. Continue other antihypertensive medications. 4. Intractable vomiting. Resolved. Continue Zofran when necessary. KUB was negative. 5. History of cerebral aneurysm and CUSHION ASSEMBLER shunt. Continue supportive care. 6. DVT prophylaxis. Lovenox daily. Encourage ambulation Disposition-No change yet. No input from family yet. Awaiting placement. Objective - Constitutional Vitals: Vital Signs - 12hr 06/21/16 06/21/16 06/21/16 08:04 09:51 14:40 Temperature 98.9 F Pulse Rate [ 79 Left Radial] Respiratory 20 Rate Blood Pressure 120/71 110/78 Blood Pressure 120/71 [Left Arm] O2 Sat by Pulse 100 Oximetry General appearance: Present: no acute distress, well-nourished - EENT Eyes: PERRL, EOM intact ENT: hearing intact, clear oral mucosa Ears: bilateral: normal - Neck Neck: supple, normal ROM - Respiratory Respiratory effort: normal Respiratory: bilateral: CTA - Breasts Breasts: normal - Cardiovascular Rhythm: regular Heart Sounds: Present: S1 & S2. Absent: gallop, rub Extremities: pulses intact, No edema, normal color, Full ROM - Gastrointestinal General gastrointestinal: Present: soft, non-tender, non-distended, normal bowel sounds - Genitourinary Female genitourinary: normal - Integumentary Integumentary: clear, warm, dry - Musculoskeletal Musculoskeletal: right sided weakness - Neurologic Neurologic: moves all extremities - Psychiatric Psychiatric: memory intact, appropriate mood/affect, intact judgment & insight - Labs CBC & Chem 7: 06/07/16 07:28 06/07/16 07:28
[2016-06-22] MEDS: TRIMOX PO SCH (05:23)
[2016-06-22] MEDS: NORMODYNE PO SCH ×3 (05:23→23:56)
[2016-06-22 09:23] LABS: Basophils % (Auto) 0.4 % (0.0-1.8); Eosinophils % (Auto) 1.3 % (0.0-4.3); Hematocrit 36.4 % (30.3-42.9); Hemoglobin 11.5 gm/dl (10.1-14.3); Mean Corpuscular HGB Conc 32 % (30-34); Mean Corpuscular Volume 80 fl (79-97); Platelet Count 386 K/mm3 (140-440); Red Blood Count 4.57 M/mm3 (3.65-5.03); Red Cell Distribution Width 16.3 % (13.2-15.2)
[2016-06-22 09:26] LABS: Mean Corpuscular Hemoglobin 25 pg (28-32)
[2016-06-22 09:53] LABS: Alanine Aminotransferase 70 units/L (7-56); Albumin 4.1 g/dL (3.9-5); Albumin/Globulin Ratio 1.1 %; Alkaline Phosphatase 122 units/L (35-129); Anion Gap 20 mmol/L; BUN/Creatinine Ratio 12.85; Bilirubin,Total 0.2 mg/dL (0.1-1.2); Blood Urea Nitrogen 9 mg/dL (7-17); Calcium 8.9 mg/dL (8.4-10.2); Carbon Dioxide 23 mmol/L (22-30); Chloride 98.8 mmol/L (98-107); Glucose 142 mg/dL (65-100); Potassium 4.1 mmol/L (3.6-5.0); Sodium 138 mmol/L (137-145); Total Protein 7.8 g/dL (6.3-8.2)
[2016-06-22] MEDS: K-DUR PO SCH ×2 (11:36→23:56)
[2016-06-22] MEDS: DILANTIN PO SCH (11:37)
[2016-06-22] MEDS: ZESTRIL PO SCH (11:37)
[2016-06-22] MEDS: HCTZ PO SCH (11:37)
[2016-06-22] MEDS: LOVENOX SUB-Q SCH (11:37)
[2016-06-22] MEDS: PEPCID PO SCH ×2 (11:37→23:56)
--- NOTE | 2016-06-22 16:31 | Progress Note ---
Assessment and Plan Assessment and plan: Patient is a 40 year old female with hx of cerebral aneurysm s/p DRAWING TENDER shunt. admitted with convulsive seizures. Apparently a positive report the seizures lasted about 25 minutes and only Procardia she received Ativan by EMS. Upon arrival to the hospital on patient was subsequently intubated. 1. Status epilepticus. Resolved. Continue seizure precautions. Continue phenytoin. Continue when necessary Ativan. Patient did have some recurrence of seizures during hospitalization. No other seizure noted today. We'll continue to monitor. Discharge when placement available 2. Acute hypoxic respiratory failure. Resolved 3. Hypertension. Mildly elevated, will start on Lisinopril. Continue antihypertensive medications. 4. Intractable vomiting. Resolved. Continue Zofran when necessary. KUB was negative. 5. History of cerebral aneurysm and DRAWING TENDER shunt. Continue supportive care. 6. DVT prophylaxis. Lovenox daily. Encourage ambulation Disposition-No change yet. No input from family yet. pending placement discussed with case management History Interval history: Patient seen and examined this morning in no acute distress, no new complaints. sitting up in bed Denies any chest pain, nausea, vomiting, diarrhea No fever noted blood pressure controlled No adverse events reported to me by nursing staff Hospitalist Physical - Physical exam Narrative exam: VITAL SIGNS: Reviewed. GENERAL: The patient appeared well nourished and normally developed. Vital signs as documented. HEAD: Left facial cranial depression from healed surgery.. EYES: Pupils are equal. Extraocular motions intact. EARS: Hearing grossly intact. MOUTH: Oropharynx is normal. NECK: No adenopathy, no JVD. CHEST: Chest with clear breath sounds bilaterally. No wheezes, rales, or rhonchi. CARDIAC: Regular rate and rhythm. S1 and S2, without murmurs, gallops, or rubs. VASCULAR: No Edema. Peripheral pulses normal and equal in all extremities. ABDOMEN: Soft, without detectable tenderness. No sign of distention. No rebound or guarding, and no masses palpated. Bowel Sounds normal. MUSCULOSKELETAL: Good range of motion of all major joints. Extremities without clubbing, cyanosis or edema. NEUROLOGIC EXAM: Alert and oriented x 3. Aphasic with some forced single words Although her verbal is not as clear this could be secondary to aneurysmal repair. No focal sensory or strength deficits. Follows commands. Gait not assessed this patient was weak on the left side PSYCHIATRIC: Mood normal. SKIN: No rash or lesions. - Constitutional Vitals: Temp Pulse Resp BP Pulse Ox 99 F 95 H 18 122/78 100 06/22/16 15:58 06/22/16 15:58 06/22/16 15:58 06/22/16 15:58 06/22/16 08:00 General appearance: Present: no acute distress, well-nourished Results - Labs CBC & Chem 7: 06/22/16 09:10 06/22/16 09:10 Labs: Laboratory Last Values WBC 9.0 K/mm3 (4.5-11.0) 06/22/16 09:10 RBC 4.57 M/mm3 (3.65-5.03) 06/22/16 09:10 Hgb 11.5 gm/dl (10.1-14.3) 06/22/16 09:10 Hct 36.4 % (30.3-42.9) 06/22/16 09:10 MCV 80 fl (79-97) 06/22/16 09:10 MCH 25 pg (28-32) L 06/22/16 09:10 MCHC 32 % (30-34) 06/22/16 09:10 RDW 16.3 % (13.2-15.2) H 06/22/16 09:10 Plt Count 386 K/mm3 (140-440) 06/22/16 09:10 Lymph % (Auto) 24.0 % (13.4-35.0) 06/22/16 09:10 [place] % (Auto) 9.9 % (0.0-7.3) H 06/22/16 09:10 Eos % (Auto) 1.3 % (0.0-4.3) 06/22/16 09:10 Baso % (Auto) 0.4 % (0.0-1.8) 06/22/16 09:10 Lymph # 2.2 K/mm3 (1.2-5.4) 06/22/16 09:10 [place] # 0.9 K/mm3 (0.0-0.8) H 06/22/16 09:10 Eos # 0.1 K/mm3 (0.0-0.4) 06/22/16 09:10 Baso # 0.0 K/mm3 (0.0-0.1) 06/22/16 09:10 Seg Neutrophils % 64.4 % (40.0-70.0) 06/22/16 09:10 Seg Neutrophils # 5.8 K/mm3 (1.8-7.7) 06/22/16 09:10 POC ABG pH 7.453 (7.35-7.45) H 05/27/16 10:13 POC ABG pCO2 34.7 (35-45) L 05/27/16 10:13 POC ABG pO2 90 (80-105) 05/27/16 10:13 POC ABG HCO3 24.3 05/27/16 10:13 POC ABG Total CO2 25 05/27/16 10:13 POC ABG O2 Sat 97 05/27/16 10:13 POC ABG Base Excess 0 05/27/16 10:13 FiO2 21 % 05/27/16 10:13 Sodium 138 mmol/L (137-145) 06/22/16 09:10 Potassium 4.1 mmol/L (3.6-5.0) 06/22/16 09:10 Chloride 98.8 mmol/L (98-107) 06/22/16 09:10 Carbon Dioxide 23 mmol/L (22-30) 06/22/16 09:10 Anion Gap 20 mmol/L 06/22/16 09:10 BUN 9 mg/dL (7-17) 06/22/16 09:10 Creatinine 0.7 mg/dL (0.7-1.2) 06/22/16 09:10 Estimated GFR > 60 ml/min 06/22/16 09:10 BUN/Creatinine Ratio 12.85 % 06/22/16 09:10 Glucose 142 mg/dL (65-100) H 06/22/16 09:10 Calcium 8.9 mg/dL (8.4-10.2) 06/22/16 09:10 Magnesium 2.0 mg/dL (1.7-2.3) 06/01/16 06:14 Total Bilirubin 0.2 mg/dL (0.1-1.2) 06/22/16 09:10 AST 28 units/L (5-40) 06/22/16 09:10 ALT 70 units/L (7-56) H 06/22/16 09:10 Alkaline Phosphatase 122 units/L (35-129) 06/22/16 09:10 Total Creatine Kinase 108 units/L (30-135) 05/11/16 10:49 Total Protein 7.8 g/dL (6.3-8.2) 06/22/16 09:10 Albumin 4.1 g/dL (3.9-5) 06/22/16 09:10 Albumin/Globulin Ratio 1.1 % 06/22/16 09:10 Phenytoin 4.3 mg/L (10.0-20.0) L 05/23/16 06:41
[2016-06-23] MEDS: NORMODYNE PO SCH ×3 (06:41→21:27)
[2016-06-23] MEDS: K-DUR PO SCH ×2 (10:59→21:26)
[2016-06-23] MEDS: LOVENOX SUB-Q SCH (10:59)
[2016-06-23] MEDS: DILANTIN PO SCH (11:00)
[2016-06-23] MEDS: HCTZ PO SCH (11:00)
[2016-06-23] MEDS: PEPCID PO SCH ×2 (11:00→21:26)
[2016-06-23] MEDS: ZESTRIL PO SCH (11:00)
--- NOTE | 2016-06-23 13:31 | Progress Note ---
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 admitted with convulsive seizures. Apparently a positive report the seizures lasted about 25 minutes and only Procardia she received Ativan by EMS. Upon arrival to the hospital on patient was subsequently intubated. 1. Status epilepticus. Resolved. Continue seizure precautions. Continue phenytoin. Continue when necessary Ativan. Patient did have some recurrence of seizures during hospitalization. No other seizure noted today. We'll continue to monitor. Discharge when placement available 2. Acute hypoxic respiratory failure. Resolved 3. Hypertension. Mildly elevated, will start on Lisinopril. Continue antihypertensive medications. 4. Intractable vomiting. Resolved. Continue Zofran when necessary. KUB was negative. 5. History of cerebral aneurysm and MORTISING MACHINE OPERATOR shunt. Continue supportive care. 6. DVT prophylaxis. Lovenox daily. Encourage ambulation Disposition-No change yet. No input from family yet. pending placement discussed with case management History Interval history: Patient seen and examined this morning in no acute distress, no new complaints. sitting up in bed Denies any chest pain, nausea, vomiting, diarrhea No fever noted blood pressure controlled No adverse events reported to me by nursing staff Hospitalist Physical - Physical exam Narrative exam: VITAL SIGNS: Reviewed. GENERAL: The patient appeared well nourished and normally developed. Vital signs as documented. HEAD: Left facial cranial depression from healed surgery.. EYES: Pupils are equal. Extraocular motions intact. EARS: Hearing grossly intact. MOUTH: Oropharynx is normal. NECK: No adenopathy, no JVD. CHEST: Chest with clear breath sounds bilaterally. No wheezes, rales, or rhonchi. CARDIAC: Regular rate and rhythm. S1 and S2, without murmurs, gallops, or rubs. VASCULAR: No Edema. Peripheral pulses normal and equal in all extremities. ABDOMEN: Soft, without detectable tenderness. No sign of distention. No rebound or guarding, and no masses palpated. Bowel Sounds normal. MUSCULOSKELETAL: Good range of motion of all major joints. Extremities without clubbing, cyanosis or edema. NEUROLOGIC EXAM: Alert and oriented x 3. Aphasic with some forced single words Although her verbal is not as clear this could be secondary to aneurysmal repair. No focal sensory or strength deficits. Follows commands. Gait not assessed this patient was weak on the left side PSYCHIATRIC: Mood normal. SKIN: No rash or lesions. - Constitutional Vitals: Temp Pulse Resp BP Pulse Ox 98.8 F 76 20 140/80 99 06/23/16 08:03 06/23/16 11:00 06/23/16 08:03 06/23/16 11:00 06/23/16 08:03 General appearance: Present: no acute distress, well-nourished Results - Labs CBC & Chem 7: 06/22/16 09:10 06/22/16 09:10 Labs: Laboratory Last Values WBC 9.0 K/mm3 (4.5-11.0) 06/22/16 09:10 RBC 4.57 M/mm3 (3.65-5.03) 06/22/16 09:10 Hgb 11.5 gm/dl (10.1-14.3) 06/22/16 09:10 Hct 36.4 % (30.3-42.9) 06/22/16 09:10 MCV 80 fl (79-97) 06/22/16 09:10 MCH 25 pg (28-32) L 06/22/16 09:10 MCHC 32 % (30-34) 06/22/16 09:10 RDW 16.3 % (13.2-15.2) H 06/22/16 09:10 Plt Count 386 K/mm3 (140-440) 06/22/16 09:10 Lymph % (Auto) 24.0 % (13.4-35.0) 06/22/16 09:10 [place] % (Auto) 9.9 % (0.0-7.3) H 06/22/16 09:10 Eos % (Auto) 1.3 % (0.0-4.3) 06/22/16 09:10 Baso % (Auto) 0.4 % (0.0-1.8) 06/22/16 09:10 Lymph # 2.2 K/mm3 (1.2-5.4) 06/22/16 09:10 [place] # 0.9 K/mm3 (0.0-0.8) H 06/22/16 09:10 Eos # 0.1 K/mm3 (0.0-0.4) 06/22/16 09:10 Baso # 0.0 K/mm3 (0.0-0.1) 06/22/16 09:10 Seg Neutrophils % 64.4 % (40.0-70.0) 06/22/16 09:10 Seg Neutrophils # 5.8 K/mm3 (1.8-7.7) 06/22/16 09:10 POC ABG pH 7.453 (7.35-7.45) H 05/27/16 10:13 POC ABG pCO2 34.7 (35-45) L 05/27/16 10:13 POC ABG pO2 90 (80-105) 05/27/16 10:13 POC ABG HCO3 24.3 05/27/16 10:13 POC ABG Total CO2 25 05/27/16 10:13 POC ABG O2 Sat 97 05/27/16 10:13 POC ABG Base Excess 0 05/27/16 10:13 FiO2 21 % 05/27/16 10:13 Sodium 138 mmol/L (137-145) 06/22/16 09:10 Potassium 4.1 mmol/L (3.6-5.0) 06/22/16 09:10 Chloride 98.8 mmol/L (98-107) 06/22/16 09:10 Carbon Dioxide 23 mmol/L (22-30) 06/22/16 09:10 Anion Gap 20 mmol/L 06/22/16 09:10 BUN 9 mg/dL (7-17) 06/22/16 09:10 Creatinine 0.7 mg/dL (0.7-1.2) 06/22/16 09:10 Estimated GFR > 60 ml/min 06/22/16 09:10 BUN/Creatinine Ratio 12.85 % 06/22/16 09:10 Glucose 142 mg/dL (65-100) H 06/22/16 09:10 Calcium 8.9 mg/dL (8.4-10.2) 06/22/16 09:10 Magnesium 2.0 mg/dL (1.7-2.3) 06/01/16 06:14 Total Bilirubin 0.2 mg/dL (0.1-1.2) 06/22/16 09:10 AST 28 units/L (5-40) 06/22/16 09:10 ALT 70 units/L (7-56) H 06/22/16 09:10 Alkaline Phosphatase 122 units/L (35-129) 06/22/16 09:10 Total Creatine Kinase 108 units/L (30-135) 05/11/16 10:49 Total Protein 7.8 g/dL (6.3-8.2) 06/22/16 09:10 Albumin 4.1 g/dL (3.9-5) 06/22/16 09:10 Albumin/Globulin Ratio 1.1 % 06/22/16 09:10 Phenytoin 4.3 mg/L (10.0-20.0) L 05/23/16 06:41
[2016-06-24] MEDS: NORMODYNE PO SCH ×3 (05:24→21:42)
[2016-06-24] MEDS: DILANTIN PO SCH (09:23)
[2016-06-24] MEDS: LOVENOX SUB-Q SCH (09:23)
[2016-06-24] MEDS: K-DUR PO SCH ×2 (09:23→21:34)
[2016-06-24] MEDS: PEPCID PO SCH ×2 (09:24→21:34)
[2016-06-24] MEDS: ZESTRIL PO SCH (09:24)
[2016-06-24] MEDS: HCTZ PO SCH (09:24)
--- NOTE | 2016-06-24 18:54 | Progress Note ---
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 admitted with convulsive seizures. Apparently a positive report the seizures lasted about 25 minutes and only Procardia she received Ativan by EMS. Upon arrival to the hospital on patient was subsequently intubated. 1. Status epilepticus. Resolved. Continue seizure precautions. Continue phenytoin. Continue when necessary Ativan. Patient did have some recurrence of seizures during hospitalization. No other seizure noted today. We'll continue to monitor. Discharge when placement available 2. Acute hypoxic respiratory failure. Resolved 3. Hypertension. Mildly elevated, Continue Lisinopril. Continue antihypertensive medications. 4. Intractable vomiting. Resolved. Continue Zofran when necessary. KUB was negative. 5. History of cerebral aneurysm and COOLER SERVICER shunt. Continue supportive care. 6. DVT prophylaxis. Lovenox daily. Encourage ambulation Disposition-No change yet. No input from family yet. pending placement, discussed with case management History Interval history: Patient seen and examined this morning in no acute distress, no new complaints. sitting up in bed Denies any chest pain, nausea, vomiting, diarrhea No fever noted blood pressure controlled No adverse events reported to me by nursing staff Hospitalist Physical - Physical exam Narrative exam: VITAL SIGNS: Reviewed. GENERAL: The patient appeared well nourished and normally developed. Vital signs as documented. HEAD: Left facial cranial depression from healed surgery.. EYES: Pupils are equal. Extraocular motions intact. EARS: Hearing grossly intact. MOUTH: Oropharynx is normal. NECK: No adenopathy, no JVD. CHEST: Chest with clear breath sounds bilaterally. No wheezes, rales, or rhonchi. CARDIAC: Regular rate and rhythm. S1 and S2, without murmurs, gallops, or rubs. VASCULAR: No Edema. Peripheral pulses normal and equal in all extremities. ABDOMEN: Soft, without detectable tenderness. No sign of distention. No rebound or guarding, and no masses palpated. Bowel Sounds normal. MUSCULOSKELETAL: Good range of motion of all major joints. Extremities without clubbing, cyanosis or edema. NEUROLOGIC EXAM: Alert and oriented x 3. Aphasic with some forced single words Although her verbal is not as clear this could be secondary to aneurysmal repair. No focal sensory or strength deficits. Follows commands. Gait not assessed this patient was weak on the left side PSYCHIATRIC: Mood normal. SKIN: No rash or lesions. - Constitutional Vitals: Temp Pulse Resp BP Pulse Ox 98.7 F 102 H 20 128/93 100 06/24/16 18:06 06/24/16 18:06 06/24/16 18:06 06/24/16 18:06 06/24/16 18:06 General appearance: Present: no acute distress, well-nourished Results - Labs CBC & Chem 7: 06/22/16 09:10 06/22/16 09:10 Labs: Laboratory Last Values WBC 9.0 K/mm3 (4.5-11.0) 06/22/16 09:10 RBC 4.57 M/mm3 (3.65-5.03) 06/22/16 09:10 Hgb 11.5 gm/dl (10.1-14.3) 06/22/16 09:10 Hct 36.4 % (30.3-42.9) 06/22/16 09:10 MCV 80 fl (79-97) 06/22/16 09:10 MCH 25 pg (28-32) L 06/22/16 09:10 MCHC 32 % (30-34) 06/22/16 09:10 RDW 16.3 % (13.2-15.2) H 06/22/16 09:10 Plt Count 386 K/mm3 (140-440) 06/22/16 09:10 Lymph % (Auto) 24.0 % (13.4-35.0) 06/22/16 09:10 [place] % (Auto) 9.9 % (0.0-7.3) H 06/22/16 09:10 Eos % (Auto) 1.3 % (0.0-4.3) 06/22/16 09:10 Baso % (Auto) 0.4 % (0.0-1.8) 06/22/16 09:10 Lymph # 2.2 K/mm3 (1.2-5.4) 06/22/16 09:10 [place] # 0.9 K/mm3 (0.0-0.8) H 06/22/16 09:10 Eos # 0.1 K/mm3 (0.0-0.4) 06/22/16 09:10 Baso # 0.0 K/mm3 (0.0-0.1) 06/22/16 09:10 Seg Neutrophils % 64.4 % (40.0-70.0) 06/22/16 09:10 Seg Neutrophils # 5.8 K/mm3 (1.8-7.7) 06/22/16 09:10 POC ABG pH 7.453 (7.35-7.45) H 05/27/16 10:13 POC ABG pCO2 34.7 (35-45) L 05/27/16 10:13 POC ABG pO2 90 (80-105) 05/27/16 10:13 POC ABG HCO3 24.3 05/27/16 10:13 POC ABG Total CO2 25 05/27/16 10:13 POC ABG O2 Sat 97 05/27/16 10:13 POC ABG Base Excess 0 05/27/16 10:13 FiO2 21 % 05/27/16 10:13 Sodium 138 mmol/L (137-145) 06/22/16 09:10 Potassium 4.1 mmol/L (3.6-5.0) 06/22/16 09:10 Chloride 98.8 mmol/L (98-107) 06/22/16 09:10 Carbon Dioxide 23 mmol/L (22-30) 06/22/16 09:10 Anion Gap 20 mmol/L 06/22/16 09:10 BUN 9 mg/dL (7-17) 06/22/16 09:10 Creatinine 0.7 mg/dL (0.7-1.2) 06/22/16 09:10 Estimated GFR > 60 ml/min 06/22/16 09:10 BUN/Creatinine Ratio 12.85 % 06/22/16 09:10 Glucose 142 mg/dL (65-100) H 06/22/16 09:10 Calcium 8.9 mg/dL (8.4-10.2) 06/22/16 09:10 Magnesium 2.0 mg/dL (1.7-2.3) 06/01/16 06:14 Total Bilirubin 0.2 mg/dL (0.1-1.2) 06/22/16 09:10 AST 28 units/L (5-40) 06/22/16 09:10 ALT 70 units/L (7-56) H 06/22/16 09:10 Alkaline Phosphatase 122 units/L (35-129) 06/22/16 09:10 Total Creatine Kinase 108 units/L (30-135) 05/11/16 10:49 Total Protein 7.8 g/dL (6.3-8.2) 06/22/16 09:10 Albumin 4.1 g/dL (3.9-5) 06/22/16 09:10 Albumin/Globulin Ratio 1.1 % 06/22/16 09:10 Phenytoin 4.3 mg/L (10.0-20.0) L 05/23/16 06:41
[2016-06-25] MEDS: NORMODYNE PO SCH ×3 (05:39→21:58)
[2016-06-25] MEDS: ZESTRIL PO SCH (10:23)
[2016-06-25] MEDS: HCTZ PO SCH (10:23)
[2016-06-25] MEDS: K-DUR PO SCH ×2 (10:23→21:58)
[2016-06-25] MEDS: DILANTIN PO SCH (10:24)
[2016-06-25] MEDS: PEPCID PO SCH ×2 (10:24→21:58)
[2016-06-25] MEDS: LOVENOX SUB-Q SCH (10:24)
--- NOTE | 2016-06-25 15:51 | Progress Note ---
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 admitted with convulsive seizures. Apparently a positive report the seizures lasted about 25 minutes and only Procardia she received Ativan by EMS. Upon arrival to the hospital on patient was subsequently intubated. 1. Status epilepticus. Resolved. Continue seizure precautions. Continue phenytoin. Continue when necessary Ativan. Patient did have some recurrence of seizures during hospitalization. No other seizure noted today. We'll continue to monitor. Discharge when placement available 2. Acute hypoxic respiratory failure. Resolved 3. Hypertension. Mildly elevated, Continue Lisinopril. Continue antihypertensive medications. 4. Intractable vomiting. Resolved. Continue Zofran when necessary. KUB was negative. 5. History of cerebral aneurysm and CHIEF TALENT OFFICER shunt. Continue supportive care. 6. DVT prophylaxis. Lovenox daily. Encourage ambulation Disposition-No change yet. No input from family yet. pending placement, discussed with case management History Interval history: Patient seen and examined this morning in no acute distress, no new complaints. Pending placement Denies any chest pain, nausea, vomiting, diarrhea No fever noted blood pressure controlled No adverse events reported to me by nursing staff Hospitalist Physical - Physical exam Narrative exam: VITAL SIGNS: Reviewed. GENERAL: The patient appeared well nourished and normally developed. Vital signs as documented. HEAD: Left facial cranial depression from healed surgery.. EYES: Pupils are equal. Extraocular motions intact. EARS: Hearing grossly intact. MOUTH: Oropharynx is normal. NECK: No adenopathy, no JVD. CHEST: Chest with clear breath sounds bilaterally. No wheezes, rales, or rhonchi. CARDIAC: Regular rate and rhythm. S1 and S2, without murmurs, gallops, or rubs. VASCULAR: No Edema. Peripheral pulses normal and equal in all extremities. ABDOMEN: Soft, without detectable tenderness. No sign of distention. No rebound or guarding, and no masses palpated. Bowel Sounds normal. MUSCULOSKELETAL: Good range of motion of all major joints. Extremities without clubbing, cyanosis or edema. NEUROLOGIC EXAM: Alert and oriented x 3. Aphasic with some forced single words Although her verbal is not as clear this could be secondary to aneurysmal repair. No focal sensory or strength deficits. Follows commands. Gait not assessed this patient was weak on the left side PSYCHIATRIC: Mood normal. SKIN: No rash or lesions. - Constitutional Vitals: Temp Pulse Resp BP Pulse Ox 98 F 92 H 18 132/78 99 06/25/16 08:00 06/25/16 14:22 06/25/16 12:00 06/25/16 14:22 06/25/16 12:00 General appearance: Present: no acute distress, well-nourished Results - Labs CBC & Chem 7: 06/22/16 09:10 06/22/16 09:10 Labs: Laboratory Last Values WBC 9.0 K/mm3 (4.5-11.0) 06/22/16 09:10 RBC 4.57 M/mm3 (3.65-5.03) 06/22/16 09:10 Hgb 11.5 gm/dl (10.1-14.3) 06/22/16 09:10 Hct 36.4 % (30.3-42.9) 06/22/16 09:10 MCV 80 fl (79-97) 06/22/16 09:10 MCH 25 pg (28-32) L 06/22/16 09:10 MCHC 32 % (30-34) 06/22/16 09:10 RDW 16.3 % (13.2-15.2) H 06/22/16 09:10 Plt Count 386 K/mm3 (140-440) 06/22/16 09:10 Lymph % (Auto) 24.0 % (13.4-35.0) 06/22/16 09:10 [place] % (Auto) 9.9 % (0.0-7.3) H 06/22/16 09:10 Eos % (Auto) 1.3 % (0.0-4.3) 06/22/16 09:10 Baso % (Auto) 0.4 % (0.0-1.8) 06/22/16 09:10 Lymph # 2.2 K/mm3 (1.2-5.4) 06/22/16 09:10 [place] # 0.9 K/mm3 (0.0-0.8) H 06/22/16 09:10 Eos # 0.1 K/mm3 (0.0-0.4) 06/22/16 09:10 Baso # 0.0 K/mm3 (0.0-0.1) 06/22/16 09:10 Seg Neutrophils % 64.4 % (40.0-70.0) 06/22/16 09:10 Seg Neutrophils # 5.8 K/mm3 (1.8-7.7) 06/22/16 09:10 POC ABG pH 7.453 (7.35-7.45) H 05/27/16 10:13 POC ABG pCO2 34.7 (35-45) L 05/27/16 10:13 POC ABG pO2 90 (80-105) 05/27/16 10:13 POC ABG HCO3 24.3 05/27/16 10:13 POC ABG Total CO2 25 05/27/16 10:13 POC ABG O2 Sat 97 05/27/16 10:13 POC ABG Base Excess 0 05/27/16 10:13 FiO2 21 % 05/27/16 10:13 Sodium 138 mmol/L (137-145) 06/22/16 09:10 Potassium 4.1 mmol/L (3.6-5.0) 06/22/16 09:10 Chloride 98.8 mmol/L (98-107) 06/22/16 09:10 Carbon Dioxide 23 mmol/L (22-30) 06/22/16 09:10 Anion Gap 20 mmol/L 06/22/16 09:10 BUN 9 mg/dL (7-17) 06/22/16 09:10 Creatinine 0.7 mg/dL (0.7-1.2) 06/22/16 09:10 Estimated GFR > 60 ml/min 06/22/16 09:10 BUN/Creatinine Ratio 12.85 % 06/22/16 09:10 Glucose 142 mg/dL (65-100) H 06/22/16 09:10 Calcium 8.9 mg/dL (8.4-10.2) 06/22/16 09:10 Magnesium 2.0 mg/dL (1.7-2.3) 06/01/16 06:14 Total Bilirubin 0.2 mg/dL (0.1-1.2) 06/22/16 09:10 AST 28 units/L (5-40) 06/22/16 09:10 ALT 70 units/L (7-56) H 06/22/16 09:10 Alkaline Phosphatase 122 units/L (35-129) 06/22/16 09:10 Total Creatine Kinase 108 units/L (30-135) 05/11/16 10:49 Total Protein 7.8 g/dL (6.3-8.2) 06/22/16 09:10 Albumin 4.1 g/dL (3.9-5) 06/22/16 09:10 Albumin/Globulin Ratio 1.1 % 06/22/16 09:10 Phenytoin 4.3 mg/L (10.0-20.0) L 05/23/16 06:41
[2016-06-26] MEDS: NORMODYNE PO SCH ×3 (06:21→22:19)
[2016-06-26] MEDS: HCTZ PO SCH (10:35)
[2016-06-26] MEDS: LOVENOX SUB-Q SCH (10:36)
[2016-06-26] MEDS: ZESTRIL PO SCH (10:36)
[2016-06-26] MEDS: K-DUR PO SCH ×2 (10:36→22:20)
[2016-06-26] MEDS: DILANTIN PO SCH (10:36)
[2016-06-26] MEDS: PEPCID PO SCH ×2 (10:36→22:19)
--- NOTE | 2016-06-26 15:09 | Progress Note ---
Assessment and Plan Assessment and plan: Patient is a 40 year old female with hx of cerebral aneurysm s/p PAN CLEANER shunt. admitted with convulsive seizures. Apparently a positive report the seizures lasted about 25 minutes and only Procardia she received Ativan by EMS. Upon arrival to the hospital on patient was subsequently intubated. 1. Status epilepticus. Resolved. Continue seizure precautions. Continue phenytoin. Continue when necessary Ativan. Patient did have some recurrence of seizures during hospitalization. No other seizure noted today. We'll continue to monitor. Discharge when placement available 2. Acute hypoxic respiratory failure. Resolved 3. Hypertension. Mildly elevated, Continue Lisinopril. Continue antihypertensive medications. 4. Intractable vomiting. Resolved. Continue Zofran when necessary. KUB was negative. 5. History of cerebral aneurysm and PAN CLEANER shunt. Continue supportive care. 6. DVT prophylaxis. Lovenox daily. Encourage ambulation Disposition-No change yet. No input from family yet. pending placement, discussed with case management History Interval history: Patient seen and examined this morning in no acute distress, no new complaints. Pending placement Denies any chest pain, nausea, vomiting, diarrhea No fever noted blood pressure controlled No adverse events reported to me by nursing staff Hospitalist Physical - Physical exam Narrative exam: VITAL SIGNS: Reviewed. GENERAL: The patient appeared well nourished and normally developed. Vital signs as documented. HEAD: Left facial cranial depression from healed surgery.. EYES: Pupils are equal. Extraocular motions intact. EARS: Hearing grossly intact. MOUTH: Oropharynx is normal. NECK: No adenopathy, no JVD. CHEST: Chest with clear breath sounds bilaterally. No wheezes, rales, or rhonchi. CARDIAC: Regular rate and rhythm. S1 and S2, without murmurs, gallops, or rubs. VASCULAR: No Edema. Peripheral pulses normal and equal in all extremities. ABDOMEN: Soft, without detectable tenderness. No sign of distention. No rebound or guarding, and no masses palpated. Bowel Sounds normal. MUSCULOSKELETAL: Good range of motion of all major joints. Extremities without clubbing, cyanosis or edema. NEUROLOGIC EXAM: Alert and oriented x 3. Aphasic with some forced single words Although her verbal is not as clear this could be secondary to aneurysmal repair. No focal sensory or strength deficits. Follows commands. Gait not assessed this patient was weak on the left side PSYCHIATRIC: Mood normal. SKIN: No rash or lesions. - Constitutional Vitals: Temp Pulse Resp BP Pulse Ox 98.3 F 87 20 124/80 99 06/26/16 08:25 06/26/16 08:25 06/26/16 08:25 06/26/16 08:25 06/26/16 08:25 General appearance: Present: no acute distress, well-nourished Results - Labs CBC & Chem 7: 06/22/16 09:10 06/22/16 09:10 Labs: Laboratory Last Values WBC 9.0 K/mm3 (4.5-11.0) 06/22/16 09:10 RBC 4.57 M/mm3 (3.65-5.03) 06/22/16 09:10 Hgb 11.5 gm/dl (10.1-14.3) 06/22/16 09:10 Hct 36.4 % (30.3-42.9) 06/22/16 09:10 MCV 80 fl (79-97) 06/22/16 09:10 MCH 25 pg (28-32) L 06/22/16 09:10 MCHC 32 % (30-34) 06/22/16 09:10 RDW 16.3 % (13.2-15.2) H 06/22/16 09:10 Plt Count 386 K/mm3 (140-440) 06/22/16 09:10 Lymph % (Auto) 24.0 % (13.4-35.0) 06/22/16 09:10 [place] % (Auto) 9.9 % (0.0-7.3) H 06/22/16 09:10 Eos % (Auto) 1.3 % (0.0-4.3) 06/22/16 09:10 Baso % (Auto) 0.4 % (0.0-1.8) 06/22/16 09:10 Lymph # 2.2 K/mm3 (1.2-5.4) 06/22/16 09:10 [place] # 0.9 K/mm3 (0.0-0.8) H 06/22/16 09:10 Eos # 0.1 K/mm3 (0.0-0.4) 06/22/16 09:10 Baso # 0.0 K/mm3 (0.0-0.1) 06/22/16 09:10 Seg Neutrophils % 64.4 % (40.0-70.0) 06/22/16 09:10 Seg Neutrophils # 5.8 K/mm3 (1.8-7.7) 06/22/16 09:10 POC ABG pH 7.453 (7.35-7.45) H 05/27/16 10:13 POC ABG pCO2 34.7 (35-45) L 05/27/16 10:13 POC ABG pO2 90 (80-105) 05/27/16 10:13 POC ABG HCO3 24.3 05/27/16 10:13 POC ABG Total CO2 25 05/27/16 10:13 POC ABG O2 Sat 97 05/27/16 10:13 POC ABG Base Excess 0 05/27/16 10:13 FiO2 21 % 05/27/16 10:13 Sodium 138 mmol/L (137-145) 06/22/16 09:10 Potassium 4.1 mmol/L (3.6-5.0) 06/22/16 09:10 Chloride 98.8 mmol/L (98-107) 06/22/16 09:10 Carbon Dioxide 23 mmol/L (22-30) 06/22/16 09:10 Anion Gap 20 mmol/L 06/22/16 09:10 BUN 9 mg/dL (7-17) 06/22/16 09:10 Creatinine 0.7 mg/dL (0.7-1.2) 06/22/16 09:10 Estimated GFR > 60 ml/min 06/22/16 09:10 BUN/Creatinine Ratio 12.85 % 06/22/16 09:10 Glucose 142 mg/dL (65-100) H 06/22/16 09:10 Calcium 8.9 mg/dL (8.4-10.2) 06/22/16 09:10 Magnesium 2.0 mg/dL (1.7-2.3) 06/01/16 06:14 Total Bilirubin 0.2 mg/dL (0.1-1.2) 06/22/16 09:10 AST 28 units/L (5-40) 06/22/16 09:10 ALT 70 units/L (7-56) H 06/22/16 09:10 Alkaline Phosphatase 122 units/L (35-129) 06/22/16 09:10 Total Creatine Kinase 108 units/L (30-135) 05/11/16 10:49 Total Protein 7.8 g/dL (6.3-8.2) 06/22/16 09:10 Albumin 4.1 g/dL (3.9-5) 06/22/16 09:10 Albumin/Globulin Ratio 1.1 % 06/22/16 09:10 Phenytoin 4.3 mg/L (10.0-20.0) L 05/23/16 06:41
[2016-06-27] MEDS: NORMODYNE PO SCH ×3 (05:51→21:55)
[2016-06-27] MEDS: DILANTIN PO SCH (09:52)
[2016-06-27] MEDS: ZESTRIL PO SCH (09:52)
[2016-06-27] MEDS: K-DUR PO SCH ×2 (09:53→21:54)
[2016-06-27] MEDS: LOVENOX SUB-Q SCH (09:53)
[2016-06-27] MEDS: HCTZ PO SCH (09:53)
[2016-06-27] MEDS: PEPCID PO SCH ×2 (09:53→21:54)
--- NOTE | 2016-06-27 12:27 | Progress Note ---
Assessment and Plan Assessment and plan: Patient is a 40 year old female with hx of cerebral aneurysm s/p FIRER WATERTENDER shunt. admitted with convulsive seizures. Apparently a positive report the seizures lasted about 25 minutes and only Procardia she received Ativan by EMS. Upon arrival to the hospital on patient was subsequently intubated. 1. Status epilepticus. Resolved. Continue seizure precautions. Continue phenytoin. Continue when necessary Ativan. Patient did have some recurrence of seizures during hospitalization. No other seizure noted today. We'll continue to monitor. Discharge when placement available 2. Acute hypoxic respiratory failure. Resolved 3. Hypertension. Mildly elevated, Continue Lisinopril. Continue antihypertensive medications. 4. Intractable vomiting. Resolved. Continue Zofran when necessary. KUB was negative. 5. History of cerebral aneurysm and FIRER WATERTENDER shunt. Continue supportive care. 6. DVT prophylaxis. Lovenox daily. Encourage ambulation Disposition-No change yet. No input from family yet. pending placement, discussed with case management History Interval history: Patient seen and examined this morning in no acute distress, no new complaints. Pending placement Denies any chest pain, nausea, vomiting, diarrhea No fever noted blood pressure controlled No adverse events reported to me by nursing staff Hospitalist Physical - Physical exam Narrative exam: VITAL SIGNS: Reviewed. GENERAL: The patient appeared well nourished and normally developed. Vital signs as documented. HEAD: Left facial cranial depression from healed surgery.. EYES: Pupils are equal. Extraocular motions intact. EARS: Hearing grossly intact. MOUTH: Oropharynx is normal. NECK: No adenopathy, no JVD. CHEST: Chest with clear breath sounds bilaterally. No wheezes, rales, or rhonchi. CARDIAC: Regular rate and rhythm. S1 and S2, without murmurs, gallops, or rubs. VASCULAR: No Edema. Peripheral pulses normal and equal in all extremities. ABDOMEN: Soft, without detectable tenderness. No sign of distention. No rebound or guarding, and no masses palpated. Bowel Sounds normal. MUSCULOSKELETAL: Good range of motion of all major joints. Extremities without clubbing, cyanosis or edema. NEUROLOGIC EXAM: Alert and oriented x 3. Aphasic with some forced single words Although her verbal is not as clear this could be secondary to aneurysmal repair. No focal sensory or strength deficits. Follows commands. Gait not assessed this patient was weak on the left side PSYCHIATRIC: Mood normal. SKIN: No rash or lesions. - Constitutional Vitals: Temp Pulse Resp BP Pulse Ox 98.6 F 88 18 124/85 100 06/27/16 08:22 06/27/16 08:22 06/27/16 08:22 06/27/16 08:22 06/27/16 08:22 General appearance: Present: no acute distress, well-nourished Results - Labs CBC & Chem 7: 06/22/16 09:10 06/22/16 09:10 Labs: Laboratory Last Values WBC 9.0 K/mm3 (4.5-11.0) 06/22/16 09:10 RBC 4.57 M/mm3 (3.65-5.03) 06/22/16 09:10 Hgb 11.5 gm/dl (10.1-14.3) 06/22/16 09:10 Hct 36.4 % (30.3-42.9) 06/22/16 09:10 MCV 80 fl (79-97) 06/22/16 09:10 MCH 25 pg (28-32) L 06/22/16 09:10 MCHC 32 % (30-34) 06/22/16 09:10 RDW 16.3 % (13.2-15.2) H 06/22/16 09:10 Plt Count 386 K/mm3 (140-440) 06/22/16 09:10 Lymph % (Auto) 24.0 % (13.4-35.0) 06/22/16 09:10 [place] % (Auto) 9.9 % (0.0-7.3) H 06/22/16 09:10 Eos % (Auto) 1.3 % (0.0-4.3) 06/22/16 09:10 Baso % (Auto) 0.4 % (0.0-1.8) 06/22/16 09:10 Lymph # 2.2 K/mm3 (1.2-5.4) 06/22/16 09:10 [place] # 0.9 K/mm3 (0.0-0.8) H 06/22/16 09:10 Eos # 0.1 K/mm3 (0.0-0.4) 06/22/16 09:10 Baso # 0.0 K/mm3 (0.0-0.1) 06/22/16 09:10 Seg Neutrophils % 64.4 % (40.0-70.0) 06/22/16 09:10 Seg Neutrophils # 5.8 K/mm3 (1.8-7.7) 06/22/16 09:10 POC ABG pH 7.453 (7.35-7.45) H 05/27/16 10:13 POC ABG pCO2 34.7 (35-45) L 05/27/16 10:13 POC ABG pO2 90 (80-105) 05/27/16 10:13 POC ABG HCO3 24.3 05/27/16 10:13 POC ABG Total CO2 25 05/27/16 10:13 POC ABG O2 Sat 97 05/27/16 10:13 POC ABG Base Excess 0 05/27/16 10:13 FiO2 21 % 05/27/16 10:13 Sodium 138 mmol/L (137-145) 06/22/16 09:10 Potassium 4.1 mmol/L (3.6-5.0) 06/22/16 09:10 Chloride 98.8 mmol/L (98-107) 06/22/16 09:10 Carbon Dioxide 23 mmol/L (22-30) 06/22/16 09:10 Anion Gap 20 mmol/L 06/22/16 09:10 BUN 9 mg/dL (7-17) 06/22/16 09:10 Creatinine 0.7 mg/dL (0.7-1.2) 06/22/16 09:10 Estimated GFR > 60 ml/min 06/22/16 09:10 BUN/Creatinine Ratio 12.85 % 06/22/16 09:10 Glucose 142 mg/dL (65-100) H 06/22/16 09:10 Calcium 8.9 mg/dL (8.4-10.2) 06/22/16 09:10 Magnesium 2.0 mg/dL (1.7-2.3) 06/01/16 06:14 Total Bilirubin 0.2 mg/dL (0.1-1.2) 06/22/16 09:10 AST 28 units/L (5-40) 06/22/16 09:10 ALT 70 units/L (7-56) H 06/22/16 09:10 Alkaline Phosphatase 122 units/L (35-129) 06/22/16 09:10 Total Creatine Kinase 108 units/L (30-135) 05/11/16 10:49 Total Protein 7.8 g/dL (6.3-8.2) 06/22/16 09:10 Albumin 4.1 g/dL (3.9-5) 06/22/16 09:10 Albumin/Globulin Ratio 1.1 % 06/22/16 09:10 Phenytoin 4.3 mg/L (10.0-20.0) L 05/23/16 06:41
--- NOTE | 2016-06-27 15:49 | Consultation ---
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 left side) Social history: no significant social history Family history: no significant family history Medications and Allergies Allergies Allergy/AdvReac Type Severity Reaction Status Date / Time No Known Allergies Allergy Unverified 01/23/16 16:56 Home Medications Medication Instructions Recorded Confirmed Last Taken Type Lisinopril/Hydrochlorothiazide 1 tab PO QDAY 01/23/16 05/11/16 Unknown History [Zestoretic 10-12.5 mg] Metoprolol Tartrate [Lopressor] 25 mg PO BID 01/23/16 05/11/16 Unknown History Mirtazapine 15 mg PO QHS 01/23/16 05/11/16 Unknown History Phenytoin [Dilantin] 200 mg PO BID 30 Days 05/16/16 Unknown Rx Active Meds: Active Medications Al Hydrox/Mg Hydrox/Simethicone (Alum-Mag Hydrox-Simeth 104-629-05nl/5ml) 30 ml PO Q4H PRN PRN Reason: Indigestion Bisacodyl (Dulcolax) 10 mg RI QDAY PRN PRN Reason: constipation unrelieved by MOM Enoxaparin Sodium (Lovenox) 40 mg SUB-Q QDAY@1000 [facility] Last Admin: 06/27/16 09:53 Dose: 40 mg Famotidine (Pepcid) 20 mg PO BID [facility] Last Admin: 06/27/16 09:53 Dose: 20 mg Hydrochlorothiazide (Hctz) 25 mg PO QDAY [facility] Last Admin: 06/27/16 09:53 Dose: 25 mg Hydrophilic Ointment (Vaseline Lip Therapy) 1 applic TP Q2HR PRN PRN Reason: Dry Lips Labetalol HCl (Normodyne) 200 mg PO Q8HR [facility] Last Admin: 06/27/16 05:51 Dose: 200 mg Lisinopril (Zestril) 10 mg PO QDAY [facility] Last Admin: 06/27/16 09:52 Dose: 10 mg Magnesium Hydroxide (Milk Of Magnesia) 30 ml PO Q4H PRN PRN Reason: Constipation Multi-Ingred Cream/Lotion/Oil/Oint (Artificial Tears Ophth Oint) 1 applic OU Q4HR PRN PRN Reason: Dry Eye(s) Ondansetron HCl (Zofran) 4 mg IV Q4H PRN PRN Reason: Nausea And Vomiting Last Admin: 05/12/16 10:00 Dose: 4 mg Phenytoin (Dilantin) 200 mg PO DAILY [facility] Last Admin: 06/27/16 09:52 Dose: 200 mg Potassium Chloride (K-Dur) 40 meq PO BID [facility] Last Admin: 06/27/16 09:53 Dose: 40 meq Exam - Constitutional Vitals: Temp Pulse Resp BP Pulse Ox 98.6 F 88 18 124/85 100 06/27/16 08:22 06/27/16 08:22 06/27/16 08:22 06/27/16 08:22 06/27/16 08:22 Results - Labs CBC & Chem 7: 06/22/16 09:10 06/22/16 09:10
[2016-06-28] MEDS: NORMODYNE PO SCH ×2 (06:10→14:00)
[2016-06-28] MEDS: LOVENOX SUB-Q SCH (10:30)
[2016-06-28] MEDS: PEPCID PO SCH ×2 (10:30→21:01)
[2016-06-28] MEDS: HCTZ PO SCH (10:30)
[2016-06-28] MEDS: ZESTRIL PO SCH (10:30)
[2016-06-28] MEDS: DILANTIN PO SCH (10:30)
[2016-06-28] MEDS: K-DUR PO SCH ×2 (10:30→21:01)
--- NOTE | 2016-06-28 14:42 | Progress Note ---
Assessment and Plan Assessment and plan: Patient is a 40 year old female with hx of cerebral aneurysm s/p SENIOR ENERGY MARKET COORDINATOR shunt. admitted with convulsive seizures. Apparently a positive report the seizures lasted about 25 minutes and only Procardia she received Ativan by EMS. Upon arrival to the hospital on patient was subsequently intubated. 1. Status epilepticus. Resolved. Continue seizure precautions. Continue phenytoin. Continue when necessary Ativan. Patient did have some recurrence of seizures during hospitalization. No other seizure noted today. We'll continue to monitor. Discharge when placement available. Neurology note noted 2. Acute hypoxic respiratory failure. Resolved 3. Hypertension. Mildly elevated, Continue Lisinopril. Continue antihypertensive medications. 4. Intractable vomiting. Resolved. Continue Zofran when necessary. KUB was negative. 5. History of cerebral aneurysm and SENIOR ENERGY MARKET COORDINATOR shunt. Continue supportive care. 6. DVT prophylaxis. Lovenox daily. Encourage ambulation Disposition-No change yet. No input from family yet. pending placement, discussed with case management History Interval history: Patient seen and examined this morning in no acute distress, no new complaints. Pending placement Denies any chest pain, nausea, vomiting, diarrhea No fever noted blood pressure controlled No adverse events reported to me by nursing staff Hospitalist Physical - Physical exam Narrative exam: VITAL SIGNS: Reviewed. GENERAL: The patient appeared well nourished and normally developed. Vital signs as documented. HEAD: Left facial cranial depression from healed surgery.. EYES: Pupils are equal. Extraocular motions intact. EARS: Hearing grossly intact. MOUTH: Oropharynx is normal. NECK: No adenopathy, no JVD. CHEST: Chest with clear breath sounds bilaterally. No wheezes, rales, or rhonchi. CARDIAC: Regular rate and rhythm. S1 and S2, without murmurs, gallops, or rubs. VASCULAR: No Edema. Peripheral pulses normal and equal in all extremities. ABDOMEN: Soft, without detectable tenderness. No sign of distention. No rebound or guarding, and no masses palpated. Bowel Sounds normal. MUSCULOSKELETAL: Good range of motion of all major joints. Extremities without clubbing, cyanosis or edema. NEUROLOGIC EXAM: Alert and oriented x 3. Aphasic with some forced single words Although her verbal is not as clear this could be secondary to aneurysmal repair. No focal sensory or strength deficits. Follows commands. Gait not assessed this patient was weak on the left side PSYCHIATRIC: Mood normal. SKIN: No rash or lesions. - Constitutional Vitals: Temp Pulse Resp BP Pulse Ox 98.1 F 87 14 119/80 99 06/28/16 07:16 06/28/16 07:16 06/28/16 07:16 06/28/16 07:16 06/28/16 07:16 General appearance: Present: no acute distress, well-nourished Results - Labs CBC & Chem 7: 06/22/16 09:10 06/22/16 09:10 Labs: Laboratory Last Values WBC 9.0 K/mm3 (4.5-11.0) 06/22/16 09:10 RBC 4.57 M/mm3 (3.65-5.03) 06/22/16 09:10 Hgb 11.5 gm/dl (10.1-14.3) 06/22/16 09:10 Hct 36.4 % (30.3-42.9) 06/22/16 09:10 MCV 80 fl (79-97) 06/22/16 09:10 MCH 25 pg (28-32) L 06/22/16 09:10 MCHC 32 % (30-34) 06/22/16 09:10 RDW 16.3 % (13.2-15.2) H 06/22/16 09:10 Plt Count 386 K/mm3 (140-440) 06/22/16 09:10 Lymph % (Auto) 24.0 % (13.4-35.0) 06/22/16 09:10 [place] % (Auto) 9.9 % (0.0-7.3) H 06/22/16 09:10 Eos % (Auto) 1.3 % (0.0-4.3) 06/22/16 09:10 Baso % (Auto) 0.4 % (0.0-1.8) 06/22/16 09:10 Lymph # 2.2 K/mm3 (1.2-5.4) 06/22/16 09:10 [place] # 0.9 K/mm3 (0.0-0.8) H 06/22/16 09:10 Eos # 0.1 K/mm3 (0.0-0.4) 06/22/16 09:10 Baso # 0.0 K/mm3 (0.0-0.1) 06/22/16 09:10 Seg Neutrophils % 64.4 % (40.0-70.0) 06/22/16 09:10 Seg Neutrophils # 5.8 K/mm3 (1.8-7.7) 06/22/16 09:10 POC ABG pH 7.453 (7.35-7.45) H 05/27/16 10:13 POC ABG pCO2 34.7 (35-45) L 05/27/16 10:13 POC ABG pO2 90 (80-105) 05/27/16 10:13 POC ABG HCO3 24.3 05/27/16 10:13 POC ABG Total CO2 25 05/27/16 10:13 POC ABG O2 Sat 97 05/27/16 10:13 POC ABG Base Excess 0 05/27/16 10:13 FiO2 21 % 05/27/16 10:13 Sodium 138 mmol/L (137-145) 06/22/16 09:10 Potassium 4.1 mmol/L (3.6-5.0) 06/22/16 09:10 Chloride 98.8 mmol/L (98-107) 06/22/16 09:10 Carbon Dioxide 23 mmol/L (22-30) 06/22/16 09:10 Anion Gap 20 mmol/L 06/22/16 09:10 BUN 9 mg/dL (7-17) 06/22/16 09:10 Creatinine 0.7 mg/dL (0.7-1.2) 06/22/16 09:10 Estimated GFR > 60 ml/min 06/22/16 09:10 BUN/Creatinine Ratio 12.85 % 06/22/16 09:10 Glucose 142 mg/dL (65-100) H 06/22/16 09:10 Calcium 8.9 mg/dL (8.4-10.2) 06/22/16 09:10 Magnesium 2.0 mg/dL (1.7-2.3) 06/01/16 06:14 Total Bilirubin 0.2 mg/dL (0.1-1.2) 06/22/16 09:10 AST 28 units/L (5-40) 06/22/16 09:10 ALT 70 units/L (7-56) H 06/22/16 09:10 Alkaline Phosphatase 122 units/L (35-129) 06/22/16 09:10 Total Creatine Kinase 108 units/L (30-135) 05/11/16 10:49 Total Protein 7.8 g/dL (6.3-8.2) 06/22/16 09:10 Albumin 4.1 g/dL (3.9-5) 06/22/16 09:10 Albumin/Globulin Ratio 1.1 % 06/22/16 09:10 Phenytoin 4.3 mg/L (10.0-20.0) L 05/23/16 06:41
[2016-06-29] MEDS: NORMODYNE PO SCH ×4 (02:29→21:02)
[2016-06-29] MEDS ORDERED: ATIVAN ONE (06:01)
[2016-06-29] MEDS ORDERED: ATIVAN IM NR (06:15)
[2016-06-29] MEDS: ZESTRIL PO SCH (11:54)
[2016-06-29] MEDS: PEPCID PO SCH ×2 (11:54→21:03)
[2016-06-29] MEDS: DILANTIN PO SCH (11:54)
[2016-06-29] MEDS: HCTZ PO SCH (11:55)
[2016-06-29] MEDS: K-DUR PO SCH ×2 (11:55→21:03)
[2016-06-29] MEDS: LOVENOX SUB-Q SCH (11:55)
[2016-06-29] MEDS ORDERED: FLUARIX QUAD 2016-2017(36 MOS+) IM ONE (12:00)
[2016-06-29] MEDS ORDERED: PNEUMOVAX 23 IM ONE (12:00)
--- NOTE | 2016-06-29 22:00 | Progress Note ---
Assessment and Plan Assessment and plan: Patient is a 40 year old female with hx of cerebral aneurysm s/p SUPERVISOR FORMING [employer] TEMPERING shunt. admitted with convulsive seizures. Apparently a positive report the seizures lasted about 25 minutes and only Procardia she received Ativan by EMS. Upon arrival to the hospital on patient was subsequently intubated. 1. Status epilepticus. -Reoccurred. We'll check Dilantin level. May need increased dose. Continue seizure precautions. Continue phenytoin. Continue when necessary Ativan. Patient did have some recurrence of seizures during hospitalization. No other seizure noted today. We'll continue to monitor. Discharge when placement available. Neurology note noted 2. Acute hypoxic respiratory failure. Resolved 3. Hypertension. Mildly elevated, Continue Lisinopril. Continue antihypertensive medications. 4. Intractable vomiting. Resolved. Continue Zofran when necessary. KUB was negative. 5. History of cerebral aneurysm and SUPERVISOR FORMING [employer] TEMPERING shunt. Continue supportive care. 6. DVT prophylaxis. Lovenox daily. Encourage ambulation Disposition-No change yet. No input from family yet. pending placement, discussed with case management History Interval history: Patient seen and examined this morning in no acute distress, she unfortunately had a repeat seizure early this morning Denies any chest pain, nausea, vomiting, diarrhea No fever noted blood pressure controlled No adverse events reported to me by nursing staff Hospitalist Physical - Physical exam Narrative exam: VITAL SIGNS: Reviewed. GENERAL: The patient appeared well nourished and normally developed. Vital signs as documented. HEAD: Left facial cranial depression from healed surgery.. EYES: Pupils are equal. Extraocular motions intact. EARS: Hearing grossly intact. MOUTH: Oropharynx is normal. NECK: No adenopathy, no JVD. CHEST: Chest with clear breath sounds bilaterally. No wheezes, rales, or rhonchi. CARDIAC: Regular rate and rhythm. S1 and S2, without murmurs, gallops, or rubs. VASCULAR: No Edema. Peripheral pulses normal and equal in all extremities. ABDOMEN: Soft, without detectable tenderness. No sign of distention. No rebound or guarding, and no masses palpated. Bowel Sounds normal. MUSCULOSKELETAL: Good range of motion of all major joints. Extremities without clubbing, cyanosis or edema. NEUROLOGIC EXAM: Post ictal A SKIN: No rash or lesions. - Constitutional Vitals: Temp Pulse Resp BP Pulse Ox 98.2 F 94 H 16 108/61 97 06/29/16 15:03 02/14/17 21:02 06/29/16 15:03 06/29/16 21:02 06/29/16 15:03 General appearance: Present: no acute distress, well-nourished Results - Labs CBC & Chem 7: 06/22/16 09:10 06/22/16 09:10 Labs: Laboratory Last Values WBC 9.0 K/mm3 (4.5-11.0) 06/22/16 09:10 RBC 4.57 M/mm3 (3.65-5.03) 06/22/16 09:10 Hgb 11.5 gm/dl (10.1-14.3) 06/22/16 09:10 Hct 36.4 % (30.3-42.9) 06/22/16 09:10 MCV 80 fl (79-97) 06/22/16 09:10 MCH 25 pg (28-32) L 06/22/16 09:10 MCHC 32 % (30-34) 06/22/16 09:10 RDW 16.3 % (13.2-15.2) H 06/22/16 09:10 Plt Count 386 K/mm3 (140-440) 06/22/16 09:10 Lymph % (Auto) 24.0 % (13.4-35.0) 06/22/16 09:10 [place] % (Auto) 9.9 % (0.0-7.3) H 06/22/16 09:10 Eos % (Auto) 1.3 % (0.0-4.3) 06/22/16 09:10 Baso % (Auto) 0.4 % (0.0-1.8) 06/22/16 09:10 Lymph # 2.2 K/mm3 (1.2-5.4) 06/22/16 09:10 [place] # 0.9 K/mm3 (0.0-0.8) H 06/22/16 09:10 Eos # 0.1 K/mm3 (0.0-0.4) 06/22/16 09:10 Baso # 0.0 K/mm3 (0.0-0.1) 06/22/16 09:10 Seg Neutrophils % 64.4 % (40.0-70.0) 06/22/16 09:10 Seg Neutrophils # 5.8 K/mm3 (1.8-7.7) 06/22/16 09:10 POC ABG pH 7.453 (7.35-7.45) H 05/27/16 10:13 POC ABG pCO2 34.7 (35-45) L 05/27/16 10:13 POC ABG pO2 90 (80-105) 05/27/16 10:13 POC ABG HCO3 24.3 05/27/16 10:13 POC ABG Total CO2 25 05/27/16 10:13 POC ABG O2 Sat 97 05/27/16 10:13 POC ABG Base Excess 0 05/27/16 10:13 FiO2 21 % 05/27/16 10:13 Sodium 138 mmol/L (137-145) 06/22/16 09:10 Potassium 4.1 mmol/L (3.6-5.0) 06/22/16 09:10 Chloride 98.8 mmol/L (98-107) 06/22/16 09:10 Carbon Dioxide 23 mmol/L (22-30) 06/22/16 09:10 Anion Gap 20 mmol/L 06/22/16 09:10 BUN 9 mg/dL (7-17) 06/22/16 09:10 Creatinine 0.7 mg/dL (0.7-1.2) 06/22/16 09:10 Estimated GFR > 60 ml/min 06/22/16 09:10 BUN/Creatinine Ratio 12.85 % 06/22/16 09:10 Glucose 142 mg/dL (65-100) H 06/22/16 09:10 Calcium 8.9 mg/dL (8.4-10.2) 06/22/16 09:10 Magnesium 2.0 mg/dL (1.7-2.3) 06/01/16 06:14 Total Bilirubin 0.2 mg/dL (0.1-1.2) 06/22/16 09:10 AST 28 units/L (5-40) 06/22/16 09:10 ALT 70 units/L (7-56) H 06/22/16 09:10 Alkaline Phosphatase 122 units/L (35-129) 06/22/16 09:10 Total Creatine Kinase 108 units/L (30-135) 05/11/16 10:49 Total Protein 7.8 g/dL (6.3-8.2) 06/22/16 09:10 Albumin 4.1 g/dL (3.9-5) 06/22/16 09:10 Albumin/Globulin Ratio 1.1 % 06/22/16 09:10 Phenytoin 5.1 mg/L (10.0-20.0) L 06/29/16 09:42
[2016-06-30] MEDS: NORMODYNE PO SCH ×3 (06:06→23:27)
--- NOTE | 2016-06-30 10:08 | Progress Note ---
Assessment and Plan Assessment and plan: Patient is a 40 year old female with hx of cerebral aneurysm s/p ENVIRONMENTAL HEALTH AND SAFETY INTERN shunt. admitted with convulsive seizures. Apparently a positive report the seizures lasted about 25 minutes and only Procardia she received Ativan by EMS. Upon arrival to the hospital on patient was subsequently intubated. 1. Status epilepticus. -Reoccurred 06/29/16. Phenytoin level low. We'll increase to twice a day. Continue seizure precautions. Continue phenytoin. Continue when necessary Ativan. Patient did have some recurrence of seizures during hospitalization. No other seizure noted today. We'll continue to monitor. Discharge when placement available. Neurology note noted 2. Acute hypoxic respiratory failure. Resolved 3. Hypertension. Mildly elevated, Continue Lisinopril. Continue antihypertensive medications. 4. Intractable vomiting. Resolved. Continue Zofran when necessary. KUB was negative. 5. History of cerebral aneurysm and ENVIRONMENTAL HEALTH AND SAFETY INTERN shunt. Continue supportive care. 6. DVT prophylaxis. Lovenox daily. Encourage ambulation Disposition-No change yet. No input from family yet. pending placement, discussed with case management History Interval history: Patient seen and examined this morning in no acute distress, no repeat seizure is awake alert and back to her baseline. Denies any chest pain, nausea, vomiting, diarrhea No fever noted blood pressure controlled No adverse events reported to me by nursing staff Hospitalist Physical - Physical exam Narrative exam: VITAL SIGNS: Reviewed. GENERAL: The patient appeared well nourished and normally developed. Vital signs as documented. HEAD: Left facial cranial depression from healed surgery.. EYES: Pupils are equal. Extraocular motions intact. EARS: Hearing grossly intact. MOUTH: Oropharynx is normal. NECK: No adenopathy, no JVD. CHEST: Chest with clear breath sounds bilaterally. No wheezes, rales, or rhonchi. CARDIAC: Regular rate and rhythm. S1 and S2, without murmurs, gallops, or rubs. VASCULAR: No Edema. Peripheral pulses normal and equal in all extremities. ABDOMEN: Soft, without detectable tenderness. No sign of distention. No rebound or guarding, and no masses palpated. Bowel Sounds normal. MUSCULOSKELETAL: Good range of motion of all major joints. Extremities without clubbing, cyanosis or edema. NEUROLOGIC EXAM: Awake alert and oriented 3 Aphasic with some forced single words Although her verbal is not as clear this could be secondary to aneurysmal repair. No focal sensory or strength deficits. Follows commands. Gait not assessed this patient was weak on the left side PSYCHIATRIC: Mood normal. SKIN: No rash or lesions. - Constitutional Vitals: Temp Pulse Resp BP Pulse Ox 97.9 F 88 18 120/71 100 06/30/16 08:23 06/30/16 08:23 06/30/16 08:23 06/30/16 08:23 06/30/16 08:23 General appearance: Present: no acute distress, well-nourished Results - Labs CBC & Chem 7: 06/22/16 09:10 06/22/16 09:10 Labs: Laboratory Last Values WBC 9.0 K/mm3 (4.5-11.0) 06/22/16 09:10 RBC 4.57 M/mm3 (3.65-5.03) 06/22/16 09:10 Hgb 11.5 gm/dl (10.1-14.3) 06/22/16 09:10 Hct 36.4 % (30.3-42.9) 06/22/16 09:10 MCV 80 fl (79-97) 06/22/16 09:10 MCH 25 pg (28-32) L 06/22/16 09:10 MCHC 32 % (30-34) 06/22/16 09:10 RDW 16.3 % (13.2-15.2) H 06/22/16 09:10 Plt Count 386 K/mm3 (140-440) 06/22/16 09:10 Lymph % (Auto) 24.0 % (13.4-35.0) 06/22/16 09:10 [place] % (Auto) 9.9 % (0.0-7.3) H 06/22/16 09:10 Eos % (Auto) 1.3 % (0.0-4.3) 06/22/16 09:10 Baso % (Auto) 0.4 % (0.0-1.8) 06/22/16 09:10 Lymph # 2.2 K/mm3 (1.2-5.4) 06/22/16 09:10 [place] # 0.9 K/mm3 (0.0-0.8) H 06/22/16 09:10 Eos # 0.1 K/mm3 (0.0-0.4) 06/22/16 09:10 Baso # 0.0 K/mm3 (0.0-0.1) 06/22/16 09:10 Seg Neutrophils % 64.4 % (40.0-70.0) 06/22/16 09:10 Seg Neutrophils # 5.8 K/mm3 (1.8-7.7) 06/22/16 09:10 POC ABG pH 7.453 (7.35-7.45) H 05/27/16 10:13 POC ABG pCO2 34.7 (35-45) L 05/27/16 10:13 POC ABG pO2 90 (80-105) 05/27/16 10:13 POC ABG HCO3 24.3 05/27/16 10:13 POC ABG Total CO2 25 05/27/16 10:13 POC ABG O2 Sat 97 05/27/16 10:13 POC ABG Base Excess 0 05/27/16 10:13 FiO2 21 % 05/27/16 10:13 Sodium 138 mmol/L (137-145) 06/22/16 09:10 Potassium 4.1 mmol/L (3.6-5.0) 06/22/16 09:10 Chloride 98.8 mmol/L (98-107) 06/22/16 09:10 Carbon Dioxide 23 mmol/L (22-30) 06/22/16 09:10 Anion Gap 20 mmol/L 06/22/16 09:10 BUN 9 mg/dL (7-17) 06/22/16 09:10 Creatinine 0.7 mg/dL (0.7-1.2) 06/22/16 09:10 Estimated GFR > 60 ml/min 06/22/16 09:10 BUN/Creatinine Ratio 12.85 % 06/22/16 09:10 Glucose 142 mg/dL (65-100) H 06/22/16 09:10 Calcium 8.9 mg/dL (8.4-10.2) 06/22/16 09:10 Magnesium 2.0 mg/dL (1.7-2.3) 06/01/16 06:14 Total Bilirubin 0.2 mg/dL (0.1-1.2) 06/22/16 09:10 AST 28 units/L (5-40) 06/22/16 09:10 ALT 70 units/L (7-56) H 06/22/16 09:10 Alkaline Phosphatase 122 units/L (35-129) 06/22/16 09:10 Total Creatine Kinase 108 units/L (30-135) 05/11/16 10:49 Total Protein 7.8 g/dL (6.3-8.2) 06/22/16 09:10 Albumin 4.1 g/dL (3.9-5) 06/22/16 09:10 Albumin/Globulin Ratio 1.1 % 06/22/16 09:10 Phenytoin 5.1 mg/L (10.0-20.0) L 06/29/16 09:42
[2016-06-30] MEDS: K-DUR PO SCH ×2 (11:24→23:26)
[2016-06-30] MEDS: LOVENOX SUB-Q SCH (11:24)
[2016-06-30] MEDS: DILANTIN PO SCH ×2 (11:25→23:25)
[2016-06-30] MEDS: PEPCID PO SCH ×2 (11:25→23:26)
[2016-06-30] MEDS: HCTZ PO SCH (11:26)
[2016-06-30] MEDS: ZESTRIL PO SCH (11:26)
[2016-07-01] MEDS: NORMODYNE PO SCH ×3 (07:28→23:04)
--- NOTE | 2016-07-01 08:12 | Progress Note ---
Assessment and Plan - Patient Problems (1) Acute respiratory failure with hypoxia Current Visit: Yes Status: Acute Plan to address problem: Resolved (2) Seizure Current Visit: Yes Status: Acute Plan to address problem: Patient had an episode of seizure activity 06/29/2016 because of Dilantin level was low. Dilantin level has been increased to twice a day. No further seizure activity. We will continue to evaluate. Patient awaiting placement (3) Essential hypertension Current Visit: Yes Status: Acute Plan to address problem: Blood pressure well controlled History Interval history: Patient lying in bed state that she feels okay this a.m. Hospitalist Physical - Constitutional Vitals: Temp Pulse Resp BP Pulse Ox 98.6 F 85 20 110/60 97 06/30/16 16:25 06/30/16 16:25 06/30/16 16:25 07/01/16 07:28 06/30/16 17:00 General appearance: Present: no acute distress, well-nourished - EENT Eyes: Present: PERRL, EOM intact ENT: hearing intact, clear oral mucosa - Neck Neck: Present: supple, normal ROM - Respiratory Respiratory effort: normal Respiratory: bilateral: CTA - Cardiovascular Rhythm: regular Heart Sounds: Present: S1 & S2 - Abdominal General gastrointestinal: soft, non-tender, non-distended, normal bowel sounds - Psychiatric Psychiatric: appropriate mood/affect, intact judgment & insight - Neurologic Neurologic: CNII-XII intact, moves all extremities Results - Labs CBC & Chem 7: 06/22/16 09:10 06/22/16 09:10 Labs: Laboratory Last Values WBC 9.0 K/mm3 (4.5-11.0) 06/22/16 09:10 RBC 4.57 M/mm3 (3.65-5.03) 06/22/16 09:10 Hgb 11.5 gm/dl (10.1-14.3) 06/22/16 09:10 Hct 36.4 % (30.3-42.9) 06/22/16 09:10 MCV 80 fl (79-97) 06/22/16 09:10 MCH 25 pg (28-32) L 06/22/16 09:10 MCHC 32 % (30-34) 06/22/16 09:10 RDW 16.3 % (13.2-15.2) H 06/22/16 09:10 Plt Count 386 K/mm3 (140-440) 06/22/16 09:10 Lymph % (Auto) 24.0 % (13.4-35.0) 06/22/16 09:10 [place] % (Auto) 9.9 % (0.0-7.3) H 06/22/16 09:10 Eos % (Auto) 1.3 % (0.0-4.3) 06/22/16 09:10 Baso % (Auto) 0.4 % (0.0-1.8) 06/22/16 09:10 Lymph # 2.2 K/mm3 (1.2-5.4) 06/22/16 09:10 [place] # 0.9 K/mm3 (0.0-0.8) H 06/22/16 09:10 Eos # 0.1 K/mm3 (0.0-0.4) 06/22/16 09:10 Baso # 0.0 K/mm3 (0.0-0.1) 06/22/16 09:10 Seg Neutrophils % 64.4 % (40.0-70.0) 06/22/16 09:10 Seg Neutrophils # 5.8 K/mm3 (1.8-7.7) 06/22/16 09:10 POC ABG pH 7.453 (7.35-7.45) H 05/27/16 10:13 POC ABG pCO2 34.7 (35-45) L 05/27/16 10:13 POC ABG pO2 90 (80-105) 05/27/16 10:13 POC ABG HCO3 24.3 05/27/16 10:13 POC ABG Total CO2 25 05/27/16 10:13 POC ABG O2 Sat 97 05/27/16 10:13 POC ABG Base Excess 0 05/27/16 10:13 FiO2 21 % 05/27/16 10:13 Sodium 138 mmol/L (137-145) 06/22/16 09:10 Potassium 4.1 mmol/L (3.6-5.0) 06/22/16 09:10 Chloride 98.8 mmol/L (98-107) 06/22/16 09:10 Carbon Dioxide 23 mmol/L (22-30) 06/22/16 09:10 Anion Gap 20 mmol/L 06/22/16 09:10 BUN 9 mg/dL (7-17) 06/22/16 09:10 Creatinine 0.7 mg/dL (0.7-1.2) 06/22/16 09:10 Estimated GFR > 60 ml/min 06/22/16 09:10 BUN/Creatinine Ratio 12.85 % 06/22/16 09:10 Glucose 142 mg/dL (65-100) H 06/22/16 09:10 Calcium 8.9 mg/dL (8.4-10.2) 06/22/16 09:10 Magnesium 2.0 mg/dL (1.7-2.3) 06/01/16 06:14 Total Bilirubin 0.2 mg/dL (0.1-1.2) 06/22/16 09:10 AST 28 units/L (5-40) 06/22/16 09:10 ALT 70 units/L (7-56) H 06/22/16 09:10 Alkaline Phosphatase 122 units/L (35-129) 06/22/16 09:10 Total Creatine Kinase 108 units/L (30-135) 05/11/16 10:49 Total Protein 7.8 g/dL (6.3-8.2) 06/22/16 09:10 Albumin 4.1 g/dL (3.9-5) 06/22/16 09:10 Albumin/Globulin Ratio 1.1 % 06/22/16 09:10 Phenytoin 5.1 mg/L (10.0-20.0) L 06/29/16 09:42
[2016-07-01] MEDS: DILANTIN PO SCH ×2 (10:01→23:07)
[2016-07-01] MEDS: PEPCID PO SCH ×2 (10:01→23:07)
[2016-07-01] MEDS: ZESTRIL PO SCH (10:01)
[2016-07-01] MEDS: K-DUR PO SCH ×2 (10:02→23:04)
[2016-07-01] MEDS: LOVENOX SUB-Q SCH (10:02)
[2016-07-01] MEDS: HCTZ PO SCH (10:02)
[2016-07-01] MEDS ORDERED: ULTRAM PO PRN (11:42)
[2016-07-02] MEDS: NORMODYNE PO SCH ×3 (06:18→22:04)
[2016-07-02] MEDS: DILANTIN PO SCH ×2 (09:15→22:04)
[2016-07-02] MEDS: HCTZ PO SCH (09:16)
[2016-07-02] MEDS: PEPCID PO SCH ×2 (09:16→22:04)
[2016-07-02] MEDS: ZESTRIL PO SCH (09:16)
[2016-07-02] MEDS: LOVENOX SUB-Q SCH (09:17)
[2016-07-02] MEDS: K-DUR PO SCH ×2 (09:17→22:04)
--- NOTE | 2016-07-02 23:46 | Progress Note ---
Assessment and Plan 1. Status epilepticus. Resolved. Continue seizure precautions. Continue phenytoin. Continue when necessary Ativan. Patient did have some recurrence of seizures during hospitalization. No other seizure noted today. We'll continue to monitor. Discharge when placement available 2. Acute hypoxic respiratory failure. Extubated. Resolved 3. Hypertension: Mildly elevated. On Lisinopril. Continue other antihypertensive medications. 4. Intractable vomiting. Resolved. Continue Zofran when necessary. KUB was negative. 5. History of cerebral aneurysm and [employer] EXP[employer] shunt. Continue supportive care. 6. DVT prophylaxis. Lovenox daily. Encourage ambulation Disposition-No change yet. No input from family yet. Awaiting placement. Time spent 25 mins Subjective Date of service: 07/02/16 Principal diagnosis: Seizures; Acute Resp Failure s/p MVS Interval history: No shortness of breath or cough. Remains aphasic, with right hemiparesis Objective - Constitutional Vitals: Vital Signs - 12hr 07/02/16 07/02/16 15:24 22:01 Temperature 99.4 F Pulse Rate [ 102 H Apical] Pulse Rate [ 104 H Left Brachial] Respiratory 20 Rate Blood Pressure 121/73 131/84 [Left Arm] General appearance: Present: no acute distress, obese - EENT Eyes: PERRL, EOM intact ENT: hearing intact, clear oral mucosa, other ( right facial droop) Ears: bilateral: normal - Neck Neck: supple, normal ROM - Respiratory Respiratory effort: normal Respiratory: bilateral: CTA - Cardiovascular Rhythm: regular Heart Sounds: Present: S1 & S2. Absent: gallop, rub Extremities: pulses intact, No edema, normal color, Full ROM - Gastrointestinal General gastrointestinal: Present: soft, non-tender, non-distended, normal bowel sounds - Integumentary Integumentary: clear, warm, dry - Musculoskeletal Musculoskeletal: other (right hemiparesis) - Neurologic Neurologic: CNII-XII intact, other (right hemiparesis) - Psychiatric Psychiatric: memory intact, appropriate mood/affect, intact judgment & insight - Labs CBC & Chem 7: 06/22/16 09:10 06/22/16 09:10
[2016-07-03] MEDS: NORMODYNE PO SCH ×3 (06:26→22:42)
[2016-07-03] MEDS: K-DUR PO SCH ×2 (11:10→22:43)
[2016-07-03] MEDS: PEPCID PO SCH ×2 (11:11→22:42)
[2016-07-03] MEDS: HCTZ PO SCH (11:11)
[2016-07-03] MEDS: LOVENOX SUB-Q SCH (11:11)
[2016-07-03] MEDS: DILANTIN PO SCH ×2 (11:11→22:42)
[2016-07-03] MEDS: ZESTRIL PO SCH (13:34)
--- NOTE | 2016-07-03 16:09 | Progress Note ---
Assessment and Plan 1. Status epilepticus. Resolved. Continue seizure precautions. Continue phenytoin. Continue when necessary Ativan. Patient did have some recurrence of seizures during hospitalization. No other seizure noted today. We'll continue to monitor. Discharge when placement available 2. Acute hypoxic respiratory failure. Extubated. Resolved 3. Hypertension: Controlled Continue other antihypertensive medications. 4. Intractable vomiting. Resolved. Continue Zofran when necessary. KUB was negative. 5. 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 Continue supportive care. 6. DVT prophylaxis. Lovenox daily. Encourage ambulation Disposition-No change yet. No input from family yet. Awaiting placement. Time spent 25 mins Subjective Date of service: 07/03/16 Principal diagnosis: Seizures; Acute Resp Failure s/p MVS Interval history: No new complaints Remains aphasic, with right hemiparesis Objective - Constitutional Vitals: Vital Signs - 12hr 07/03/16 07/03/16 07/03/16 06:26 08:00 13:32 Temperature 97.3 F L Pulse Rate 93 H Pulse Rate [ 88 Left Brachial] Respiratory 20 Rate Blood Pressure 133/81 134/96 Blood Pressure 127/83 [Left Arm] O2 Sat by Pulse 99 Oximetry 07/03/16 13:34 Temperature Pulse Rate Pulse Rate [ Left Brachial] Respiratory Rate Blood Pressure 127/80 Blood Pressure [Left Arm] O2 Sat by Pulse Oximetry General appearance: Present: no acute distress, well-nourished - EENT Eyes: PERRL, EOM intact ENT: hearing intact, clear oral mucosa Ears: bilateral: normal - Neck Neck: supple, normal ROM - Respiratory Respiratory effort: normal Respiratory: bilateral: CTA - Cardiovascular Rhythm: regular Heart Sounds: Present: S1 & S2. Absent: gallop, rub Extremities: pulses intact, No edema, normal color, Full ROM - Gastrointestinal General gastrointestinal: Present: soft, non-tender, non-distended, normal bowel sounds - Genitourinary Female genitourinary: normal - Integumentary Integumentary: clear, warm, dry - Musculoskeletal Musculoskeletal: right sided weakness - Neurologic Neurologic: other (hemiparesis) - Psychiatric Psychiatric: appropriate mood/affect - Labs CBC & Chem 7: 06/22/16 09:10 06/22/16 09:10
[2016-07-04] MEDS: NORMODYNE PO SCH ×3 (05:40→22:44)
[2016-07-04] MEDS: LOVENOX SUB-Q SCH (09:45)
[2016-07-04] MEDS: ZESTRIL PO SCH (09:45)
[2016-07-04] MEDS: HCTZ PO SCH (09:45)
[2016-07-04] MEDS: PEPCID PO SCH ×2 (09:45→22:44)
[2016-07-04] MEDS: K-DUR PO SCH ×2 (09:46→22:43)
[2016-07-04] MEDS: DILANTIN PO SCH ×2 (09:46→22:44)
--- NOTE | 2016-07-04 15:54 | Progress Note ---
Assessment and Plan 1. Status epilepticus. Resolved. Continue seizure precautions. Continue phenytoin. Continue when necessary Ativan. Patient did have some recurrence of seizures during hospitalization. No other seizure noted today. We'll continue to monitor. Discharge when placement available 2. Acute hypoxic respiratory failure. Extubated. Resolved 3. Hypertension: Controlled Continue other antihypertensive medications. 4. Intractable vomiting. Resolved. Continue Zofran when necessary. KUB was negative. 5. 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 Continue supportive care. 6. DVT prophylaxis. Lovenox daily. Encourage ambulation Disposition-No change yet. No input from family yet. Awaiting placement. Time spent 25 mins Subjective Date of service: 07/04/16 Principal diagnosis: Seizures; Acute Resp Failure s/p MVS Interval history: No new complaints Remains aphasic, with right hemiparesis Objective - Constitutional Vitals: Vital Signs - 12hr 07/04/16 07/04/16 07/04/16 05:40 08:07 09:45 Temperature 97.6 F Pulse Rate 88 87 Pulse Rate [ 86 Left Brachial] Respiratory 20 Rate Blood Pressure 131/88 119/77 Blood Pressure 119/77 [Left Arm] O2 Sat by Pulse 97 Oximetry General appearance: Present: no acute distress - EENT Eyes: PERRL - Neck Neck: supple - Respiratory Respiratory: bilateral: CTA - Cardiovascular Rhythm: regular Extremities: no ischemia, No edema - Gastrointestinal General gastrointestinal: Present: soft, non-tender, non-distended - Integumentary Integumentary: clear, warm, dry - Musculoskeletal Musculoskeletal: right sided weakness - Labs CBC & Chem 7: 06/22/16 09:10 06/22/16 09:10
[2016-07-05] MEDS: NORMODYNE PO SCH ×3 (07:23→21:35)
--- NOTE | 2016-07-05 08:06 | Progress Note ---
Assessment and Plan - Patient Problems (1) Acute respiratory failure with hypoxia Current Visit: Yes Status: Acute Plan to address problem: Resolved (2) Seizure Current Visit: Yes Status: Acute Plan to address problem: Patient had an episode of seizure activity 06/29/2016 because of Dilantin level was low. Dilantin level has been increased to twice a day. No further seizure activity. We will continue to evaluate. Patient awaiting placement (3) Essential hypertension Current Visit: Yes Status: Acute Plan to address problem: Blood pressure well controlled History Interval history: Patient awake alert feels fine today Hospitalist Physical - Constitutional Vitals: Temp Pulse Resp BP Pulse Ox 97.9 F 90 20 114/74 99 07/04/16 23:00 07/05/16 07:23 07/04/16 23:00 07/04/16 23:00 07/04/16 23:00 General appearance: Present: no acute distress - EENT Eyes: Present: PERRL, EOM intact ENT: hearing intact, clear oral mucosa - Neck Neck: Present: supple, normal ROM - Respiratory Respiratory effort: normal Respiratory: bilateral: CTA - Cardiovascular Rhythm: regular Heart Sounds: Present: S1 & S2 - Abdominal General gastrointestinal: soft, non-tender, non-distended, normal bowel sounds - Psychiatric Psychiatric: appropriate mood/affect, intact judgment & insight - Neurologic Neurologic: CNII-XII intact, moves all extremities Results - Labs CBC & Chem 7: 06/22/16 09:10 06/22/16 09:10 Labs: Laboratory Last Values WBC 9.0 K/mm3 (4.5-11.0) 06/22/16 09:10 RBC 4.57 M/mm3 (3.65-5.03) 06/22/16 09:10 Hgb 11.5 gm/dl (10.1-14.3) 06/22/16 09:10 Hct 36.4 % (30.3-42.9) 06/22/16 09:10 MCV 80 fl (79-97) 06/22/16 09:10 MCH 25 pg (28-32) L 06/22/16 09:10 MCHC 32 % (30-34) 06/22/16 09:10 RDW 16.3 % (13.2-15.2) H 06/22/16 09:10 Plt Count 386 K/mm3 (140-440) 06/22/16 09:10 Lymph % (Auto) 24.0 % (13.4-35.0) 06/22/16 09:10 [place] % (Auto) 9.9 % (0.0-7.3) H 06/22/16 09:10 Eos % (Auto) 1.3 % (0.0-4.3) 06/22/16 09:10 Baso % (Auto) 0.4 % (0.0-1.8) 06/22/16 09:10 Lymph # 2.2 K/mm3 (1.2-5.4) 06/22/16 09:10 [place] # 0.9 K/mm3 (0.0-0.8) H 06/22/16 09:10 Eos # 0.1 K/mm3 (0.0-0.4) 06/22/16 09:10 Baso # 0.0 K/mm3 (0.0-0.1) 06/22/16 09:10 Seg Neutrophils % 64.4 % (40.0-70.0) 06/22/16 09:10 Seg Neutrophils # 5.8 K/mm3 (1.8-7.7) 06/22/16 09:10 POC ABG pH 7.453 (7.35-7.45) H 05/27/16 10:13 POC ABG pCO2 34.7 (35-45) L 05/27/16 10:13 POC ABG pO2 90 (80-105) 05/27/16 10:13 POC ABG HCO3 24.3 05/27/16 10:13 POC ABG Total CO2 25 05/27/16 10:13 POC ABG O2 Sat 97 05/27/16 10:13 POC ABG Base Excess 0 05/27/16 10:13 FiO2 21 % 05/27/16 10:13 Sodium 138 mmol/L (137-145) 06/22/16 09:10 Potassium 4.1 mmol/L (3.6-5.0) 06/22/16 09:10 Chloride 98.8 mmol/L (98-107) 06/22/16 09:10 Carbon Dioxide 23 mmol/L (22-30) 06/22/16 09:10 Anion Gap 20 mmol/L 06/22/16 09:10 BUN 9 mg/dL (7-17) 06/22/16 09:10 Creatinine 0.7 mg/dL (0.7-1.2) 06/22/16 09:10 Estimated GFR > 60 ml/min 06/22/16 09:10 BUN/Creatinine Ratio 12.85 % 06/22/16 09:10 Glucose 142 mg/dL (65-100) H 06/22/16 09:10 Calcium 8.9 mg/dL (8.4-10.2) 06/22/16 09:10 Magnesium 2.0 mg/dL (1.7-2.3) 06/01/16 06:14 Total Bilirubin 0.2 mg/dL (0.1-1.2) 06/22/16 09:10 AST 28 units/L (5-40) 06/22/16 09:10 ALT 70 units/L (7-56) H 06/22/16 09:10 Alkaline Phosphatase 122 units/L (35-129) 06/22/16 09:10 Total Creatine Kinase 108 units/L (30-135) 05/11/16 10:49 Total Protein 7.8 g/dL (6.3-8.2) 06/22/16 09:10 Albumin 4.1 g/dL (3.9-5) 06/22/16 09:10 Albumin/Globulin Ratio 1.1 % 06/22/16 09:10 Phenytoin 5.1 mg/L (10.0-20.0) L 06/29/16 09:42
[2016-07-05] MEDS: HCTZ PO SCH (11:43)
[2016-07-05] MEDS: PEPCID PO SCH ×2 (11:43→21:35)
[2016-07-05] MEDS: DILANTIN PO SCH ×2 (11:44→21:35)
[2016-07-05] MEDS: ZESTRIL PO SCH (11:44)
[2016-07-05] MEDS: LOVENOX SUB-Q SCH (11:45)
[2016-07-05] MEDS: K-DUR PO SCH ×2 (11:45→21:35)
[2016-07-06] MEDS: NORMODYNE PO SCH ×3 (05:46→23:08)
[2016-07-06 05:50] LABS: Basophils % (Auto) 0.3 % (0.0-1.8); Eosinophils % (Auto) 2.9 % (0.0-4.3); Hematocrit 34.9 % (30.3-42.9); Hemoglobin 11.2 gm/dl (10.1-14.3); Mean Corpuscular HGB Conc 32 % (30-34); Mean Corpuscular Volume 79 fl (79-97); Platelet Count 385 K/mm3 (140-440); White Blood Count 7.3 K/mm3 (4.5-11.0)
[2016-07-06 06:10] LABS: Mean Corpuscular Hemoglobin 26 pg (28-32)
[2016-07-06 06:16] LABS: Alanine Aminotransferase 52 units/L (7-56); Albumin 3.8 g/dL (3.9-5); Albumin/Globulin Ratio 1.1 %; Alkaline Phosphatase 131 units/L (35-129); Anion Gap 20 mmol/L; BUN/Creatinine Ratio 12.85; Bilirubin,Total 0.2 mg/dL (0.1-1.2); Blood Urea Nitrogen 9 mg/dL (7-17); Calcium 8.9 mg/dL (8.4-10.2); Carbon Dioxide 24 mmol/L (22-30); Chloride 97.7 mmol/L (98-107); Glucose 88 mg/dL (65-100); Sodium 138 mmol/L (137-145); Total Protein 7.2 g/dL (6.3-8.2)
[2016-07-06] MEDS: K-DUR PO SCH ×2 (10:33→23:07)
[2016-07-06] MEDS: ZESTRIL PO SCH (10:33)
[2016-07-06] MEDS: PEPCID PO SCH ×2 (10:34→23:08)
[2016-07-06] MEDS: LOVENOX SUB-Q SCH (10:34)
[2016-07-06] MEDS: HCTZ PO SCH (10:34)
[2016-07-06] MEDS: DILANTIN PO SCH ×2 (10:34→23:09)
--- NOTE | 2016-07-06 15:31 | Progress Note ---
Assessment and Plan - Patient Problems (1) Acute respiratory failure with hypoxia Current Visit: Yes Status: Acute Plan to address problem: Resolved (2) Essential hypertension Current Visit: Yes Status: Acute Plan to address problem: Well-controlled Continue present medication (3) Right hemiplegia Current Visit: Yes Status: Acute Plan to address problem: Continue aspirin Continue physical therapy (4) Seizure Current Visit: Yes Status: Acute Plan to address problem: Continue Dilantin Check Dilantin levels Subjective Date of service: 07/06/16 Principal diagnosis: Seizures; Acute Resp Failure s/p MVS Interval history: Patient is awake and alert but not oriented. She is aphasic. She is unable to follow even simple commands. Not in any distress Objective - Constitutional Vitals: Vital Signs - 12hr 07/06/16 07/06/16 07/06/16 05:46 07:45 10:33 Temperature 97.6 F Pulse Rate 100 H Pulse Rate [ 85 Left Radial] Respiratory 18 Rate Blood Pressure 122/84 119/72 Blood Pressure 119/72 [Left Arm] O2 Sat by Pulse 98 Oximetry General appearance: Present: no acute distress - EENT Eyes: PERRL, EOM intact ENT: hearing intact - Neck Neck: supple, normal ROM, no masses or JVD - Respiratory Respiratory effort: normal Respiratory: bilateral: CTA - Breasts Breasts: deferred - Cardiovascular Rhythm: regular Heart Sounds: Present: S1 & S2 Extremities: No edema - Gastrointestinal General gastrointestinal: Present: soft, non-tender. Absent: hepatomegaly, splenomegaly - Integumentary Integumentary: clear - Musculoskeletal Musculoskeletal: right sided weakness (right upper extremity power is 1 over 5 and right lower extremity pulses 3 over 5), other (moderately large right lipoma in the mid back) - Neurologic Neurologic: other (she is aphasic) - Labs CBC & Chem 7: 07/06/16 05:08 07/06/16 05:08 Labs: Abnormal lab results 07/06/16 07/06/16 Range/Units 05:08 05:08 MCH 26 L (28-32) pg RDW 16.0 H (13.2-15.2) % [place] % (Auto) 13.6 H (0.0-7.3) % [place] # 1.0 H (0.0-0.8) K/mm3 Chloride 97.7 L (98-107) mmol/L Alkaline Phosphatase 131 H (35-129) units/L Albumin 3.8 L (3.9-5) g/dL
[2016-07-07] MEDS: NORMODYNE PO SCH ×3 (05:34→21:29)
[2016-07-07] MEDS: LOVENOX SUB-Q SCH (10:56)
[2016-07-07] MEDS: HCTZ PO SCH (10:57)
[2016-07-07] MEDS: ZESTRIL PO SCH (10:57)
[2016-07-07] MEDS: DILANTIN PO SCH ×2 (10:57→21:30)
[2016-07-07] MEDS: K-DUR PO SCH ×2 (10:58→21:29)
[2016-07-07] MEDS: PEPCID PO SCH ×2 (10:58→21:30)
--- NOTE | 2016-07-07 12:40 | Progress Note ---
Assessment and Plan - Patient Problems (1) Acute respiratory failure with hypoxia Current Visit: Yes Status: Acute Plan to address problem: Resolved (2) Essential hypertension Current Visit: Yes Status: Acute Plan to address problem: Well-controlled continue present medications (3) Right hemiplegia Current Visit: Yes Status: Acute Plan to address problem: Continue aspirin Continue physical therapy Discussed with nurse outreach case manager about her disposition and I was told that they're working on it (4) Seizure Current Visit: Yes Status: Acute Plan to address problem: Continue Dilantin Dilantin levels checked and are in the therapeutic range Subjective Date of service: 07/07/16 Principal diagnosis: Seizures; Acute Resp Failure s/p MVS Interval history: No new acute events noted overnight Awake, dysarthric and confused Objective - Constitutional Vitals: Vital Signs - 12hr 07/07/16 07/07/16 07/07/16 05:34 08:00 10:57 Temperature 98.4 F Pulse Rate 94 H 90 Pulse Rate [ 90 Left Brachial] Respiratory 18 Rate Blood Pressure 122/89 124/72 Blood Pressure 123/72 [Left Arm] O2 Sat by Pulse 97 Oximetry General appearance: Present: no acute distress - EENT Eyes: PERRL, EOM intact ENT: hearing intact, clear oral mucosa - Neck Neck: supple, normal ROM - Respiratory Respiratory effort: normal Respiratory: bilateral: CTA - Cardiovascular Rhythm: regular Heart Sounds: Present: S1 & S2 Extremities: No edema - Gastrointestinal General gastrointestinal: Present: soft, non-tender - Integumentary Integumentary: clear - Musculoskeletal Musculoskeletal: right sided weakness - Psychiatric Psychiatric: other (confused and poor insight) - Labs CBC & Chem 7: 07/06/16 05:08 07/06/16 05:08
[2016-07-08] MEDS: NORMODYNE PO SCH ×3 (05:14→21:20)
[2016-07-08] MEDS: DILANTIN PO SCH ×2 (09:53→21:21)
[2016-07-08] MEDS: LOVENOX SUB-Q SCH (09:53)
[2016-07-08] MEDS: HCTZ PO SCH (09:54)
[2016-07-08] MEDS: PEPCID PO SCH ×2 (09:54→21:20)
[2016-07-08] MEDS: ZESTRIL PO SCH (09:54)
[2016-07-08] MEDS: K-DUR PO SCH ×2 (09:54→21:21)
--- NOTE | 2016-07-08 15:49 | Progress Note ---
Assessment and Plan - Patient Problems (1) Acute respiratory failure with hypoxia Current Visit: Yes Status: Acute Plan to address problem: Resolved (2) Essential hypertension Current Visit: Yes Status: Acute Plan to address problem: Well-controlled continue present medications (3) Right hemiplegia Current Visit: Yes Status: Acute Plan to address problem: Continue aspirin Continue physical therapy Discussed with employment case manager about her disposition and I was told that they're working on it and she will be transported to [place] when arrangements are made (4) Seizure Current Visit: Yes Status: Acute Plan to address problem: Continue Dilantin Dilantin levels checked and are in the therapeutic range Subjective Date of service: 07/08/16 Principal diagnosis: Seizures; Acute Resp Failure s/p MVS Interval history: No new acute events noted overnight Awake, dysarthric and confused Objective - Constitutional Vitals: Vital Signs - 12hr 07/08/16 07/08/16 07/08/16 05:14 07:18 09:54 Temperature 98.0 F Pulse Rate 85 100 H Pulse Rate [ 85 Left Brachial] Respiratory 16 Rate Blood Pressure 120/82 119/81 Blood Pressure 118/69 [Left Arm] O2 Sat by Pulse 99 Oximetry 07/08/16 15:21 Temperature 98.4 F Pulse Rate Pulse Rate [ 101 H Left Brachial] Respiratory 20 Rate Blood Pressure Blood Pressure 144/72 [Left Arm] O2 Sat by Pulse 100 Oximetry General appearance: Present: no acute distress, obese - EENT Eyes: PERRL, EOM intact ENT: hearing intact - Neck Neck: supple, normal ROM - Respiratory Respiratory effort: normal Respiratory: bilateral: CTA - Cardiovascular Rhythm: regular Heart Sounds: Present: S1 & S2 Extremities: No edema - Gastrointestinal General gastrointestinal: Present: soft, non-tender. Absent: hepatomegaly, splenomegaly - Integumentary Integumentary: clear - Musculoskeletal Musculoskeletal: right sided weakness (rt. UE power1/5, moves all other extremities) - Labs CBC & Chem 7: 07/06/16 05:08 07/06/16 05:08
[2016-07-09] MEDS: NORMODYNE PO SCH ×3 (05:30→23:02)
--- NOTE | 2016-07-09 10:12 | Progress Note ---
Assessment and Plan - Patient Problems (1) Acute respiratory failure with hypoxia Current Visit: Yes Status: Acute (2) Seizure Current Visit: Yes Status: Acute (3) Essential hypertension Current Visit: Yes Status: Acute Hospitalist Physical - Constitutional Vitals: Temp Pulse Resp BP Pulse Ox 98.1 F 95 H 20 115/82 99 07/09/16 08:00 07/09/16 08:00 07/09/16 08:00 07/09/16 08:00 07/09/16 08:00 General appearance: Present: no acute distress, obese Results - Labs CBC & Chem 7: 07/06/16 05:08 07/06/16 05:08 Labs: Laboratory Last Values WBC 7.3 K/mm3 (4.5-11.0) 07/06/16 05:08 RBC 4.40 M/mm3 (3.65-5.03) 07/06/16 05:08 Hgb 11.2 gm/dl (10.1-14.3) 07/06/16 05:08 Hct 34.9 % (30.3-42.9) 07/06/16 05:08 MCV 79 fl (79-97) 07/06/16 05:08 MCH 26 pg (28-32) L 07/06/16 05:08 MCHC 32 % (30-34) 07/06/16 05:08 RDW 16.0 % (13.2-15.2) H 07/06/16 05:08 Plt Count 385 K/mm3 (140-440) 07/06/16 05:08 Lymph % (Auto) 32.7 % (13.4-35.0) 07/06/16 05:08 Steele % (Auto) 13.6 % (0.0-7.3) H 07/06/16 05:08 Eos % (Auto) 2.9 % (0.0-4.3) 07/06/16 05:08 Baso % (Auto) 0.3 % (0.0-1.8) 07/06/16 05:08 Lymph # 2.4 K/mm3 (1.2-5.4) 07/06/16 05:08 Steele # 1.0 K/mm3 (0.0-0.8) H 07/06/16 05:08 Eos # 0.2 K/mm3 (0.0-0.4) 07/06/16 05:08 Baso # 0.0 K/mm3 (0.0-0.1) 07/06/16 05:08 Seg Neutrophils % 50.5 % (40.0-70.0) 07/06/16 05:08 Seg Neutrophils # 3.7 K/mm3 (1.8-7.7) 07/06/16 05:08 POC ABG pH 7.453 (7.35-7.45) H 05/27/16 10:13 POC ABG pCO2 34.7 (35-45) L 05/27/16 10:13 POC ABG pO2 90 (80-105) 05/27/16 10:13 POC ABG HCO3 24.3 05/27/16 10:13 POC ABG Total CO2 25 05/27/16 10:13 POC ABG O2 Sat 97 05/27/16 10:13 POC ABG Base Excess 0 05/27/16 10:13 FiO2 21 % 05/27/16 10:13 Sodium 138 mmol/L (137-145) 07/06/16 05:08 Potassium 4.0 mmol/L (3.6-5.0) 07/06/16 05:08 Chloride 97.7 mmol/L (98-107) L 07/06/16 05:08 Carbon Dioxide 24 mmol/L (22-30) 07/06/16 05:08 Anion Gap 20 mmol/L 07/06/16 05:08 BUN 9 mg/dL (7-17) 07/06/16 05:08 Creatinine 0.7 mg/dL (0.7-1.2) 07/06/16 05:08 Estimated GFR > 60 ml/min 07/06/16 05:08 BUN/Creatinine Ratio 12.85 % 07/06/16 05:08 Glucose 88 mg/dL (65-100) 07/06/16 05:08 Calcium 8.9 mg/dL (8.4-10.2) 07/06/16 05:08 Magnesium 2.0 mg/dL (1.7-2.3) 06/01/16 06:14 Total Bilirubin 0.2 mg/dL (0.1-1.2) 07/06/16 05:08 AST 23 units/L (5-40) 07/06/16 05:08 ALT 52 units/L (7-56) 07/06/16 05:08 Alkaline Phosphatase 131 units/L (35-129) H 07/06/16 05:08 Total Creatine Kinase 108 units/L (30-135) 05/11/16 10:49 Total Protein 7.2 g/dL (6.3-8.2) 07/06/16 05:08 Albumin 3.8 g/dL (3.9-5) L 07/06/16 05:08 Albumin/Globulin Ratio 1.1 % 07/06/16 05:08 Phenytoin 14.2 mg/L (10.0-20.0) 07/07/16 08:03
[2016-07-09] MEDS: HCTZ PO SCH (10:49)
[2016-07-09] MEDS: LOVENOX SUB-Q SCH (10:49)
[2016-07-09] MEDS: ZESTRIL PO SCH (10:49)
[2016-07-09] MEDS: PEPCID PO SCH ×2 (10:49→23:03)
[2016-07-09] MEDS: K-DUR PO SCH ×2 (10:49→23:02)
[2016-07-09] MEDS: DILANTIN PO SCH ×2 (10:50→23:03)
--- NOTE | 2016-07-09 13:21 | Discharge Summary ---
Providers - Providers Date of Admission: 05/11/16 13:20 Date of discharge: 07/09/16 Attending physician: NANCY MAZARIEGOS 05/16/16 11:59 Occupational Therapy Evaluate and Treat [CONS] Routine Comment: Reason For Exam: debility- discharge planning Physical Therapy Evaluation and Treat [CONS] Routine Comment: Reason For Exam: debility. discharge planning 05/28/16 16:13 Physical Therapy Evaluation and Treat [CONS] Routine Comment: Reason For Exam: debility 05/11/16 13:23 Consult to Dietitian/Nutrition [CONS] Routine Physician Instructions: Reason For Exam: Reason for Consult: Evaluate nutritional intake 05/12/16 13:35 Consult to Physician [CONS] Urgent Consulting Provider: NANCY TRUJILLO Reason For Exam: Seziures Place consult to:: office Notified:: office Phone number called:: [phone] Was contact made?: Yes If yes, spoke with:: receptionest Time called:: 09:00 Primary care physician: LO[employer] OUT SUPERVISOR Hospitalization Condition: Serious Hospital course: The patient was brought in for convulsive seizures. Apparently a positive report the seizures lasted about 25 minutes and only Procardia she received Ativan by EMS. Upon arrival to the hospital on patient was subsequently intubated. Unable to obtain any further history patient is intubated. Patient was admitted to the hospital and to the ICU after presenting with respiratory distress and seizure activity. Patient was subsequently intubated and followed by pulmonary medicine patient clinically status improved. Patient was admitted with status epilepticus which resolved and she was continued on seizure precautions. Patient was continued on phenytoin and Ativan as needed. Patient was evaluated by neurology patient was subsequently extubated from the acute hypoxic respiratory failure became clinically stable. Patient had intractable nausea and vomiting which resolved she is continued on Zofran as necessary. Patient had a KUB that was negative. Patient also had a history of cerebral aneurysm and [employer] DEC[employer] shunt. No acute findings his hospitalization. Patient hospitalization was prolonged secondary to placement issues. Case management was able to contact the patient's brother who will come to take her back to [place] with him. Patient is clinically stable at this time and will need to follow with the primary care physician in [place]. Disposition: DISCHARGED TO HOME OR SELFCARE - Discharge Diagnoses (1) Acute respiratory failure with hypoxia Status: Acute (2) Seizure Status: Acute (3) Essential hypertension Status: Acute Core Measure Documentation - Palliative Care Palliative Care/ Comfort Measures: Not Applicable - Core Measures Any of the following diagnoses?: none Exam - Constitutional Vitals: Temp Pulse Resp BP Pulse Ox 98.1 F 95 H 20 115/82 99 07/09/16 08:00 07/09/16 10:49 07/09/16 08:00 07/09/16 10:49 07/09/16 08:00 General appearance: Present: no acute distress - EENT Eyes: Present: PERRL, EOM intact ENT: hearing intact, clear oral mucosa - Neck Neck: Present: supple, normal ROM - Respiratory Respiratory effort: normal Respiratory: bilateral: CTA - Cardiovascular Rhythm: regular Heart Sounds: Present: S1 & S2 - Extremities Extremities: no ischemia, No edema - Abdominal General gastrointestinal: Present: soft, non-tender, non-distended, normal bowel sounds Plan Activity: advance as tolerated Weight Bearing Status: Weight Bear as Tolerated Diet: low fat, low cholesterol, low salt Follow up with: PRIMARY CARE, [Primary Care Provider] - 3-5 Days Prescriptions: Famotidine [Pepcid] 20 mg PO BID #60 tablet Lisinopril/Hydrochlorothiazide [Zestoretic 10-12.5 mg] 1 tab PO QDAY #30 tablet Metoprolol Tartrate [Lopressor] 25 mg PO BID #60 tablet Mirtazapine 15 mg PO QHS #30 tablet Phenytoin [Dilantin] 200 mg PO BID 30 Days Phenytoin [Dilantin] 200 mg PO BID #60 capsule.er
[2016-07-10] MEDS: NORMODYNE PO SCH (06:00)
[2016-07-10] MEDS: DILANTIN PO SCH (09:55)
[2016-07-10] MEDS: PEPCID PO SCH (09:56)
[2016-07-10] MEDS: LOVENOX SUB-Q SCH (09:56)
[2016-07-10] MEDS: K-DUR PO SCH (09:56)
[2016-07-10] MEDS: ZESTRIL PO SCH (10:00)
[2016-07-10] MEDS: HCTZ PO SCH (10:01)
[2016-07-10 16:07] VITALS: BP 128/70
== END 2016-07-10 15:30 | disposition home or self-care (01) | DRG 208 ==
LOC: ED 09:54 → CC1 13:20 → 3A 05-13 21:54 → CC1 05-13 22:19 → 3A 05-13 22:40
PROVIDERS: ADMIT Internal Medicine; ATTEND Internal Medicine
PROC: 5A1935Z Respiratory Ventilation, Less than 24 Consecutive Hours (ICD-10-PCS; principal; 2016-05-11)
PROC: 0BH17EZ Insertion of Endotracheal Airway into Trachea, Via Natural or Artificial Opening (ICD-10-PCS; 2016-05-11)
PROC: 4A03XJ1 Measurement of Arterial Pulse, Peripheral, External Approach (ICD-10-PCS; 2016-06-26)
DX: J96.01 Acute respiratory failure with hypoxia (principal); J69.0 Pneumonitis due to inhalation of food and vomit; G40.211 Localization-related (focal) (partial) symptomatic epilepsy and epileptic syndromes with complex partial seizures, intractable, with status epilepticus; G81.91 Hemiplegia, unspecified affecting right dominant side; I10 Essential (primary) hypertension; E87.6 Hypokalemia; J02.0 Streptococcal pharyngitis; E66.9 Obesity, unspecified; Z68.35 Body mass index [BMI] 35.0-35.9, adult; Z86.79 Personal history of other diseases of the circulatory system
CPT/HCPCS: 36415; 36600; 70450; 71010; 71020; 74000; 80048; 80053; 80185; 82550; 82803; 83735; 85025; 85027; 87070; 87205; 90686; 90732; 94002; 94003; 94760; 95819; 96361; 96374; J0330; J0610; J1165; J1650; J2001; J2060; J2250; J2405; J3010; J3480; J7030